=== PATIENT | male | born 1985 | race Caucasian/White ===

== ENCOUNTER 2023-02-12 05:56 | Emergency (ER) | payer MEDICARE, MEDICAID, SELFPAY ==
[2023-02-12 06:02] VITALS: BP 112/76; PULSE 76; RESP 18; TEMP 36.1; O2SAT 99; BMI 33.1
--- NOTE | 2023-02-12 06:17 | ED.GENADULT ---
HPI - General Adult General Chief complaint: Sore Throat Stated complaint: ears and throat pain Time Seen by Provider: 02/12/23 05:59 Source: patient Mode of arrival: ambulatory Limitations: no limitations History of Present Illness HPI narrative: Patient presents with a 4 day history of sore throat. Worse on the right side, refers into the right ear. No significant cough or congestion. No fevers. Hurts to swallow but no true difficulty swallowing. Has not tried NSAIDs. Did try dose of Tylenol last night which did not adequately relieved his symptoms. Is also not getting any relief from Mucinex. He is able to swallow. No tongue or lip swelling. No breathing difficulty. Was treated in the ED for strep a couple of months ago, resolved without complication. No known illness exposures. No trauma or injury. Past medical history notable for anxiety disorder. Takes propranolol and citalopram for this. No recent changes. Social history noted. No recent surgeries. ROS is notable for the HEENT and generalized symptoms as above, otherwise denies times 12 systems. Related Data Home Medications Medication Instructions Recorded Confirmed citalopram 20 mg tablet 20 mg PO DAILY 02/12/23 02/12/23 propranolol 10 mg tablet 10 mg PO BID 02/12/23 02/12/23 Previous Rx's Medication Instructions Recorded ketorolac 10 mg tablet 10 mg PO Q6H PRN pain 5 days #20 02/12/23 tabs Allergies Allergy/AdvReac Type Severity Reaction Status Date / Time azithromycin Allergy Rash Verified 12/24/22 21:11 Penicillins Allergy Verified 12/24/22 21:11 tetracycline Allergy Verified 12/24/22 21:11 [facility] Social History Smoking Status: Current every day smoker Do you use any of these nicotine containing products: None How often do you have a drink containing alcohol: monthly or less AUDIT-C Alcohol total score: 1 Non-prescribed substance use: denies use Exam Const: Vital Signs, click to edit/add: Vital Signs - 24 hr 02/12/23 06:02 Temperature 97 F L Pulse Rate [Pulse Oximeter] 76 Respiratory Rate 18 Blood Pressure [Le ft Upper Arm] 112/76 Pulse Oximetry 99 Oxygen Delivery Me thod Room Air Documenting provider has reviewed patient's vital signs: yes Common normals: no apparent distress General appearance: cooperative Other: Anxious but normal judgment. HENMT: Common normals: normocephalic and head/scalp atraumatic Head and scalp: normocephalic and atraumatic Face and sinus: normal facial exam Other: Right ear is mildly injected but has a normal light reflex, no effusion. Canal is normal. Left ear is perfectly normal. No significant nasal congestion. Eye: Common normals: conjunctivae normal General eye: normal appearance of both eyes Conjunctiva: conjunctiva(e) normal Neck & C-Spine: Other: Mild anterior cervical and submandibular lymphadenopathy. Normal range of motion of neck. Resp: Common normals: normal respiratory effort, no use of accessory muscles and clear to auscultation bilaterally Effort & inspection: able to speak in complete sentences Auscultation: clear to auscultation bilaterally Cardio: Common normals: regular rate, regular rhythm, S1 normal heart sound, S2 normal heart sound and no murmurs Rate: regular rate Rhythm: regular rhythm Heart sounds: S1 normal and S2 normal Psych: Other: Mildly anxious but cooperative. Seems to have normal reasoning and judgment. Normal behavior. Skin: Common normals: no rashes or lesions noted General skin exam: no rashes or lesions noted Course Course Hospital Course: No signs of clinical dehydration, no swelling of pharyngeal arches. No asymmetry that would be suspicious for abscess. No signs of tachycardia or hypotension. Recommended strep and viral swabs. Will give Toradol p.o. x1. Poor candidate for steroids due to anxiety disorder. Will re-evaluate 1 swabs are back. Reevaluation(s) Time of Reevaluation #1: 07:11 Reevaluation #1: All swabs negative. Patient reporting improvement on Toradol. Discussed proper dosing of Tylenol. Will send prescription for Toradol to use as well. Discussed saltwater gargles, alarm symptoms that would warrant ED presentation and typical course of healing. He verbalizes understanding and agreement Vital Signs Vital signs: Initial Vital Signs Temperature 97 F L 02/12/23 06:02 Temperature Source Temporal Artery Scan 02/12/23 06:02 Pulse Rate 76 02/12/23 06:02 Respiratory Rate 18 02/12/23 06:02 Blood Pressure 112/76 02/12/23 06:02 Blood Pressure Mean 88 02/12/23 06:02 Blood Pressure Position Sitting 02/12/23 06:02 Pulse Oximetry 99 02/12/23 06:02 Oxygen Delivery Method Room Air 02/12/23 06:02 Vital Signs Temperature 97 F L 02/12/23 06:02 Pulse Rate 76 02/12/23 06:02 Respiratory Rate 18 02/12/23 06:02 Blood Pressure 112/76 02/12/23 06:02 Pulse Oximetry 99 02/12/23 06:02 Oxygen Delivery Method Room Air 02/12/23 06:02 Temperature 97 F L 02/12/23 06:02 Pulse Rate 76 02/12/23 06:02 Respiratory Rate 18 02/12/23 06:02 Blood Pressure 112/76 02/12/23 06:02 Pulse Oximetry 99 02/12/23 06:02 Oxygen Delivery Method Room Air 02/12/23 06:02 Medical Decision Making Lab Data Lab results reviewed: Yes I reviewed the patient's lab results Lab results narrative: All reassuring, as expected Labs: Lab Results 02/12/23 Range/Units 06:11 SARS-CoV-2 (PCR) Negative SARS-CoV-2 (Negative) Influenza Type A (PCR) Negative PCR FLU A (Negative) Influenza Type B (PCR) Negative PCR FLU B (Negative) RSV (PCR) Negative PCR RSV (Negative) Group A Strep DNA NOT DETECTED (Not Detectd) Discharge Plan Discharge Clinical Impression: Acute viral pharyngitis Patient Disposition: Home, Self-Care Condition: Improved Instructions: Pharyngitis (ED) Additional Instructions: As we discussed, your swabs for strep, COVID, influenza and RSV are all negative. This is great news. Most of the time these types of mild infections are caused by a different virus that we cannot detect with our swabs. The good news is that the viruses heal on their own within a couple of weeks. I am glad that the Toradol seemed to help. This is a medication you may continue on up to 4 times daily for up to 5 days. Remember that you can also use Tylenol 1000 mg every 6 hours also in addition to the Toradol. Saltwater gargles, cold soft foods and drinking lots of fluids will certainly help as well. As we discussed, avoid carbonated beverages, acidic things, spicy food and rough textures. If you have significant difficulty breathing, cannot hold down any liquids for over 24 hours, have high fever or severe weakness, come back to the emergency department. You are cleared to return to work today. Activity Level: No Restrictions Discharge Diet: Regular Prescriptions: New ketorolac 10 mg tablet 10 mg PO Q6H PRN (Reason: pain) 5 Days Qty: 20 0RF No Action propranolol 10 mg tablet 10 mg PO BID citalopram 20 mg tablet 20 mg PO DAILY Follow Up/Referrals: Troy Ventura MD [Primary Care Provider] - Stand Alone Forms: [employer] Info Instructions
[2023-02-12] MEDS: KETOROLAC 10 MG TABLET PO (06:43)
[2023-02-12 06:46] LABS: Strep A DNA Probe* NOT DETECTED (Not Detectd)
[2023-02-12 06:56] LABS: PCR FLU A Negative PCR FLU A (Negative); PCR FLU B Negative PCR FLU B (Negative); PCR RSV Negative PCR RSV (Negative)
[2023-02-12 07:00] LABS: SARS PCR* Negative SARS-CoV-2 (Negative)
== END 2023-02-12 07:24 | disposition home or self-care (01) ==
PROVIDERS: Emergency Provider Family Medicine; PCP Family Medicine
DX: J02.9 Acute pharyngitis, unspecified (principal)
CPT/HCPCS: 87631; 87651; 99283; A9270

== ENCOUNTER 2023-04-20 23:11 | Emergency (ER) | payer MEDICARE, MEDICAID, SELFPAY ==
[2023-04-20 23:19] VITALS: BP 114/75; PULSE 93; RESP 18; TEMP 37.8; O2SAT 97
--- NOTE | 2023-04-20 23:34 | ED_ITS ---
HPI - General Adult General Date Seen: 04/20/23 Chief complaint: Unspecified Complaint, Adult Stated complaint: body aches, headache,chills Time Seen by Provider: 04/20/23 23:33 Source: patient Mode of arrival: ambulatory Limitations: no limitations History of Present Illness HPI narrative: Patient is a 38-year-old male presents emergency department for muscle aches, fever, fatigue, headache. Says muscle aches started 3 days ago. He is not bear any sick contacts a is aware of his current a working. States he has been taking Tylenol ibuprofen for the symptoms and last took ibuprofen about 2 hours ago with minimal improvement. States he started having headache over the past couple days. Says it feels like the headache starts in the back of the head and comes around to the front of his head. Denies having headaches like this before. Says it has been eating and drinking well but still feels dehydrated. Has had nausea but no vomiting yet. Says all the symptoms seem to come and go. Did have a fever while in triage of 100.1. Denies chest pain, shortness of breath, abdominal pain, diarrhea, constipation, dysuria, numbness, weakness. Related Data Home Medications Medication Instructions Recorded Confirmed citalopram 20 mg tablet 20 mg PO DAILY 02/12/23 02/12/23 propranolol 10 mg tablet 10 mg PO BID 02/12/23 02/12/23 Previous Rx's Medication Instructions Recorded ketorolac 10 mg tablet 10 mg PO Q6H PRN pain 5 days #20 02/12/23 tabs ondansetron 4 mg disintegrating 4 mg PO Q6H #20 tabs 04/21/23 tablet Allergies Allergy/AdvReac Type Severity Reaction Status Date / Time azithromycin Allergy Rash Verified 12/24/22 21:11 Penicillins Allergy Verified 12/24/22 21:11 tetracycline Allergy Verified 12/24/22 21:11 Review of Systems Status of ROS: Reports: 10 or more systems reviewed and unremarkable except as noted in History and below [facility] Social History Smoking Status: Current every day smoker Do you use any of these nicotine containing products: None How often do you have a drink containing alcohol: monthly or less AUDIT-C Alcohol total score: 1 Non-prescribed substance use: denies use Exam Narrative: Exam Narrative: Const: Well-nourished, Well-developed, in mild distress Eyes: PERRL, no conjunctival injection, and symmetrical lids ENMT: Atraumatic external nose and ears. Moist mucous membranes. Neck: Symmetric, trachea midline, No thyromegaly. CVS: RRR, No murmurs or gallops. Peripheral pulses 2+ and equal in all extremities RESP: Unlabored respiratory effort. Clear to auscultation bilaterally. GI: Nontender/Nondistended, No rebound or guarding. MSK:Extremities w/o deformity, Normal Active ROM Skin: Warm, Dry. No rashes or lesions. Neuro: Normal Muscle tone, No focal neurological deficits. Psych: Awake, Alert, & Oriented x3. Appropriate mood and affect. Const: Vital Signs, click to edit/add: Vital Signs - 24 hr 04/20/23 23:19 Temperature 100.1 F H Pulse Rate [Left P ulse Oximeter] 93 Respiratory Rate 18 Blood Pressure [Ri ght Upper Arm] 114/75 Pulse Oximetry 97 Oxygen Delivery Me thod Room Air Course Vital Signs Vital signs: Initial Vital Signs Temperature 100.1 F H 04/20/23 23:19 Temperature Source Temporal Artery Scan 04/20/23 23:19 Pulse Rate 93 04/20/23 23:19 Pulse Rhythm Regular 04/20/23 23:19 Respiratory Rate 18 04/20/23 23:19 Blood Pressure 114/75 04/20/23 23:19 Blood Pressure Mean 88 04/20/23 23:19 Blood Pressure Position Sitting 04/20/23 23:19 Pulse Oximetry 97 04/20/23 23:19 Oxygen Delivery Method Room Air 04/20/23 23:19 Vital Signs Temperature 100.1 F H 04/20/23 23:19 Pulse Rate 93 04/20/23 23:19 Respiratory Rate 18 04/20/23 23:19 Blood Pressure 114/75 04/20/23 23:19 Pulse Oximetry 97 04/20/23 23:19 Oxygen Delivery Method Room Air 04/20/23 23:19 Temperature 100.1 F H 04/20/23 23:19 Pulse Rate 93 04/20/23 23:19 Respiratory Rate 18 04/20/23 23:19 Blood Pressure 114/75 04/20/23 23:19 Pulse Oximetry 97 09/17/23 23:19 Oxygen Delivery Method Room Air 04/20/23 23:19 Medical Decision Making [facility] Narrative Medical decision making narrative: Patient is a 38-year-old male presents emergency department for muscle aches, headache, fever. Symptoms have been going on for the past 3 days. Based on description of headache it sounds like a tension-type headache. Under not believe imaging is necessary at this time. He does state he is feeling dehydrated and a L of lactated Ringer's will be ordered. Reglan was given for his nausea along with some Benadryl. He was also having aim mild elevated temperature 100.1? and Toradol was given to help with that and the headache. COVID and flu test are pending at this time. His symptoms all sound to be viral related. COVID and flu were negative. Patient is doing better at this time and can be discharged home. Lab Data Labs: Lab Results 04/20/23 Range/Units 23:25 SARS-CoV-2 (PCR) Negative SARS-CoV-2 (Negative) Influenza Type A (PCR) Negative PCR FLU A (Negative) Influenza Type B (PCR) Negative PCR FLU B (Negative) ECG Data Attestation: I personally reviewed and interpreted this ECG as follows: Prior ECG tracings: not available for review Interpretation: Normal sinus rhythm rate 88 beats per minute, normal intervals, normal axis, no ST or T-wave abnormalities Discharge Plan Discharge Clinical Impression: Acute viral syndrome Patient Disposition: Home, Self-Care Condition: Stable Instructions: Viral Syndrome (ED) Additional Instructions: Take Tylenol and ibuprofen for symptoms. Return for new or worsening symptoms. Prescriptions: New ondansetron 4 mg tablet,disintegrating 4 mg PO Q6H Qty: 20 0RF No Action propranolol 10 mg tablet 10 mg PO BID citalopram 20 mg tablet 20 mg PO DAILY ketorolac 10 mg tablet 10 mg PO Q6H PRN (Reason: pain) 5 Days Qty: 20 0RF Follow Up/Referrals: Troy Ventura MD [Primary Care Provider] - Stand Alone Forms: [employer] Info Instructions
[2023-04-20] MEDS: KETOROLAC 15 MG/ML inj IVP (23:46)
[2023-04-20] MEDS: diphenhydrAMINE 50 MG/ML inj 25 MG IVP (23:46)
[2023-04-20] MEDS: METOCLOPRAMIDE HCL 5 MG/ML INJ 10 MG IVP (23:47)
[2023-04-20] MEDS: LACTATED RINGERS 1000 ML 1,000 ML IV (23:47)
[2023-04-21 00:10] LABS: PCR FLU A Negative PCR FLU A (Negative); PCR FLU B Negative PCR FLU B (Negative)
[2023-04-21 00:11] LABS: SARS PCR* Negative SARS-CoV-2 (Negative)
[2023-04-21 00:41] VITALS: PULSE 72; RESP 16; O2SAT 98
== END 2023-04-21 00:42 | disposition home or self-care (01) ==
PROVIDERS: Emergency Provider Student in an Organized Health Care Education/Training Program; PCP Family Medicine
DX: B34.9 Viral infection, unspecified (principal)
CPT/HCPCS: 87631; 96374; 96375; 99283; 99284; J1200; J1885; J2765; J7120

== ENCOUNTER 2023-04-22 13:47 | Emergency (ER) | payer MEDICARE, MEDICAID, SELFPAY ==
[2023-04-22 13:51] VITALS: BP 119/71; PULSE 79; RESP 18; TEMP 36.6; O2SAT 96; BMI 33.5
--- NOTE | 2023-04-22 14:10 | CRLHL7_ITS ---
For Patients: As a result of the Cures Act, medical imaging exams and procedure reports are released immediately into your electronic medical record. You may view this report before your referring provider. If you have questions, please contact your health care provider. Indication: Body aches, chills fever sick since last Comparison: Two-view chest December 24, 2022 Technique: PA and lateral views of the chest Findings: There is no dense consolidation, effusion, or pneumothorax. The cardiomediastinal silhouette is within normal limits. The bony thorax is grossly intact. Impression: No acute cardiopulmonary abnormality. Dictated by Rebel Kowalski MD @ 04/22/2023 4:01:58 PM (Electronically Signed)
[2023-04-22 14:34] LABS: Lactate Sepsis w/Reflex* 1.2 mmol/L (0.5-1.9)
--- NOTE | 2023-04-22 14:42 | ED_ITS ---
HPI - General Adult General Date Seen: 04/22/23 Chief complaint: Fever Stated complaint: Body aches, chills Time Seen by Provider: 04/22/23 14:01 Source: patient Mode of arrival: ambulatory Limitations: no limitations History of Present Illness HPI narrative: Patient is a 38-year-old male who presents for re-evaluation of fever, chills, body aches which have been going on for about 5 days now. He was seen here couple days ago, viral testing was negative. He denies sore throat, cough, shortness of breath, abdominal pain, has felt nauseated but no vomiting, no diarrhea, no rashes. No real tick exposure, he has not traveled. Has not been around anybody sick that he is aware of. Symptoms have just persisted, not gotten any better. He feels like the body aches or somewhat worse. He does have a headache as well, no neck pain. Reports a temperature of 101? at home earlier today. Has been taking DayQuil as well as intermittent ibuprofen and Tylenol. General health is good. He does smoke, denies any drug or alcohol use. Related Data Home Medications Medication Instructions Recorded Confirmed citalopram 20 mg tablet 20 mg PO DAILY 02/12/23 02/12/23 propranolol 10 mg tablet 10 mg PO BID 02/12/23 02/12/23 Previous Rx's Medication Instructions Recorded ketorolac 10 mg tablet 10 mg PO Q6H PRN pain 5 days #20 02/12/23 tabs ondansetron 4 mg disintegrating 4 mg PO Q6H #20 tabs 04/21/23 tablet Allergies Allergy/AdvReac Type Severity Reaction Status Date / Time azithromycin Allergy Rash Verified 12/24/22 21:11 Penicillins Allergy Verified 12/24/22 21:11 tetracycline Allergy Verified 12/24/22 21:11 Review of Systems Status of ROS: Reports: 10 or more systems reviewed and unremarkable except as noted in History and below [facility] Social History Smoking Status: Current every day smoker Do you use any of these nicotine containing products: None How often do you have a drink containing alcohol: monthly or less How often do you have six or more drinks on one occasion: Less than monthly AUDIT-C Alcohol total score: 2 Non-prescribed substance use: denies use Exam Narrative: Exam Narrative: Vital signs as noted above. In general, an alert, well-appearing patient. Head: Normocephalic, atraumatic. Eyes: Pupils are equal reactive. Extraocular movements are full. Conjunctivae are normal. ENT: Mucous membranes are moist. Throat is normal. Neck: Supple without lymphadenopathy. Heart: Regular rate and rhythm. No murmur or rub. Lungs: Clear bilaterally. No increased work of breathing, crackles or wheezes. Abdomen: Soft and nontender. No organomegaly. Extremities: Well perfused. No edema. No calf tenderness. Pulses intact. Neurologic: Patient is alert and oriented to person and place. Speech is fluent. Face is symmetric. Moves all extremities equally. Affect: Normal. Skin: Warm and dry. Well perfused. Const: Vital Signs, click to edit/add: Vital Signs - 24 hr 04/22/23 13:51 04/22/23 16:42 Temperature 97.8 F 98.2 F Pulse Rate [Right Pulse Oximeter] 79 65 Respiratory Rate 18 16 Blood Pressure [Ri ght Upper Arm] 119/71 127/82 Pulse Oximetry 96 Oxygen Delivery Me thod Room Air Documenting provider has reviewed patient's vital signs: yes Course Course ED Course: Exam is overall pretty unremarkable for this patient. He is afebrile here, vital signs are normal. Looks nontoxic. I did do some lab work today, he felt he would benefit from more IV fluids so he had a L of saline. His white blood cell count was slightly low at 3.16, platelet count was normal. Metabolic panel is normal, LFTs notable for an AST of 69 and an ALT of 100 but other LFTs are normal. CRP is 5.7. I reviewed all of this with him. It is still certainly possible as symptoms are viral. We talked about the fact that he does have mild elevations in his transaminases, does not otherwise have symptoms that are highly suggestive of hepatitis at this time. I do think it would probably be reasonable to recheck these in a couple of days and make sure that they are not trending up. I would recommend return to the ER if he develops upper abdominal pain, vomiting, or jaundice/icterus. Certainly nothing to suggest meningitis at this time. He did say that he had reviewed his labs on the portal, and was wondering about an HIV test so this has been added on as well. Return to the ER at any time for acute worsening or as outlined above. Otherwise I recommended primary care follow-up in a couple of days for recheck, recheck of LFTs. Hydration, ibuprofen or Tylenol as needed for fever today aches. I also sent off a Lyme titer as well as a tick panel. Vital Signs Vital signs: Initial Vital Signs Temperature 97.8 F 04/22/23 13:51 Temperature Source Temporal Artery Scan 04/22/23 13:51 Pulse Rate 79 04/22/23 13:51 Respiratory Rate 18 04/22/23 13:51 Blood Pressure 119/71 04/22/23 13:51 Blood Pressure Mean 87 04/22/23 13:51 Blood Pressure Position Sitting 04/22/23 13:51 Pulse Oximetry 96 04/22/23 13:51 Oxygen Delivery Method Room Air 04/22/23 13:51 Vital Signs Temperature 97.8 F 04/22/23 13:51 Pulse Rate 79 04/22/23 13:51 Respiratory Rate 18 04/22/23 13:51 Blood Pressure 119/71 04/22/23 13:51 Pulse Oximetry 96 04/22/23 13:51 Oxygen Delivery Method Room Air 04/22/23 13:51 Temperature 98.2 F 04/22/23 16:42 Pulse Rate 65 04/22/23 16:42 Respiratory Rate 16 04/22/23 16:42 Blood Pressure 127/82 04/22/23 16:42 Pulse Oximetry 96 04/22/23 13:51 Oxygen Delivery Method Room Air 04/22/23 13:51 Medical Decision Making Lab Data Labs: Lab Results 04/22/23 04/22/23 Range/Units 14:25 16:28 WBC 3.16 L (4.50-11.00) K/uL RBC 5.35 (4.30-5.90) m/uL Hgb 15.9 (13.5-17.5) gm/dL Hct 46.7 (37.0-53.0) % MCV 87 (80-100) fL MCH 30 (26-34) pg MCHC 34 (32-36) gm/dL RDW Coeff of Daija 12.3 (11.5-15.5) % Plt Count 161 (140-440) K/uL Neut % (Auto) 67.6 (42.0-72.0) % Lymph % (Auto) 19.9 L (20-44) % Mckenzie % (Auto) 10.4 (0.0-11.0) % Eos % (Auto) 0.3 (0.0-7.0) % Baso % (Auto) 0.9 (0.0-3.0) % Neut # (Auto) 2.10 (1.7-7.0) K/uL Lymph # (Auto) 0.60 L (0.90-2.90) K/uL Mckenzie # (Auto) 0.30 (0.00-0.90) K/UL Eos # (Auto) 0.00 (0.00-0.50) K/uL Baso # (Auto) 0.00 (0.00-0.30) K/uL Abs Immat Gran (auto) 0.00 (0.00-0.30) K/uL Imm/Tot Granulo (auto) 0.9 % ESR 7 (2-15) mm/hr Sodium 136 (135-149) mmol/L Potassium 4.1 (3.6-5.1) mmol/L Chloride 104 (96-114) mmol/L Carbon Dioxide 25 (20-32) mmol/L Anion Gap 7 (7-15) mEq/L BUN 7 (5-24) mg/dL Creatinine 0.8 (0.5-1.5) mg/dL Estimated Creat Clear 123.50 Estimated GFR 118 ml/min Glucose 134 H (60-115) mg/dL Lactate 1.2 (0.5-1.9) mmol/L Calcium 9.2 (8.4-10.6) mg/dL Total Bilirubin 1.2 (0.1-1.5) mg/dL Direct Bilirubin 0.1 (0.0-0.5) mg/dL AST 69 H (12-35) U/L ALT 100 H (4-50) U/L Alkaline Phosphatase 54 (40-150) U/L C-Reactive Protein 5.7 H (0.5-1.0) mg/dL Total Protein 7.4 (6.0-8.3) g/dL Albumin 4.3 (3.3-5.0) g/dL HIV 1&2 Ab/P24 Ag 4thGn Negative (Negative) Discharge Plan Discharge Clinical Impression: Acute viral syndrome Patient Disposition: Home, Self-Care Condition: Stable Instructions: Viral Syndrome (ED) Additional Instructions: Continue with ibuprofen and/or Tylenol as needed for fever and body aches. Your labs today are all relatively normal with the exception of mild elevations in your liver transaminases. This is nonspecific in this setting. I would recommend primary care follow-up in clinic in a couple of days for recheck and consideration of repeat liver function testing. If you have development of significant abdominal pain, vomiting, yellowing of your skin or eyes, return to the emergency department. Prescriptions: No Action propranolol 10 mg tablet 10 mg PO BID citalopram 20 mg tablet 20 mg PO DAILY ketorolac 10 mg tablet 10 mg PO Q6H PRN (Reason: pain) 5 Days Qty: 20 0RF ondansetron 4 mg tablet,disintegrating 4 mg PO Q6H Qty: 20 0RF Follow Up/Referrals: Troy Ventura MD [Primary Care Provider] - Stand Alone Forms: [employer] Info Instructions
[2023-04-22 15:02] LABS: Basophils Percent Auto 0.9 % (0.0-3.0); Chloride* 104 mmol/L (96-114); Eosinophils Percent Auto 0.3 % (0.0-7.0); Hematocrit 46.7 % (37.0-53.0); Hemoglobin* 15.9 gm/dL (13.5-17.5); Immature Granulocytes Pct Auto 0.9 %; Lymphocytes Percent Auto 19.9 % (20-44); Mean Corpuscular HGB Conc 34 gm/dL (32-36); Mean Corpuscular Hemoglobin 30 pg (26-34); Mean Corpuscular Volume 87 fL (80-100); Monocytes Percent Auto 10.4 % (0.0-11.0); Neutrophils Percent Auto 67.6 % (42.0-72.0); Platelet Count* 161 K/uL (140-440); Potassium* 4.1 mmol/L (3.6-5.1); RDW Coefficient of Variation % 12.3 % (11.5-15.5); Red Blood Count 5.35 m/uL (4.30-5.90); Sodium* 136 mmol/L (135-149); White Blood Count* 3.16 K/uL (4.50-11.00)
[2023-04-22 15:03] LABS: Albumin* 4.3 g/dL (3.3-5.0)
[2023-04-22 15:04] LABS: Creatinine* 0.8 mg/dL (0.5-1.5); Estimated Glomerular Filt Rate 118 ml/min
[2023-04-22 15:05] LABS: Anion Gap 7 mEq/L (7-15); Blood Urea Nitrogen* 7 mg/dL (5-24); Carbon Dioxide* 25 mmol/L (20-32); Glucose* 134 mg/dL (60-115)
[2023-04-22 15:06] LABS: Alanine Aminotransferase* 100 U/L (4-50); Alkaline Phosphatase* 54 U/L (40-150); Aspartate Amino Transferase* 69 U/L (12-35); Bilirubin Direct* 0.1 mg/dL (0.0-0.5); Bilirubin Total* 1.2 mg/dL (0.1-1.5); Calcium* 9.2 mg/dL (8.4-10.6); Total Protein* 7.4 g/dL (6.0-8.3)
[2023-04-22 15:08] LABS: C Reactive Protein* 5.7 mg/dL (0.5-1.0)
[2023-04-22 15:09] LABS: Slide Review Reflex No
[2023-04-22] MEDS: 0.9 % SODIUM CHLORIDE 1000 ml 1,000 ML IV (15:16)
[2023-04-22 15:49] LABS: Erythrocyte SedimentationRate* 7 mm/hr (2-15)
[2023-04-22 16:42] VITALS: BP 127/82; PULSE 65; RESP 16; TEMP 36.8
[2023-04-22 17:22] LABS: HIV 1/2/P24 Combo Screen* Negative (Negative)
[2023-04-24 23:59] LABS: Lyme ELISA Reflex 0.34 IV (<=0.90)
[2023-04-27 11:04] LABS: Anaplasma phagocyt PCR Not Detected; Babesia microti by PCR Not Detected; Babesia species by PCR Not Detected; Ehrlichia chaffeensis by PCR Not Detected; Ehrlichia ewingii/canis by PCR Not Detected; Ehrlichia muris-like by PCR Not Detected
== END 2023-04-22 16:43 | disposition home or self-care (01) ==
PROVIDERS: Emergency Provider Emergency Medicine; PCP Family Medicine
DX: B34.9 Viral infection, unspecified (principal)
CPT/HCPCS: 36415; 71046; 80048; 80076; 83605; 85025; 85651; 86140; 86618; 86703; 87040; 87798; 96360; 99283; 99284; J7030

== ENCOUNTER 2023-04-23 02:40 | Emergency (ER) | payer MEDICARE, MEDICAID, SELFPAY ==
[2023-04-23 03:00] VITALS: BP 121/81; PULSE 78; RESP 18; TEMP 36.7; O2SAT 98; O2SAT 99; BMI 34.2
--- NOTE | 2023-04-23 03:10 | ED_ITS ---
HPI - General Adult General Time Seen by Provider: 03:11 Date Seen: 04/23/23 Chief complaint: Unspecified Complaint, Adult Stated complaint: Feeling Ill Time Seen by Provider: 04/23/23 03:10 Source: patient and RN notes reviewed Mode of arrival: ambulatory Limitations: no limitations History of Present Illness HPI narrative: Neymar is a very pleasant 38-year-old gentleman with history of anxiety, recent diagnosis of viral infection who comes to the emergency room for increasing symptoms and chest pain. Patient notes 5 days of body aches fever up to 101 and a headache. Patient notes the headache is actually improved quite a bit. He denies any neck pain. He comes to the emergency room tonight because he is been experiencing some chest pain that is worsened with deep breathing and that is a new symptom. He has had some mild nausea without any vomiting. Any denies any diarrhea. Patient notes that he is feeling dizzy and that is also bothering him as well. Patient was initially seen on 04/20 and diagnosed with URI. At that time he had a negative COVID test and reassuring lab values. He was then seen yesterday 04/22 and labs were once again reassuring. Dr. Brink also did an HIV test which was negative and chest x-ray that was reassuring. Finally she did send off a tick panel. At this time he is not short of breath, experiencing abdominal pain, but notes that he is still having episodes of feeling hot and then cold. Patient is fully vaccinated against COVID. No past history of heart problems. Related Data Home Medications Medication Instructions Recorded Confirmed citalopram 20 mg tablet 20 mg PO DAILY 02/12/23 04/23/23 propranolol 10 mg tablet 10 mg PO BID 02/12/23 04/23/23 Previous Rx's Medication Instructions Recorded ketorolac 10 mg tablet 10 mg PO Q6H PRN pain 5 days #20 02/12/23 tabs ondansetron 4 mg disintegrating 4 mg PO Q6H #20 tabs 04/21/23 tablet Allergies Allergy/AdvReac Type Severity Reaction Status Date / Time azithromycin Allergy Mild Rash Verified 04/23/23 03:02 Penicillins Allergy Mild Hives Verified 04/23/23 03:02 tetracycline Allergy Mild Hives Verified 04/23/23 03:02 Review of Systems Status of ROS: Reports: 6 or more systems reviewed and unremarkable except as noted in History and below Const: Reports: fever (Up to 101), chills, fatigue and night sweats Eyes: Denies: change in vision ENMT: Denies: neck pain or difficulty swallowing Cardio: Reports: chest pain and lightheadedness; Denies: swelling of feet/ankles or shortness of breath with exertion Resp: Denies: shortness of breath GI: Reports: nausea; Denies: abdominal pain, vomiting or difficulty swallowing Musculo: Denies: neck pain Neuro: Reports: headache (Improving) Endo: Reports: fatigue PFSH PFSH Social History Smoking Status: Current every day smoker Do you use any of these nicotine containing products: None How often do you have a drink containing alcohol: monthly or less How often do you have six or more drinks on one occasion: Less than monthly AUDIT-C Alcohol total score: 2 Non-prescribed substance use: denies use Exam Narrative: Exam Narrative: Patient is alert and oriented. He is somewhat diaphoretic. Mentating normally. Eyes are clear. Oral cavity with moist mucous membranes. Mild erythema in the posterior oropharynx. No exudate noted. No anterior cervical lymphadenopathy. Neck is supple and range of motion is full. Heart with a regular rate and rhythm. I do not auscultate murmur or rub. Lungs are clear in all lung waite. Abdomen soft. Moving all extremities. Const: Vital Signs, click to edit/add: Vital Signs - 24 hr 04/23/23 03:00 04/23/23 03:00 04/23/23 03:34 Temperature 98.1 F Pulse Rate [Right Pulse Oximeter] 78 Respiratory Rate 18 Respiratory Rate [ Chest] 18 Blood Pressure [Ri ght Upper Arm] 121/81 Pulse Oximetry 99 98 Oxygen Delivery Me thod Room Air 04/23/23 05:00 04/23/23 05:52 04/23/23 06:27 Temperature 98.1 F 98.1 F 98.1 F Pulse Rate [Right Pulse Oximeter] 81 Respiratory Rate 18 Respiratory Rate [ Chest] Blood Pressure [Ri ght Upper Arm] 118/79 Pulse Oximetry 98 Oxygen Delivery Me thod Room Air 04/23/23 06:29 Temperature 98.1 F Pulse Rate [Right Pulse Oximeter] 81 Respiratory Rate 18 Respiratory Rate [ Chest] Blood Pressure [Ri ght Upper Arm] 118/79 Pulse Oximetry Oxygen Delivery Me thod Documenting provider has reviewed patient's vital signs: yes Course Course ED Course: Patient has many symptoms consistent with COVID although he did test negative on 04/20. This could be other viruses as well including EBV, adenovirus except trip. Patient has no meningeal signs at this time and in fact his headache is been improving. New symptoms tonight is chest pain. It is related to deep breathing and there is no associated shortness of breath. At this time will repeat the COVID/RSV/influenza, at a strep test and do a cardiac rule out. Patient is in agreement with this plan. Reevaluation(s) Reevaluation #1: Patient is informed that initial troponin and EKG are reassuring. Strep is also negative. Reevaluation #2: Patient notes that it continues to hurt when he takes a deep breath. No evidence of murmur noted. CRP tonight is 4.8 compared to previous of 5.7 yesterday. White count has dropped slightly to 2.96 from 3.16. AST 66 an ALT 91 is comparable to yesterday's value of 69 and 100 respectively. Patient continues to be afebrile here. Currently pending are mono test and CK given b gill aches. Initially I had ordered a D-dimer but that is canceled as patient is not tachycardic, has no shortness of breath or stridor and O2 sats are 99 and 98% on checks. There is nothing to suggest this patient is at risk for PE. Reevaluation #3: Patient notes that his chest pain has improved after ibuprofen. Patient also notes that he has been alternating between sugar free Gatorade and water. While a appreciate this I did ask that he would try some Sprite and he notes that his dizziness is much improved. Has not been eating very much and I wonder if this was part of his symptoms. Vital Signs Vital signs: Initial Vital Signs Temperature 98.1 F 04/23/23 03:00 Temperature Source Temporal Artery Scan 04/23/23 03:00 Pulse Rate 78 04/23/23 03:00 Respiratory Rate 18 04/23/23 03:00 Blood Pressure 121/81 04/23/23 03:00 Blood Pressure Mean 94 04/23/23 03:00 Blood Pressure Position Sitting 04/23/23 03:00 Pulse Oximetry 99 04/23/23 03:00 Oxygen Delivery Method Room Air 04/23/23 03:00 Vital Signs Temperature 98.1 F 04/23/23 03:00 Pulse Rate 78 04/23/23 03:00 Respiratory Rate 18 04/23/23 03:00 Blood Pressure 121/81 04/23/23 03:00 Pulse Oximetry 99 04/23/23 03:00 Oxygen Delivery Method Room Air 04/23/23 03:00 Temperature 98.1 F 04/23/23 06:29 Pulse Rate 81 04/23/23 06:29 Respiratory Rate 18 04/23/23 06:29 Blood Pressure 118/79 04/23/23 06:29 Pulse Oximetry 98 04/23/23 05:00 Oxygen Delivery Method Room Air 04/23/23 05:00 Medical Decision Making MDM Narrative Medical decision making narrative: 1. URI-patient has tested negative for COVID/influenza/RSV once again. His symptoms strongly suggest a viral type source. He does have Lyme and tick tests pending. He has no evidence of meningeal signs and actually has headache has been improving. He has had very slight improvement of his LFTs and CRP verses yesterday. At this time symptomatic cares are suggested in patient is given 800 mg of ibuprofen while in the ED. 2. Atypical chest pain-EKGs are reassuring and 2 sets of cardiac enzymes are negative. Pain is not related to activity but only deep breathing. With normal pulse blood pressure and oximetry a very low suspicion of PE. Pain does not radiate to the back to suggest large vessel issue. At this time reassurance as I do believe this is likely musculoskeletal. He is improved after ibuprofen. 3. Disposition-home at this time. Follow-up with primary MD for ongoing symptoms. Reassurance at this time. Dizziness is much improved after Sprite. Patient had been limiting himself to sugar free Gatorade water and minimal food intake. I suggest that some of his symptoms were likely from decreased p.o.. CK was negative. Finally, patient and has tested negative for mono. If he has continued symptoms after you to 10 days may consider recheck. Medical Records Medical records reviewed: Yes I reviewed the patient's medical records Lab Data Lab results reviewed: Yes I reviewed the patient's lab results Labs: Lab Results 04/23/23 04/23/23 04/23/23 Range/Units 03:20 03:25 03:30 WBC 2.96 L (4.50-11.00) K/uL RBC 4.81 (4.30-5.90) m/uL Hgb 14.6 (13.5-17.5) gm/dL Hct 42.0 (37.0-53.0) % MCV 87 (80-100) fL MCH 30 (26-34) pg MCHC 35 (32-36) gm/dL RDW Coeff of Daija 12.3 (11.5-15.5) % Plt Count 152 (140-440) K/uL Neut % (Auto) 55.4 (42.0-72.0) % Lymph % (Auto) 29.7 (20-44) % [place] % (Auto) 13.2 H (0.0-11.0) % Eos % (Auto) 0.7 (0.0-7.0) % Baso % (Auto) 0.7 (0.0-3.0) % Neut # (Auto) 1.60 L (1.7-7.0) K/uL Lymph # (Auto) 0.90 (0.90-2.90) K/uL [place] # (Auto) 0.40 (0.00-0.90) K/UL Eos # (Auto) 0.00 (0.00-0.50) K/uL Baso # (Auto) 0.00 (0.00-0.30) K/uL Abs Immat Gran (auto) 0.00 (0.00-0.30) K/uL Imm/Tot Granulo (auto) 0.3 % Sodium 136 (135-149) mmol/L Potassium 3.9 (3.6-5.1) mmol/L Chloride 106 (96-114) mmol/L Carbon Dioxide 24 (20-32) mmol/L Anion Gap 6 L (7-15) mEq/L BUN 7 (5-24) mg/dL Creatinine 0.8 (0.5-1.5) mg/dL Estimated Creat Clear 123.50 Estimated GFR 118 ml/min Glucose 136 H (60-115) mg/dL Calcium 8.9 (8.4-10.6) mg/dL Total Bilirubin 1.0 (0.1-1.5) mg/dL AST 66 H (12-35) U/L ALT 91 H (4-50) U/L Alkaline Phosphatase 53 (40-150) U/L Total Creatine Kinase 86 (54-186) U/L C-Reactive Protein 4.8 H (0.5-1.0) mg/dL Total Protein 6.9 (6.0-8.3) g/dL Albumin 4.1 (3.3-5.0) g/dL SARS-CoV-2 (PCR) Negative SARS-CoV-2 (Negative) Monoscreen Negative (Negative) Influenza Type A (PCR) Negative PCR FLU A (Negative) Influenza Type B (PCR) Negative PCR FLU B (Negative) RSV (PCR) Negative PCR RSV (Negative) Group A Strep DNA NOT DETECTED (Not Detectd) Lab Acknowledgement POC Troponin I 0.00 L (0.01-0.04) ng/ml 04/23/23 04/23/23 Range/Units 05:00 05:35 WBC (4.50-11.00) K/uL RBC (4.30-5.90) m/uL Hgb (13.5-17.5) gm/dL Hct (37.0-53.0) % MCV (80-100) fL MCH (26-34) pg MCHC (32-36) gm/dL RDW Coeff of Daija (11.5-15.5) % Plt Count (140-440) K/uL Neut % (Auto) (42.0-72.0) % Lymph % (Auto) (20-44) % [place] % (Auto) (0.0-11.0) % Eos % (Auto) (0.0-7.0) % Baso % (Auto) (0.0-3.0) % Neut # (Auto) (1.7-7.0) K/uL Lymph # (Auto) (0.90-2.90) K/uL [place] # (Auto) (0.00-0.90) K/UL Eos # (Auto) (0.00-0.50) K/uL Baso # (Auto) (0.00-0.30) K/uL Abs Immat Gran (auto) (0.00-0.30) K/uL Imm/Tot Granulo (auto) % Sodium (135-149) mmol/L Potassium (3.6-5.1) mmol/L Chloride (96-114) mmol/L Carbon Dioxide (20-32) mmol/L Anion Gap (7-15) mEq/L BUN (5-24) mg/dL Creatinine (0.5-1.5) mg/dL Estimated Creat Clear Estimated GFR ml/min Glucose (60-115) mg/dL Calcium (8.4-10.6) mg/dL Total Bilirubin (0.1-1.5) mg/dL AST (12-35) U/L ALT (4-50) U/L Alkaline Phosphatase (40-150) U/L Total Creatine Kinase (54-186) U/L C-Reactive Protein (0.5-1.0) mg/dL Total Protein (6.0-8.3) g/dL Albumin (3.3-5.0) g/dL SARS-CoV-2 (PCR) (Negative) Monoscreen (Negative) Influenza Type A (PCR) (Negative) Influenza Type B (PCR) (Negative) RSV (PCR) (Negative) Group A Strep DNA (Not Detectd) Lab Acknowledgement Test Added POC Troponin I 0.00 L (0.01-0.04) ng/ml ECG Data Attestation: I personally reviewed and interpreted this ECG as follows: Interpretation: EKG 1. By my read shows sinus rhythm at a rate of 69. No acute ST or T-wave changes are noted. EKG 2. By my read shows sinus rhythm at a rate of 59. No acute ST or T-wave changes are noted.and MS intervals. Discharge Plan Discharge Clinical Impression: Acute viral syndrome, Atypical chest pain Patient Disposition: Home, Self-Care Additional Instructions: Rest, push fluids. Ibuprofen as needed for discomfort. Seek medical attention for worsening symptoms. Return as needed Prescriptions: No Action propranolol 10 mg tablet 10 mg PO BID citalopram 20 mg tablet 20 mg PO DAILY ketorolac 10 mg tablet 10 mg PO Q6H PRN (Reason: pain) 5 Days Qty: 20 0RF ondansetron 4 mg tablet,disintegrating 4 mg PO Q6H Qty: 20 0RF Follow Up/Referrals: Troy Ventura MD [Primary Care Provider] - Stand Alone Forms: [employer] Info Instructions
[2023-04-23 03:34] VITALS: RESP 18; O2SAT 99
[2023-04-23 03:36] LABS: Basophils Percent Auto 0.7 % (0.0-3.0); Eosinophils Percent Auto 0.7 % (0.0-7.0); Hemoglobin* 14.6 gm/dL (13.5-17.5); Immature Granulocytes Pct Auto 0.3 %; Lymphocytes Percent Auto 29.7 % (20-44); Mean Corpuscular HGB Conc 35 gm/dL (32-36); Mean Corpuscular Hemoglobin 30 pg (26-34); Mean Corpuscular Volume 87 fL (80-100); Monocytes Percent Auto 13.2 % (0.0-11.0); Neutrophils Percent Auto 55.4 % (42.0-72.0); Platelet Count* 152 K/uL (140-440); RDW Coefficient of Variation % 12.3 % (11.5-15.5); Red Blood Count 4.81 m/uL (4.30-5.90); White Blood Count* 2.96 K/uL (4.50-11.00)
[2023-04-23 03:39] LABS: Slide Review Reflex No
[2023-04-23 03:48] LABS: Albumin* 4.1 g/dL (3.3-5.0); Chloride* 106 mmol/L (96-114)
[2023-04-23 03:49] LABS: Potassium* 3.9 mmol/L (3.6-5.1); Sodium* 136 mmol/L (135-149)
[2023-04-23 03:51] LABS: Creatinine* 0.8 mg/dL (0.5-1.5); Estimated Glomerular Filt Rate 118 ml/min
[2023-04-23 03:52] LABS: Alanine Aminotransferase* 91 U/L (4-50); Alkaline Phosphatase* 53 U/L (40-150); Anion Gap 6 mEq/L (7-15); Aspartate Amino Transferase* 66 U/L (12-35); Blood Urea Nitrogen* 7 mg/dL (5-24); Calcium* 8.9 mg/dL (8.4-10.6); Carbon Dioxide* 24 mmol/L (20-32); Glucose* 136 mg/dL (60-115); Total Protein* 6.9 g/dL (6.0-8.3)
[2023-04-23 03:55] LABS: C Reactive Protein* 4.8 mg/dL (0.5-1.0)
[2023-04-23 04:02] LABS: Strep A DNA Probe* NOT DETECTED (Not Detectd)
[2023-04-23 04:14] LABS: PCR FLU A Negative PCR FLU A (Negative); PCR FLU B Negative PCR FLU B (Negative); PCR RSV Negative PCR RSV (Negative)
[2023-04-23 04:19] LABS: SARS PCR* Negative SARS-CoV-2 (Negative)
[2023-04-23 05:00] VITALS: BP 118/79; PULSE 81; RESP 18; TEMP 36.7; O2SAT 98
[2023-04-23 05:52] VITALS: TEMP 36.7
[2023-04-23 05:52] LABS: Creatine Kinase* 86 U/L (54-186)
[2023-04-23] MEDS: IBUPROFEN 400 MG TABLET 800 MG PO (05:52)
[2023-04-23 05:56] LABS: Mono Screen* Negative (Negative)
[2023-04-23 06:27] VITALS: TEMP 36.7
[2023-04-23 06:29] VITALS: BP 118/79; PULSE 81; RESP 18; TEMP 36.7
== END 2023-04-23 06:43 | disposition home or self-care (01) ==
PROVIDERS: Emergency Provider Family Medicine; PCP Family Medicine
DX: R07.89 Other chest pain (principal); B34.9 Viral infection, unspecified
CPT/HCPCS: 36415; 80053; 82550; 84484; 85025; 86140; 86308; 87631; 87651; 93005; 94761; 99284; A9270

== ENCOUNTER 2023-05-01 21:39 | Emergency (ER) | payer MEDICARE, MEDICAID, SELFPAY ==
[2023-05-01 21:49] VITALS: BP 136/82; PULSE 81; RESP 16; TEMP 36.6; O2SAT 98; BMI 31.9
--- NOTE | 2023-05-01 22:12 | CRLHL7_ITS ---
For Patients: As a result of the Century Cures Act, medical imaging exams and procedure reports are released immediately into your electronic medical record. You may view this report before your referring provider. If you have questions, please contact your health care provider. INDICATION: Leg pain and swelling. TECHNIQUE: Ultrasound venous duplex lower left extremity. Compression venous exam was performed using delgado-scale, color Doppler, and spectral Doppler analysis. COMPARISON: None. FINDINGS: Deep veins: Sonographic imaging demonstrates the left common femoral, deep femoral, superficial femoral, popliteal, posterior tibial and the contralateral right common femoral veins to be fully compressible with normal color Doppler blood flow. Superficial veins: Superficial thrombus in the greater saphenous vein within 1 centimeter to the superficial femoral junction. No popliteal cyst. IMPRESSION: Superficial thrombus in the lesser saphenous vein within 1 centimeters to the popliteal junction, and extending into the calf. No DVT in the left lower extremity. Primary team is already aware of results. Dictated by Jeffy South MD @ 05/02/2023 12:09:16 AM (Electronically Signed)
--- NOTE | 2023-05-01 22:19 | ED_ITS ---
HPI - General Adult General Date Seen: 05/01/23 Chief complaint: Extremity Pain/Injury, Lower Stated complaint: Pain in back of L leg Time Seen by Provider: 05/01/23 22:07 Source: patient Mode of arrival: ambulatory Limitations: no limitations History of Present Illness HPI narrative: Patient is a 8-year-old male with no pertinent medical problems presents emergency department for left leg pain. Pain is down near his Achilles and goes up his leg. There is some mild swelling noted around the left lower leg compared to the right leg. He does state his mother has a history of a blood c lotting disorder but he has no known history of it. Denies numbness or weakness. Symptoms are going on for the past 2 days he has scheduled to see his primary care provider with the pain was acutely worse today so he came to the emergency department. Is not aware of any injuries to his left leg. Pain is tolerable when he is at rest. Denies numbness or weakness. Denies chest pain and shortness of breath Related Data Home Medications Medication Instructions Recorded Confirmed citalopram 20 mg tablet 20 mg PO DAILY 02/12/23 04/23/23 propranolol 10 mg tablet 10 mg PO BID 02/12/23 04/23/23 Previous Rx's Medication Instructions Recorded ketorolac 10 mg tablet 10 mg PO Q6H PRN pain 5 days #20 02/12/23 tabs ondansetron 4 mg disintegrating 4 mg PO Q6H #20 tabs 04/21/23 tablet apixaban 5 mg (74 tabs) tablets in 5 mg PO BID #74 ea 05/01/23 a dose pack (Eliquis DVT-PE Treat 30D Start) Allergies Allergy/AdvReac Type Severity Reaction Status Date / Time azithromycin Allergy Mild Rash Verified 04/23/23 03:02 Penicillins Allergy Mild Hives Verified 04/23/23 03:02 tetracycline Allergy Mild Hives Verified 04/23/23 03:02 Review of Systems Status of ROS: Reports: 10 or more systems reviewed and unremarkable except as noted in History and below PFSH PFS Social History Smoking Status: Current every day smoker Do you use any of these nicotine containing products: None Second hand tobacco smoke exposure: No How often do you have a drink containing alcohol: monthly or less How often do you have six or more drinks on one occasion: Less than monthly AUDIT-C Alcohol total score: 2 Non-prescribed substance use: denies use Exam Narrative: Exam Narrative: Const: Well-nourished, Well-developed, in mild distress Eyes: PERRL, no conjunctival injection, and symmetrical lids HENT: Atraumatic external nose and ears. Moist mucous membranes. Neck: Symmetric, trachea midline, No thyromegaly. CVS: RRR, No murmurs or gallops. Peripheral pulses 2+ and equal in all extremities RESP: Unlabored respiratory effort. Clear to auscultation bilaterally. GI: Nontender/Nondistended, No rebound or guarding. MSK:Extremities w/o deformity, Normal Active ROM. Mild tenderness to the posterior aspect of the left lower leg, mild swelling left lower leg compared to right leg Skin: Warm, Dry. No rashes or lesions. Neuro: Normal Muscle tone, No focal neurological deficits. Psych: Awake, Alert, & Oriented x3. Appropriate mood and affect. Const: Vital Signs, click to edit/add: Vital Signs - 24 hr 05/01/23 21:49 05/01/23 23:49 Temperature 97.9 F Pulse Rate [Left P ulse Oximeter] 81 64 Respiratory Rate 16 16 Blood Pressure [Ri ght Upper Arm] 136/82 120/87 Pulse Oximetry 98 96 Oxygen Delivery Me thod Room Air Room Air Course Vital Signs Vital signs: Initial Vital Signs Temperature 97.9 F 05/01/23 21:49 Temperature Source Temporal Artery Scan 05/01/23 21:49 Pulse Rate 81 05/01/23 21:49 Respiratory Rate 16 05/01/23 21:49 Blood Pressure 136/82 05/01/23 21:49 Blood Pressure Mean 100 05/01/23 21:49 Blood Pressure Position Sitting 05/01/23 21:49 Pulse Oximetry 98 05/01/23 21:49 Oxygen Delivery Method Room Air 05/01/23 21:49 Vital Signs Temperature 97.9 F 05/01/23 21:49 Pulse Rate 81 05/01/23 21:49 Respiratory Rate 16 05/01/23 21:49 Blood Pressure 136/82 05/01/23 21:49 Pulse Oximetry 98 05/01/23 21:49 Oxygen Delivery Method Room Air 05/01/23 21:49 Temperature 97.9 F 05/01/23 21:49 Pulse Rate 64 05/01/23 23:49 Respiratory Rate 16 05/01/23 23:49 Blood Pressure 120/87 05/01/23 23:49 Pulse Oximetry 96 05/01/23 23:49 Oxygen Delivery Method Room Air 05/01/23 23:49 Medical Decision Making MDM Narrative Medical decision making narrative: Patient is a 38-year-old male presenting for left lower leg swelling. He has no known injuries to the leg. His mother has clotting disorder but he does not have 1 that he is aware of. Could be muscle strain but there is some mild swelling and we will get ultrasound to rule out DVT. He does not want pain medication at this time. heating and cooling technician informed me that he has a superficial clot to his left lesser saphenous vein that is about 9 mm from the deep complex. She states his extensive appears to be around 9 cm in length. Due to her extensive it is we will treat him for as if it is a DVT. He be started on Eliquis. I informed the need to follow-up with his primary care provider. He is agreeable to this plan. Patient is otherwise doing well will be discharged home. Imaging Data Left lower extremity venous ultrasound: Radiologist's impression: INDICATION: Leg pain and swelling. TECHNIQUE: Ultrasound venous duplex lower left extremity. Compression venous exam was performed using delgado-scale, color Doppler, and spectral Doppler analysis. COMPARISON: None. FINDINGS: Deep veins: Sonographic imaging demonstrates the left common femoral, deep femoral, superficial femoral, popliteal, posterior tibial and the contralateral right common femoral veins to be fully compressible with normal color Doppler blood flow. Superficial veins: Superficial thrombus in the greater saphenous vein within 1 centimeter to the superficial femoral junction. No popliteal cyst. IMPRESSION: Superficial thrombus in the lesser saphenous vein within 1 centimeters to the popliteal junction, and extending into the calf. No DVT in the left lower extremity. Primary team is already aware of results. Dictated by Jeffy South MD @ 05/02/2023 12:09:16 AM Discharge Plan Discharge Clinical Impression: Superficial thrombophlebitis Qualifiers: Superficial thrombophlebitis-Involved body area: lower extremity Laterality: left Qualified Code(s): I80.02 - Phlebitis and thrombophlebitis of superficial vessels of left lower extremity Patient Disposition: Home, Self-Care Condition: Stable Instructions: Deep Vein Thrombosis (DC) Additional Instructions: You have an extensive superficial blood clot in your left leg. Due to the size we will treat you with blood thinners. Return to the emergency department for new or worsening symptoms. Follow up with the primary care provider for close follow-up. Prescriptions: New Eliquis DVT-PE Treat 30D Start 5 mg (74 tabs) tablets,dose pack 5 mg PO BID Qty: 74 0RF Rx Instructions: Take 10 mg twice a day for the next 7 days. After that take 5 mg twice a day No Action propranolol 10 mg tablet 10 mg PO BID citalopram 20 mg tablet 20 mg PO DAILY ketorolac 10 mg tablet 10 mg PO Q6H PRN (Reason: pain) 5 Days Qty: 20 0RF ondansetron 4 mg tablet,disintegrating 4 mg PO Q6H Qty: 20 0RF Follow Up/Referrals: Troy Ventura MD [Primary Care Provider] - Stand Alone Forms: [employer] Info Instructions
[2023-05-01 23:49] VITALS: BP 120/87; PULSE 64; RESP 16; O2SAT 96
[2023-05-01] MEDS: APIXABAN 5 MG TABLET 10 MG PO (23:53)
== END 2023-05-01 23:55 | disposition home or self-care (01) ==
PROVIDERS: Emergency Provider Student in an Organized Health Care Education/Training Program; PCP Family Medicine
DX: I80.02 Phlebitis and thrombophlebitis of superficial vessels of left lower extremity (principal)
CPT/HCPCS: 93971; 99283; 99284; A9270

== ENCOUNTER 2023-05-02 11:53 | Emergency (ER) | payer MEDICARE, MEDICAID, SELFPAY ==
[2023-05-02 11:58] VITALS: BP 120/76; PULSE 71; RESP 18; TEMP 36; O2SAT 97; BMI 31.9
--- NOTE | 2023-05-02 12:33 | ED_ITS ---
HPI - General Adult General Time Seen by Provider: 12:33 Date Seen: 05/02/23 Chief complaint: Extremity Pain/Injury, Lower Stated complaint: Blood clot L leg Time Seen by Provider: 05/02/23 11:55 History of Present Illness HPI narrative: This is a 38-year-old male who returns to the ER today for re-evaluation of left calf pain. He has had a complex recent course. He developed a viral syndrome in mid April. He was seen in the ER on 04/20 with viral symptoms and had negative PCR testing for coronavirus, influenza, RSV. He return to the ER 2 days later for ongoing viral says syndrome. He had a temperature of 101?. He had labs during this visit. He had leukopenia with a white count of 3.16. Hemoglobin was 15.9. Platelet count 161. He had abnormal LFTs with AST of 69 and ALT of 100. Sed rate was normal at 7. CRP was elevated at 5.7. Electrolytes were normal with a sodium 136, potassium 4.1, bicarb 25 BUN 7, creatinine 0.8, and glucose of 134. HIV testing was negative. Chest x-ray was negative. He was discharged home. He had another follow-up visit on 04/23. At this visit he had had chest pain. Recheck of his LFT showed stability with an AST of 66 and ALT of 91. Repeat COVID testing was again negative. He is up-to-date on his COVID vaccines. He was worked up for his chest pain. He had normal EKG and 2- troponins. Strep testing was negative. He did not have a PE workup because he did not have any pleuritic pain, hypoxia, tachycardia. Most of his viral symptoms subsequently got better He developed pain in his left calf few days ago. It started low, in the area of the Achilles and gradually spread upward. He was seen in the ER yesterday and had an ultrasound of his left leg that showed a superficial thrombus in the greater saphenous vein. It was fairly long at 9 cm and within 1 cm of the junction of the saphenous with the deep vein system. Left lower extremity ultrasound FINDINGS: Deep veins: Sonographic imaging demonstrates the left common femoral, deep femoral, superficial femoral, popliteal, posterior tibial and the contralateral right common femoral veins to be fully compressible with normal color Doppler blood flow. Superficial veins: Superficial thrombus in the greater saphenous vein within 1 centimeter to the superficial femoral junction. No popliteal cyst. IMPRESSION: Superficial thrombus in the lesser saphenous vein within 1 centimeters to the popliteal junction, and extending into the calf. No DVT in the left lower extremity. He was started on Eliquis. He had 1 dose yesterday and 1 dose this morning. Came back to the ER today with concern that his calf is not better. If anything it slightly worse. He is not having any chest pain. No shortness of breath. No dizziness. No fever. No known injury. He is just concerned about the clot and wants to make sure he is not getting worse. He does not want to go to his lungs. When I question about family history of clots, he says his grandmother had a her congenital heart problem but does not on his any family history of DVT or PE. No known inheritable coagulopathy. No recent trauma to his leg. Related Data Home Medications Medication Instructions Recorded Confirmed citalopram 20 mg tablet 20 mg PO DAILY 02/12/23 04/23/23 propranolol 10 mg tablet 10 mg PO BID 02/12/23 04/23/23 Previous Rx's Medication Instructions Recorded ketorolac 10 mg tablet 10 mg PO Q6H PRN pain 5 days #20 02/12/23 tabs ondansetron 4 mg disintegrating 4 mg PO Q6H #20 tabs 04/21/23 tablet apixaban 5 mg (74 tabs) tablets in 5 mg PO BID #74 ea 05/01/23 a dose pack (Eliquis DVT-PE Treat 30D Start) Allergies Allergy/AdvReac Type Severity Reaction Status Date / Time azithromycin Allergy Mild Rash Verified 04/23/23 03:02 Penicillins Allergy Mild Hives Verified 04/23/23 03:02 tetracycline Allergy Mild Hives Verified 04/23/23 03:02 [facility] Social History Smoking Status: Current every day smoker Do you use any of these nicotine containing products: None Second hand tobacco smoke exposure: No How often do you have a drink containing alcohol: monthly or less How often do you have six or more drinks on one occasion: Less than monthly AUDIT-C Alcohol total score: 2 Non-prescribed substance use: denies use Exam Narrative: Exam Narrative: Constitutional: Appears well-developed and well-nourished. Alert. Conversant. Non toxic. HENT: Head: Atraumatic. Nose: Nose normal. Mouth/Throat: Oral mucosa is clear and moist. no trismus. Pharynx normal. Tonsils symmetric. No tonsillar enlargement, erythema, or exudate. Eyes: Conjunctivae normal. EOM normal. Pupils equal, round, and reactive to light. No scleral icterus. Neck: Normal range of motion. Neck supple. No tracheal deviation present. Cardiovascular: Normal rate, regular rhythm. No gallop. No friction rub. No murmur heard. Symmetric radial artery pulses Pulmonary/Chest: Effort normal. No stridor. No respiratory distress. No wheezes. No rales. No rhonchi . No tenderness. Abdominal: Soft. Bowel sounds normal. No distension. No mass. No tenderness. No rebound. No guarding. Musculoskeletal: RUE: Normal range of motion. No tenderness. No deformity LUE: Normal range of motion. No tenderness. No deformity RLE: Normal range of motion. No edema. No tenderness. No deformity LLE: Normal range of motion. 1+ calf edema. He does have a tender palpable cord in the posterior midline of his left calf. No redness or warmth of the calf. Achilles nontender. No tenderness of the popliteal fossa, thigh, posterior thigh, medial thigh, hamstrings. No signs of propagating clot or ascending lymphangitis. No bony tenderness. No deformity Lymph: No ascending lymphangitis. Neurological: Alert and oriented to person, place, and time. Normal strength. CN II-VII intact. No sensory deficit. GCS eye subscore is 4. GCS verbal subscore is 5. GCS motor subscore is 6. Normal coordination Skin: Skin is warm and dry. No rash noted. No pallor. Normal capillary refill. Psychiatric: Normal mood. Normal affect. Const: Vital Signs, click to edit/add: Vital Signs - 24 hr 05/02/23 11:58 Temperature 96.8 F L Pulse Rate [Right Pulse Oximeter] 71 Respiratory Rate 18 Blood Pressure [Ri ght Upper Arm] 120/76 Pulse Oximetry 97 Oxygen Delivery Me thod Room Air Course Vital Signs Vital signs: Initial Vital Signs Temperature 96.8 F L 05/02/23 11:58 Temperature Source Temporal Artery Scan 05/02/23 11:58 Pulse Rate 71 05/02/23 11:58 Respiratory Rate 18 05/02/23 11:58 Blood Pressure 120/76 05/02/23 11:58 Blood Pressure Mean 90 05/02/23 11:58 Blood Pressure Position Sitting 05/02/23 11:58 Pulse Oximetry 97 05/02/23 11:58 Oxygen Delivery Method Room Air 05/02/23 11:58 Vital Signs Temperature 96.8 F L 05/02/23 11:58 Pulse Rate 71 05/02/23 11:58 Respiratory Rate 18 05/02/23 11:58 Blood Pressure 120/76 05/02/23 11:58 Pulse Oximetry 97 05/02/23 11:58 Oxygen Delivery Method Room Air 05/02/23 11:58 Temperature 96.8 F L 05/02/23 11:58 Pulse Rate 71 05/02/23 11:58 Respiratory Rate 18 05/02/23 11:58 Blood Pressure 120/76 05/02/23 11:58 Pulse Oximetry 97 05/02/23 11:58 Oxygen Delivery Method Room Air 05/02/23 11:58 Medical Decision Making MDM Narrative Medical decision making narrative: S this is a pleasant 38-year-old male who returns to ER today with ongoing left calf pain. As per his HPI he has had a complex recent illness including a recent illness that was probably a her viral infection. He did have mildly abnormal LFTs. His recent illness is now largely resolved. However he developed left calf pain few days ago. He was diagnosed with a fairly large clot in his left saphenous vein, which is superficial. However this clot is fairly proximal and within a cm of spreading into the deep venous system so he was started on Eliquis yesterday. He returns to the ER today because calf is worse. Fortunately he is not having any symptoms of PE. He does not have any evidence for neurovascular compromise. No phlegmasia cerulea dolens. No evidence for cellulitis in the leg. We did do a repeat ultrasound which confirms stability of the clot. He is really not propagated much compared to yesterday. Plan will be to continue on Eliquis. He has an appointment to recheck with his primary care provider next Friday. They will help determine whether or not he needs further workup for hypercoagulability. They will also help the patient to determine appropriate length of anticoagulation for this saphenous vein clot. Discussed with the patient the potential risks for embolization to PE and potential development of leg pain or edema from post phlebitic syndrome. He understands supportive care, need for ongoing anticoagulation. Questions answered. Imaging Data Left Leg Ultrasound: Radiologist's impression: IMPRESSION: Occlusive superficial venous thrombosis in the left small saphenous vein. Unchanged proximity in the deep venous system. Discharge Plan Discharge Clinical Impression: Superficial thrombophlebitis, Saphenous vein clot Patient Disposition: Home, Self-Care Condition: Stable Instructions: Superficial Thrombophlebitis (ED), Deep Vein Thrombosis (ED) Additional Instructions: As we discussed, please see your doctor immediately or come back to the ER right away if you have any worsening symptoms especially increasing leg pain or swelling, or if you have any chest pain, trouble breathing, or other symptoms of a blood clot in your lung. Continue on the anticoagulant-Eliquis. When you see your doctor next Friday, Talk to your doctor about how long you should be on it. Typically patients will be on a course of blood thinners for 3-6 months. Talk to your doctor about testing for causes of blood clots. Activity Level: No Restrictions Prescriptions: No Action propranolol 10 mg tablet 10 mg PO BID citalopram 20 mg tablet 20 mg PO DAILY ketorolac 10 mg tablet 10 mg PO Q6H PRN (Reason: pain) 5 Days Qty: 20 0RF Eliquis DVT-PE Treat 30D Start 5 mg (74 tabs) tablets,dose pack 5 mg PO BID Qty: 74 0RF Rx Instructions: Take 10 mg twice a day for the next 7 days. After that take 5 mg twice a day ondansetron 4 mg tablet,disintegrating 4 mg PO Q6H Qty: 20 0RF Follow Up/Referrals: Troy Ventura MD [Primary Care Provider] - Stand Alone Forms: [employer] Info Instructions
--- NOTE | 2023-05-02 12:33 | CRLHL7_ITS ---
For Patients: As a result of the Century Cures Act, medical imaging exams and procedure reports are released immediately into your electronic medical record. You may view this report before your referring provider. If you have questions, please contact your health care provider. INDICATION: Left calf pain, worsening yesterday COMPARISON: None. TECHNIQUE: [place]-scale, color, and duplex Doppler imaging of the examined veins. Compression and augmentation attempted where anatomically and clinically feasible. FINDINGS: Laterality: Left Examined veins: Common femoral, femoral, popliteal, peroneal, posterior tibial Proximal greater saphenous, small saphenous Occlusive thrombus in the left small saphenous vein. The clot is within 1 cm of the confluence with the popliteal vein. Mild heterogeneity of the most proximal aspect of the clot. Otherwise, the examined veins are patent with normal color Doppler flow and a normal venous waveform on duplex Doppler. Where possible, there is normal compression and normal augmentation of flow. The right common femoral vein was sampled and is normal. IMPRESSION: Occlusive superficial venous thrombosis in the left small saphenous vein. Unchanged proximity in the deep venous system. Dictated by Gissel Rodríguez MD @ 05/02/2023 2:05:24 PM (Electronically Signed)
== END 2023-05-02 14:27 | disposition home or self-care (01) ==
PROVIDERS: Emergency Provider Emergency Medicine; PCP Family Medicine
DX: I80.02 Phlebitis and thrombophlebitis of superficial vessels of left lower extremity (principal)
CPT/HCPCS: 93971; 99283

== ENCOUNTER 2023-06-20 21:06 | Emergency (ER) | payer MEDICARE, MEDICAID, SELFPAY ==
[2023-06-20 21:10] VITALS: BP 132/87; PULSE 75; RESP 16; TEMP 36.1; O2SAT 97
--- NOTE | 2023-06-20 21:25 | ED_ITS ---
HPI - General Adult General Chief complaint: Unspecified Complaint, Adult Stated complaint: blood clot pain Time Seen by Provider: 06/20/23 21:17 History of Present Illness HPI narrative: Patient is a 38-year-old gentleman comes in today with pain in his forearm as well as his lower extremities. He has had no significant pain or injuries. Patient is on Eliquis for history of DVT dating back approximately 6 weeks. Patient has had no swelling no ecchymosis no bruising no bleeding no cough no shortness of breath. Symptoms seem to wax and wane. Up primarily the pain is in the left forearm between the elbow and wrist in soft tissue. Patient is on stable medications he has been compliant with his Eliquis and has no other major complaints. No joint pain or swelling. Related Data Home Medications Medication Instructions Recorded Confirmed citalopram 20 mg tablet 20 mg PO DAILY 02/12/23 04/23/23 propranolol 10 mg tablet 10 mg PO BID 02/12/23 04/23/23 Previous Rx's Medication Instructions Recorded ketorolac 10 mg tablet 10 mg PO Q6H PRN pain 5 days #20 02/12/23 tabs ondansetron 4 mg disintegrating 4 mg PO Q6H #20 tabs 04/21/23 tablet apixaban 5 mg (74 tabs) tablets in 5 mg PO BID #74 ea 05/01/23 a dose pack (Eliquis DVT-PE Treat 30D Start) Allergies Allergy/AdvReac Type Severity Reaction Status Date / Time azithromycin Allergy Mild Rash Verified 04/23/23 03:02 Penicillins Allergy Mild Hives Verified 04/23/23 03:02 tetracycline Allergy Mild Hives Verified 04/23/23 03:02 Review of Systems Status of ROS: Reports: 10 or more systems reviewed and unremarkable except as noted in History and below [facility] Medical History (Updated 06/20/23 @ 21:28 by Jm Adan MD) DVT (deep venous thrombosis) ?I82.409 - Acute embolism and thrombosis of unspecified deep veins of unspecified lower extremity (ICD-10) Social History Smoking Status: Current every day smoker Do you use any of these nicotine containing products: None Second hand tobacco smoke exposure: No How often do you have a drink containing alcohol: monthly or less How often do you have six or more drinks on one occasion: Less than monthly AUDIT-C Alcohol total score: 2 Non-prescribed substance use: denies use Exam Narrative: Exam Narrative: EXAM GENERAL: Patient appears comfortable and well. EYES: No scleral icterus. THYROID: no thyroid nodules or thyromegaly. LYMPH: No supraclavicular or cervical lymphadenopathy. SKIN: Visible skin seen during exam normal or with benign process only. EXT: No dependent lower extremity pedal edema. HEART: Regular rate and rhythm with no murmurs, rubs, or gallops. LUNGS: Clear to auscultation bilaterally with no crackles or wheezes. ABD: Soft, non tender, non distended. PSYCH: Good eye contact, speech is not pressured. Const: Vital Signs, click to edit/add: Vital Signs - 24 hr 06/20/23 21:10 Temperature 97.0 F L Pulse Rate [Left P ulse Oximeter] 75 Respiratory Rate 16 Blood Pressure [Ri ght Upper Arm] 132/87 Pulse Oximetry 97 Oxygen Delivery Me thod Room Air Course Course ED Course: Patient seen and examined. Vital Signs Vital signs: Initial Vital Signs Temperature 97.0 F L 06/20/23 21:10 Temperature Source Temporal Artery Scan 06/20/23 21:10 Pulse Rate 75 06/20/23 21:10 Pulse Rhythm Regular 06/20/23 21:10 Respiratory Rate 16 06/20/23 21:10 Blood Pressure 132/87 06/20/23 21:10 Blood Pressure Mean 102 06/20/23 21:10 Blood Pressure Position Sitting 06/20/23 21:10 Pulse Oximetry 97 06/20/23 21:10 Oxygen Delivery Method Room Air 06/20/23 21:10 Vital Signs Temperature 97.0 F L 06/20/23 21:10 Pulse Rate 75 06/20/23 21:10 Respiratory Rate 16 06/20/23 21:10 Blood Pressure 132/87 06/20/23 21:10 Pulse Oximetry 97 06/20/23 21:10 Oxygen Delivery Method Room Air 06/20/23 21:10 Temperature 97.0 F L 06/20/23 21:10 Pulse Rate 75 06/20/23 21:10 Respiratory Rate 16 06/20/23 21:10 Blood Pressure 132/87 06/20/23 21:10 Pulse Oximetry 97 06/20/23 21:10 Oxygen Delivery Method Room Air 06/20/23 21:10 Medical Decision Making MDM Narrative Medical decision making narrative: Patient is a 38-year-old gentleman on Eliquis fully anticoagulated for recent DVT. Comes in with muscle pain. He has no findings on exam. He has normal vital signs and no signs of clot or thrombophlebitis. Patient is offered reassurance. Will continue symptomatic treatment Tylenol and ice. He will continue his anticoagulation. Discharge Plan Discharge Clinical Impression: Muscle pain Patient Disposition: Home, Self-Care Condition: Stable Instructions: Musculoskeletal Pain (ED) Additional Instructions: Tylenol Ice Rest Continue current medications Primary care follow-up Activity Level: No Restrictions Discharge Diet: Regular Prescriptions: No Action propranolol 10 mg tablet 10 mg PO BID citalopram 20 mg tablet 20 mg PO DAILY ketorolac 10 mg tablet 10 mg PO Q6H PRN (Reason: pain) 5 Days Qty: 20 0RF Eliquis DVT-PE Treat 30D Start 5 mg (74 tabs) tablets,dose pack 5 mg PO BID Qty: 74 0RF Rx Instructions: Take 10 mg twice a day for the next 7 days. After that take 5 mg twice a day ondansetron 4 mg tablet,disintegrating 4 mg PO Q6H Qty: 20 0RF Follow Up/Referrals: Troy Ventura MD [Primary Care Provider] - Stand Alone Forms: [employer] Info Instructions
== END 2023-06-20 21:43 | disposition home or self-care (01) ==
LOC: ED 21:30
PROVIDERS: Emergency Provider Internal Medicine; PCP Family Medicine
DX: M79.10 Myalgia, unspecified site (principal)
CPT/HCPCS: 99283

== ENCOUNTER 2023-08-28 07:58 | Emergency (ER) | payer MEDICARE, MEDICAID, SELFPAY ==
[2023-08-28 08:08] VITALS: BP 112/70; PULSE 104; RESP 16; TEMP 36.7; O2SAT 97; BMI 33.5
--- NOTE | 2023-08-28 08:21 | ED.GENADULT ---
HPI - General Adult General Time Seen by Provider: 08:21 Date Seen: 08/28/23 Chief complaint: Cough Stated complaint: Cough Time Seen by Provider: 08/28/23 08:20 Source: patient and RN notes reviewed Mode of arrival: ambulatory Limitations: no limitations History of Present Illness HPI narrative: Neymar is a very pleasant 38-year-old gentleman with history of tobacco use and COVID 1 month ago with subsequent DVT and PE currently on Eliquis who comes to the emergency room for evaluation for ongoing cough. Patient notes that this morning he realized that he had had ongoing cough since COVID 1 month ago. He notes that intermittently he does have a yellow or greenish sputum production. He notes that night when he is lying down he feels like he is wheezing. He has not had a fever or chills. He has not been vomiting. He has not had any chest pain. Patient developed DVT and PE after having COVID and found out that he was factor 5 Leiden. He has been on Eliquis up until yesterday when he was told to hold off on that as he has some blood test pending with [facility]. He denies ear pain or sore throat. He has been able to eat and drink. Related Data Home Medications Medication Instructions Recorded Confirmed citalopram 20 mg tablet 20 mg PO DAILY 02/12/23 08/28/23 propranolol 10 mg tablet 10 mg PO BID 02/12/23 08/28/23 Previous Rx's Medication Instructions Recorded apixaban 5 mg (74 tabs) tablets in 5 mg PO BID #74 ea 05/01/23 a dose pack (Eliquis DVT-PE Treat 30D Start) albuterol sulfate 90 mcg/actuation 2 puff inhalation Q6H PRN 08/28/23 aerosol inhaler shortness of breath or wheezing #8.5 grams levofloxacin 500 mg tablet 500 mg PO DAILY #7 tabs 08/28/23 Allergies Allergy/AdvReac Type Severity Reaction Status Date / Time azithromycin Allergy Mild Rash Verified 08/28/23 08:13 Penicillins Allergy Mild Hives Verified 08/28/23 08:13 tetracycline Allergy Mild Hives Verified 08/28/23 08:13 Review of Systems Status of ROS: Reports: 10 or more systems reviewed and unremarkable except as noted in History and below Const: Denies: fever or chills ENMT: Denies: throat pain or neck pain Cardio: Denies: chest pain, swelling of feet/ankles or shortness of breath with exertion Resp: Reports: cough, wheezing and change in phlegm color; Denies: shortness of breath GI: Denies: abdominal pain, nausea or vomiting Musculo: Denies: neck pain Allergy/Immuno: Reports: wheezing [facility] Medical History Factor 5 Leiden mutation, heterozygous ?D68.51 - Activated protein C resistance (ICD-10) DVT (deep venous thrombosis) ?I82.409 - Acute embolism and thrombosis of unspecified deep veins of unspecified lower extremity (ICD-10) Social History Smoking Status: Current every day smoker What tobacco products do you use: cigarettes Smoking packs per day: 0.5 Smoking cigarettes per day: 10.0 Do you use any of these nicotine containing products: None Second hand tobacco smoke exposure: No How often do you have a drink containing alcohol: monthly or less How often do you have six or more drinks on one occasion: Less than monthly AUDIT-C Alcohol total score: 2 Non-prescribed substance use: denies use Exam Narrative: Exam Narrative: Neymar is alert and oriented. No acute distress. Eyes are clear. TMs bilaterally without erythema. TM canals are somewhat dry but no evidence of otitis externa. Neck is supple without lymphadenopathy. Oral cavity with moist mucous membranes. No trismus. Heart with a regular rate and rhythm. Lungs are with decreased breath sounds in the bases. Crackles noted in right lower lung base but they do partially clear with deep inspiration. Moving all extremities. No obvious ankle edema. Const: Vital Signs, click to edit/add: Vital Signs - 24 hr 08/28/23 08:08 Temperature 98.0 F Pulse Rate [Pulse Oximeter] 104 H Respiratory Rate 16 Blood Pressure [Ri ght Upper Arm] 112/70 Pulse Oximetry 97 Oxygen Delivery Me thod Room Air Documenting provider has reviewed patient's vital signs: yes Course Course ED Course: Differential diagnosis at this time includes but is not limited to bronchitis, pneumonia, post COVID cough home a PE. Patient will have chest x-ray. He has been consistently on his Eliquis. Oxygen saturations normal at this time. Heart rate elevated upon arrival but now normal. Patient has been on Eliquis up until yesterday. Patient noted to have persistent cough now with greenish and yellow sputum. No fevers. Does have a history of tobacco use but no asthma. Given lack of fever or hypoxia, symptoms of congestive heart failure I do not feel the need for blood work at this time. Vital Signs Vital signs: Initial Vital Signs Respiratory Effort Normal, Spontaneous, Non-Labored 08/28/23 08:06 Respiratory Depth Normal 08/28/23 08:06 Respiratory Pattern Normal 08/28/23 08:06 Vital Signs Temperature 98.0 F 08/28/23 08:08 Pulse Rate 104 H 08/28/23 08:08 Respiratory Rate 16 08/28/23 08:08 Blood Pressure 112/70 08/28/23 08:08 Pulse Oximetry 97 08/28/23 08:08 Oxygen Delivery Method Room Air 08/28/23 08:08 Temperature 98.0 F 08/28/23 08:08 Pulse Rate 104 H 08/28/23 08:08 Respiratory Rate 16 08/28/23 08:08 Blood Pressure 112/70 08/28/23 08:08 Pulse Oximetry 97 08/28/23 08:08 Oxygen Delivery Method Room Air 08/28/23 08:08 Medical Decision Making MDM Narrative Medical decision making narrative: 1. Bronchitis-likely post COVID. Certainly post COVID cough can last up to 6 weeks but this gentleman is now experiencing more wheezing at night and sputum that has changed color. He does not have a fever and his chest x-ray does not show any evidence of a denisse pneumonia. Given this we talked about antibiotic use as well as inhaler and prednisone use. At this time I do think patient needs to be treated with antibiotic given the change in sputum color and persistent cough. Initially we were going to use Zithromax and patient was sure that he had been able to tolerate the Z-Trent in the past although he stated he had an allergy to erythromycin and tetracyclines. Nursing staff look through notes in indeed Zithromax is listed as causing a rash. Given this doxycycline would be the 2nd choice but again patient has a tetracycline rash. We will use Levaquin after considerable discussion about it side effects. 500 mg daily for 7 days is sent to the pharmacy. We spoke specifically about uncommon occurrences of tendinitis and even Achilles rupture. Patient will discontinue medication if he should develop any joint pain. Albuterol 2 puffs Q 6 hours p.r.n. is also ordered as I do think this will help as well. We will hold off on the prednisone at this time as patient will be going back on his Eliquis after his blood test tomorrow. 2. Disposition-home at this time. Return or seek medical attention for fever cough worsening symptoms and as needed. Medical Records Medical records reviewed: Yes I reviewed the patient's medical records Imaging Data Chest x-ray: Attestation: I have reviewed the pertinent imaging results. My impression: I do not note any obvious infiltrates. Radiologist's impression: Heart and mediastinum: Normal transverse dimension of the cardiac silhouette. No significant abnormalities. Lungs and pleural spaces: Clear lungs and pleural spaces. Bones and soft tissues: No acute findings. IMPRESSION: No acute cardiopulmonary process or significant incidental findings. Discharge Plan Discharge Clinical Impression: Bronchitis Patient Disposition: Home, Self-Care Condition: Unchanged Instructions: Acute Bronchitis (ED) Additional Instructions: Zithromax as an antibiotic and will be used for post COVID bronchitis. Albuterol is an inhaler that should help relax the airways. This may at 1st make you cough a bit more. Seek medical attention/return to the ER for fever, difficulty breathing, worsening symptoms. Prescriptions: New levofloxacin 500 mg tablet 500 mg PO DAILY Qty: 7 0RF albuterol sulfate 90 mcg/actuation HFA aerosol inhaler 2 puff inhalation Q6H PRN (Reason: shortness of breath or wheezing) Qty: 8.5 0RF No Action propranolol 10 mg tablet 10 mg PO BID citalopram 20 mg tablet 20 mg PO DAILY Eliquis DVT-PE Treat 30D Start 5 mg (74 tabs) tablets,dose pack 5 mg PO BID Qty: 74 0RF Rx Instructions: Take 10 mg twice a day for the next 7 days. After that take 5 mg twice a day Follow Up/Referrals: Troy Ventura MD [Primary Care Provider] - Stand Alone Forms: [facility] Info Instructions
--- NOTE | 2023-08-28 08:39 | CRLHL7_ITS ---
For Patients: As a result of the Cures Act, medical imaging exams and procedure reports are released immediately into your electronic medical record. You may view this report before your referring provider. If you have questions, please contact your health care provider. INDICATION: Cough. TECHNIQUE: Two-view COMPARISON: 04/22/2023. FINDINGS: Patient positioning: The patient is not rotated. Adequate inspiration. Heart and mediastinum: Normal transverse dimension of the cardiac silhouette. No significant abnormalities. Lungs and pleural spaces: Clear lungs and pleural spaces. Bones and soft tissues: No acute findings. IMPRESSION: No acute cardiopulmonary process or significant incidental findings. Dictated by Farhan Abdullahi MD @ 08/28/2023 9:08:14 AM (Electronically Signed)
--- OUTSIDE RECORDS SUMMARY | 2023-08-28 08:44 | XMS_ITS | Encounter Summary ---
Author Name Unknown Organization [facility] Address [address] [place] [address] Care Team Providers Care Cuff Cutter Name Role Phone Troy Ventura M.D. [facility] Reason for Referral * Outpatient (Routine) - Closed Specialty Diagnoses / Procedures Referred By Shannan hilton Referred To Contact Diagnoses Thrombosis Superficial Vein Lower Extremity Left Procedures US Lower Extremity Veins Left Alexandra Armstrong P.A.-CMaine [address] [place] [address] [facility] Region Referral ID Status Reason Start Date Expiration Date Visits Re quested Visits Authorized [id number] Closed 08/07/2023 08/06/2024 1 1 KLAYER Reason for Visit * Outpatient (Routine) - Closed Specialty Diagnoses / Procedures Referred By Shannan hilton Referred To Contact Diagnoses Thrombosis Superficial Vein Lower Extremity Left Procedures US Lower Extremity Veins Left Alexandra Armstrong P.AMaine-CMaine [address] [place] [address] [facility] Region Referral ID Status Reason Start Date Expiration Date Visits Re quested Visits Authorized [id number] Closed 08/07/2023 08/06/2024 1 1 Encounter Details Date Type Department Care Team (Latest Contact Info) Description 08/11/2023 10:26 AM BLOCKLAYER - 08/11/2023 11:00 AM BLOCKLAYER Hospital Encounter Department of Radiology in [place], [place] [address] [facility] [place] [phone] Alexandra Armstrong P.A.-C. [address] [facility] [place] [phone] Thrombosis Superficial Vein Lower Extremity Left Discharge Disposition: Home or Self Care Social History Tobacco Use Types Packs/Day Years Used Date Smoking Tobacco: Every Day Cigarettes 0.5 Smokeless Tobacco: Never Alcohol Use Standard Drinks/Week Comments Never 0 (1 standard drink = 0.6 oz pur e alcohol) Humiliation, Afraid, Rape, and Kick questionnair e Answer Date Recorded Within the last year, have y ou been afraid of your partner or ex-partner? No 03/14/2021 Within the last year, have y ou been humiliated or emotionally abused in other ways by your partner or ex-partner? No Within the last year, have y ou been kicked, hit, slapped, or otherwise physically hurt by your partner or ex-partner? No 03/14/2021 Within the last year, have y ou been raped or forced to have any kind of sexual activity by your partner or ex-partner? No 03/14/2021 Social Connection and Isolation Panel [NHANES] A nswer Date Recorded In a typical week, how many times do you talk on the phone with family, friends, or neighbors? Three times a week 03/14/20 21 How often do you get togethe r with friends or relatives? Twice a week 03/14/2021 How often do you attend chur ch or quaker services? 1 to 4 times per year 03/14/2021 Do you belong to any clubs o r organizations such as islam groups, unions, fraternal or athletic groups, or school groups? No 03/14/2021 How often do you attend meet ings of the clubs or organizations you belong to? Never 03/14/2021 Are you , , di vorced, , never , or living with a partner? Never 03/14/2021 AUDIT-C Answer Date Recorded Q1: How often do you have a drink containing alc ohol? Monthly or less 03/14/2021 Q2: How many drinks containi ng alcohol do you have on a typical day when you are drinking? 3 or 4 03/14/2021 Q3: How often do you have si x or more drinks on one occasion? Never 03/14/2021 Overall Financial Resource Strain (CARDIA) Answe r Date Recorded How hard is it for you to pa y for the very basics like food, housing, medical care, and heating? Not hard at all 04/22/2023 PHQ-2 Answer Date Recorded PHQ-2 Score 2 08/06/2023 [facility] - Occupational Stress Questionnaire Answer Date Recorded Do you feel stress - tense, restless, nervous, or anxious, or unable to sleep at night because your mind is troubled all the time - these days? To some extent 03/14/2021 Exercise Vital Sign Answer Date Recorde d On average, how many days pe r week do you engage in moderate to strenuous exercise (like a brisk walk)? 1 day 04/22/2023 On average, how many minutes do you engage in exercise at this level? 10 min 04/22/2023 Hunger Vital Sign Answer Date Recorded Within the past 12 months, y ou worried that your food would run out before you got the money to buy more. Never true 04/22/20 23 Within the past 12 months, t he food you bought just didn't last and you didn't have money to get more. Never true 04/22/2023 PRAPARE - Transportation Answer Date Re corded In the past 12 months, has l ack of transportation kept you from medical appointments or from getting medications? No 04/04 In the past 12 months, has l ack of transportation kept you from meetings, work, or from getting things needed for daily living? No 04/22/2023 Depression Answer Date Recor ded PHQ-9 Total Score (max 27) 11 08/06 Nutrition Answer Date Recorded Nutrition: EVOO Fat Source Yes 04/22 On average, how many serving s of fruits and vegetables do you eat per day (serving size is equal to 1 cup or approximately the size of a tennis ball)? 0-2 04/22/2023 Dental Answer Date Recorded Dental: Regular Dentist Yes 08/09/19 Employment Answer Date Recorded Employment status Unemployed/not in th e paid workforce and NOT seeking employment 03/14/2021 Housing Stability Answer Date Recorded What is your living situation today? I have a luís place to live 04/22/2023 Education Answer Date Recorded What is the highest level of school you have completed or the highest degree you have received? 12th grade 03/22/2019 Sex and Gender Information Value Date Recorded Sex Assigned at Male 04/22/2023 5:56 PM CDT Gender Identity Male 01/16/2018 3:24 AM CDT Sexual Orientation Lesbian or Price 04/22/2023 5: 56 PM CDT documented as of this encounter Medications at Time of Discharge Medication Sig Dispensed Refills Start Date End Date citalopram (CeleXA) 20 mg tabletIndications:Anxiet y,Depression Major Recurrent Moderate (HCC) TAKE 1 TABLET (20 MG TOTAL) BY MOUTH DAILY. 90 tablet 0 08/06/2023 propranoloL (INDERAL) 10 mg tabletIndications:Anxiet y,Depression Major Recurrent Moderate (HCC) TAKE ONE TABLET BY MOUTH TWICE A DAY 180 tablet 5 02/10/2023 dihzgykzebwu-rqbc-VM (CENTRUM COMPLETE) 18-400 mg-mcg per tablet Take 1 tablet by mouth daily. 0 apixaban (ELIQUIS) 5 mg tabletIndications:Thromb osis Superficial Vein Lower Extremity Left Take 1 tablet (5 mg total) by mouth 2 (two) times a day. 30 tablet 0 07/29/2023 08/15/2023 documented as of this encounter Miscellaneous Notes * Result Encounter Note - Alexandra Armstrong P.A.-C. - 08/11/2023 11:43 AM BLOCKLAYER Follow-up ultrasound does not show resolution of thrombus within small saphenous vein, I would likepatient to restart Eliquis. Thrombophilia panel pending (drawn today off Eliquis). Referral vascular Medicine placed for follow-up. KLAYER documented in this encounter Plan of Treatment Upcoming Encounters Date Type Department Care Team (Late st Contact Info) Description 08/29/2023 12:10 PM BLOCKLAYER Appointment Department of Laboratory Medicine in [place], [place] [address] [place] [phone] Kendra Canales APRN, C.N.P., D.N.P. [address] [place] [address] documented as of this encounter Procedures Procedure Name Priority Date/Time Associated Diagnosis Comments US LOWER EXTREMITY VEINS LEFT RAD - Semiurgent (Fast; most ED patients; some inpatients) 08/11/2023 11:19 AM BLOCKLAYER Thrombosis Superficial Vein Lower Extremity Left documented in this encounter Results * US Lower Extremity Veins Left (08/11/2023 11:19 AM BLOCKLAYER) Anatomical Region Laterality Modality Lower Extremity, Ultrasound RST LOS, Ultrasound ARZ LOS, Ultrasound FLA LOS Left Ultrasound Impressions 08/11/2023 11:28 AM BLOCKLAYER 1. Negative for acute DVT. 2. Aging, incompletely recanalized thrombus within the small saphenous vein. -- Clot appears less than 2 cm from the adjacent popliteal venous junction. Narrative 08/11/2023 11:28 AM BLOCKLAYER EXAM: US LOWER EXTREMITY VEINS LEFT Exam performed with color and spectral Doppler analysis. COMPARISON: 05/01/2023. FINDINGS: LEFT: Common Femoral Vein: Negative. Profunda Femoral Vein: Negative. Femoral Vein: Negative. Popliteal Vein: Negative. Gastrocnemius Veins: Negative where seen. Soleal Veins: Negative where seen. Posterior Tibial Veins: Negative where seen. Peroneal Veins: Negative where seen. Great Saphenous Vein: Negative where seen. Small Saphenous Vein: Aging, incompletely recanalized thrombus, Not evaluated. Popliteal Fossa: Negative. Other: n/a Information on venous thrombosis and management can be found on the [employer] site. Link [email or web address] Procedure Note Supa Randall M.D. - 08/11/2023 EXAM: US LOWER EXTREMITY VEINS LEFT Exam performed with color and spectral Doppler analysis. COMPARISON: 05/01/2023. FINDINGS: LEFT: Common Femoral Vein: Negative. Profunda Femoral Vein: Negative. Femoral Vein: Negative. Popliteal Vein: Negative. Gastrocnemius Veins: Negative where seen. Soleal Veins: Negative where seen. Posterior Tibial Veins: Negative where seen. Peroneal Veins: Negative where seen. Great Saphenous Vein: Negative where seen. Small Saphenous Vein: Aging, incompletely recanalized thrombus, Notevaluated. Popliteal Fossa: Negative. Other: n/a Information on venous thrombosis and management can be found on theAskMayoExpert site. [email or web address] IMPRESSION: 1. Negative for acute DVT. 2. Aging, incompletely recanalized thrombus within the small saphenousvein. -- Clot appears less than 2 cm from the adjacent popliteal venousjunction. Alexandra Armstrong P.A.-C. IMCaitlin US PROCEDURES documented in this encounter Visit Diagnoses Diagnosis Thrombosis Superficial Vein Lower Extremity Left documented in this encounter Additional Health Concerns Assessment Noted Time PHQ-9 Depression Total Score: 11 024 3:14 PM BLOCKLAYER documented as of this encounter Care Teams Cuff Cutter Relationship Specialty Start Date End Date Troy Ventura M.B.B.S., M.D. [address] [place] [phone] PCP - General 07/05/19 documented as of this encounter
--- OUTSIDE RECORDS SUMMARY | 2023-08-28 08:44 | XMS_ITS | Encounter Summary ---
Author Name Unknown Organization [facility] Address [address] [place] [address] Care Team Providers Care Medical Staff Credentialing Coordinator Name Role Phone Troy Ventura M.D. [facility] Encounter Details Date Type Department Care Team (Latest Contact Info) Description 08/11/2023 11:01 AM CASE LINER - 08/11/2023 11:59 PM [facility] Hospital Encounter Department of Laboratory Medicine in [place], [place] [address] [place] [phone] Alexandra Armstrong, P.AMaine-CMaine [address] [place] [address] Thrombosis Superficial Vein Lower Extremity Left Discharge [...] or neighbors? Three times a week 03/14/20 How often do you get togethe r with friends or relatives? Twice a week 03/14/2021 How often do you attend chur or latter day services? 1 to 4 times per year 03/14/2021 Do you belong to any clubs o r organizations such as yazdanism groups, unions, fraternal or athletic groups, or [...] Answer Date Recorded PHQ-2 Score 2 08/06/2023 [facility] - Occupational Stress Questionnaire Answer Date Recorded [...] money to buy more. Never true 04/22/20 Within the past 12 months, t he [...] your living situation today? I have a [facility] place to live 04/22/2023 Education Answer Date [...] TWICE A DAY 180 tablet 5 02/10/2023 taorkrzykqes-uwta-OT (CENTRUM COMPLETE) 18-400 mg-mcg per tablet Take 1 tablet by mouth daily. 0 apixaban (ELIQUIS) 5 mg tabletIndications:Thromb osis Superficial Vein Lower Extremity Left Take 1 tablet (5 mg total) by mouth 2 (two) times a day. 30 tablet 0 07/29/2023 08/15/2023 documented as of this encounter Plan of Treatment Upcoming Encounters Date Type Department Care Team (Late st Contact Info) Description 08/29/2023 12:10 PM CASE LINER Appointment Department of Laboratory Medicine in [place], [place] [address] [place] [phone] Kendra Canales APRN, C.N.P., D.N.P. [address] [place] [phone] documented as of this encounter Procedures Procedure Name Priority Date/Time Associated Diagnosis Comments HEX LA, P Routine 08/11/2023 11:09 AM CASE LINER THROMBOPHILIA PROF Routine 08/11/2023 11 :09 AM CASE LINER Thrombosis Superficial Vein Lower Extremity Left FACTOR V LEIDEN (R506Q) MUTATION, B Routine 08/11/2023 11:09 AM CASE LINER SOLUBLE FIBRIN MONOMER Routine 11:09 AM CASE LINER documented in this encounter Results * Soluble Fibrin Monomer (08/11/2023 11:09 AM CASE LINER) Soluble Fibrin Monomer <5 <=8 mcg/mL 08/12/2023 3:33 PM CASE LINER DTL Comment: ----ADDITIONAL INFORMATION---- This test was developed and its performance characteristics determined by [facility] in a manner consistent with CLIA requirements. This test has not been cleared or approved by the U.S. Food and Drug Administration. Blood 08/11/2023 11:0 9 AM CASE LINER 08/12/2023 7:58 AM CASE LINER Alexandra Armstrong P.A.-C. LAB BLOOD NON ADD- ON Performing Organization Address [facility] Co de Phone Number [facility] [address] [place] [address] * HEX LA, Plasma (08/11/2023 11:09 AM CASE LINER) HEX LA Delta 6 <13 sec 08/13/2023 11:22 AM CASE LINER DTL Comment: Specimen was lipemic. Suggest retesting using a fasting specimen if clinically indicated. Blood 08/11/2023 11:0 9 AM CASE LINER 08/12/2023 3:31 PM CASE LINER Alexandra Armstrong P.A.-C. LAB BLOOD ADD-ON Performing Organization Address [facility] Co de Phone Number [facility] [address] 200 [place] [address] * (ABNORMAL) Factor V Leiden (R506Q) Mutation (08/11/2023 11:09 AM CASE LINER) Pathologist [facility] Factor V Leiden (R506Q) Mutation, B Heterozygous(A ) Negative 08/14/2023 10:07 AM CASE LINER DTL F5DNA Reviewed By AFUA Smith 08/14/2023 10:07 AM CASE LINER DTL F5DNA Interpretation This individual DOES have the factor V Leiden F5 c.1601G>A; p.[id number] (legacy numbering [id number]) variant on ONE allele, (heterozygous carrier). The factor V Leiden (p.[id number]) variant is a mild risk factor for venous thromboembolis m (VTE). This individual may have other genetic and environmental risk factors for VTE. If indicated, consider genetic consultation and counseling for this individual and potentially affected family members regarding laboratory testing. 08/14/2023 10:07 AM CASE LINER DTL Comment: ----ADDITIONAL INFORMATION---- This test uses TaqMan Genotyping chemistry to amplify and detect specific single nucleotide polymorphisms in purified genomic DNA. DISCLAIMER Discrepancy between the activated protein C resistance assay and the DNA based F5 c.1601 G>A. p.[id number] assay may be observed in patients receiving allogenic stem cell transplants or liver transplants. This test was developed and its performance characteristics determined by [facility] in a manner consistent with CLIA requirements. This test has not been cleared or approved by the U.S. Food and Drug Administration. Blood 08/11/2023 11:0 9 AM CASE LINER 08/12/2023 7:15 AM CASE LINER Alexandra Armstrong P.A.-C. LAB GENETIC TESTIN G [facility] [address] [place] [address], [facility] DT [address] [facility] [address] [place] [address] * (ABNORMAL) Thrombophilia Profile (08/11/2023 11:09 AM CASE LINER) Pathologist [facility] Prothrombin Time (PT), P 10.0 9.4 - 12.5 sec 4 10:29 AM CASE LINER DTL INR 0.9 0.9 - 1.1 10:29 AM CASE LINER DTL Comment: ----ADDITIONAL INFORMATION---- Standard intensity warfarin therapeutic range: 2.0 to 3.0 High intensity warfarin therapeutic range: 2.5 to 3.5 Activated Partial Thrombopl Time, P 32 25 - 37 sec 11:06 AM CASE LINER DTL DRVVT Screen Ratio CANCELED ratio 11:22 AM CASE LINER DTL Comment: REVISED RESULTS Interfering substance was present. ----PREVIOUSLY REPORTED ---- TNP Specimen was hemolyzed., Flagged as: N/A (Reported 08/12/2023 14:11) Thrombin Time (Bovine), P 19.0 15.8 - 24.9 sec 11:07 AM CASE LINER DTL Fibrinogen, Clauss, P 345 200 - 500 mg/dL 9:05 AM CASE LINER DTL Comment: ----ADDITIONAL INFORMATION---- This test has been modified from the information analyst's instructions. Its performance characteristics were determined by [facility] in a manner consistent with CLIA requirements. This test has not been cleared or approved by the U.S. Food and Drug Administration. D-DIMER, P 1094(H) <=500 ng/mL FEU 4 2:22 PM CASE LINER DTL Comment: Specimen was noted to be grossly lipemic. The D-Dimer result may be falsely elevated due to optical interference from lipemia. Suggest retesting using a fasting specimen if clinically indicated. ----ADDITIONAL INFORMATION---- D-dimer values less than or equal to 500 ng/mL fibrinogen equivalent units (FEU) may be used in conjunction with clinical pre-test probability to exclude deep vein thrombosis (DVT) and/or pulmonary embolism (PE). Antithrombin Activity, P 87 80 - 130 % 4 9:06 AM CASE LINER DTL Comment: ----ADDITIONAL INFORMATION---- This test has been modified from the information analyst's instructions. Its performance characteristics were determined by [facility] in a manner consistent with CLIA requirements. This test has not been cleared or approved by the U.S. Food and Drug Administration. Protein C Activity, P 118 70 - 150 % 4 10:01 AM CASE LINER DTL Comment: ----ADDITIONAL INFORMATION---- This test has been modified from the information analyst's instructions. Its performance characteristics were determined by [facility] in a manner consistent with CLIA requirements. This test has not been cleared or approved by the U.S. Food and Drug Administration. Protein S Ag, Free, P 100 65 - 160 % 4 9:04 AM CASE LINER DTL Comment: ----ADDITIONAL INFORMATION---- This test has been modified from the information analyst's instructions. Its performance characteristics were determined by [facility] in a manner consistent with CLIA requirements. This test has not been cleared or approved by the U.S. Food and Drug Administration. APCRV Ratio 1.6(L) >or=2.3 4 9:27 AM CASE LINER DTL Reviewed By Geno KabaB.S., Ph.D. 4 5:03 PM CASE LINER DTL Prothrombin [id number] Mutation, B Negative Negative 4 7:55 AM CASE LINER DTL PTNT Reviewed By AFUA Smith 4 7:55 AM CASE LINER DTL PTNT Interpretation This individual DOES NOT have the Prothrombin F2 c.*97G>A (legacy numbering [id number]) variant. Although the Prothrombin (F2 c.*97G>A) variant is absent, this individual may have other genetic and environmental risk factors for thrombosis. If indicated, consider genetic consultation and counseling for this individual and potentially affected family members regarding laboratory testing. 4 7:55 AM CASE LINER DTL Comment: ----ADDITIONAL INFORMATION---- This test uses TaqMan Genotyping chemistry to amplify and detect specific single nucleotide polymorphisms in purified genomic DNA. DISCLAIMER Patients receiving allogenic stem cell transplants prior to having blood drawn for DNA based testing may have false normal or abnormal results depending on the genotype of the stem cell donor. This test was developed and its performance characteristics determined by [facility] in a manner consistent with CLIA requirements. This test has not been cleared or approved by the U.S. Food and Drug Administration. 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 ?2) Elevated D-dimer; see comments and suggest clinical correlation. ?3) No additional identifiable congenital or acquired thrombotic diathesis (thrombophilia) within limitations of current test repertoire. ?4) If indicated, for additional thrombophilia assessment, consider testing for anticardiolipin and/or anti-beta 2 glycoprotein I antibodies (IgG and IgM isotypes). ?COMMENTS: The decreased activated protein C (APC) ratio was reflexively evaluated by DNA-based testing which demonstrates that the patient is heterozygous for the factor V Leiden F5 c.1601G>A; p.Ilj338Vcj (legacy numbering [id number]) variant. ??The factor V Leiden, F5 c.1601G>A variant is a mild risk factor for venous thromboembolism (VTE). ? Fibrin D-dimer elevation is indicative of increased intravascular coagulation and fibrinolysis (ICF), as can occur in association with recent bleeding, surgery or thromboembolism, hypercoagulable or hyperfibrinolytic states, liver disease, or clinical ICF/DIC (disseminated intravascular coagulation). The normal soluble fibrin monomer complex (SFMC) provides no additional evidence of increased intravascular coagulation or ICF/DIC, within assay sensitivity. ??Suggest clinical correlation. ?DRVVT testing for lupus anticoagulant could not be performed due to interference (lipemia). Additional testing for a lupus anticoagulant (LAC) was performed using Hex-LA methodology and a LAC-responsive APTT reagent. Addition of hexagonal phase phospholipid does not significantly shorten the clotting time (HEXLA Delta) providing no laboratory evidence of presence of LAC, by this methodology. ?No evidence of dysfibrinogenemi. No deficiencies of antithrombin, protein C or protein S. ?DNA-based testing demonstrates that this individual DOES NOT have the Prothrombin F2 c.*97G>A (legacy numbering [id number]) variant. 5:03 PM CASE LINER DTL Blood (Blood, Venous) 08/11/2023 11:09 AM CASE LINER 08/12/2023 8:03 AM CASE LINER Narrative [facility] - 08/14/2023 5:03 PM CASE LINER Specimen Information: Specimen ID: [id number] Specimen Type: Blood Specimen Collection Start Date: 08/11/2023 11:09 AM Specimen Received Date: 08/12/2023 ??8:03 AM Specimen ID: [id number] Specimen Type: Blood Specimen Collection Start Date: 08/11/2023 11:09 AM Specimen Received Date: 08/12/2023 ??8:01 AM Specimen ID: [id number] Specimen Type: Blood Specimen Collection Start Date: 08/11/2023 11:09 AM Specimen Received Date: 08/12/2023 ??7:58 AM Specimen ID: [id number] Specimen Type: Blood Specimen Collection Start Date: 08/11/2023 11:09 AM Specimen Received Date: 08/12/2023 ??7:15 AM Specimen ID: [id number] Specimen Type: Blood Specimen Collection Start Date: 08/11/2023 11:09 AM Specimen Received Date: 08/12/2023 ??8:03 AM Specimen ID: [id number] Specimen Type: Blood Specimen Collection Start Date: 08/11/2023 11:09 AM Specimen Received Date: 08/12/2023 ??7:58 AM Alexandra Armstrong P.A.-C. LAB BLOOD NON ADD- ON [facility] [address] [place] [address], [facility] [address] [place] [address] [address] [facility] [address] [place] [address] documented in this encounter Visit Diagnoses Diagnosis Thrombosis Superficial Vein Lower Extremity Left documented in this encounter Additional Health Concerns Assessment Noted Time PHQ-9 Depression Total Score: 11 024 3:14 PM CASE LINER documented as of this encounter Care Teams Medical Staff Credentialing Coordinator Relationship Specialty Start Date End Date Troy Ventura M.B.BMaineSMaine, MJose. [address] [place] [phone] PCP - General 07/05/19 documented as of this encounter
--- OUTSIDE RECORDS SUMMARY | 2023-08-28 08:44 | XMS_ITS | Encounter Summary ---
Author Name Unknown Organization [facility] Address [address] [place] [address] Care Team Providers Care Pillowcase Cutter Name Role Phone Troy Ventura M.D. Primary Care Hanh hajeffy Encounter Details Date Type Department Care Team (Late st Contact Info) Description 08/18/2023 Orders Only Department of Family Medicine, [facility], in [place], [place] [address] [place] [phone] Aranza Funez M.D. [address], [place] [address] Thrombosis Superficial Vein Lower Extremity Left Social History Tobacco Use Types Packs/Day Years [...] week 03/14/2021 How often do you attend [facility] or [facility] services? 1 to 4 times per year 03/14/2021 Do you belong to any clubs o r organizations such as spiritism groups, unions, fraternal or athletic groups, or [...] Date Recorded PHQ-2 Score 2 08/06/2023 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 [facility] to live 04/22/2023 Education Answer Date [...] PM CDT documented as of this encounter Plan of Treatment Upcoming Encounters Date Type Department Care Team (Late st Contact Info) Description 08/29/2023 12:10 PM FIELD AGENT Appointment Department of Laboratory Medicine in [place] [address] [place] [address] Kendra Canales APRN, C.N.P., D.N.P. [address] [place] [address] documented as of this encounter Visit Diagnoses Diagnosis Thrombosis Superficial Vein Lower Extremity Left documented in this encounter Additional Health Concerns Assessment Noted Time PHQ-9 Depression Total Score: 11 024 3:14 PM FIELD AGENT documented as of this encounter Care Teams Pillowcase Cutter Relationship Specialty Start Date End Date Troy Ventura M.B.B.S., M.D. [address] [place] [phone] PCP - General 07/05/19 documented as of this encounter
--- OUTSIDE RECORDS SUMMARY | 2023-08-28 08:44 | XMS_ITS | Clinical Summary ---
Author Name Unknown Organization [facility] Address [address] [place] [address] Care Team Providers Care Dean Of Graduate Studies Name Role Phone Troy Ventura M.D. Primary Care Hanh morgan Source Comments Patient records contain information from all sites at [facility]. For routine questions regarding patient records, call [phone] during business hours, M-F 8:00 AM - 5:00 PM Central Time. Record requests for emergency care only can be directed to [phone] at any time.[facility] Allergies Active Allergy Reactions Criticality Noted Date Comments Amoxicillin Rash 11/10/2010 Amoxicillin-Pot Clavulanate Rash 11/10/2010 Erythromycin Rash 11/10/2010 Latex Other (see comments) 03/15/2021 Penicillins Rash,Hives only, no other systemic symptoms Low 11/10/2010 Tetracycline Rash,Other (see comments),Hives only, no other systemic symptoms Low 11/10/2010 Hives and rash. Medications Medication Sig Dispensed Refills Start Date End Date Status multivitamin-iro n-FA (CENTRUM COMPLETE) 18-400 mg-mcg per tablet Take 1 tablet by mouth daily. 0 Active propranoloL (INDERAL) 10 mg tabletIndication s:Anxiety,Depres tyson Major Recurrent Moderate (HCC) TAKE ONE TABLET BY MOUTH TWICE A DAY 180 tablet 5 02/10/2023 Active citalopram (CeleXA) 20 mg tabletIndication s:Anxiety,Depres tyson Major Recurrent Moderate (HCC) TAKE 1 TABLET (20 MG TOTAL) BY MOUTH DAILY. 90 tablet 0 08/06/2023 Active apixaban (ELIQUIS) 5 mg tabletIndication s:Thrombosis Superficial Vein Lower Extremity Left Take 1 tablet (5 mg total) by mouth 2 (two) times a day. 60 tablet 2 08/18/2023 Active Eliquis 5 mg tablet TAKE TWO TABLETS (10MG) BY MOUTH TWICE A DAY FOR 7 DAYS THEN TAKE ONE TABLET (5MG) TWICE A DAY 0 05/02/2023 3 Discontinued citalopram (CeleXA) 20 mg tabletIndication s:Anxiety,Depres tyson Major Recurrent Moderate (HCC) Take 1 tablet (20 mg total) by mouth daily. 90 tablet 0 05/05/2023 4 Discontinued Eliquis 5 mg tablet TAKE 1 TABLET (5 MG) BY MOUTH 2 TWO TIMES A DAY. 60 tablet 2 07/30/2023 4 Discontinued(Dupl icate order) apixaban (ELIQUIS) 5 mg tabletIndication s:Thrombosis Superficial Vein Lower Extremity Left Take 1 tablet (5 mg total) by mouth 2 (two) times a day. 30 tablet 0 07/29/2023 4 Discontinued(Reor janel) apixaban (ELIQUIS) 5 mg tabletIndication s:Thrombosis Superficial Vein Lower Extremity Left Take 1 tablet (5 mg total) by mouth 2 (two) times a day. 60 tablet 2 08/15/2023 4 Discontinued(Reor janel) Active Problems Problem Noted Date Diagnosed Date Mutation Factor V Leiden Heterozygous 08/11/2023 Anxiety 10/29/2019 Rash Penis 10/29/2019 Hepatitis B Personal History 10/02/2018 Overview: Evaluation with [employer] [facility]-resolved Obesity Body Mass Index 30-39.9 Adult 10/09/2015 Abuse Tobacco Smoking 08/27/2013 Hyperlipidemia 12/18/2012 Depression Major Recurrent Moderate 02/08/2010 Overview: Patient denies a history of depression. Reports he is on celexa and propranolol for treatment of anxiety Encounters Date Type Department Care Team Description 08/25/2023 1:30 PM [employer] Comprehensive Visit Department of Vascular Medicine in [place], [place] [address] [place] [address] Kendra Canales APRN, C.N.P., D.N.P. Anticoagulant Therapy (Primary Dx); Thrombosis Superficial Vein Lower Extremity Left; Mutation Factor V Leiden Heterozygous (HCC) 08/18/2023 Orders Only Department of Family Medicine, [facility], in [place], [place] [address] [place] [address] Aranza Funez M.D. Thrombosis Superficial Vein Lower Extremity Left 08/14/2023 10:25 AM [employer] - 08/14/2023 11:59 PM [employer] Hospital Encounter Department of Laboratory Medicine in [address] [address] Alexandra Armstrong P.A.-C. Thrombosis Superficial Vein Lower Extremity Left Discharge Disposition: Home or Self Care 08/14/2023 Refill Department of [facility], [facility], in [address] [address] Alexandra Armstrong P.A.-C. Med Refill 08/11/2023 11:01 AM [employer] - 08/11/2023 11:59 PM [employer] Hospital Encounter Department of Laboratory Medicine in [address] [address] Alexandra Armstrong P.A.-C. Thrombosis Superficial Vein Lower Extremity Left Discharge Disposition: Home or Self Care 08/11/2023 10:26 AM [employer] - 08/11/2023 11:00 AM [employer] Hospital Encounter Department of Radiology in [address] [address] Alexandra Arsmtrong, P.A.-C. Thrombosis Superficial Vein Lower Extremity Left Discharge Disposition: Home or Self Care 08/07/2023 1:00 PM [employer] Office Visit Department of [facility], [address] [address] Alexandra Armstrong P.A.-C. Thrombosis Superficial Vein Lower Extremity Left (Primary Dx); Depression Major Recurrent Moderate (HCC) 08/05/2023 Refill Department of Family Medicine, [facility], in [place], [place] [address] [place] [address] Alexandra Armstrong P.A.-C. Med Refill 07/29/2023 Refill Department of Family Medicine, [facility], in [place], [place] [address] [place] [address] Alexandra Armstrong P.A.-C. Med Refill 05/31/2023 Nurse Triage Department of Family [facility], [facility], in [place], [place] [address] [place] [address] Praveen Young, Saniya. Med Refill from Last 3 Months Immunizations Name Administration Dates Next Due DTP 05/11/1991 DTaP (Infanrix, Tripedia) 11/25/2007 HepA Adult 04/25/2023,(Deferred: Patient decision),03/19/2019 HepB Adult (HEPLISAV-B) 08/07/2023(Deferred: Pat ient decision) Hib, Unspecified 05/11/1991 Influenza Laiv (Nasal) (Discontinued) 06/13/2014 Influenza TIV (IM) 06/09/2012 Influenza, Injectable, Quadrivalent 09/03/2016 Influenza, Seasonal, Injectable 06/09/2012 Influenza, Unspecified 06/09/2018,2017,07/22/2017,2016,09/03/2016,06/09/2012 OPV 05/11/1991 PCV20 04/25/2023 PPSV23 12/24/2016 Polio, Unspecified 05/11/1991 SARS-COV-2 (COVID-19) - PFIZ ER (12 years or older) 07/05/2021,12/11/2020,11/15/2020 SARS-COV-2 (COVID-19) - PFIZ ER BIVALENT TS(12 YEARS OR OLDER) 06/25/2022 Td (Adult), adsorbed 11/25/2007 Td Preservative Free (TENIVA C, DECAVAC) 04/03/2018 Td, (Adult) Unspecified 11/25/2007 influenza vaccine quad (FLUZONE/FLUARIX) (6 months and older)(PF) 06/25/2022,07/12/2021,07/19/2020,2018,06/09/2018,07/22/2017,06/13/2014 Family History Medical History Relation Name Comments No Known Problems Father Aortic valve disorder Mother Atrial fibrillation Mother Valvular heart disease Mother Atria l septal defect Pancreatic cancer Uncle maternal Relation Name Status Comments Father Alive Mother Alive Sister Alive Uncle maternal Social History Tobacco Use Types Packs/Day Years Used Date Smoking Tobacco: Every Day Cigarettes 0.5 Smokeless Tobacco: Never Tobacco Cessation:Ready to Q uit: No; Counseling Given: Yes Alcohol Use Standard Drinks/Week Comments Never 0 [...] often do you attend chur ch or samaritan services? 1 to 4 times per year 03/14/2021 Do you belong to any clubs o r organizations such as amish groups, unions, fraternal or athletic groups, or [...] Answer Date Recorded PHQ-2 Score 2 08/06/2023 [facility] - Occupational Stress [...] Answer Date Recorded Employment status Unemployed/not in e paid workforce and NOT seeking employment 03/14/2021 Housing Stability Answer Date Recorded What is your living situation today? I have a [facility] place to live 04/22/2023 Education Answer Date Recorded What is the highest level of school you have completed or the highest degree you have received? 12th grade 03/22/2019 Sex and Gender Information Value Date Recorded Sex Assigned at Male 04/22/2023 5:56 PM CDT Gender Identity Male 01/16/2018 3:24 AM CDT Sexual Orientation Lesbian or Price 04/22/2023 5: 56 PM CDT Last Filed Vital Signs Vital Sign Reading Time Taken Comments Blood Pressure 122/77 08/25/2023 1:16 PM [employer] Pulse 76 08/25/2023 1:16 PM [employer] Temperature 35.8 ??C (96.5 ??F) 08/07/2023 12:[address] Respiratory Rate 16 08/07/2023 12:53 PM [employer] Oxygen Saturation 99% 06/05/2021 11:55 AM CDT Inhaled Oxygen Concentration - - Weight 104 kg (229 lb 4.5 oz) 08/25/2023 1:14 PM [employer] Height 174.4 cm (5' 8.66) 08/25/2023 1:14 PM CS T Body Mass Index 34.19 08/25/2023 1:14 PM [employer] Plan of Treatment Upcoming Encounters Date Type Department Care Team (Late st Contact Info) Description 08/29/2023 12:10 PM [employer] Appointment Department of Laboratory Medicine in [place] [address] [place] [address] Kendra Canales APRN, C.N.P., D.N.P. [address] [place] [address] Health Maintenance Due Date Last Done Comments Hepatitis B Vaccines (1 of 3 - 3-dose series) 1987 Visit: Medicare Annual Wellness 1985 COVID-19 Vaccine (5 - 2023-24 season) 2023 06/25/2022, 07/05/2021, 12/11/2020, Additional history exists Influenza Vaccine (#1) 2023 , 07/12/2021, 07/19/2020, Additional history exists Depression Monitoring (PHQ-9) 12/05/2023 08/06/2023 Lipid (Cholesterol) Screening 04/25/2024 04/25/2023, 06/16/2013, 12/18/2012 Tobacco Cessation counseling 08/07/2024 08/07/2023 DTaP,Tdap,and Td Vaccines (6 - Tdap) 04/03/2028 04/03/2018, 11/25/2007, 11/25/2007, Additional history exists HIV Screening Completed 08/18/2020, 02/01, 11/02/2018, Additional history exists Hepatitis C Screening Completed 08/18/2020 Hepatitis A Vaccines Completed 04/25/2023, 03/19/20 19 Pneumococcal vaccine (0-64 years) Completed 04/25/2023, 12/24/2016 HPV Vaccines Aged Out No longer eligi ble based on patient's age to complete this topic Procedures Procedure Name Priority Date/Time Associated Diagnosis Comments COMPREHENSIVE METABOLIC PANEL, S/P Routine 08/14/2023 10:33 AM [employer] Thrombosis Superficial Vein Lower Extremity Left CBC WITH DIFFERENTIAL, B Routine 08/14/2023 10:33 AM [employer] Thrombosis Superficial Vein Lower Extremity Left US LOWER EXTREMITY VEINS LEFT RAD - Semiurgent (Fast; most ED patients; some inpatients) 08/11/2023 11:19 AM [employer] Thrombosis Superficial Vein Lower Extremity Left SOLUBLE FIBRIN MONOMER Routine 08/11/2023 11:09 AM [employer] HEX LA, P Routine 08/11/2023 11:09 AM [employer] FACTOR V LEIDEN (R506Q) MUTATION, B Routine 08/11/2023 11:09 AM [employer] THROMBOPHILIA PROF Routine 08/11/2023 11:09 AM [employer] Thrombosis Superficial Vein Lower Extremity Left from Last 3 Months Results * (ABNORMAL) CBC with Differential, Blood (08/14/2023 10:33 AM [employer]) Hemoglobin 16.6 13.2 - 16.6 g/dL 08/14/2023 10:37 AM [employer] FB60 Hematocrit 49.5(H) 38.3 - 48.6 % 08/14/2023 10:37 AM [employer] FB60 Erythrocytes 5.64 4.35 - 5.65 x10(12)/L 08/14/2023 10:37 AM [employer] FB60 MCV 87.8 78.2 - 97.9 fL 08/14/2023 10:37 AM [employer] FB60 RBC Distrib Width 12.3 11.8 - 14.5 % 08/14/2023 10:37 AM [employer] FB60 Platelet Count 257 135 - 317 x10(9)/L 08/14/2023 10:37 AM [employer] FB60 Leukocytes 6.4 3.4 - 9.6 x10(9)/L 08/14/2023 10:37 AM [employer] FB60 Neutrophils 3.43 1.56 - 6.45 x10(9)/L 08/14/2023 10:37 AM [employer] FB60 Lymphocytes 2.06 0.95 - 3.07 x10(9)/L 08/14/2023 10:37 AM [employer] FB60 Monocytes 0.70 0.26 - 0.81 x10(9)/L 08/14/2023 10:37 AM [employer] FB60 Eosinophils 0.17 0.03 - 0.48 x10(9)/L 08/14/2023 10:37 AM [employer] FB60 Basophils <0.04 0.01 - 0.08 x10(9)/L 08/14/2023 10:37 AM [employer] FB60 Blood (Blood, Venous) 08/14/2023 10:33 AM [employer] 08/14/2023 10:33 AM [employer] Alexandra Armstrong P.A.-C. LAB BLOOD ADD-ON [facility] [address] [place] [address], [facility] FB60 [facility] in [place] [address] [facility] [place] [address] * Comprehensive Metabolic Panel (08/14/2023 10:33 AM J[employer]) Potassium, P 4.4 3.6 - 5.2 mmol/L 08/14/2023 1:53 PM [employer] OWAT Sodium, P 138 135 - 145 mmol/L 08/14/2023 1:53 PM [employer]AT Chloride, P 101 98 - 107 mmol/L 08/14/2023 1:53 PM [employer]AT Bicarbonate, P 28 22 - 29 mmol/L 08/14/2023 1:53 PM [employer] Anion Gap, P 9 7 - 15 08/14/2023 1:53 PM [employer] OWAT BUN (Blood Urea Nitrogen), P 13 8 - 24 mg/dL 08/14/2023 1:53 PM [employer] OWAT Creatinine 0.91 0.74 - 1.35 mg/dL 08/14/2023 1:53 PM [employer] OWAT Estimated GFR (eGFR) >90 >=60 mL/min/BS A 08/14/2023 1:53 PM [employer] OWAT Comment: Estimated GFR calculated using the 2020 CKD_EPI creatinine equation. Calcium, Total, P 9.7 8.6 - 10.0 mg/dL 08/14/2023 1:53 PM [employer]AT Glucose, P 110 70 - 140 mg/dL 08/14/2023 1:53 PM [employer] Protein, Total, P 7.6 6.3 - 7.9 g/dL 08/14/2023 1:53 PM [employer] Albumin, P 4.6 3.5 - 5.0 g/dL 08/14/2023 1:53 PM [employer] Aspartate Aminotransferase (AST), P 36 8 - 48 U/L 08/14/2023 1:53 PM [employer] Alkaline Phosphatase, P 88 40 - 129 U/L 08/14/2023 1:53 PM [employer] Alanine Aminotransferase (ALT), P 55 7 - 55 U/L 08/14/2023 1:53 PM [employer] Bilirubin, Total, P 0.9 0.0 - 1.2 mg/dL 08/14/2023 1:53 PM [employer] OWAT Blood (Blood, Venous) 08/14/2023 10:33 AM [employer] 08/14/2023 1:02 PM [employer] Alexandra Armstrong P.A.-C. LAB BLOOD ADD-ON [facility] [address] [place] [address], [place] OWAT [facility] in [place] [address] [place] [address] * US Lower Extremity Veins Left (08/11/2023 11:19 AM [employer]) Anatomical Region Laterality Modality Lower Extremity, Ultrasound RST LOS, Ultrasound ARZ LOS, Ultrasound FLA LOS Left Ultrasound Impressions 08/11/2023 11:28 AM [employer] 1. Negative for acute DVT. 2. Aging, incompletely recanalized thrombus within the small saphenous vein. -- Clot appears less than 2 cm from the adjacent popliteal venous junction. Narrative 08/11/2023 11:28 AM [employer]ER EXAM: US LOWER EXTREMITY VEINS LEFT Exam [...] and management can be found on the DNA13 site. Link [email or web address] Procedure Note Supa Randall M.D. - 08/11/2023 [...] thrombosis and management can be found on theAskKopo Kopo site. [email or web address] care systemNQ Mobile [email or web address]/clinical-[email or web address]/[email or web address]/[facility] -2049 1725 IMPRESSION: 1. Negative for acute DVT. 2. Aging, incompletely recanalized thrombus within the small saphenousvein. -- Clot appears less than 2 cm from the adjacent popliteal venousjunction. Alexandra Armstrong P.A.-C. IMG US PROCEDURES * HEX LA, Plasma (08/11/2023 11:09 AM [employer]) HEX LA Delta 6 <13 sec 08/13/2023 11:22 AM [employer] DTL Comment: Specimen was lipemic. Suggest retesting using a fasting specimen if clinically indicated. Blood 08/11/2023 11:0 9 AM [employer]ER 08/12/2023 3:31 PM [employer] Alexandra Armstrong P.A.-C. LAB BLOOD ADD-ON [facility] [address] DTL [facility] [address] [place] [address] * (ABNORMAL) Thrombophilia Profile (08/11/2023 11:09 AM [employer]) Prothrombin Time (PT), P 10.0 9.4 - 12.5 sec 4 10:29 AM [employer] DTL INR 0.9 0.9 - 1.1 4 10:29 AM [employer] DTL Comment: ----ADDITIONAL INFORMATION---- Standard intensity warfarin therapeutic range: 2.0 to 3.0 High intensity warfarin therapeutic range: 2.5 to 3.5 Activated Partial Thrombopl Time, P 32 25 - 37 sec 11:06 AM [employer] DTL DRVVT Screen Ratio CANCELED ratio 11:22 AM [employer] DTL Comment: REVISED RESULTS Interfering substance was present. ----PREVIOUSLY REPORTED ---- TNP Specimen was hemolyzed., Flagged as: N/A (Reported 08/12/2023 14:11) Thrombin Time (Bovine), P 19.0 15.8 - 24.9 sec 11:07 AM [employer] DTL Fibrinogen, Clauss, P 345 200 - 500 mg/dL 9:05 AM [employer] DTL Comment: ----ADDITIONAL INFORMATION---- This test has been modified from the hospital personnel director's instructions. Its performance characteristics were determined by [facility] in a manner consistent with CLIA requirements. This test has not been cleared or approved by the U.S. Food and Drug Administration. D-DIMER, P 1094(H) <=500 ng/mL FEU 2:22 PM [employer] DTL Comment: Specimen was noted to be [...] Activity, P 87 80 - 130 % 9:06 AM J[employer] DTL Comment: ----ADDITIONAL INFORMATION---- This test has been modified from the hospital personnel director's instructions. Its performance characteristics were determined by [facility] in a manner consistent with CLIA requirements. This test has not been cleared or approved by the U.S. Food and Drug Administration. Protein C Activity, P 118 70 - 150 % 4 10:01 AM [employer] DTL Comment: ----ADDITIONAL INFORMATION---- This test has been modified from the hospital personnel director's instructions. Its performance characteristics were determined by [facility] in a manner consistent with CLIA requirements. This test has not been cleared or approved by the U.S. Food and Drug Administration. Protein S Ag, Free, P 100 65 - 160 % 4 9:04 AM [employer] DTL Comment: ----ADDITIONAL INFORMATION---- This test has been modified from the hospital personnel director's instructions. Its performance characteristics were determined by [facility] in a manner consistent with CLIA requirements. This test has not been cleared or approved by the U.S. Food and Drug Administration. APCRV Ratio 1.6(L) >or=2.3 4 9:27 AM [employer] DTL Reviewed By Shira Kaba.B.S., Ph.D. 4 5:03 PM [employer] DTL Prothrombin [id number] Mutation, B Negative Negative 4 7:55 AM [employer] DTL PTNT Reviewed By AFUA Smith 4 7:55 AM [employer] DTL PTNT Interpretation This individual DOES NOT have the Prothrombin F2 c.*97G>A (legacy numbering [id number]) variant. Although the Prothrombin (F2 c.*97G>A) variant is absent, this individual may have other genetic and environmental risk factors for thrombosis. If indicated, consider genetic consultation and counseling for this individual and potentially affected family members regarding laboratory testing. 4 7:55 AM [employer] DTL Comment: ----ADDITIONAL INFORMATION---- This test uses [...] developed and its performance characteristics determined by [facility] in a manner consistent with CLIA requirements. This test has not been cleared or approved by the U.S. Food and Drug Administration. 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 ??The factor V Leiden, F5 c.1601G>A [...] have the Prothrombin F2 c.*97G>A (legacy numbering [id number]) variant. 4 5:03 PM [employer] DTL Blood (Blood, Venous) 08/11/2023 11:09 AM [employer] 08/12/2023 8:03 AM [employer] Narrative [facility] - 08/14/2023 5:03 PM [employer] Specimen Information: Specimen ID: [id number] Specimen Type: Blood Specimen Collection Start Date: 08/11/2023 11:09 AM Specimen Received Date: 08/12/2023 ??8:03 AM Specimen ID: [id number] Specimen Type: Blood Specimen Collection Start Date: 08/11/2023 11:09 AM Specimen Received Date: 08/12/2023 ??8:01 AM Specimen ID: [id number] Specimen Type: Blood Specimen Collection Start Date: 08/11/2023 11:09 AM Specimen Received Date: 08/12/2023 ??7:58 AM Specimen ID: [id number] Specimen Type: Blood Specimen Collection Start Date: 08/11/2023 11:09 AM Specimen Received Date: 08/12/2023 ??7:15 AM Specimen ID: [id number] Specimen Type: Blood Specimen Collection Start Date: 08/11/2023 11:09 AM Specimen Received Date: 08/12/2023 ??8:03 AM Specimen ID: [id number] Specimen Type: Blood Specimen Collection Start Date: 08/11/2023 11:09 AM Specimen Received Date: 08/12/2023 ??7:58 AM Alexandra Armstrong P.A.-C. LAB BLOOD NON ADD- ON [facility] [address] [place] [address], [facility] [address] [place] [address] * (ABNORMAL) Factor V Leiden (R506Q) Mutation (08/11/2023 11:09 AM [employer]) Factor V Leiden (R506Q) Mutation, B Heterozygous(A ) Negative 08/14/2023 10:07 AM [employer] DTL F5DNA Reviewed By AFUA Smith 08/14/2023 10:07 AM [employer] DTL F5DNA Interpretation This individual DOES have the factor V Leiden F5 c.1601G>A; p.[id number] (legacy numbering [id number]) variant on ONE allele, (heterozygous carrier). The factor V Leiden (p.[id number]) variant is a mild risk factor for venous thromboembolis m (VTE). This individual may have other genetic and environmental risk factors for VTE. If indicated, consider genetic consultation and counseling for this individual and potentially affected family members regarding laboratory testing. 08/14/2023 10:07 AM J[employer] DTL Comment: ----ADDITIONAL INFORMATION---- This test uses TaqMan Genotyping chemistry to amplify and detect specific single nucleotide polymorphisms in purified genomic DNA. DISCLAIMER Discrepancy between the activated protein C resistance assay and the DNA based F5 c.1601 G>A. p.Cux277Xzs assay may be observed in patients receiving allogenic stem cell transplants or liver transplants. This test was developed and its performance characteristics determined by [facility] in a manner consistent with CLIA requirements. This test has not been cleared or approved by the U.S. Food and Drug Administration. Blood 08/11/2023 11:0 9 AM [employer]ER 08/12/2023 7:15 AM [employer]ER Alexandra Armstrong P.A.-C. LAB GENETIC TESTIN G Performing Organization Address City/[facility]/ZIP Co de Phone Number [facility] [address] [place] [address], [facility] DT [address] [facility] [address] [place] [address] * Soluble Fibrin Monomer (08/11/2023 11:09 AM [employer]ER) Soluble Fibrin Monomer <5 <=8 mcg/mL 08/12/2023 3:33 PM [employer] DTL Comment: ----ADDITIONAL INFORMATION---- This test was developed and its performance characteristics determined by [facility] in a manner consistent with CLIA requirements. This test has not been cleared or approved by the U.S. Food and Drug Administration. Blood 08/11/2023 11:0 9 AM [employer]ER 08/12/2023 7:58 AM [employer]ER Alexandra DukeC. LAB BLOOD NON ADD- ON Performing Organization Address City/[facility]/ZIP Co de Phone Number [facility] [address] [place] [phone], [place] DTL [facility] [place] [address] [place] [address] from Last 3 Months Care Teams Dean Of Graduate Studies Relationship Specialty Start Date End Date Troy Ventura M.B.B.S., MJose. [address] [place] [address] [place] [id number] PCP - General 07/05/19
--- OUTSIDE RECORDS SUMMARY | 2023-08-28 08:44 | XMS_ITS | Encounter Summary ---
Author Name Unknown Organization [facility] Address [address] [place] [address] Care Team Providers Care Sales Administration Specialist Name Role Phone Troy Ventura M.D. Primary Care Hanh sorensoneast [facility] Reason for Visit * Reason Comments Med Refill Encounter Details Date Type Department Care Team (Late st Contact Info) Description 08/14/2023 Refill Department of Family Medicine, [facility], in [place], [place] [address] [place] [phone] Alexandra Armstrong, P.A.-CMaine [address] [place] [phone] Med Refill Social History Tobacco Use Types Packs/Day Years [...] How often do you attend chur or jewish services? 1 to 4 times per year 03/14/2021 Do you belong to any clubs o r organizations such as buddhism groups, unions, fraternal or athletic groups, or [...] your living situation today? I have a [facility] place to live 04/22/2023 Education Answer Date [...] PM CDT documented as of this encounter Miscellaneous Notes * Telephone Encounter - Aracely Sparks, L.P.N. - 08/15/2023 10:36 AM PRINTER REPAIR TECHNICIAN Communicated refill not appropriate in related portal message TER REPAIR TECHNICIAN * Telephone Encounter - Troy Ventura M.B.B.S., M.D. - 08/15/2023 8:10 AM CST He has completed 3 months of therapy. TER REPAIR TECHNICIAN documented in this encounter Plan of Treatment Upcoming Encounters Date Type Department Care Team (Late st Contact Info) Description 08/29/2023 12:10 PM PRINTER REPAIR TECHNICIAN Appointment Department of Laboratory Medicine in [place], [place] [address] [place] [phone] Kendra Canales APRN, C.N.P., D.N.P. [address] [place] [address] documented as of this encounter Visit Diagnoses Diagnosis Thrombosis Superficial Vein Lower Extremity Left documented in this encounter Additional Health Concerns Assessment Noted Time PHQ-9 Depression Total Score: 11 024 3:14 PM PRINTER REPAIR TECHNICIAN documented as of this encounter Care Teams Sales Administration Specialist Relationship Specialty Start Date End Date Troy Ventura M.B.B.S., M.D. [address] [place] [phone] PCP - General 07/05/19 documented as of this encounter
--- OUTSIDE RECORDS SUMMARY | 2023-08-28 08:44 | XMS_ITS | Encounter Summary ---
Author Name Unknown Organization [facility] Address [address] [place] [address] Care Team Providers Care Human Services Supervisor Name Role Phone Troy Ventura M.D. Primary [facility] Reason for Referral * Outpatient (Routine) - Closed Specialty Diagnoses / Procedures Referred By Shannan hilton Referred To Contact Vascular Medicine Diagnoses Thrombosis Superficial Vein Lower Extremity Left Ranulfo Armstrong P.AMaine-CMaine [address], [place] [address] [facility] Referral ID Status Reason Start Date Expiration Date Visits Re quested Visits Authorized [id number] Closed 08/11/2023 08/10/2024 1 1 STUDY TECHNICIAN * Outpatient (Routine) - Closed Specialty Diagnoses / Procedures Referred By Shannan hilton Referred To Contact Diagnoses Thrombosis Superficial Vein Lower Extremity Left Procedures US Lower Extremity Veins Left Ranulfo Armstrong P.A.-CMaine [address], [place] [address] [facility] Referral ID Status Reason Start Date Expiration Date Visits Re quested Visits Authorized [id number] Closed 08/07/2023 08/06/2024 1 1 STUDY TECHNICIAN Reason for Visit * Reason Comments Follow-up Blood clot on left l ower leg. * Outpatient (Routine) - Closed Specialty Diagnoses / Procedures Referred By Shannan hilton Referred To Contact Family Medicine Ranulfo Armstrong P.A.-C. [address], [place] [address] [facility] Region Referral ID Status Reason Start Date Expiration Date Visits Re quested Visits Authorized [id number] Closed 04/25/2023 04/24/2026 1 1 Encounter Details Date Type Department Care Team (Late st Contact Info) Description 08/07/2023 1:00 PM TIME STUDY TECHNICIAN Office Visit Department of Family Medicine, [facility], in [place] [address] [place] [address] Ranulfo Armstrong P.A.-C. [address] [place] [phone] Thrombosis Superficial Vein Lower Extremity Left (Primary Dx); Depression Major Recurrent Moderate (HCC) Social History Tobacco Use Types Packs/Day Years [...] often do you attend chur ch or anglican services? 1 to 4 times per year 03/14/2021 Do you belong to any clubs o r organizations such as zoroastrian groups, unions, fraternal or athletic groups, or [...] Answer Date Recorded PHQ-2 Score 2 08/06/2023 [facility] - Occupational [...] your living situation today? I have a [facility] place to live 04/22/2023 Education Answer [...] PM CDT documented as of this encounter Last Filed Vital Signs Vital Sign Reading Time Taken Comments Blood Pressure 124/79 08/07/2023 12:53 PM TIME STUDY TECHNICIAN average of 3 Pulse 67 08/07/2023 12:53 PM TIME STUDY TECHNICIAN Temperature 35.8 ??C (96.5 ??F) 08/07/2023 1 2:53 PM TIME STUDY TECHNICIAN Respiratory Rate 16 08/07/2023 12:5 3 PM TIME STUDY TECHNICIAN Oxygen Saturation - - Inhaled Oxygen Concentration - - Weight 103 kg (227 lb 2.9 oz) 12:53 PM TIME STUDY TECHNICIAN Height 174 cm (5' 8.5) 08/07/2023 12:5 3 PM TIME STUDY TECHNICIAN Body Mass Index 34.04 08/07/2023 12:53 PM TIME STUDY TECHNICIAN documented in this encounter Progress Notes * Ranulfo Armstrong P.A.-C. - 08/07/2023 1:00 PM CST SUBJECTIVE CHIEF COMPLAINT/REASON FOR VISIT Chief Complaint Patient presents with Follow-up Blood clot on left lower leg. HISTORY OF PRESENT ILLNESS Neymar Lopez is a pleasant 38 y.o. male who presents to the clinic today for follow-up. Patient was seen most recently by myself 05/05/2023 for post ED follow-up. He would initially been seen in ED 04/27/2023 for evaluation left calf pain at which time ultrasound was negative. He was seen again 05/02/2023 for continued calf pain at which time ultrasound showed occlusive superficial venous thrombosis in left small saphenous vein. He was started on Eliquis. Given proximity of thrombosis to saphenous popliteal junction recommended 3 months of anticoagulation. Patient reports that calf pain did resolve, in the last month he is noticed some new fullness in his left calf. He has been taking Eliquis as prescribed, no bleeding concerns. REVIEW OF SYSTEMS Pertinent positive ROS are listed above in HPI. Patient Active Problem List Diagnosis Depression Major Recurrent Moderate (HCC) Obesity Body Mass Index 30-39.9 Adult Hepatitis B Personal History Abuse Tobacco Smoking Hyperlipidemia Anxiety Rash Penis ALLERGIES/CONTRAINDICATIONS Allergies Allergen Reactions Amoxicillin Rash Clavulanate [Amoxicillin-Pot Clavulanate] Rash Erythromycin Rash Latex Other (see comments) Penicillins Rash and Hives only, no other systemic symptoms Tetracycline Rash, Other (see comments) and Hives only, no other systemic symptoms Hives and rash. CURRENT MEDICATIONS Current Outpatient Medications: apixaban (ELIQUIS) 5 mg tablet, Take 1 tablet (5 mg total) by mouth 2 (two) times a day., Disp: 30 tablet, Rfl: 0 citalopram (CeleXA) 20 mg tablet, TAKE 1 TABLET (20 MG TOTAL) BY MOUTH DAILY., Disp: 90 tablet, Rfl: 0 pqmkricduxaq-ujur-GS (CENTRUM COMPLETE) 18-400 mg-mcg per tablet, Take 1 tablet by mouth daily., Disp: , Rfl: propranoloL (INDERAL) 10 mg tablet, TAKE ONE TABLET BY MOUTH TWICE A DAY, Disp: 180 tablet, Rfl: 5 OBJECTIVE VITAL SIGNS Vitals: 08/07/23 1253 BP: 124/79 Pulse: 67 Resp: 16 Temp: (!) 35.8 ??C PHYSICAL EXAMINATION General: Well-nourished, well-developed 38 y.o. in no apparent distress. Awake, alert, age appropriate. Extremities: Mild tenderness palpation left calf, there is no erythema or warmth. No significant swelling in either lower extremity. ASSESSMENT / PLAN IMPRESSION/REPORT/PLAN: #1 Thrombosis Superficial Vein Lower Extremity Left -Patient has completed 3 months of anticoagulation with Eliquis. Recommend discontinuing medication, we will plan to complete thrombophilia panel after he has been off medication for 2-3 days. Given recurrence of calf fullness I would also like to re-evaluate with ultrasound. - Thrombophilia Profile; Future; Expected date: 08/07/2023 - US Lower Extremity Veins Left; Future; Expected date: 08/07/2023 #2 Depression Major Recurrent Moderate (HCC) -Patient feels that mood symptoms are currently manageable with combination of Celexa 20 mg daily and propranolol 10 mg twice daily. All questions have been answered. Patient demonstrated understanding and verbalized agreement with the plan. Total time spent is 20 minutes. Ranulfo Armstrong P.A.-C. STUDY TECHNICIAN documented in this encounter Miscellaneous Notes * Addendum Note - Ranulfo Armstrong P.A.-C. - 08/07/2023 1:00 PM CSTAddended by: RANULFO ARMSTRONG on: 08/11/2023 11:43 AM Modules accepted: Orders STUDY TECHNICIAN documented in this encounter Plan of Treatment Upcoming Encounters Date Type Department Care Team (Late st Contact Info) Description 08/29/2023 12:10 PM TIME STUDY TECHNICIAN Appointment Department of Laboratory Medicine in [address] [phone] Kendra Canales APRN, C.N.P., D.N.P. [address] [place] [address] Scheduled Referrals Name Type Priority Associated Diagnoses Order Schedule Vascular Medicine - Thrombophilia consult (clinic) Outpatient Referral Routine Thrombosis Superficial Vein Lower Extremity Left Expected: 08/11/2023 (Approximate), Expires: 11/09/2024 documented as of this encounter Results * Comprehensive Metabolic Panel (08/14/2023 10:33 AM TIME STUDY TECHNICIAN) Potassium, P 4.4 3.6 - 5.2 mmol/L 08/14/2023 1:53 PM TIME STUDY TECHNICIAN OWAT Sodium, P 138 135 - 145 mmol/L 08/14/2023 1:53 PM TIME STUDY TECHNICIAN OWAT Chloride, P 101 98 - 107 mmol/L 08/14/2023 1:53 PM TIME STUDY TECHNICIAN OWAT Bicarbonate, P 28 22 - 29 mmol/L 08/14/2023 1:53 PM TIME STUDY TECHNICIAN OWAT Anion Gap, P 9 7 - 15 08/14/2023 1:53 PM TIME STUDY TECHNICIAN OWAT BUN (Blood Urea Nitrogen), P 13 8 - 24 mg/dL 08/14/2023 1:53 PM TIME STUDY TECHNICIAN OWAT Creatinine 0.91 0.74 - 1.35 mg/dL 08/14/2023 1:53 PM TIME STUDY TECHNICIAN OWAT Estimated GFR (eGFR) >90 >=60 mL/min/BS A 08/14/2023 1:53 PM TIME STUDY TECHNICIAN OWAT Comment: Estimated GFR calculated using the 2020 CKD_EPI creatinine equation. Calcium, Total, P 9.7 8.6 - 10.0 mg/dL 08/14/2023 1:53 PM TIME STUDY TECHNICIAN OWAT Glucose, P 110 70 - 140 mg/dL 08/14/2023 1:53 PM TIME STUDY TECHNICIAN OWAT Protein, Total, P 7.6 6.3 - 7.9 g/dL 08/14/2023 1:53 PM TIME STUDY TECHNICIAN OWAT Albumin, P 4.6 3.5 - 5.0 g/dL 08/14/2023 1:53 PM TIME STUDY TECHNICIAN OWAT Aspartate Aminotransferase (AST), P 36 8 - 48 U/L 08/14/2023 1:53 PM TIME STUDY TECHNICIAN OWAT Alkaline Phosphatase, P 88 40 - 129 U/L 08/14/2023 1:53 PM TIME STUDY TECHNICIAN OWAT Alanine Aminotransferase (ALT), P 55 7 - 55 U/L 08/14/2023 1:53 PM TIME STUDY TECHNICIAN OWAT Bilirubin, Total, P 0.9 0.0 - 1.2 mg/dL 08/14/2023 1:53 PM TIME STUDY TECHNICIAN OWAT Blood (Blood, Venous) 08/14/2023 10:33 AM TIME STUDY TECHNICIAN 08/14/2023 1:02 PM TIME STUDY TECHNICIAN Ranulfo Armstrong P.A.-C. LAB BLOOD ADD-ON [facility] [address] [place] [address], [facility] OWAT [facility] [place] [address] [place] [address] * (ABNORMAL) CBC with Differential, Blood (08/14/2023 10:33 AM TIME STUDY TECHNICIAN) Hemoglobin 16.6 13.2 - 16.6 g/dL 08/14/2023 10:37 AM TIME STUDY TECHNICIAN FB60 Hematocrit 49.5(H) 38.3 - 48.6 % 08/14/2023 10:37 AM TIME STUDY TECHNICIAN FB60 Erythrocytes 5.64 4.35 - 5.65 x10(12)/L 08/14/2023 10:37 AM TIME STUDY TECHNICIAN FB60 MCV 87.8 78.2 - 97.9 fL 08/14/2023 10:37 AM TIME STUDY TECHNICIAN FB60 RBC Distrib Width 12.3 11.8 - 14.5 % 08/14/2023 10:37 AM TIME STUDY TECHNICIAN FB60 Platelet Count 257 135 - 317 x10(9)/L 08/14/2023 10:37 AM TIME STUDY TECHNICIAN FB60 Leukocytes 6.4 3.4 - 9.6 x10(9)/L 08/14/2023 10:37 AM TIME STUDY TECHNICIAN FB60 Neutrophils 3.43 1.56 - 6.45 x10(9)/L 08/14/2023 10:37 AM TIME STUDY TECHNICIAN FB60 Lymphocytes 2.06 0.95 - 3.07 x10(9)/L 08/14/2023 10:37 AM TIME STUDY TECHNICIAN FB60 Monocytes 0.70 0.26 - 0.81 x10(9)/L 08/14/2023 10:37 AM TIME STUDY TECHNICIAN FB60 Eosinophils 0.17 0.03 - 0.48 x10(9)/L 08/14/2023 10:37 AM TIME STUDY TECHNICIAN FB60 Basophils <0.04 0.01 - 0.08 x10(9)/L 08/14/2023 10:37 AM TIME STUDY TECHNICIAN FB60 Blood (Blood, Venous) 08/14/2023 10:33 AM TIME STUDY TECHNICIAN 08/14/2023 10:33 AM TIME STUDY TECHNICIAN Ranulfo Armstrong P.A.-C. LAB BLOOD ADD-ON [facility] [address] [place] [address], [facility] FB60 [facility] [place] [address] [place] [address] * US Lower Extremity Veins Left (08/11/2023 11:19 AM TIME STUDY TECHNICIAN) Anatomical Region Laterality Modality Lower Extremity, Ultrasound RST LOS, Ultrasound ARZ LOS, Ultrasound FLA LOS Left Ultrasound Impressions 08/11/2023 11:28 AM TIME STUDY TECHNICIAN 1. Negative for acute DVT. 2. Aging, incompletely recanalized thrombus within the small saphenous vein. -- Clot appears less than 2 cm from the adjacent popliteal venous junction. Narrative 08/11/2023 11:28 AM TIME STUDY TECHNICIAN EXAM: US LOWER EXTREMITY VEINS LEFT Exam [...] and management can be found on the lifeaction games site. Link [email or web address]://Cancer GeneticsyoProver [email or web address]/topic/clinical-answers/[email or web address]/[email or web address] Procedure Note Supa Randall M.D. - 08/11/2023 [...] management can be found on theAskMayoExpert site. Linkhttps://[email or web address].[facility]/topic/clinical-answers/[email or web address]/[facility] -2049 1725 IMPRESSION: 1. Negative for acute DVT. 2. Aging, incompletely recanalized thrombus within the small saphenousvein. -- Clot appears less than 2 cm from the adjacent popliteal venousjunction. Ranulfo Armstrong P.A.-C. IMG US PROCEDURES * (ABNORMAL) Thrombophilia Profile (08/11/2023 11:09 AM TIME STUDY TECHNICIAN) Pathologist [facility] Prothrombin Time (PT), P 10.0 9.4 - 12.5 sec 4 10:29 AM TIME STUDY TECHNICIAN DTL INR 0.9 0.9 - 1.1 10:29 AM TIME STUDY TECHNICIAN DTL Comment: ----ADDITIONAL INFORMATION---- Standard intensity warfarin therapeutic range: 2.0 to 3.0 High intensity warfarin therapeutic range: 2.5 to 3.5 Activated Partial Thrombopl Time, P 32 25 - 37 sec 11:06 AM TIME STUDY TECHNICIAN DTL DRVVT Screen Ratio CANCELED ratio 11:22 AM TIME STUDY TECHNICIAN DTL Comment: REVISED RESULTS Interfering substance was present. ----PREVIOUSLY REPORTED ---- TNP Specimen was hemolyzed., Flagged as: N/A (Reported 08/12/2023 14:11) Thrombin Time (Bovine), P 19.0 15.8 - 24.9 sec 11:07 AM TIME STUDY TECHNICIAN DTL Fibrinogen, Clauss, P 345 200 - 500 mg/dL 9:05 AM TIME STUDY TECHNICIAN DTL Comment: ----ADDITIONAL INFORMATION---- This test has been modified from the clerk travel reservations's instructions. Its performance characteristics were determined by [facility] in a manner consistent with CLIA requirements. This test has not been cleared or approved by the U.S. Food and Drug Administration. D-DIMER, P 1094(H) <=500 ng/mL FEU 4 2:22 PM TIME STUDY TECHNICIAN DTL Comment: Specimen was noted to be [...] 80 - 130 % 4 9:06 AM TIME STUDY TECHNICIAN DTL Comment: ----ADDITIONAL INFORMATION---- This test has been modified from the clerk travel reservations's instructions. Its performance characteristics were determined by [facility] in a manner consistent with CLIA requirements. This test has not been cleared or approved by the U.S. Food and Drug Administration. Protein C Activity, P 118 70 - 150 % 4 10:01 AM TIME STUDY TECHNICIAN DTL Comment: ----ADDITIONAL INFORMATION---- This test has been modified from the clerk travel reservations's instructions. Its performance characteristics were determined by [facility] in a manner consistent with CLIA requirements. This test has not been cleared or approved by the U.S. Food and Drug Administration. Protein S Ag, Free, P 100 65 - 160 % 4 9:04 AM TIME STUDY TECHNICIAN DTL Comment: ----ADDITIONAL INFORMATION---- This test has been modified from the clerk travel reservations's instructions. Its performance characteristics were determined by [facility] in a manner consistent with CLIA requirements. This test has not been cleared or approved by the U.S. Food and Drug Administration. APCRV Ratio 1.6(L) >or=2.3 4 9:27 AM TIME STUDY TECHNICIAN DTL Reviewed By Shira Kaba.B.S., Ph.D. 4 5:03 PM TIME STUDY TECHNICIAN DTL Prothrombin [id number] Mutation, B Negative Negative 4 7:55 AM TIME STUDY TECHNICIAN DTL PTNT Reviewed By AFUA Smith 4 7:55 AM TIME STUDY TECHNICIAN DTL PTNT Interpretation This individual DOES NOT have the Prothrombin F2 c.*97G>A (legacy numbering [id number]) variant. Although the Prothrombin (F2 c.*97G>A) variant is absent, this individual may have other genetic and environmental risk factors for thrombosis. If indicated, consider genetic consultation and counseling for this individual and potentially affected family members regarding laboratory testing. 4 7:55 AM TIME STUDY TECHNICIAN DTL Comment: ----ADDITIONAL INFORMATION---- This test uses [...] developed and its performance characteristics determined by [facility] in a manner consistent with CLIA requirements. This test has not been cleared or approved by the U.S. Food and Drug Administration. 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 ??The factor V Leiden, F5 c.1601G>A [...] have the Prothrombin F2 c.*97G>A (legacy numbering [id number]) variant. 5:03 PM TIME STUDY TECHNICIAN DTL Blood (Blood, Venous) 08/11/2023 11:09 AM TIME STUDY TECHNICIAN 08/12/2023 8:03 [address] [facility] - 08/14/2023 5:03 PM TIME STUDY TECHNICIAN Specimen Information: Specimen ID: [id number] Specimen Type: Blood Specimen Collection Start Date: 08/11/2023 11:09 AM Specimen Received Date: 08/12/2023 ??8:03 AM Specimen ID: [id number] Specimen Type: Blood Specimen Collection Start Date: 08/11/2023 11:09 AM Specimen Received Date: 08/12/2023 ??8:01 AM Specimen ID: [id number] Specimen Type: Blood Specimen Collection Start Date: 08/11/2023 11:09 AM Specimen Received Date: 08/12/2023 ??7:58 AM Specimen ID: [id number] Specimen Type: Blood Specimen Collection Start Date: 08/11/2023 11:09 AM Specimen Received Date: 08/12/2023 ??7:15 AM Specimen ID: [id number] Specimen Type: Blood Specimen Collection Start Date: 08/11/2023 11:09 AM Specimen Received Date: 08/12/2023 ??8:03 AM Specimen ID: [id number] Specimen Type: Blood Specimen Collection Start Date: 08/11/2023 11:09 AM Specimen Received Date: 08/12/2023 ??7:58 AM Ranulfo Armstrong P.A.-C. LAB BLOOD NON ADD- ON [facility] [address] [place] [address], [facility] [address] [place], [place] [phone] [place] [address] [place] [address] documented in this encounter Visit Diagnoses Diagnosis Thrombosis Superficial Vein Lower Extremity Left- Primary Depression Major Recurrent Moderate (HCC) Thrombosis Superficial Vein Lower Extremity Left Thrombosis Superficial Vein Lower Extremity Left documented in this encounter Additional Health Concerns Assessment Noted Time PHQ-9 Depression Total Score: 11 024 3:14 PM TIME STUDY TECHNICIAN documented as of this encounter Care Teams Human Services Supervisor Relationship Specialty Start Date End Date Troy Ventura M.B.B.S., Lydia. [address] [place] [phone] PCP - General 07/05/19 documented as of this encounter
--- OUTSIDE RECORDS SUMMARY | 2023-08-28 08:44 | XMS_ITS | Encounter Summary ---
Author Name Unknown Organization [facility] Address [address] [place] [address] Care Team Providers Care Desktop Support Specialist Name Role Phone Troy Ventura M.D. [facility] Reason for Referral * Outpatient (Routine) - Authorized Specialty Diagnoses / Procedures Referred By Contac t Referred To Contact Vascular Medicine Kendra Canales APRN, C.N.PMaine, D.N.P. [address] [place] [phone] [facility] Referral ID Status Reason Start Date Expiration Date V isits Requested Visits Authorized [id number] Authorized 08/25/2023 02/23/2025 1 1 E QUALITY * Outpatient (Routine) - Authorized Specialty Diagnoses / Procedures Referred By Contac t Referred To Contact Diagnoses Thrombosis Superficial Vein Lower Extremity Left Procedures US Lower Extremity Veins Left Kendra Canales APRN, C.N.P., D.N.P. [address] [place] [phone] [facility] Referral ID Status Reason Start Date Expiration Date V isits Requested Visits Authorized [id number] Authorized 08/25/2023 08/24/2024 1 1 E QUALITY Reason for Visit * Outpatient (Routine) - Closed Specialty Diagnoses / Procedures Referred By Shannan hilton Referred To Contact Vascular Medicine Diagnoses Thrombosis Superficial Vein Lower Extremity Left Alexandra Armstrong P.A.-C. [address] [address] [facility] Referral ID Status Reason Start Date Expiration Date Visits Re quested Visits Authorized [id number] Closed 08/11/2023 08/10/2024 1 1 Encounter Details Date Type Department Care Team (Late st Contact Info) Description 08/25/2023 1:30 PM NURSE QUALITY Comprehensive Visit Department of Vascular Medicine in [place], [place] [address] [place] [phone] Kendra Canales APRN C.N.P., D.N.P. [address] [place] [phone] Anticoagulant Therapy (Primary Dx); Thrombosis Superficial Vein Lower Extremity Left; Mutation Factor V Leiden Heterozygous (HCC) Social History Tobacco Use Types Packs/Day [...] How often do you attend chur or episcopalian services? 1 to 4 times per year 03/14/2021 Do you belong to any clubs o r organizations such as religious groups, unions, fraternal or athletic groups, or [...] Answer Date Recorded PHQ-2 Score 2 08/06/2023 [facility] Occupational Stress Questionnaire Answer Date [...] Comments Blood Pressure 122/77 08/25/2023 1:16 PM NURSE QUALITY Pulse 76 08/25/2023 1:16 PM NURSE QUALITY Temperature - - Respiratory Rate - - Oxygen Saturation - - Inhaled Oxygen Concentration - - Weight 104 kg (229 lb 4.5 oz) 08/25/2023 1:14 PM NURSE QUALITY Height 174.4 cm (5' 8.66) 08/25/2023 1:14 PM CS T Body Mass Index 34.19 08/25/2023 1:14 PM NURSE QUALITY documented in this encounter Consult Notes * Kendra Canales APRN, C.N.P., D.N.P. - 08/25/2023 1:30 PM CST REFERRAL SOURCE Alexandra Armstrong P.A.-C. [address] [phone] SUBJECTIVE CHIEF COMPLAINT / REASON FOR VISIT Incomplete resolution of thrombus within saphenous vein on Eliquis; further management/evaluation recommendations HISTORY OF PRESENT ILLNESS Mr. Lopez is a 38 y.o. male that I am seeing today for the first time at [place] [address] [facility] for anticoagulation recommendations for a small saphenous vein thrombus, diagnosed on 05/01/2023. Medical history significant for obesity, hyperlipidemia, and depression. Mr. Lopez was seen at local emergency department on 05/01/2023 with concerns of viral illness, body aches, headache and pain in the left leg. He reports having a Covid-19 test positive at home 1 week prior to being seen in the emergency department. Covid-19 test was negative in the emergency department. Ultrasound of left lower extremity was completed and displayed superficial thrombus in the lesser saphenous veins within 1 cm to the popliteal junction, extending into the calf. No DVT in the left lower extremity. He was then treated with Eliquis for 3 months. He was then seen again on 05/01/2023 and a local emergency department with a repeat ultrasound displayed occlusive thrombus in the left small saphenous vein. Carotids within 1 cm the confluence within the popliteal vein. Mild heterogeneity of the most proximal aspect of the clot. Unchanged proximity to the deep vein system. He wasthen seen here in family Medicine on 05/05/2023 with recommendations of therapeutic anticoagulationfor 3 months and proceed with a thrombophilia panel. More recently he was seen again with Family Medicine on 08/07/2023 and recommended discontinuing medication, complete thrombophilia Clinic and repeat left lower extremity ultrasound. Repeat left lower extremity ultrasound displayed agent, incompletely recanalize thrombus within the small saphenous vein. Clot appears less than 2 cm from the adjacent popliteal venous junction. Thrombophilia panel was then completed and displayed heterozygous for factor 5 Leiden. DRVVT screen ratio was canceled - interfering assessments was present. TNP specimen was hemolyzed. Hex LA Delta was normal at 6 seconds. Negative for prothrombin gene mutation. Protein S and protein C was normal. Normal antithrombin activity. It was recommended to resume Eliquis 5mg twice daily. He is here today in regards to following-up on anticoagulation. Currently on Eliquis 5 mg twice daily. This is his first event with venous thromboembolism. Up to date on cancer screenings. Denies inflammatory or autoimmune disorders. Denies use of hormone therapy. REVIEW OF SYSTEMS This is his first event with venous thromboembolism. Denies prior personal history of atrial fibrillation, pulmonary embolism, deep vein thrombosis, stroke/TIAs, known thrombophilias. Denies shortness of breath, chest pain, tachycardia. Denies family history of pulmonary embolism, deep vein thrombosis, stroke/TIAs, known thrombophilias. Denies excessive bleeding requiring medical treatment. Denies epistaxis, bleeding from gums, ecchymosis/hematoma, hematemesis, hematuria, hematochezia. A 10 point review of systems was reviewed. Pertinent positives and pertinent negatives are documented in the history of present illness. The following portions of the patient's history were reviewed and updated as appropriate: allergies, current medications, family history, past medical history, social history, surgical history, problem list, labs, diagnostics tests. I reviewed the pertinent clinical notes in the electronic health record. OBJECTIVE PHYSICAL EXAM Vitals: 08/25/23 1316 BP: 122/77 Pulse: 76 Body mass index is 34.19 kg/m??. General: Patient appears seated comfortably and in no acute distress. Extremities: No edema noted in lower extremities bilaterally. Warm, well perfused lower extremitiesbilaterally. Gait: Steady and stable. Mental: Pleasant, appropriate, and cooperative. Alert and oriented x 3. Skin: Warm, dry and pink with good turgor. No rashes or ecchymosis seen. DIAGNOSTIC EVALUATIONS All diagnostic images and labs were reviewed. LABORATORY EVALUATIONS Lab Results Component Value Date WBC 6.4 08/14/2023 HGB 16.6 08/14/2023 HCT 49.5 (H) 08/14/2023 MCV 87.8 08/14/2023 PLT 257 08/14/2023 Lab Results Component Value Date NA 138 08/14/2023 CL 101 08/14/2023 CREATININE 0.91 08/14/2023 EGFR >90 08/14/2023 BUN 13 08/14/2023 ANIONGAP 9 08/14/2023 GLUCOSE 110 08/14/2023 CALCIUM 9.7 08/14/2023 Lab Results Component Value Date INR 0.9 08/11/2023 PT 10.0 08/11/2023 CrCl cannot be calculated (Patient's most recent lab result is older than the maximum 7 days allowed.). ASSESSMENT / PLAN #1 Thrombosis Superficial Vein Lower Extremity Left #2 Anticoagulant Therapy #3 Mutation Factor V Leiden Heterozygous (HCC) SVT: Date: 05/01/2023 Location (s): superficial thrombus in the lesser saphenous veins within 1 cm to the popliteal junction, extending into the calf. No DVT in the left lower extremity. Known risk factors for VTE at that time included: TCR VTE RISK FACTORS: Obesity (BMI>30), Recenttrauma/immobilization (>3 days): Minor, and Other: Illness . Treated with Eliquis for 3 months. Thrombophilia profile was completed on 08/11/2023 and was positive for heterozygous factor 5 Leiden.PCP restarted Eliquis. Mr. Lopez is a pleasant 38 y.o. male who presents today at the [facility] for anticoagulation recommendations for minimally provoked SVT in the lesser saphenous vein within 1 cm of popliteal junction, diagnosed on 05/01/2023. He reports a Covid-19 positive home test approximally1 week prior to emergency department/diagnosis. Covid-19 was negative while in emergency department. He was also relatively sedentary at this time. More recently, he was found to be heterozygous factor 5 Leiden. Repeat ultrasound of the left lower extremity was completed on 08/11/2023 and displayedaging, incompletely recanalize thrombus within the small saphenous vein. Clot appears to be less dixie n 2 cm from the adjacent popliteal venous function. Currently, he is on Eliquis 5 mg twice daily. Factor V Leiden thrombophilia is an inherited disorder of blood clotting. This is the most common inherited thrombophilia with approximately 3-8% of individuals with ancestry being heterozygous for the VL mutation. Only about 10 percent of individuals with the factor V Leiden mutation everdevelop abnormal clots. The risk of developing an abnormal clot in a blood vessel depends on whether a person is heterozygous or homozygous for the F5 gene mutation that causes Factor V Leiden thrombophilia. In the general population, the risk of developing an abnormal blood clot is about 1 in 1,000 people per year. Inheriting one copy of the F5 gene mutation increases that risk to 3 to 8 in 1,000. The risk for an event may become medically more significant in surgery or when immobilized for several days and with internal injuries. We also discussed that heterozygosity for factor V Leiden is,at best, is a very weak risk factor for recurrent VTE, and in and of itself, it is not the sole dete rminant for the duration of anticoagulation. Mr. Lopez is hesitant on discontinuing anticoagulation. We discussed continuing anticoagulation versus discontinuing anticoagulation. We discussed sedentary state and Covid-19 can be a provoking factor to thromboembolism, though his home test was positive versus ER was negative. It is uncertain ifa week difference can change the results, as patients can test positive for longer durations as others do not. No pulmonary embolism. Discussed an aging, incomplete thrombus could predispose to recurrent thromboembolism and can take 3-6 months to resolve. In shared-decision making, plan for additional 3 months of anticoagulation, as long as anticoagulation can be do so safely and bleeding risk remains low. Return to Thrombophilia Clinic in 3 months to review anticoagulation. RECOMMENDATIONS: Eliquis 5 mg twice daily Return to Thrombophilia Clinic in 3 months to review ongoing anticoagulation I reviewed the risk and benefits, potential drug to drug interactions and side effects of Eliquis. It was a pleasure to see Mr. Lopez. Patient verbalized understanding of all the recommendations and was in agreement with the plan. If any additional questions or concerns, please contact the [place] [address] [facility]. Kendra Canales APRN, C.N.P., D.N.P. BILLROCHELLE I personally spent over half of a total 60 minutes in reviewing clinical documents, counseling and discussion with the patient and coordination of care as described above. E QUALITY documented in this encounter Plan of Treatment Upcoming Encounters Date Type Department Care Team (Late st Contact Info) Description 08/29/2023 12:10 PM NURSE QUALITY Appointment Department of Laboratory Medicine in [place], [place] [address] [place] [address] Kendra Canales APRN, C.N.P., D.N.P. [address] [place] [address] Scheduled Orders Name Type Priority Associated Diagnoses Orde r Schedule Beta-2 Glycoprotein 1 Antibodies, IgG and IgM Lab Routine Thrombosis Superficial Vein Lower Extremity Left Expected: 09/01/2023 (Approximate), Expires: 11/23/2024 Phospholipid (Cardiolipin) Antibodies, IgG and IgM Lab Routine Thrombosis Superficial Vein Lower Extremity Left Expected: 09/01/2023 (Approximate), Expires: 11/23/2024 US Lower Extremity Veins Left Imaging RAD - Routine (most inpatients and all outpatients) Thrombosis Superficial Vein Lower Extremity Left Expected: 11/24/2023 (Approximate), Expires: 11/23/2024 Scheduled Referrals Name Type Priority Associated Diagnoses Order Schedule Vascular Medicine office visit (clinic) Thrombophilia Outpatient Referral Routine Expected: 11/24/2023 (Approximate), Expires: 11/23/2024 documented as of this encounter Visit Diagnoses Diagnosis Anticoagulant Therapy- Primary Thrombosis Superficial Vein Lower Extremity Left Mutation Factor V Leiden Heterozygous (HCC) documented in this encounter Additional Health Concerns Assessment Noted Time PHQ-9 Depression Total Score: 11 024 3:14 PM NURSE QUALITY documented as of this encounter Care Teams Desktop Support Specialist Relationship Specialty Start Date End Date Troy Ventura M.B.BMaineSMaine, MJose. [address] [place] [phone] PCP - General 07/05/19 documented as of this encounter
--- OUTSIDE RECORDS SUMMARY | 2023-08-28 08:44 | XMS_ITS ---
Author Name Unknown Organization [facility] Address [address] [place] [address] Care Team Providers Care Property Adjuster Name Role Phone Unavailable Unavailable Unavailable Surgery Details Not on file Complications Check Surgery Details section. Procedure Estimated Blood Loss Check Surgery Details section. Procedure Findings Check Surgery Details section. Procedure Specimens Taken Check Surgery Details section.
--- OUTSIDE RECORDS SUMMARY | 2023-08-28 08:44 | XMS_ITS | Referral Summary ---
Author Name Unknown Organization [facility] Address [address] [place] [address] Care Team Providers Care Home Theater Installer Name Role Phone Troy Ventura M.D. Primary Care Hanh morgan Source Comments Patient records contain information from all sites at [facility]. For routine questions regarding patient records, call [phone] during business hours, M-F 8:00 AM - 5:00 PM Central Time. Record requests for emergency care only can be directed to [phone] at any time.[facility] Encounters Date Type Department Care Team Description 08/25/2023 1:30 PM ANATOMIC PATHOLOGY ASSISTANT Comprehensive Visit Department of Vascular Medicine in [place], [place] [address] [place] [address] Kendra Canales APRN, C.N.P., D.N.P. Anticoagulant Therapy (Primary Dx); Thrombosis Superficial Vein Lower Extremity Left; Mutation Factor V Leiden Heterozygous (HCC) 08/18/2023 Orders Only Department of Family Medicine, [facility], in [place], [place] [address] [place] [address] Aranza Funez M.D. Thrombosis Superficial Vein Lower Extremity Left 08/14/2023 Refill Department of Family Medicine, [facility], in [place], [place] [address] [place] [phone] Alexandra Armstrong, P.A.-C. Med Refill 08/14/2023 10:25 AM ANATOMIC PATHOLOGY ASSISTANT - 08/14/2023 11:59 PM ANATOMIC PATHOLOGY ASSISTANT Hospital Encounter Department of Laboratory Medicine in [address] [address] Alexandra Armstrong P.AMaine-C. Thrombosis Superficial Vein Lower Extremity Left Discharge Disposition: Home or Self Care 08/11/2023 11:01 AM ANATOMIC PATHOLOGY ASSISTANT - 08/11/2023 11:59 PM ANATOMIC PATHOLOGY ASSISTANT Hospital Encounter Department of Laboratory Medicine in [address] [address] Alexandra Armstrong P.A.-C. Thrombosis Superficial Vein Lower Extremity Left Discharge Disposition: Home or Self Care 08/11/2023 10:26 AM ANATOMIC PATHOLOGY ASSISTANT - 08/11/2023 11:00 AM ANATOMIC PATHOLOGY ASSISTANT Hospital Encounter Department of Radiology in [address] [address] Alexandra Armstrong P.A.-C. Thrombosis Superficial Vein Lower Extremity Left Discharge Disposition: Home or Self Care 08/07/2023 1:00 PM ANATOMIC PATHOLOGY ASSISTANT Office Visit Department of [facility], in [address] [address] Alexandra Armstrong P.A.-C. Thrombosis Superficial Vein Lower Extremity Left (Primary Dx); Depression Major Recurrent Moderate (HCC) 08/05/2023 Refill Department of [facility], [facility], in [address] [address] Alexandra Armstrong P.A.-C. Med Refill 07/29/[address] Family [facility], [facility], in [address] [address] Alexandra Armstrong P.A.-C. Med Refill 05/31/2023 Nurse Triage Department of [facility], [facility], in [address] [address] Praveen Young RMaineN. Med Refill from Last 3 Months Allergies Active Allergy Reactions Criticality Noted Date [...] a day. 60 tablet 2 08/15/2023 4 Discontinued(Aleksandra islas) Active Problems Problem Noted Date Diagnosed Date Mutation Factor V Leiden Heterozygous 08/11/2023 Anxiety 10/29/2019 Rash Penis 10/29/2019 Hepatitis B Personal History 10/02/2018 Overview: Evaluation with [facility]-resolved Obesity Body Mass Index 30-39.9 Adult 10/09/2015 Abuse Tobacco Smoking 08/27/2013 Hyperlipidemia 12/18/2012 Depression Major Recurrent Moderate 02/08/2010 Overview: Patient denies a history of depression. Reports he is on celexa and propranolol for treatment of anxiety Immunizations Name Administration Dates Next Due DTP 05/11/1991 DTaP (Infanrix, [employer]) 11/25/2007 HepA Adult 04/25/2023, 3(Deferred: Patient decision),03/19/2019 HepB Adult (HEPLISAV-B) 08/07/2023(Deferred: Pat [...] quad (FLUZONE/FLUARIX) (6 months and older)(PF) 06/25/2022,07/12/2021,07/19/2020,2018,06/09/2018,07/22/2017,06/13/2014 Social History Tobacco Use Types Packs/Day Years [...] often do you attend chur ch or lutheran services? 1 to 4 times per year 03/14/2021 Do you belong to any clubs o r organizations such as worship groups, unions, fraternal or athletic groups, or [...] Answer Date Recorded PHQ-2 Score 2 08/06/2023 [facility] - Occupational Stress Questionnaire Answer Date Recorded [...] Comments Blood Pressure 122/77 08/25/2023 1:16 PM ANATOMIC PATHOLOGY ASSISTANT Pulse 76 08/25/2023 1:16 PM ANATOMIC PATHOLOGY ASSISTANT Temperature 35.8 ??C (96.5 ??F) 08/07/2023 12:[address] Respiratory Rate 16 08/07/2023 12:53 PM ANATOMIC PATHOLOGY ASSISTANT Oxygen Saturation 99% 06/05/2021 11:55 AM CDT Inhaled Oxygen Concentration - - Weight 104 kg (229 lb 4.5 oz) 08/25/2023 1:14 PM ANATOMIC PATHOLOGY ASSISTANT Height 174.4 cm (5' 8.66) 08/25/2023 1:14 PM CS T Body Mass Index 34.19 08/25/2023 1:14 PM ANATOMIC PATHOLOGY ASSISTANT Plan of Treatment Upcoming Encounters Date Type Department Care Team (Late st Contact Info) Description 08/29/2023 12:10 PM ANATOMIC PATHOLOGY ASSISTANT Appointment Department of Laboratory Medicine in [address] [phone] Kendra Canales APRN, C.N.P., D.N.P. [address] [place] [address] Procedures Procedure Name Priority Date/Time Associated Diagnosis Comments COMPREHENSIVE METABOLIC PANEL, S/P Routine 08/14/2023 10:33 AM ANATOMIC PATHOLOGY ASSISTANT Thrombosis Superficial Vein Lower Extremity Left CBC WITH DIFFERENTIAL, B Routine 08/14/2023 10:33 AM ANATOMIC PATHOLOGY ASSISTANT Thrombosis Superficial Vein Lower Extremity Left US LOWER EXTREMITY VEINS LEFT RAD - Semiurgent (Fast; most ED patients; some inpatients) 08/11/2023 11:19 AM ANATOMIC PATHOLOGY ASSISTANT Thrombosis Superficial Vein Lower Extremity Left SOLUBLE FIBRIN MONOMER Routine 08/11/2023 11:09 AM ANATOMIC PATHOLOGY ASSISTANT HEX LA, P Routine 08/11/2023 11:09 AM ANATOMIC PATHOLOGY ASSISTANT FACTOR V LEIDEN (R506Q) MUTATION, B Routine 08/11/2023 11:09 AM ANATOMIC PATHOLOGY ASSISTANT THROMBOPHILIA PROF Routine 08/11/2023 11:09 AM ANATOMIC PATHOLOGY ASSISTANT Thrombosis Superficial Vein Lower Extremity Left from Last 3 Months Results * (ABNORMAL) CBC with Differential, Blood (08/14/2023 10:33 AM ANATOMIC PATHOLOGY ASSISTANT) Hemoglobin 16.6 13.2 - 16.6 g/dL 08/14/2023 10:37 AM ANATOMIC PATHOLOGY ASSISTANT FB60 Hematocrit 49.5(H) 38.3 - 48.6 % 08/14/2023 10:37 AM ANATOMIC PATHOLOGY ASSISTANT FB60 Erythrocytes 5.64 4.35 - 5.65 x10(12)/L 08/14/2023 10:37 AM ANATOMIC PATHOLOGY ASSISTANT FB60 MCV 87.8 78.2 - 97.9 fL 08/14/2023 10:37 AM ANATOMIC PATHOLOGY ASSISTANT FB60 RBC Distrib Width 12.3 11.8 - 14.5 % 08/14/2023 10:37 AM ANATOMIC PATHOLOGY ASSISTANT FB60 Platelet Count 257 135 - 317 x10(9)/L 08/14/2023 10:37 AM ANATOMIC PATHOLOGY ASSISTANT FB60 Leukocytes 6.4 3.4 - 9.6 x10(9)/L 08/14/2023 10:37 AM ANATOMIC PATHOLOGY ASSISTANT FB60 Neutrophils 3.43 1.56 - 6.45 x10(9)/L 08/14/2023 10:37 AM ANATOMIC PATHOLOGY ASSISTANT FB60 Lymphocytes 2.06 0.95 - 3.07 x10(9)/L 08/14/2023 10:37 AM ANATOMIC PATHOLOGY ASSISTANT FB60 Monocytes 0.70 0.26 - 0.81 x10(9)/L 08/14/2023 10:37 AM ANATOMIC PATHOLOGY ASSISTANT FB60 Eosinophils 0.17 0.03 - 0.48 x10(9)/L 08/14/2023 10:37 AM ANATOMIC PATHOLOGY ASSISTANT FB60 Basophils <0.04 0.01 - 0.08 x10(9)/L 08/14/2023 10:37 AM ANATOMIC PATHOLOGY ASSISTANT FB60 Blood (Blood, Venous) 08/14/2023 10:33 AM ANATOMIC PATHOLOGY ASSISTANT 08/14/2023 10:33 AM ANATOMIC PATHOLOGY ASSISTANT Alexandra Armstrong P.A.-C. LAB BLOOD ADD-ON [facility] [address] [place] [address], [facility] FB60 [facility] in [place] [address] [place] [address] * Comprehensive Metabolic Panel (08/14/2023 10:33 AM ANATOMIC PATHOLOGY ASSISTANT) Potassium, P 4.4 3.6 - 5.2 mmol/L 08/14/2023 1:53 PM ANATOMIC PATHOLOGY ASSISTANT OWAT Sodium, P 138 135 - 145 mmol/L 08/14/2023 1:53 PM ANATOMIC PATHOLOGY ASSISTANT OWAT Chloride, P 101 98 - 107 mmol/L 08/14/2023 1:53 PM ANATOMIC PATHOLOGY ASSISTANT OWAT Bicarbonate, P 28 22 - 29 mmol/L 08/14/2023 1:53 PM ANATOMIC PATHOLOGY ASSISTANT OWAT Anion Gap, P 9 7 - 15 08/14/2023 1:53 PM ANATOMIC PATHOLOGY ASSISTANT OWAT BUN (Blood Urea Nitrogen), P 13 8 - 24 mg/dL 08/14/2023 1:53 PM ANATOMIC PATHOLOGY ASSISTANT OWAT Creatinine 0.91 0.74 - 1.35 mg/dL 08/14/2023 1:53 PM ANATOMIC PATHOLOGY ASSISTANT OWAT Estimated GFR (eGFR) >90 >=60 mL/min/BS A 08/14/2023 1:53 PM ANATOMIC PATHOLOGY ASSISTANT OWAT Comment: Estimated GFR calculated using the 2020 CKD_EPI creatinine equation. Calcium, Total, P 9.7 8.6 - 10.0 mg/dL 08/14/2023 1:53 PM ANATOMIC PATHOLOGY ASSISTANT OWAT Glucose, P 110 70 - 140 mg/dL 08/14/2023 1:53 PM ANATOMIC PATHOLOGY ASSISTANT OWAT Protein, Total, P 7.6 6.3 - 7.9 g/dL 08/14/2023 1:53 PM ANATOMIC PATHOLOGY ASSISTANT OWAT Albumin, P 4.6 3.5 - 5.0 g/dL 08/14/2023 1:53 PM ANATOMIC PATHOLOGY ASSISTANT OWAT Aspartate Aminotransferase (AST), P 36 8 - 48 U/L 08/14/2023 1:53 PM ANATOMIC PATHOLOGY ASSISTANT OWAT Alkaline Phosphatase, P 88 40 - 129 U/L 08/14/2023 1:53 PM ANATOMIC PATHOLOGY ASSISTANT OWAT Alanine Aminotransferase (ALT), P 55 7 - 55 U/L 08/14/2023 1:53 PM ANATOMIC PATHOLOGY ASSISTANT OWAT Bilirubin, Total, P 0.9 0.0 - 1.2 mg/dL 08/14/2023 1:53 PM ANATOMIC PATHOLOGY ASSISTANT OWAT Blood (Blood, Venous) 08/14/2023 10:33 AM ANATOMIC PATHOLOGY ASSISTANT 08/14/2023 1:02 PM ANATOMIC PATHOLOGY ASSISTANT Alexandra Armstrong P.A.-C. LAB BLOOD ADD-ON Performing Organization Address City/State/[facility] Co de Phone Number [facility] [address] [place] [address], [facility] OWAT [facility] in [place] [address] [place] [address] * US Lower Extremity Veins Left (08/11/2023 11:19 AM ANATOMIC PATHOLOGY ASSISTANT) Anatomical Region Laterality Modality Lower Extremity, Ultrasound RST LOS, Ultrasound ARZ LOS, Ultrasound FLA LOS Left Ultrasound Impressions 08/11/2023 11:28 AM ANATOMIC PATHOLOGY ASSISTANT 1. Negative for acute DVT. 2. Aging, incompletely recanalized thrombus within the small saphenous vein. -- Clot appears less than 2 cm from the adjacent popliteal venous junction. Narrative 08/11/2023 11:28 AM ANATOMIC PATHOLOGY ASSISTANT EXAM: US LOWER EXTREMITY VEINS LEFT Exam [...] and management can be found on the [employer] site. Link [email or web address] Procedure Note Supa Randall M.D. - 08/11/2023 [...] thrombosis and management can be found on the[employer] site. [email or web address] 1725 IMPRESSION: 1. Negative for acute DVT. 2. Aging, incompletely recanalized thrombus within the small saphenousvein. -- Clot appears less than 2 cm from the adjacent popliteal venousjunction. Alexandra Armstrong P.A.-C. IMG US PROCEDURES * HEX LA, Plasma (08/11/2023 11:09 AM ANATOMIC PATHOLOGY ASSISTANT) HEX LA Delta 6 <13 sec 08/13/2023 11:22 AM ANATOMIC PATHOLOGY ASSISTANT DTL Comment: Specimen was lipemic. Suggest retesting using a fasting specimen if clinically indicated. Blood 08/11/2023 11:0 9 AM ANATOMIC PATHOLOGY ASSISTANT 08/12/2023 3:31 PM ANATOMIC PATHOLOGY ASSISTANT Alexandra Armstrong P.A.-C. LAB BLOOD ADD-ON [facility] [address] [place] [address], [facility] [address] [place] [address] * (ABNORMAL) Thrombophilia Profile (08/11/2023 11:09 AM ANATOMIC PATHOLOGY ASSISTANT) Prothrombin Time (PT), P 10.0 9.4 - 12.5 sec 4 10:29 AM ANATOMIC PATHOLOGY ASSISTANT DTL INR 0.9 0.9 - 1.1 4 10:29 AM ANATOMIC PATHOLOGY ASSISTANT DTL Comment: ----ADDITIONAL INFORMATION---- Standard intensity warfarin therapeutic range: 2.0 to 3.0 High intensity warfarin therapeutic range: 2.5 to 3.5 Activated Partial Thrombopl Time, P 32 25 - 37 sec 4 11:06 AM ANATOMIC PATHOLOGY ASSISTANT DTL DRVVT Screen Ratio CANCELED ratio 11:22 AM ANATOMIC PATHOLOGY ASSISTANT DTL Comment: REVISED RESULTS Interfering substance was present. ----PREVIOUSLY REPORTED ---- TNP Specimen was hemolyzed., Flagged as: N/A (Reported 08/12/2023 14:11) Thrombin Time (Bovine), P 19.0 15.8 - 24.9 sec 4 11:07 AM ANATOMIC PATHOLOGY ASSISTANT DTL Fibrinogen, Clauss, P 345 200 - 500 mg/dL 4 9:05 AM ANATOMIC PATHOLOGY ASSISTANT DTL Comment: ----ADDITIONAL INFORMATION---- This test has been modified from the newspaper vendor's instructions. Its performance characteristics were determined by [facility] in a manner consistent with CLIA requirements. This test has not been cleared or approved by the U.S. Food and Drug Administration. D-DIMER, P 1094(H) <=500 ng/mL FEU 4 2:22 PM ANATOMIC PATHOLOGY ASSISTANT DTL Comment: Specimen was noted to be [...] 80 - 130 % 4 9:06 AM ANATOMIC PATHOLOGY ASSISTANT DTL Comment: ----ADDITIONAL INFORMATION---- This test has been modified from the newspaper vendor's instructions. Its performance characteristics were determined by [facility] in a manner consistent with CLIA requirements. This test has not been cleared or approved by the U.S. Food and Drug Administration. Protein C Activity, P 118 70 - 150 % 4 10:01 AM ANATOMIC PATHOLOGY ASSISTANT DTL Comment: ----ADDITIONAL INFORMATION---- This test has been modified from the newspaper vendor's instructions. Its performance characteristics were determined by [facility] in a manner consistent with CLIA requirements. This test has not been cleared or approved by the U.S. Food and Drug Administration. Protein S Ag, Free, P 100 65 - 160 % 4 9:04 AM ANATOMIC PATHOLOGY ASSISTANT DTL Comment: ----ADDITIONAL INFORMATION---- This test has been modified from the newspaper vendor's instructions. Its performance characteristics were determined by [facility] in a manner consistent with CLIA requirements. This test has not been cleared or approved by the U.S. Food and Drug Administration. APCRV Ratio 1.6(L) >or=2.3 4 9:27 AM ANATOMIC PATHOLOGY ASSISTANT DTL Reviewed By Geno KabaB.S., Ph.D. 4 5:03 PM ANATOMIC PATHOLOGY ASSISTANT DTL Prothrombin S28643G Mutation, B Negative Negative 4 7:55 AM ANATOMIC PATHOLOGY ASSISTANT DTL PTNT Reviewed By AFUA Smith 4 7:55 AM ANATOMIC PATHOLOGY ASSISTANT DTL PTNT Interpretation This individual DOES NOT have the Prothrombin F2 c.*97G>A (legacy numbering [id number]) variant. Although the Prothrombin (F2 c.*97G>A) variant is absent, this individual may have other genetic and environmental risk factors for thrombosis. If indicated, consider genetic consultation and counseling for this individual and potentially affected family members regarding laboratory testing. 4 7:55 AM ANATOMIC PATHOLOGY ASSISTANT DTL Comment: ----ADDITIONAL INFORMATION---- This test uses [...] developed and its performance characteristics determined by [facility] in a manner consistent with CLIA requirements. This test has not been cleared or approved by the U.S. Food and Drug Administration. 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 ??The factor V Leiden, F5 c.1601G>A [...] have the Prothrombin F2 c.*97G>A (legacy numbering [id number]) variant. 5:03 PM ANATOMIC PATHOLOGY ASSISTANT DTL Blood (Blood, Venous) 08/11/2023 11:09 AM ANATOMIC PATHOLOGY ASSISTANT 08/12/2023 8:03 AM ANATOMIC PATHOLOGY ASSISTANT Narrative [facility] - 08/14/2023 5:03 PM ANATOMIC PATHOLOGY ASSISTANT Specimen Information: Specimen ID: [id number] Specimen Type: Blood Specimen Collection Start Date: 08/11/2023 11:09 AM Specimen Received Date: 08/12/2023 ??8:03 AM Specimen ID: [id number] Specimen Type: Blood Specimen Collection Start Date: 08/11/2023 11:09 AM Specimen Received Date: 08/12/2023 ??8:01 AM Specimen ID: [id number] Specimen Type: Blood Specimen Collection Start Date: 08/11/2023 11:09 AM Specimen Received Date: 08/12/2023 ??7:58 AM Specimen ID: [id number] Specimen Type: Blood Specimen Collection Start Date: 08/11/2023 11:09 AM Specimen Received Date: 08/12/2023 ??7:15 AM Specimen ID: [id number] Specimen Type: Blood Specimen Collection Start Date: 08/11/2023 11:09 AM Specimen Received Date: 08/12/2023 ??8:03 AM Specimen ID: [id number] Specimen Type: Blood Specimen Collection Start Date: 08/11/2023 11:09 AM Specimen Received Date: 08/12/2023 ??7:58 AM Alexandra Armstrong P.A.-C. LAB BLOOD NON ADD- ON [facility] [address] [place] [address], [facility] [address] [place] [address] [place] [address] * (ABNORMAL) Factor V Leiden (R506Q) Mutation (08/11/2023 11:09 AM ANATOMIC PATHOLOGY ASSISTANT) Factor V Leiden (R506Q) Mutation, B Heterozygous(A ) Negative 08/14/2023 10:07 AM ANATOMIC PATHOLOGY ASSISTANT DTL F5DNA Reviewed By AFUA Smith 08/14/2023 10:07 AM ANATOMIC PATHOLOGY ASSISTANT DTL F5DNA Interpretation This individual DOES have the factor V Leiden F5 c.1601G>A; p.Zzs239Thb (legacy numbering [id number]) variant on ONE allele, (heterozygous carrier). The factor V Leiden (p.Ytl672Rhu) variant is a mild risk factor for venous thromboembolis m (VTE). This individual may have other genetic and environmental risk factors for VTE. If indicated, consider genetic consultation and counseling for this individual and potentially affected family members regarding laboratory testing. 08/14/2023 10:07 AM ANATOMIC PATHOLOGY ASSISTANT DTL Comment: ----ADDITIONAL INFORMATION---- This test uses TaqMan Genotyping chemistry to amplify and detect specific single nucleotide polymorphisms in purified genomic DNA. DISCLAIMER Discrepancy between the activated protein C resistance assay and the DNA based F5 c.1601 G>A. p.Tlo105Uup assay may be observed in patients receiving allogenic stem cell transplants or liver transplants. This test was developed and its performance characteristics determined by [facility] in a manner consistent with CLIA requirements. This test has not been cleared or approved by the U.S. Food and Drug Administration. Blood 08/11/2023 11:0 9 AM ANATOMIC PATHOLOGY ASSISTANT 08/12/2023 7:15 AM ANATOMIC PATHOLOGY ASSISTANT Alexandra Armstrong P.A.-C. LAB GENETIC TESTIN G [facility] [address] [place] [address], [facility] [address] [facility] [address] [place] [address] * Soluble Fibrin Monomer (08/11/2023 11:09 AM ANATOMIC PATHOLOGY ASSISTANT) Pathologist [facility] Soluble Fibrin Monomer <5 <=8 mcg/mL 08/12/2023 3:33 PM ANATOMIC PATHOLOGY ASSISTANT DTL Comment: ----ADDITIONAL INFORMATION---- This test was developed and its performance characteristics determined by [facility] in a manner consistent with CLIA requirements. This test has not been cleared or approved by the U.S. Food and Drug Administration. Blood 08/11/2023 11:0 9 AM ANATOMIC PATHOLOGY ASSISTANT 08/12/2023 7:58 AM ANATOMIC PATHOLOGY ASSISTANT Alexandra Armstrong P.A.-C. LAB BLOOD NON ADD- ON [facility] [address] [place] [address], [place] DTL [facility] [address] [place] [address] from Last 3 Months Care Teams Home Theater Installer Relationship Specialty Start Date End Date Troy Ventura M.B.BMaineSMaine, M.Jaimie. [address] [place] [address] [place] [address] PCP - General 07/05/19
--- OUTSIDE RECORDS SUMMARY | 2023-08-28 08:44 | XMS_ITS | Encounter Summary ---
Author Name Unknown Organization [facility] Address [address] [place] [address] Care Team Providers Care Older Worker Specialist Name Role Phone Troy Ventura M.D. Primary Care P deltajanel Encounter Details Date Type Department Care Team (Latest Contact Info) Description 08/14/2023 10:25 AM PROJECTION PRINTER - 08/14/2023 11:59 PM [facility] Hospital Encounter Department of Laboratory Medicine in [place], [place] [address] [place] [phone] Alexandra Armstrong, P.AMaine-CMaine [address] [place] [phone] Thrombosis Superficial Vein Lower Extremity Left Discharge [...] How often do you attend chur or mandaeism services? 1 to 4 times per year 03/14/2021 Do you belong to any clubs o r organizations such as tenriism groups, unions, fraternal or athletic groups, or [...] Answer Date Recorded PHQ-2 Score 2 08/06/2023 [facility] of Occupat ional Health - Occupational [...] your living situation today? I have a [facility] place to live 04/22/2023 Education Answer [...] TWICE A DAY 180 tablet 5 02/10/2023 [id number] (CENTRUM COMPLETE) 18-400 mg-mcg per tablet Take 1 tablet by mouth daily. 0 apixaban (ELIQUIS) 5 mg tabletIndications:Thromb osis Superficial Vein Lower Extremity Left Take 1 tablet (5 mg total) by mouth 2 (two) times a day. 30 tablet 0 07/29/2023 08/15/2023 apixaban (ELIQUIS) 5 mg tabletIndications:Thromb osis Superficial Vein Lower Extremity Left Take 1 tablet (5 mg total) by mouth 2 (two) times a day. 60 tablet 2 08/15/2023 08/18/2023 documented as of this encounter Plan of Treatment Upcoming Encounters Date Type Department Care Team (Late st Contact Info) Description 08/29/2023 12:10 PM PROJECTION PRINTER Appointment Department of Laboratory Medicine in [address] [phone] Kendra Canales APRN, C.N.P., D.N.P. [address] [place] [phone] documented as of this encounter Procedures Procedure Name Priority Date/Time Associated Diagnosis Comments CBC WITH DIFFERENTIAL, B Routine 08/14/2023 10:33 AM PROJECTION PRINTER Thrombosis Superficial Vein Lower Extremity Left COMPREHENSIVE METABOLIC PANEL, S/P Routine 08/14/2023 10:33 AM PROJECTION PRINTER Thrombosis Superficial Vein Lower Extremity Left documented in this encounter Results * Comprehensive Metabolic Panel (08/14/2023 10:33 AM PROJECTION PRINTER) Potassium, P 4.4 3.6 - 5.2 mmol/L 08/14/2023 1:53 PM PROJECTION PRINTER OWAT Sodium, P 138 135 - 145 mmol/L 08/14/2023 1:53 PM PROJECTION PRINTER OWAT Chloride, P 101 98 - 107 mmol/L 08/14/2023 1:53 PM PROJECTION PRINTER OWAT Bicarbonate, P 28 22 - 29 mmol/L 08/14/2023 1:53 PM PROJECTION PRINTER OWAT Anion Gap, P 9 7 - 15 08/14/2023 1:53 PM PROJECTION PRINTER OWAT BUN (Blood Urea Nitrogen), P 13 8 - 24 mg/dL 08/14/2023 1:53 PM PROJECTION PRINTER OWAT Creatinine 0.91 0.74 - 1.35 mg/dL 08/14/2023 1:53 PM PROJECTION PRINTER OWAT Estimated GFR (eGFR) >90 >=60 mL/min/BS A 08/14/2023 1:53 PM PROJECTION PRINTER OWAT Comment: Estimated GFR calculated using the 2020 CKD_EPI creatinine equation. Calcium, Total, P 9.7 8.6 - 10.0 mg/dL 08/14/2023 1:53 PM PROJECTION PRINTER OWAT Glucose, P 110 70 - 140 mg/dL 08/14/2023 1:53 PM PROJECTION PRINTER OWAT Protein, Total, P 7.6 6.3 - 7.9 g/dL 08/14/2023 1:53 PM PROJECTION PRINTER OWAT Albumin, P 4.6 3.5 - 5.0 g/dL 08/14/2023 1:53 PM PROJECTION PRINTER OWAT Aspartate Aminotransferase (AST), P 36 8 - 48 U/L 08/14/2023 1:53 PM PROJECTION PRINTER OWAT Alkaline Phosphatase, P 88 40 - 129 U/L 08/14/2023 1:53 PM PROJECTION PRINTER OWAT Alanine Aminotransferase (ALT), P 55 7 - 55 U/L 08/14/2023 1:53 PM PROJECTION PRINTER OWAT Bilirubin, Total, P 0.9 0.0 - 1.2 mg/dL 08/14/2023 1:53 PM PROJECTION PRINTER OWAT Blood (Blood, Venous) 08/14/2023 10:33 AM PROJECTION PRINTER 08/14/2023 1:02 PM PROJECTION PRINTER Alexandra Armstrong P.A.-C. LAB BLOOD [facility] [address] [place] [address], [facility] OWAT [facility] [place] [address] [place] [address] * (ABNORMAL) CBC with Differential, Blood (08/14/2023 10:33 AM PROJECTION PRINTER) Hemoglobin 16.6 13.2 - 16.6 g/dL 08/14/2023 10:37 AM PROJECTION PRINTER FB60 Hematocrit 49.5(H) 38.3 - 48.6 % 08/14/2023 10:37 AM PROJECTION PRINTER FB60 Erythrocytes 5.64 4.35 - 5.65 x10(12)/L 08/14/2023 10:37 AM PROJECTION PRINTER FB60 MCV 87.8 78.2 - 97.9 fL 08/14/2023 10:37 AM PROJECTION PRINTER FB60 RBC Distrib Width 12.3 11.8 - 14.5 % 08/14/2023 10:37 AM PROJECTION PRINTER FB60 Platelet Count 257 135 - 317 x10(9)/L 08/14/2023 10:37 AM PROJECTION PRINTER FB60 Leukocytes 6.4 3.4 - 9.6 x10(9)/L 08/14/2023 10:37 AM PROJECTION PRINTER FB60 Neutrophils 3.43 1.56 - 6.45 x10(9)/L 08/14/2023 10:37 AM PROJECTION PRINTER FB60 Lymphocytes 2.06 0.95 - 3.07 x10(9)/L 08/14/2023 10:37 AM PROJECTION PRINTER FB60 Monocytes 0.70 0.26 - 0.81 x10(9)/L 08/14/2023 10:37 AM PROJECTION PRINTER FB60 Eosinophils 0.17 0.03 - 0.48 x10(9)/L 08/14/2023 10:37 AM PROJECTION PRINTER FB60 Basophils <0.04 0.01 - 0.08 x10(9)/L 08/14/2023 10:37 AM PROJECTION PRINTER FB60 Blood (Blood, Venous) 08/14/2023 10:33 AM PROJECTION PRINTER 08/14/2023 10:33 AM PROJECTION PRINTER Alexandra Armstrong P.A.-C. LAB BLOOD ADD-ON [facility] [address] [place] [address], [facility] FB60 [facility] in [place] [address] [place] [address] documented in this encounter Visit Diagnoses Diagnosis Thrombosis Superficial Vein Lower Extremity Left documented in this encounter Additional Health Concerns Assessment Noted Time PHQ-9 Depression Total Score: 11 024 3:14 PM PROJECTION PRINTER documented as of this encounter Care Teams Older Worker Specialist Relationship Specialty Start Date End Date Troy Ventura M.B.B.S., M.D. [address] [place] [address] [place] [phone] PCP - General 07/05/19 documented as of this encounter
--- OUTSIDE RECORDS SUMMARY | 2023-08-28 08:45 | XMS_ITS | Encounter Summary ---
Author Name Unknown Organization [facility] Address [address] [place] [address] Care Team Providers Care Permanent Waver Name Role Phone Troy Ventura M.D. [facility] Encounter Details Date Type Department Care Team (Late st Contact Info) Description 01/08/2023 Orders Only [facility] PCP [facility] MNT Troy Ventura M.B.B.S., MMaineDMaine [address] [facility] [place] [phone] Social History Tobacco Use Types Packs/Day Years Used Date Smoking Tobacco: Every Day Cigarettes 0.5 Smokeless Tobacco: Never Humiliation, Afraid, Rape, and Kick questionnair e [...] How often do you attend chur or judaism services? 1 to 4 times per year 03/14/2021 Do you belong to any clubs o r organizations such as mormonism groups, unions, fraternal or athletic groups, or [...] like food, housing, medical care, and heating? Somewhat hard 03/14/2021 PHQ-2 Answer Date Recorded PHQ-2 Score 0 03/15/2021 [facility] - Occupational Stress Questionnaire Answer Date [...] exercise (like a brisk walk)? 1 day 03/14/2021 On average, how many minutes do you engage in exercise at this level? 30 min 03/14/2021 Hunger Vital Sign Answer Date Recorded Within the past 12 months, y ou worried that your food would run out before you got the money to buy more. Never true 03/14/20 21 Within the past 12 months, t he food you bought just didn't last and you didn't have money to get more. Never true 03/14/2021 PRAPARE - Transportation Answer Date Re corded In the past 12 months, has l ack of transportation kept you from medical appointments or from getting medications? No 03/04 In the past 12 months, has l ack of transportation kept you from meetings, work, or from getting things needed for daily living? No 03/14/2021 Housing Stability Vital Sign Answer Serge e Recorded In the last 12 months, was t here a time when you were not able to pay the mortgage or rent on time? No 03/14/2021 In the last 12 months, how many places have you lived? 1 03/14/2021 In the last 12 months, was t here a time when you did not have a steady place to sleep or slept in a snf (including now)? No 03/14/2021 Depression Answer Date Recor ded PHQ-9 Total Score (max 27) 0 03/15 Nutrition Answer Date Recorded Nutrition: EVOO Fat Source Yes 03/14 On average, how many serving s of fruits and vegetables do you eat per day (serving size is equal to 1 cup or approximately the size of a tennis ball)? 0-1 03/14/2021 Dental Answer Date Recorded Dental: Regular Dentist Yes 08/09/19 23 Employment Answer Date Recorded Employment status Unemployed/not in th e paid workforce and NOT seeking employment 03/14/2021 Education Answer Date Recorded What is the [...] st Contact Info) Description 08/29/2023 12:10 PM INVENTORY AUDIT CLERK Appointment Department of Laboratory Medicine in [place], [place] [address] [place] [phone] Kendra Canales APRN, C.N.P., D.N.P. [address] [place] [phone] documented as of this encounter Visit Diagnoses Not on filedocumented in this encounter Additional Health Concerns Assessment Noted Time PHQ-9 Depression Total Score: 0 03/15/20 21 1:12 PM CDT documented as of this encounter Care Teams Permanent Waver Relationship Specialty Start Date End Date Troy Ventura M.B.B.S., M.D. [address] [place] [phone] PCP - General 07/05/19 documented as of this encounter
--- OUTSIDE RECORDS SUMMARY | 2023-08-28 08:45 | XMS_ITS | Encounter Summary ---
Author Name Unknown Organization [facility] Address [address] [place] [address] Care Team Providers Care Senior It Engineer Name Role Phone Troy Ventura M.D. Primary [facility] Reason for Visit * Reason Comments Med Refill Encounter Details Date Type Department Care Team (Late st Contact Info) Description 07/29/2023 Refill Department of Family Medicine, [facility], in [place], [place] [address] [place] [phone] Alexandra Armstrong, P.AMaine-CMaine [address] [place] [phone] Med Refill Social History Tobacco Use Types [...] any clubs o r organizations such as christian groups, unions, fraternal or athletic groups, or [...] 04/22/2023 PHQ-2 Answer Date Recorded PHQ-2 Score 0 03/15/2021 [facility] of Occupat ional Health - Occupational Stress [...] your living situation today? I have a [facility] place to live 04/22/2023 Education Answer [...] st Contact Info) Description 08/29/2023 12:10 PM PLAY THERAPIST Appointment Department of Laboratory Medicine in [address] [phone] Kendra Canales APRN, C.N.P., D.N.P. [address] [place] [phone] documented as of this encounter Visit Diagnoses Not on filedocumented in this encounter Additional Health Concerns Assessment Noted Time PHQ-9 Depression Total Score: 0 03/15/20 21 1:12 PM CDT documented as of this encounter Care Teams Senior It Engineer Relationship Specialty Start Date End Date Troy Ventura M.B.B.S., M.D. [address] [place] [phone] PCP - General 07/05/19 documented as of this encounter
--- OUTSIDE RECORDS SUMMARY | 2023-08-28 08:45 | XMS_ITS | Encounter Summary ---
Author Name Unknown Organization [facility] Address [address] [place] [address] Care Team Providers Care Management Expert Name Role Phone Troy Ventura M.D. Primary Care P eddie Encounter Details Date Type Department Care Team (Latest Contact Info) Description 04/25/2023 11:59 AM CDT - 04/25/2023 11:59 PM CDT Hospital Encounter Department of Laboratory Medicine in [place], [place] [address] [place] [phone] Alexandra Armstrong, PMaineAMaine-Roxanne [address] [place] [phone] Leukopenia; Encounter For Screening For Cardiovascular Disorders; Screening Examination Diabetes Mellitus Discharge Disposition: Home or Self Care Social [...] often do you attend chur ch or yazdanism services? 1 to 4 times per year 03/14/2021 Do you belong to any clubs o r organizations such as orthodoxy groups, unions, fraternal or athletic groups, or [...] Answer Date Recorded PHQ-2 Score 0 03/15/2021 [facility] of Occupat ional Health - Occupational [...] your living situation today? I have a [facility] place to live 04/22/2023 Education Answer Date [...] Sig Dispensed Refills Start Date End Date propranoloL (INDERAL) 10 mg tabletIndications:Anxie ty,Depression Major Recurrent Moderate (HCC) TAKE ONE TABLET BY MOUTH TWICE A DAY 180 tablet 5 02/10/2023 [id number] (CENTRUM COMPLETE) 18-400 mg-mcg per tablet Take 1 tablet by mouth daily. 0 citalopram (CeleXA) 20 mg tabletIndications:Anxie ty,Depression Major Recurrent Moderate (HCC) TAKE 1 TABLET (20 MG TOTAL) BY MOUTH DAILY. 90 tablet 3 07/20/2022 05/05/2023 propranoloL (INDERAL) 10 mg tablet Take 20 mg by mouth. 10mg in the morning and 10mg at night. 0 02/12/2023 05/05/2023 documented as of this encounter Plan of Treatment Upcoming Encounters Date Type Department Care Team (Late st Contact Info) Description 08/29/2023 12:10 PM REAL ESTATE ACCOUNT EXECUTIVE Appointment Department of Laboratory Medicine in [place], [place] [address] [place] [phone] Kendra Canales APRN, C.N.P., D.N.P. [address] [place] [phone] documented as of this encounter Procedures Procedure Name Priority Date/Time Associated Diagnosis Comments GLUCOSE, FASTING, S/P Routine 04/25/2023 12:23 PM CDT Screening Examination Diabetes Mellitus LIPID PANEL, S Routine 04/25/2023 12:22 PM CDT Encounter For Screening For Cardiovascular Disorders CBC WITH DIFFERENTIAL, B Routine 04/25/2023 12:22 PM CDT Leukopenia documented in this encounter Results * Glucose, Fasting (04/25/2023 12:23 PM CDT) Glucose, P 92 70 - 100 mg/dL 04/25/2023 2:13 PM CDT OWAT Last Intake 15 hr 04/25/2023 1:20 PM CDT OWAT Blood (Blood, Venous) 04/25/2023 12:23 PM CDT 04/25/2023 1:20 PM CDT Alexandra Armstrong P.A.-C. LAB BLOOD NON ADD- ON [facility] [address] [place] [address], [place] OWAT [facility] in [address] [place] [address] * (ABNORMAL) Lipid Panel (04/25/2023 12:22 PM CDT) Triglycerides 377(H) mg/dL 04/25/2023 2:03 PM CDT OWAT Comment: ----REFERENCE VALUE---- Normal: <150 mg/dL Borderline High: 150-199 mg/dL High: 200-499 mg/dL Very High: > or =500 mg/dL Cholesterol, Total 172 mg/dL 2022 2:03 PM CDT OWAT Comment: ----REFERENCE VALUE---- Desirable: < 200 mg/dL Borderline High: 200 - 239 mg/dL High: > or = 240 mg/dL Cholesterol, LDL, Calculated 89 mg/dL 04/25/2023 2:03 PM CDT OWAT Comment: ----REFERENCE VALUE---- Desirable: <100 mg/dL Above Desirable: 100-129 mg/dL Borderline High: 130-159 mg/dL High: 160-189 mg/dL Very High: >=190 mg/dL ----ADDITIONAL INFORMATION---- LDL cholesterol calculated using the Orozco/NIH equation. Cholesterol, HDL 20(L) >=40 mg/dL 04/25/20 2:03 PM CDT OWAT Cholesterol, Non-HDL, Calculated 152 mg/dL 04/25/2023 2:03 PM CDT OWAT Comment: ----REFERENCE VALUE---- Desirable: <130 mg/dL Above Desirable: 130-159 mg/dL Borderline High: 160-189 mg/dL High: 190-219 mg/dL Very High: > or =220 mg/dL Fasting (8 HR or more) yes 04/25/2023 1:30 PM CDT OWAT Blood (Blood, Venous) 04/25/2023 12:22 PM CDT 04/25/2023 1:30 PM CDT Alexandra Armstrong P.A.-C. LAB BLOOD ADD-ON [facility] [address] [place] [address], [facility] OWAT [facility] in [place] [address] [place] [address] * (ABNORMAL) CBC with Differential, Blood (04/25/2023 12:22 PM CDT) [facility] Hemoglobin 15.9 13.2 - 16.6 g/dL 04/25/2023 12:43 PM CDT FB60 Hematocrit 46.5 38.3 - 48.6 % 04/25/2023 12:43 PM CDT FB60 Erythrocytes 5.37 4.35 - 5.65 x10(12)/L 04/25/2023 12:43 PM CDT FB60 MCV 86.6 78.2 - 97.9 fL 04/25/2023 12:43 PM CDT FB60 RBC Distrib Width 12.2 11.8 - 14.5 % 04/25/2023 12:43 PM CDT FB60 Platelet Count 204 135 - 317 x10(9)/L 04/25/2023 12:43 PM CDT FB60 Leukocytes 3.7 3.4 - 9.6 x10(9)/L 04/25/2023 12:43 PM CDT FB60 Neutrophils 1.30(L) 1.56 - 6.45 x10(9)/L 04/25/2023 12:43 PM CDT FB60 Lymphocytes 1.75 0.95 - 3.07 x10(9)/L 04/25/2023 12:43 PM CDT FB60 Monocytes 0.49 0.26 - 0.81 x10(9)/L 04/25/2023 12:43 PM CDT FB60 Eosinophils 0.11 0.03 - 0.48 x10(9)/L 04/25/2023 12:43 PM CDT FB60 Basophils <0.04 0.01 - 0.08 x10(9)/L 04/25/2023 12:43 PM CDT FB60 Blood (Blood, Venous) 04/25/2023 12:22 PM CDT 04/25/2023 12:23 PM CDT Alexandra Armstrong P.A.-C. LAB BLOOD ADD-ON [facility] [address] [place] [address], [facility] FB60 [facility] in [place] [address] [place] [address] documented in this encounter Visit Diagnoses Diagnosis Leukopenia Encounter For Screening For Cardiovascular Disorders Screening Examination Diabetes Mellitus documented in this encounter Additional Health Concerns Assessment Noted Time PHQ-9 Depression Total Score: 0 03/15/20 21 1:12 PM CDT documented as of this encounter Care Teams Management Expert Relationship Specialty Start Date End Date Troy Ventura M.B.B.S., M.D. [address] [facility] [place] [phone] PCP - General 07/05/19 documented as of this encounter
--- OUTSIDE RECORDS SUMMARY | 2023-08-28 08:45 | XMS_ITS | Data Portability ---
Author Name Unknown Address [address] [place] [address] Phone [phone] Organization [facility], [facility] Address [address] [place] [address] Assessment Encounter Date Assessment Date Assessment LastModified by Organization Details LastModified Time 11/20/2020 11/20/2020 After a thorough discussion of the preparation, procedure details, risks, possible complications, post-operative care and instructions the patient wishes to proceed with vasectomy. He was given an opportunity to ask questions related to the above information. Not available 11/20/2020 14:23:30 12/22/2020 12/22/2020 After a thorough discussion of the preparation, procedure details, risks, possible complications, post-operative care and instructions the patient wishes to proceed with vasectomy. He was given an opportunity to ask questions related to the above information. Not available 12/22/2020 13:46:42 Plan of Treatment Reminders Order Date Submit Date Provider Last Modified By Organization Details Last Modified Time Details Appointments None recorded. Lab semen analysis (post vasectomy) 2020 021 prasad 1 Not available 16:47:21 Referral None recorded. Procedures None recorded. Surgeries None recorded. Imaging None recorded. Medication Orders cephalexin 500 mg capsule 2020 [facility], [address] [place], [address], 16:46:46 diazepam 10 mg tablet 2020 [facility] [place], [address], 16:47:41 Patient TargetsNo targets recorded. Patient Instructions Encounter Date Encounter Id Patient Instructions Last Modified By Organization Details Last Modified Time 12/22/2020 [id number] AFTER YOUR VASECTOMY Go home. Relax. Show this sentence to your : Plan on being lazy for at least [address] an ice pack on the scrotum (one hour on/one hour off-do not put ice directly on the skin) to minimize swelling. You may shower after 24 hours. Be careful in the shower if you are taking any new prescription medication for the vasectomy, such as narcotic pain medication. Do not lift anything over 20 pounds for seven days. After that, use your judgment. A good rule of thumb: if you are wondering if you should, you probably shouldn? t. Resume normal activity slowly. Wait at least seven days before resuming sexual activity, preferably two weeks. It is normal to have discomfort with sex initially. Don? t worry, that gets better quickly. It takes some men a few weeks to start feeling totally normal, so be patient. Don? t worry about calling with questions if you don? t think you are healing well enough; most of the time you just need a little reassurance. Issues that require a phone call are: fever above 100.5; bleeding that doesn? t stop for a couple hours after the procedure; progressive scrotal swelling; incision drainage; pain that cannot be controlled with pain medication. A FINAL REMINDER You are not sterile until your semen is completely free of sperm. You must take the responsibility to bring samples into our office to prove your vasectomy is a success. If you follow the instructions above it should be. Not available 12/22/2020 13:47:35 11/20/2020 [id number] SURGICAL ELECTIV E STERILIZATION: VASECTOMY WHAT IS A VASECTOMY? A vasectomy makes a man sterile by obstructing the flow of sperm through the vas deferens. A small puncture in the scrotum is used to isolate a section of the vas deferens. A small portion of the vas deferens is then removed and the vas is occluded. The procedure is typically performed in the office using a local anesthesia, but can be performed at a surgery center under sedation. (Please check with your insurance carrier if you would like sedation, to make sure you qualify.) After a vasectomy it takes at least 3 months to completely clear your ejaculation of sperm. We provide you with a container for a semen analysis to prove that yourvasectomy has been successful (Note: some men have to leave multiple samples to show that their vasectomy has been successful. Please see the [facility] Post-Vasectomy Instruction Sheet for additional details). We believe that proving your sterility is your responsibility. We try to make it easy for you, but you are responsible for collecting and bringing your sample to our office. You must continue to use other forms of contraception until you prove that your vasectomy has been successful. SCHEDULING A VASECTOMY Scheduling a vasectomy is easy. It will consist of a brief office visit with a surgeon to discuss the risks of the procedure and so the surgeon can make sure that you are a good candidate for a vasectomy. Once you are medically cleared and questions are answered, another appointment is made for the actual procedure. POSSIBLE RISKS FROM HAVING A VASECTOMY 1. Recanalization: This word means spontaneous reconnection of the vas deferens and failure of the vasectomy. This complication is rare. Although it can occur at any time, even years later, it most often occurs during the first 6-8 weeks after the procedure. We can? t say this enough: Patients must prove that they are sterile by providing semen samples void of sperm before discontinuing other forms of control. 2. : Believe it or not, there are patients who prove they have no sperm in their semen but still father a child. The rate of after a successful vasectomy reported in literature is 0.05% or less. 3. Infection: Uncommon, and usually mild. Most often it can be treated with antibiotics. 4. Bleeding: Usually mild, although a large blood clot called a hematoma can develop and typically resolve by itself. 5. Pain: Pain usually lasts several days and goes away. Pain that lasts months to years is rare. 6. Sperm Granuloma: This is a small scar that sometimes forms where the vas is cut and is not harmful. 7. Sperm Antibodies: These antibodies help the body get rid of the sperm. They are not harmful to you but may make it difficult to achieve if you have the vasectomy reversed. PREPARING FOR A VASECTOMY How to choose a good appointment time: Carve a few days out of your busy schedule when you can recover. Too many men try to go back to normal activities too soon. Men with desk-jobs can usually go back to work after a weekend; men who do heavy labor may want to have a full week set aside to recover. Most men won? t need that sort of time, but for those who do it is nice to have. Seven days before the procedure: Stop taking aspirin, ibuprofen (Advil, Motrin), vitamin E, herbal supplements, or any medication that you take to thin the blood. If you are on Warfarin, Coumadin or Plavix, call you physician regarding these medications. Make sure you have some tight underwear or a jock strap to bring to the vasectomy appointment. Wearing supportive underwear for a few days rather than boxers helps to prevent swelling. Buy some triple antibiotic ointment (Bacitracin, Neosporin, generic) to put on the puncture sites. You won? t need a big tube because the incisions are small and you only need to put it on for a few days. The day of the procedure: Eat normally unless you are being anesthetized. Please shower or wash the scrotum before the procedure to help reduce the risk of infection. Remember to bring the supportive underwear or jock strap so you can wear it home. Having someone drive you is only mandatory if you are being sedated. AFTER YOUR VASECTOMY Go home. Relax. Show this sentence to your : Plan on being lazy for at least [address] an ice pack on the scrotum (one hour on/one hour off-do not put ice directly on the skin) to minimize swelling. You may shower after 24 hours. Be careful in the shower if you are taking any new prescription medication for the vasectomy, such as narcotic pain medication. Do not lift anything over 20 pounds for seven days. After that, use your judgment. A good rule of thumb: if you are wondering if you should, you probably shouldn? t. Resume normal activity slowly. Wait at least seven days before resuming sexual activity, preferably two weeks. It is normal to have discomfort with sex initially. Don? t worry, that gets better quickly. It takes some men a few weeks to start feeling totally normal, so be patient. Don? t worry about calling with questions if you don? t think you are healing well enough; most of the time you just need a little reassurance. Issues that require a phone call are: fever above 100.5; bleeding that doesn? t stop for a couple hours after the procedure; progressive scrotal swelling; incision drainage; pain that cannot be controlled with pain medication. A FINAL REMINDER You are not sterile until your semen is completely free of sperm. You must take the responsibility to bring samples into our office to prove your vasectomy is a success. If you follow the instructions above it should be. Not available 11/20/2020 14:23:30 Reason for Referral None Reported. Procedures Surgical History Date Name Laterality Status Provider Name and Address Organization Details Recorded Time RU Vasectomy completed Jeffy Ennis MD [address] [place] [address],[address], [place], [address] 12/22/2020 14:43:56 Imaging Results None recorded. Procedure Notes None recorded. Medical Equipment None Reported. Allergies No known drug allergies Medications Name Sig Start Date Stop Date Status Note LastModified by Organization Details LastModified Time cephalexin 500 mg capsule Take 1 capsule by oral route as directed for 1 day. 021 active Not Available Not Available Not Avai lable diazepam 10 mg tablet Take 1 tablet by oral route as directed. 021 active Not Available Not Available Not Avai lable Vitals Date Recorded Body height Body mass index (BMI) Body weight Provider Name and Address Organization Details Last Updated DateTime 11/20/2020 180.34 cm 27.2 kg/m2 27548.51 g Micah rojas [facility] 11/20/2020 15:25:12 Social History Question Answer Notes LastModified by Organizat ion Details LastModified Time Tobacco Smoking Status Never Smoker Micah rojas [facility] 11/20/2020 15:26:44 What Is Your Level Of Alcohol Consumption? Moderate Information not available 11/20/2020 What Is Your Level Of Caffeine Consumption? Moderate Information not available 11/20/2020 How Much Tobacco Do You Chew? None Information not available 11/20/2020 Do You Or Have You Ever Used E-cigarettes Or Vape? Never Used Electronic Cigarettes Information not available 11/20/2020 Recreational Drug Use No Information not available 11/20/2020 Marital Status Single Informatio n not available 11/20/2020 What Was The Date Of Your Most Recent Tobacco Screening? 11/20/2020 Information not available 11/20/2020 Sex: Male Functional Status None recorded. Mental Status None recorded. Family History Relationship Description Onset Age of this Age Resolved Age Notes Maternal Grandfather Family history of cancer Maternal Grandfather Family history of cardiac disorder Father Family history of cardiac disorder Father Family history of Hypertension Medical History Condition Response Sexually Transmitted Infection N Diabetes N Other N Bleeding Disorder N High Blood Pressure N Kidney Stones N High Cholesterol N GERD/Acid Reflux N Heart Disease N Cancer N Depression N Lung Disease N Past Encounters Encounter ID Performer Location Encounter Start Date Encounter Closed Date Diagnosis/Indication [id number] Jeffy Ennis MD [employer] [address] [place] [address] 11/20/2020 15:15:44 11/21/2020 14:46:27 Contraception care management [id number] Jeffy Ennis MD [facility] [address] [place] [address] 12/22/2020 13:43:54 12/25/2020 13:55:03 Contraception care management Health Concerns Section Related Observation LastModified by Organization Detai ls LastModified Time None Recorded Concern Status LastModified by Organization Details LastModified Time None Recorded Advance Directives Directive None Recorded Payers Encounter Date Sequence Insurance Name Policy Number Policy Hussein Covered Member ID Hussein Member ID Guarantor Name 12/22/2020 1 CAMERON Wyatt [id number] Mike Wyatt 11/20/2020 1 CAMERON Wyatt [id number] Mike Wyatt Notes Date Note Type Note Provider Name and Address Organization Details Recorded Time 11/20/2020 text/html HPI Notes: The patient is here to discuss a vasectomy. He is certain that he and his mate do not want to conceive any more. He understands that a vasectomy is intended to be permanent. Current Relationship: Current Children: three History of Testicular Pain: none History of Scrotal/Pelvic Trauma or Surgery: none The patient understands that while vasectomy reversal is possible, after a vasectomy reversal is not assured. He also understands that a vasectomy reversal is almost always associated with a large, [id number] cost. He does understand that reestablishment of sperm flow through the vas deferens is extremely rare but possible and may result in an unexpected at any time after his vasectomy. Furthermore, he understands that control must be used after vasectomy is performed until He is cleared for unprotected intercourse. He has read the Vasectomy Patient Info Book provided to him and was given an opportunity to answer questions related to the procedure and post-op care. Jeffy Ennis MD [address] [place] [address],[address], [place], [address], [facility] 11/20/2020 16:48:10 12/22/2020 text/html HPI Notes: The patient is here to discuss a vasectomy. He is certain that he and his mate do not want to conceive any more. He understands that a vasectomy is intended to be permanent. Current Relationship: Current Children: three History of Testicular Pain: none History of Scrotal/Pelvic Trauma or Surgery: none The patient understands that while vasectomy reversal is possible, after a vasectomy reversal is not assured. He also understands that a vasectomy reversal is almost always associated with a large, [id number] cost. He does understand that reestablishment of sperm flow through the vas deferens is extremely rare but possible and may result in an unexpected at any time after his vasectomy. Furthermore, he understands that control must be used after vasectomy is performed until He is cleared for unprotected intercourse. He has read the Vasectomy Patient Info Book provided to him and was given an opportunity to answer questions related to the procedure and post-op care. Jeffy Ennis MD [address] [place] [address],[address], [place], [address], [facility] 12/22/2020 14:44:08
--- OUTSIDE RECORDS SUMMARY | 2023-08-28 08:45 | XMS_ITS | Encounter Summary ---
Author Name Unknown Organization [facility] Address [address] [place] [address] Care Team Providers Care Senior Bi Developer Name Role Phone Troy Ventura M.D. [facility] Reason for Visit * Reason Comments Med Refill Encounter Details Date Type Department Care Team (Late st Contact Info) Description 08/05/2023 Refill Department of Family Medicine, [facility], in [place], [place] [address] [place] [address] Alexandra Armstrong, P.A.-CMaine [address] [place] [address] Med Refill Social History Tobacco Use Types [...] How often do you attend chur or sikhism services? 1 to 4 times per year 03/14/2021 Do you belong to any clubs o r organizations such as mormon groups, unions, fraternal or athletic groups, or [...] Answer Date Recorded PHQ-2 Score 2 08/06/2023 [facility] - Occupational Stress [...] your living situation today? 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 [address] [place] [address] documented as of this encounter Visit Diagnoses Diagnosis Anxiety Depression Major Recurrent Moderate (HCC) documented in this encounter Additional Health Concerns Assessment Noted Time PHQ-9 Depression Total Score: 0 03/15/20 21 1:12 PM CDT documented as of this encounter Care Teams Senior Bi Developer Relationship Specialty Start Date End Date Troy Ventura M.B.B.S., M.D. [address] [place] [address] [place] [phone] PCP - General 07/05/19 documented as of this encounter
--- OUTSIDE RECORDS SUMMARY | 2023-08-28 08:45 | XMS_ITS | Encounter Summary ---
Author Name Unknown Organization [facility] Address [address] [place] [address] Care Team Providers Care Clinical Social Work Therapist Name Role Phone Troy Ventura M.D. Primary Care Hanh mrogan Reason for Visit * Reason Onset Date Comments Med Refill 05/31/2023 Encounter Details Date Type Department Care Team (Late st Contact Info) Description 05/31/2023 Nurse Triage Department of Family Medicine, [facility], in [place], [place] [address] [place] [address] Praveen Young, R.N. [address] [place] [address] Med Refill Social History Tobacco Use Types [...] any clubs o r organizations such as catholic groups, unions, fraternal or athletic groups, or [...] Answer Date Recorded PHQ-2 Score 0 03/15/2021 [facility]ational Stress Questionnaire Answer Date [...] Date Recorded Employment status Unemployed/not in th [employer] paid workforce and NOT seeking employment 03/14/2021 Housing Stability Answer Date Recorded What is your living situation today? I have a [facility] place to live 04/22/2023 Education Answer [...] encounter Miscellaneous Notes * Telephone Encounter - Praveen Young, R.N. 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 Encouraged to call back with any questions or concerns. * Telephone Encounter - David Cuellar M.D., M.S. - 05/31/2023 4:59 PM CDT On-Call Provider Response/Comments: Script sent to the pharmacy * Addendum Note - David Cuellar M.D., M.S. - 05/31/2023 4:59 PM CDTAddended by: DAVID CUELLAR on: 05/31/2023 04:59 PM Modules accepted: Orders * Telephone Encounter - Magnolia Gardner R.N. - 05/31/2023 4:54 PM CDT [facility], Dr. Cuellar, text paged at this time. * Telephone Encounter - Praveen Young R.N. - 05/31/2023 4:47 PM CDT Excluded from RN protocol for refill due to anticoagulant, has refill of Eliquis prescribed for treatment of DVT at pharmacy that has now closed, needing 4 tablets to cover him until Friday, message sent to POD requesting to send refill for 4 tablets to [facility] verified pharmacy which closes at 6 pm today. 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 [address] [place] [address] documented as of this encounter Visit Diagnoses Diagnosis Thrombosis Superficial Vein Lower Extremity Left- Primary documented in this encounter Additional Health Concerns Assessment Noted Time PHQ-9 Depression Total Score: 0 03/15/20 21 1:12 PM CDT documented as of this encounter Care Teams Clinical Social Work Therapist Relationship Specialty Start Date End Date Troy Ventura M.B.B.S., M.D. [address] [place] [phone] PCP - General 07/05/19 documented as of this encounter
--- OUTSIDE RECORDS SUMMARY | 2023-08-28 08:45 | XMS_ITS | Encounter Summary ---
Author Name Unknown Organization [facility] Address [address] [place] [address] Care Team Providers Care Loading Rack Supervisor Name Role Phone Troy Ventura M.D. Primary Care Hanh morgan Reason for Visit * Reason Comments Follow-up Found blood clot in left leg and it is very close to going into vein, put on Eliquis and told to follow up for further testing. * Appointment Request (Routine) - Closed Specialty Diagnoses / Procedures Referred By Shannan hilton Referred To Contact Family Medicine Referral ID Status Reason Start Date Expiration Date Visits Re quested Visits Authorized [id number] Closed 05/02/2023 05/01/2024 1 1 Encounter Details Date Type Department Care Team (Late st Contact Info) Description 05/05/2023 8:00 AM CDT Office Visit Department of Family Medicine, [facility], in [place], [place] [address] [place] [phone] Alexandra Armstrong, P.AMaine-CMaine [address] [place] [phone] Thrombosis Superficial Vein Lower Extremity Left (Primary Dx); Anxiety; Depression Major Recurrent Moderate (HCC) Social History Tobacco Use Types Packs/Day Years Used Date Smoking Tobacco: Every Day Cigarettes 0.5 Smokeless Tobacco: Never Tobacco Cessation:Ready to Q uit: Not Asked; Counseling Given: Not Answered Alcohol Use Standard Drinks/Week Comments Never 0 [...] week 03/14/2021 How often do you attend [facility] or mandaeism services? 1 to 4 times [...] Answer Date Recorded PHQ-2 Score 0 03/15/2021 [facility] - Occupational [...] your living situation today? I have a [facility] place to live 04/22/2023 Education Answer [...] Sign Reading Time Taken Comments Blood Pressure 109/71 05/05/2023 7:57 AM CDT Pulse 69 05/05/2023 7:57 AM CDT Temperature 35.8 ??C (96.4 ??F) 05/05/2023 7:57 AM CD T Respiratory Rate 16 05/05/2023 7:57 AM CDT Oxygen Saturation - - Inhaled Oxygen Concentration - - Weight 98.9 kg (217 lb 14.8 oz) 05/05/2023 7:57 AM CDT Height - - Body Mass Index 32.65 06/05/2021 11:55 AM CDT documented in this encounter Patient Instructions * Patient Instructions* Alexandra Armstrong P.A.-C. - 05/05/2023 8:00 AM CDT Recommend extremity elevation, warm/cool compresses and compression as tolerated. Continue with Eliquis x3 months, consider thrombophilia (blood clot) workup after you are off Eliquis. documented in this encounter Progress Notes * Alexandar Armstrong P.A.-C. - 05/05/2023 8:00 AM CDT SUBJECTIVE CHIEF COMPLAINT/REASON FOR VISIT Chief Complaint Patient presents with Follow-up Found blood clot in left leg and it is very close to going into vein, put on Eliquis and told to follow up for further testing. HISTORY OF PRESENT ILLNESS Neymar Lopez is a pleasant 38 y.o. male who presents to the clinic today for ED follow-up. Patient was initially seen in ED 04/27/2023 for evaluation of left calf pain which started the day prior. Concerned about possibility of DVT. He reports that he has had some slight chest discomfort no shortness of breath or pain with activity/respiration. No history of DVT. He does note some slightnumbness in both lower extremities. Ultrasound showed no deep vein thrombosis in left leg. He was seen in [facility] ED 05/02/2023 for continued calf pain. Ultrasound showed occlusive superficial venous thrombosis in left small saphenous vein. He was started on Eliquis. REVIEW OF SYSTEMS Pertinent positive ROS are [...] and rash. CURRENT MEDICATIONS Current Outpatient Medications: citalopram (CeleXA) 20 mg tablet, Take 1 tablet (20 mg total) by mouth daily., Disp: 90 tablet, Rfl: 0 Eliquis 5 mg tablet, TAKE TWO TABLETS (10MG) BY MOUTH TWICE A DAY FOR 7 DAYS THEN TAKE ONE TABLET (5MG) TWICE A DAY, Disp: , Rfl: jovtbyskcazh-wtdz-KD (CENTRUM COMPLETE) 18-400 mg-mcg per tablet, Take 1 tablet by mouth daily., Disp: , Rfl: propranoloL (INDERAL) 10 mg tablet, TAKE ONE TABLET BY MOUTH TWICE A DAY, Disp: 180 tablet, Rfl: 5 apixaban (ELIQUIS) 5 mg tablet, Take 1 tablet (5 mg total) by mouth 2 (two) times a day., Disp: 60 tablet, Rfl: 1 OBJECTIVE VITAL SIGNS Vitals: 05/05/23 0757 BP: 109/71 Pulse: 69 Resp: 16 Temp: (!) 35.8 ??C PHYSICAL EXAMINATION General: Well-nourished, well-developed 38 y.o. in no apparent distress. Awake, alert, age appropriate. Cardiovascular: Regular rate and rhythm without murmurs. Lungs: Clear to auscultation bilaterally with no adventitious sounds Skin: Warm, pink, and dry. No rashes or lesions. Extremities: No significant swelling of left lower extremity. He does have pain palpation within calf. No significant erythema or warmth. ASSESSMENT / PLAN IMPRESSION/REPORT/PLAN: #1 Thrombosis Superficial Vein Lower Extremity Left -Given proximity of thrombosis to saphenous popliteal junction would recommend therapeutic anticoagulation x3 months, after which would recommend that we proceed with thrombophilia panel. May also want to consider follow-up ultrasound at 3 months. Would also recommend elevation, compression and ice/heat as needed for pain for symptomatic treatment superficial clot. Patient will follow-up with me in 3 months. #2 Anxiety #3 Depression Major Recurrent Moderate (HCC) -Mood symptoms are currently well controlled with combination of Celexa 20 mg daily and olfascuokra80 mg twice daily. Other orders - apixaban (ELIQUIS) 5 mg tablet; Take 1 tablet (5 mg total) by mouth 2 (two) times a day., Starting 05/05/2023, Normal - citalopram (CeleXA) 20 mg tablet; Take 1 tablet (20 mg total) by mouth daily., Starting 05/05/2023, Normal All questions have been answered. Patient demonstrated understanding and verbalized agreement with the plan. Total time spent is 20 minutes. Alexandra Armstrong P.A.-C. documented in this encounter Plan of Treatment Upcoming Encounters Date Type Department Care Team (Late st Contact Info) Description 08/29/2023 12:10 PM MASH TUB COOKER OPERATOR Appointment Department of Laboratory Medicine in [place], [place] [address] [place] [phone] Kendra Canales APRN, C.N.P., D.N.P. [address] [place] [phone] documented as of this encounter Visit Diagnoses Diagnosis Thrombosis Superficial Vein Lower Extremity Left- Primary Anxiety Depression Major Recurrent Moderate (HCC) documented in this encounter Additional Health Concerns Assessment Noted Time PHQ-9 Depression Total Score: 0 03/15/20 21 1:12 PM CDT documented as of this encounter Care Teams Loading Rack Supervisor Relationship Specialty Start Date End Date Troy Ventura M.B.B.S., MJose. [address] [place] [phone] PCP - General 07/05/19 documented as of this encounter
--- OUTSIDE RECORDS SUMMARY | 2023-08-28 08:45 | XMS_ITS | Clinical Summary ---
Author Name Unknown Organization [facility] Address [place], [place] [address] Care Team Providers Care Machine Feeder Raw Stock Name Role Phone Eunice Juares MD Primary Care Provider [phone] Allergies Active Allergy Reactions Criticality Noted Date Comments Erythromycin Hives 01/27/2014 Penicillins Hives 01/27/2014 Tetracycline Hives 01/27/2014 Medications Medication Sig Dispensed Refills Start Date End Date Status propranolol (INDERAL) 10 mg tablet Take 10 mg by mouth 2 times daily. 0 Active citalopram (CELEXA) 20 mg tablet Take 20 mg by mouth once daily. 0 Active Immunizations Name Administration Dates Next Due DTP 05/11/1991 DTaP 11/25/2007 Hepatitis A (Adult) 03/19/2019 Hib Conjugate, Unspecified 05/11/1991 Influenza Virus, Unspecified 06/09/2018, 07/22/2017,09/03/2016,2011 Influenza, IIV3 (Age >=3 years) 06/09/2012 Influenza, IIV4 06/09/2018,07/22/2017 Influenza, IIV4 (=>6mos) MDV 09/03/2016 Influenza,LAIV4 Live Intrana nicole (Flumist) 06/13/2014 Oral Polio Vaccine 05/11/1991 Pneumococcal Poly,23-Valent (Pneumovax) 12/24/2016 Td (Age >=7 Years) 11/25/2007 Td, Preservative Free (age > = 7 Years) 04/03/2018 Social History Tobacco Use Types Packs/Day Years Used Date Smoking Tobacco: Never Assessed Sex and Gender Information Value Date Recorded Sex Assigned at Not on file Gender Identity Not on file Sexual Orientation Not on file Obstetrics History Last Filed Vital Signs Vital Sign Reading Time Taken Comments Blood Pressure 113/70 04/27/2023 9:24 PM CDT Pulse 66 04/27/2023 9:24 PM CDT Temperature 37.1 ??C (98.7 ??F) 04/27/2023 6:27 PM CD T Respiratory Rate 16 04/27/2023 6:27 PM CDT Oxygen Saturation 96% 04/27/2023 9:24 PM CDT Inhaled Oxygen Concentration - - Weight 98 kg (216 lb) 04/27/2023 6:27 PM CDT Height 175.3 cm (5' 9) 04/27/2023 6:27 PM CDT Body Mass Index 31.9 04/27/2023 6:27 PM CDT Plan of Treatment Health Maintenance Due Date Last Done Comments Tdap 1998 Depression screening for age 12+ 1999 BMI (ht and wt on same day) for age 18+ 2005 Lipids for age 35-44 2022 COVID-19 vaccine series (2022- season) 2023 06/25/2022, 07/05/2021, 12/11/2020, Additional history exists Influenza for age 9-49 04/04/2023 8, 06/09/2018, 07/22/2017, Additional history exists Tetanus booster 04/03/2028 04/03/2018, 11/25/2007 Pneumococcal series for age 6-64 Aged Out 12/24/2016 No longer eligible based on patient's age to complete this topic HIV for age 15-65 Completed 03/19/2019, 03/19/2019 Hepatitis C screening for age 18-79 Completed 03/19/2019 Care Teams Machine Feeder Raw Stock Relationship Specialty Start Date End Date Eunice Juares MD [address] [facility] [place] [address] PCP - General Family Practice 04/27/23
--- OUTSIDE RECORDS SUMMARY | 2023-08-28 08:45 | XMS_ITS | Encounter Summary ---
Author Name Unknown Organization [facility] Address [address] [place] [address] Care Team Providers Care Shim Plug Cutter Name Role Phone Troy Ventura M.D. Primary Care [facility] Reason for Referral * Outpatient (Routine) - Closed Specialty Diagnoses / Procedures Referred By Shannan hilton Referred To Contact Family Medicine Alexandra Armstrong P.A.-C. [address] [place] [address] [facility] Referral ID Status Reason Start Date Expiration Date Visits Re quested Visits Authorized [id number] Closed 04/25/2023 04/24/2026 1 1 Reason for Visit * Reason Comments Post Ed Visit Follow-up Patient was seen in the ER last Friday, and lab results showed elevated liver transaminases and also low white blood count. * Appointment Request (Routine) - Closed Specialty Diagnoses / Procedures Referred By Shannan hilton Referred To Contact Family Medicine Referral ID Status Reason Start Date Expiration Date Visits Re quested Visits Authorized [id number] Closed 04/22/2023 04/21/2024 1 1 Encounter Details Date Type Department Care Team (Latest Contact Info) Description 04/25/2023 11:30 AM CDT Office Visit Department of Family Medicine, [facility], in [place] [address] [place] [phone] Alexandra Armstrong P.A.-C. [address] [phone] Elevated Liver Function Test (Primary Dx); Leukopenia; Screening Examination Diabetes Mellitus; Encounter For Screening For Cardiovascular Disorders Social History Tobacco Use Types Packs/Day Years [...] How often do you attend chur or anabaptism services? 1 to 4 times per year 03/14/2021 Do you belong to any clubs o r organizations such as latter-day groups, unions, fraternal or athletic groups, or [...] Answer Date Recorded PHQ-2 Score 0 03/15/2021 [facility] - Occupational Stress [...] your living situation today? I have a [facility] place to live 04/22/2023 [...] Sign Reading Time Taken Comments Blood Pressure 109/72 04/25/2023 11:32 AM CDT Pulse 67 04/25/2023 11:32 AM CDT Temperature 35.7 ??C (96.3 ??F) 04/25/2023 1 1:32 AM CDT Respiratory Rate 16 04/25/2023 11:3 2 AM CDT Oxygen Saturation - - Inhaled Oxygen Concentration - - Weight 98.4 kg (216 lb 13.2 oz) 023 11:32 AM CDT Height - - Body Mass Index 32.48 06/05/2021 11:55 AM CDT documented in this encounter Progress Notes * Alexandra Armstrong P.A.-C. - 04/25/2023 11:30 AM CDT SUBJECTIVE CHIEF COMPLAINT/REASON FOR VISIT Chief Complaint Patient presents with Post Ed Visit Follow-up Patient was seen in the ER last Friday, and lab results showed elevated liver transaminases and also low white blood count. HISTORY OF PRESENT ILLNESS Neymar Lopez is a pleasant 38 y.o. male who presents to the clinic today for ED follow-up Patient was seen in ED 04/23/2023 for evaluation of increasing symptoms and chest pain. He was given recent diagnosis of viral infection. Five days of body aches, headache, and fever up to 101?? F. Headache improved. Patient presented to ED as he began experiencing some chest pain worsened with deep breathing. Mild nausea without vomiting. Some associated dizziness. Testing for COVID 04/20 had been negative with reassuring lab values. He was seen 04/22 labs were once again reassuring. HIV testing and chest x-ray negative. Tick panel ordered. ECG unremarkable. Initial troponin negative. Strep testing negative. CK negative. Chest pain improve with ibuprofen. Repeat testing for COVID/influenza/RSV negative. Symptoms strongly suggest viral source. No evidence of meningeal signs and headache has improved. Slightly improved LFTs and CRP compared with the day prior. Patient is discharged home with recommendation to follow-up with primary care. Patient reports symptoms from ED visit have resolved and that he is feeling much better REVIEW OF SYSTEMS Pertinent positive ROS are [...] Outpatient Medications: citalopram (CeleXA) 20 mg tablet, TAKE 1 TABLET (20 MG TOTAL) BY MOUTH DAILY., Disp: 90 tablet, Rfl: 3 cdjqdboyzztk-icrl-AR (CENTRUM COMPLETE) 18-400 mg-mcg per tablet, Take 1 tablet by mouth daily., Disp: , Rfl: propranoloL (INDERAL) 10 mg tablet, TAKE ONE TABLET BY MOUTH TWICE A DAY, Disp: 180 tablet, Rfl: 5 propranoloL (INDERAL) 10 mg tablet, Take 20 mg by mouth. 10mg in the morning and 10mg at night., Disp: , Rfl: OBJECTIVE VITAL SIGNS Vitals: 04/25/23 1132 BP: 109/72 Pulse: 67 Resp: 16 Temp: (!) 35.7 ??C PHYSICAL EXAMINATION General: Well-nourished, well-developed 38 y.o. in no apparent distress. Awake, alert, age appropriate. HEENT: Head is normocephalic, atraumatic. Pupils round and reactive bilaterally. Conjunctivae and sclerae are clear. TM's are normal bilaterally. Oropharynx pink and moist without exudate or erythema. Neck: Neck is supple without lymphadenopathy. Cardiovascular: Regular rate and rhythm without murmurs. Lungs: Clear to auscultation bilaterally with no adventitious sounds ASSESSMENT / PLAN IMPRESSION/REPORT/PLAN: #1 Elevated Liver Function Test -Discussed recommendation to recheck liver enzymes in 3 months as often times at this interval liver enzymes have normalized. Recommend he abstain from alcohol. - Hepatic Function Panel; Future; Expected date: 07/25/2023 #2 Leukopenia -Will recheck CBC today given low WBC in ED, discussed with patient that this may also need to be rechecked at a longer interval. #3 Screening Examination Diabetes Mellitus - Glucose, Fasting; Future; Expected date: 04/25/2023 #4 Encounter For Screening For Cardiovascular Disorders - Lipid Panel; Future; Expected date: 04/25/2023 Other orders - HepA: hepatitis A vaccine (19 years and older) - PCV20: pneumococcal conjugate vaccine All questions have been answered. Patient demonstrated understanding and verbalized agreement with the plan. Total time spent is 25 minutes. Alexandra Armstrong P.A.-C. documented in this encounter Plan of Treatment Upcoming Encounters Date Type Department Care Team (Late st Contact Info) Description 08/29/2023 12:10 PM EQUIPMENT OPERAT0R Appointment Department of Laboratory Medicine in [address] [phone] Kendra Canales, VANDANA, C.N.P., D.N.P. [address] [place] [phone] Scheduled Referrals Name Type Priority Associated Diagnoses Orde r Schedule Family Medicine office visit (clinic) Outpatient Referral Routine Expected: 05/25/2023 (Approximate), Expires: 07/25/2024 documented as of this encounter Results * Glucose, Fasting (04/25/2023 12:23 PM CDT) Glucose, P 92 70 - 100 mg/dL 04/25/2023 2:13 PM CDT OWAT Last Intake 15 hr 04/25/2023 1:20 PM CDT OWAT Blood (Blood, Venous) 04/25/2023 12:23 PM CDT 04/25/2023 1:20 PM CDT Alexandra Armstrong P.A.-C. LAB BLOOD NON ADD- ON [facility] [address] [place] [address], [place] OWAT [facility] [address] [place] [address] * (ABNORMAL) Lipid Panel (04/25/2023 12:22 PM [...] CDT Alexandra Armstrong P.A.-C. LAB BLOOD ADD-ON [facility] [address] [place] [address], [place] OW[place] [facility] [address] [place] [address] * (ABNORMAL) CBC with Differential, Blood (04/25/2023 12:22 PM CDT) Hemoglobin 15.9 13.2 - 16.6 g/dL 04/25/2023 [...] CDT Alexandra Armstrong P.A.-C. LAB BLOOD ADD-ON [facility] [address] [place] [address], [facility] [address] [facility] [address] [place] [address] documented in this encounter Visit Diagnoses Diagnosis Elevated Liver Function Test- Primary Leukopenia Screening Examination Diabetes Mellitus Encounter For Screening For Cardiovascular Disorders documented in this encounter Additional Health Concerns Assessment Noted Time PHQ-9 Depression Total Score: 0 03/15/20 21 1:12 PM CDT documented as of this encounter Care Teams Shim Plug Cutter Relationship Specialty Start Date End Date Troy Ventura M.B.B.S., Lydia. [address] [place] [address] PCP - General 07/05/19 documented as of this encounter
--- OUTSIDE RECORDS SUMMARY | 2023-08-28 08:45 | XMS_ITS | Encounter Summary ---
Author Name Unknown Organization [facility] Address [address] [place] [address] Care Team Providers Care Accounting System Expert Name Role Phone Troy Ventura M.D. Primary Care Hanh morgan Reason for Visit * Reason Comments Med Refill Encounter Details Date Type Department Care Team (Late st Contact Info) Description 2023 Refill Department of Family Medicine, [facility], in [place], [place] [address] [place] [phone] Troy Ventura M.B.B.S., Riana [address] [place] [phone] Med Refill Social History Tobacco Use Types [...] How often do you attend chur or adventist services? 1 to 4 times per year 03/14/2021 Do you belong to any clubs o r organizations such as pentecostal groups, unions, fraternal or athletic groups, or [...] Answer Date Recorded PHQ-2 Score 0 03/15/2021 [facility] - Occupational Stress Questionnaire Answer Date [...] place to sleep or slept in a senior living (including now)? No 03/14/2021 Depression Answer Date [...] st Contact Info) Description 08/29/2023 12:10 PM REHAB PHYSICIAN Appointment Department of Laboratory Medicine in [address] [phone] Kendra Canales APRN, C.N.P., D.N.P. [address] [place] [address] documented as of this encounter Visit Diagnoses Diagnosis Anxiety Depression Major Recurrent Moderate (HCC) documented in this encounter Additional Health Concerns Assessment Noted Time PHQ-9 Depression Total Score: 0 03/15/20 21 1:12 PM CDT documented as of this encounter Care Teams Accounting System Expert Relationship Specialty Start Date End Date Troy Ventura M.B.B.S., M.D. [address] [place] [phone] PCP - General 07/05/19 documented as of this encounter
== END 2023-08-28 09:23 | disposition home or self-care (01) ==
PROVIDERS: Emergency Provider Family Medicine; PCP Family Medicine
DX: J20.9 Acute bronchitis, unspecified (principal)
CPT/HCPCS: 71046; 99283

== ENCOUNTER 2023-12-02 20:51 | Emergency (ER) | payer MEDICARE, MEDICAID, SELFPAY ==
[2023-12-02 21:12] VITALS: BP 129/75; PULSE 82; RESP 18; TEMP 37; O2SAT 96; BMI 35.0
--- NOTE | 2023-12-02 21:35 | CT_ITS ---
Patient: ERLIN PATIOÑ Facility:?[facility] RIS Patient ID:?[id number] Site Patient ID:?[id number]. Site :?[id number] Study:?CT-Abdomen/Pelvis W ISOVUE 370-12/02/2023 10:18:32 PM Ordering Physician:JAQUELINE Final Report: INDICATION: Left upper quadrant pain. TECHNIQUE: CT abdomen and pelvis acquired with 96 cc of Isovue 370 IV contrast. COMPARISON: None. FINDINGS: Lower chest: Unremarkable. Liver: Unremarkable. Normal in size and attenuation. No suspicious masses. Gallbladder and bile ducts: Unremarkable. No stones or inflammation. No biliary dilatation. Pancreas: Mild fatty atrophy. No mass or inflammation. Spleen: Unremarkable. Normal in size. No masses. Adrenal glands: Unremarkable. No nodules. Kidneys: Unremarkable. No suspicious masses, stones, or hydronephrosis. GI tract: Distal colon diverticulosis without pericolonic inflammation. No obstruction. Normal appendix. Vasculature: Abdominal aorta is normal in caliber. Mesenteric arteries are patent. Lymph nodes: No lymphadenopathy. Peritoneum/Abdominal Wall: Unremarkable. No free air or significant free fluid. Pelvis: Unremarkable. Bones: Unremarkable for age. IMPRESSION: 1. No acute findings within the abdomen and pelvis. 2. Diverticulosis without evidence of diverticulitis. Please note that all CT scans at this facility use dose modulation, iterative reconstruction, and/or weight-based dosing when appropriate to reduce radiation dose to as low as reasonably achievable. Dictated by Luis Armando Morton MD @ 12/02/2023 10:25:38 PM Signed by:?Luis Armando Morton MD @12/02/2023 10:25:38 PM (Electronic Signature)
[2023-12-02] MEDS: KETOROLAC 15 MG/ML inj IVP (21:40)
--- OUTSIDE RECORDS SUMMARY | 2023-12-02 21:47 | XMS_ITS | Referral Summary ---
Author Name Unknown Organization [facility] Address [address] [place] [address] Care Team Providers Care Machine Assistant Name Role Phone Troy Ventura M.D. Primary Care Hanh sorensonjanel Source Comments Patient records contain information from all sites at [facility]. For routine questions regarding patient records, call [phone] during business hours, M-F 8:00 AM - 5:00 PM Central Time. Record requests for emergency care only can be directed to [phone] at any time.[facility] Encounters Date Type Department Care Team Description 11/25/2023 Orders Only Department of Vascular Medicine in [place], [place] [address] [place] [address] Ally Scott P.A.-C. 11/24/2023 4:26 PM CDT - 11/24/2023 11:59 PM CDT Hospital Encounter Department of Laboratory Medicine and Pathology, [facility], in [place], [place] [address] [place] [address] Ally Scott P.AMaine-C. Mutation Factor V Leiden Heterozygous (HCC); Anticoagulant Therapy Discharge Disposition: Home or Self Care 11/24/2023 4:00 PM CDT Office Visit Department of Vascular Medicine in [place], [place] [address] [place] [address] Ally Scott P.A.-C. Anticoagulant Therapy (Primary Dx); Mutation Factor V Leiden Heterozygous (HCC) 11/24/2023 12:07 PM CDT - 11/24/2023 4:25 PM CDT Hospital Encounter Department of Radiology, [facility], in [place], [place] [address] [place] [address] Kendra Canales APRN, C.N.P., D.N.P. Thrombosis Superficial Vein Lower Extremity Left Discharge Disposition: Home or Self Care 10/09/2023 Refill Department of Family Medicine, [facility], in [place], [place] [address] [place] [address] Troy Ventura M.B.B.S., MJose. Med Refill 10/07/2023 Orders Only [facility] Troy Ventura M.B.B.S., MMorteza from Last 3 Months Allergies Active Allergy Reactions Criticality Noted Date Comments Amoxicillin Rash 11/10/2010 Amoxicillin-Pot Clavulanate Rash 11/10/2010 Erythromycin Rash 11/10/2010 Latex Other (see comments) 03/15/2021 Penicillins Rash,Hives only, no other systemic symptoms Low 11/10/2010 Tetracycline Rash,Other (see comments),Hives only, no other systemic symptoms Low 11/10/2010 Hives and rash. Medications Medication Sig Dispensed Refills Start Date End Date Status multivitamin-iron- FA (CENTRUM COMPLETE) 18-400 mg-mcg per tablet Take 1 tablet by mouth daily. Active propranoloL (INDERAL) 10 mg tabletIndications: Anxiety,Depression Major Recurrent Moderate (HCC) TAKE ONE TABLET BY MOUTH TWICE A DAY 180 tablet 5 02/10/2023 Active citalopram (CeleXA) 20 mg tabletIndications: Anxiety,Depression Major Recurrent Moderate (HCC) TAKE 1 TABLET (20 MG TOTAL) BY MOUTH DAILY. 90 tablet 3 10/10/2023 Active cholecalciferol (Vitamin D3) 50 mcg (2,000 Unit) tablet Take 50 mcg by mouth daily. Active apixaban (ELIQUIS) 2.5 mg tabletIndications: Thrombosis Superficial Vein Lower Extremity Left Take 1 tablet (2.5 mg total) by mouth 2 (two) times a day. 180 tablet 3 11/25/2023 11/19/2024 Active apixaban (ELIQUIS) 5 mg tabletIndications: Thrombosis Superficial Vein Lower Extremity Left Take 1 tablet (5 mg total) by mouth 2 (two) times a day. 60 tablet 2 08/18/2023 11/25/2023 Discontinued (Reorder) Active Problems Problem Noted Date Diagnosed Date Mutation Factor V Leiden Heterozygous 08/11/2023 Anxiety 10/29/2019 Rash Penis 10/29/2019 Hepatitis B Personal History 10/02/2018 Overview: Evaluation with [place]-resolved Obesity Body Mass Index 30-39.9 Adult [...] Influenza, Unspecified 06/09/2018,2017,07/22/2017,2016,09/03/2016,06/09/2012 OPV 05/11/1991 PCV20 04/25/2023 PPSV23(Discontinued) 12/24/2016 Polio, Unspecified 05/11/1991 SARS-COV-2 (COVID-19) - PFIZ ER (Discontinued)(12 years or older) 07/05/2021,12/11/2020,11/15/2020 SARS-COV-2 (COVID-19) - PFIZ ER BIVALENT TS(Discontinued)(12 YEARS OR OLDER) 06/25/2022 Td (Adult), adsorbed 11/25/2007 Td Preservative Free (TENIVA C, DECAVAC) 04/03/2018 Td, (Adult) Unspecified 11/25/2007 influenza vaccine quad (FLUZONE/FLUARIX) (6 months and older)(PF) 06/25/2022,07/12/2021,07/19/2020,2018,06/09/2018,07/22/2017,06/13/2014 Social History Tobacco Use Types Packs/Day Years Used Date Smoking Tobacco: Every Day Cigarettes 1 17 Smokeless Tobacco: Never Tobacco Cessation:Ready to Q uit: Not Asked; Counseling Given: Not Answered Alcohol Use Standard Drinks/Week Comments Not Currently 0 (1 standard drink = 0.6 oz [...] often do you attend chur ch or alevism services? 1 to 4 times per year 03/14/2021 Do you belong to any clubs o r organizations such as alevism groups, unions, fraternal or athletic groups, or [...] Answer Date Recorded PHQ-2 Score 2 08/06/2023 [facility] Questionnaire Answer Date [...] 27) 11 08/06 Nutrition Answer Date Recorded On average, how many serving s of [...] your living situation today? I have a [facility] place to live 04/22/2023 Education Answer [...] Sign Reading Time Taken Comments Blood Pressure 105/66 11/24/2023 3:39 PM CDT Pulse 67 11/24/2023 3:39 PM CDT Temperature 35.8 ??C (96.5 ??F) 08/07/2023 12:[address] Respiratory Rate 16 08/07/2023 12:53 PM DRYING FRAME OPERATOR Oxygen Saturation 99% 06/05/2021 11:55 AM CDT Inhaled Oxygen Concentration - - Weight 106 kg (234 lb 9.1 oz) 11/24/2023 3:39 PM CDT Height 173.6 cm (5' 8.35) 11/24/2023 3:39 PM CD T Body Mass Index 35.31 11/24/2023 3:39 PM CDT Plan of Treatment Not on file Procedures Procedure Name Priority Date/Time Associated Diagnosis Comments D-DIMER, P Routine 11/24/2023 4:39 PM CDT Mutation Factor V Leiden Heterozygous (HCC) Anticoagulant Therapy US LOWER EXTREMITY VEINS LEFT RAD - Routine (most inpatients and all outpatients) 11/24/2023 1:16 PM CDT Thrombosis Superficial Vein Lower Extremity Left LIPID PANEL, S Routine 04/25/2023 12:22 PM CDT Encounter For Screening For Cardiovascular Disorders HCV AB SCRN W/REFLEX TO HCV PCR, S Routine 08/18/2020 4:08 PM DRYING FRAME OPERATOR Exposure Human Immunodeficiency Virus HIV-1/-2 AG AND AB SCREEN, PLASMA Routine 08/18/2020 3:51 PM DRYING FRAME OPERATOR Exposure Human Immunodeficiency Virus from Last 3 Months or Most Recently Relevant to Health Maintenance Results * D-Dimer (11/24/2023 4:39 PM CDT) D-Dimer, P <220 <=500 ng/mL FEU 11/24/2023 7:04 PM CDT DTL Comment: ----ADDITIONAL INFORMATION---- D-dimer values less than or equal to 500 ng/mL fibrinogen equivalent units (FEU) may be used in conjunction with clinical pre-test probability to exclude deep vein thrombosis (DVT) and/or pulmonary embolism (PE). Blood (Blood, Venous) 11/24/2023 4:39 PM CDT 11/24/2023 4:59 PM CDT Ally Scott P.A.-C. 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 No DVT. Narrative 11/24/2023 1:29 PM CDT EXAM: US LOWER EXTREMITY VEINS LEFT Exam performed with color and spectral Doppler analysis. COMPARISON: 08/11/2023 FINDINGS: LEFT: Common Femoral Vein: Negative. Profunda Femoral Vein: Negative. Femoral Vein: Negative. Popliteal Vein: Negative. Gastrocnemius Veins: Negative where seen. Soleal Veins: Negative where seen. Posterior Tibial Veins: Negative where seen. Peroneal Veins: Negative where seen. Great Saphenous Vein: Negative where seen. Small Saphenous Vein: Chronic essentially occlusive SVT for approximately the entire SSV, sparing the central 1 cm. Popliteal Fossa: Negative. Other: n/a Information on venous thrombosis and management can be found on the [employer] site. Link [email or web address].[facility] hospitalSoapbox Mobileorg/topic/clinical-answers/[email or web address]/cpm-[email or web address] 45794 Procedure Note Trinity Vizcaino M.D. - 11/24/2023 EXAM: US LOWER EXTREMITY VEINS LEFT Exam performed with color and spectral Doppler analysis. COMPARISON: 08/11/2023 FINDINGS: LEFT: Common Femoral Vein: Negative. Profunda Femoral Vein: Negative. Femoral Vein: Negative. Popliteal Vein: Negative. Gastrocnemius Veins: Negative where seen. Soleal Veins: Negative where seen. Posterior Tibial Veins: Negative where seen. Peroneal Veins: Negative where seen. Great Saphenous Vein: Negative where seen. Small Saphenous Vein: Chronic essentially occlusive SVT for approximatelythe entire SSV, sparing the central 1 cm. Popliteal Fossa: Negative. Other: n/a Information on venous thrombosis and management can be found on the[employer] site. 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 No DVT. Kendra Canales APRN, C.N.P., D.N.P . IMG US PROCEDURES * (ABNORMAL) Lipid Panel (04/25/2023 12:22 PM CDT) [facility] Triglycerides 377(H) mg/dL 04/25/2023 2:03 PM CDT [...] CDT Alexandra Armstrong P.A.-C. LAB BLOOD ADD-ON [facility] [address] [place] [address], [facility] OWAT [facility] in [place] [address] [place] [address] * HCV Ab Scrn w/Reflex to HCV PCR, Serum (08/18/2020 4:08 PM DRYING FRAME OPERATOR) HCV Ab Screen, S Negative Negative 08/19/2020 8:34 AM DRYING FRAME OPERATOR [facility] Comment:Tmfxmt-[id number]-sarodd rat io is <1.00. Blood (Blood, Venous) 08/18/2020 4:08 PM DRYING FRAME OPERATOR 08/19/2020 7:39 AM DRYING FRAME OPERATOR Troy Virgen M.D. LAB PENNY ROBIOLOGY - BLOOD ORDERABLES [facility] [address] [place], [place] [address] [facility] Dept. of Laboratory Medicine and Pathology [address] [place] [address] * HIV-1/-2 Ag and Ab Screen, Plasma (08/18/2020 3:51 PM DRYING FRAME OPERATOR) HIV Ag/Ab Screen, P Negative Negative 08/20/2020 6:42 AM DRYING FRAME OPERATOR [facility] Comment: Negative result does not rule out HIV infection. If exposure to HIV infection occurred <14 days ago, contact the laboratory to request addition of HIV-1 RNA detection / quantification test. HIV-1 p24 Ag Screen, P Negative Negative 08/20/2020 6:42 AM DRYING FRAME OPERATOR [facility] Comment: Negative result does not rule out HIV infection. If exposure to HIV infection occurred <14 days ago, contact the laboratory to request addition of HIV-1 RNA detection / quantification test. HIV-1 Ab Screen, P Negative Negative 2020 6:42 AM DRYING FRAME OPERATOR [facility] Comment: Negative result does not rule out HIV infection. If exposure to HIV infection occurred <14 days ago, contact the laboratory to request addition of HIV-1 RNA detection / quantification test. HIV-2 Ab Screen, P Negative Negative 2020 6:42 AM DRYING FRAME OPERATOR [facility] Comment: Negative result does not rule out HIV infection. If exposure to HIV infection occurred <14 days ago, contact the laboratory to request addition of HIV-1 RNA detection / quantification test. Blood (Blood, Venous) 08/18/2020 3:51 PM DRYING FRAME OPERATOR 08/19/2020 4:31 PM DRYING FRAME OPERATOR Troy Virgen M.D. LAB PENNY ROBIOLOGY - BLOOD ORDERABLES [facility] [address] [place] [address], [place] [facility] in [address] [address] from Last 3 Months or Most Recently Relevant to Health Maintenance Care Teams Machine Assistant Relationship Specialty Start Date End Date Troy Ventura M.B.B.S., M.D. [address] [place] [address] [place] [id number] PCP - General 07/05/19
--- OUTSIDE RECORDS SUMMARY | 2023-12-02 21:47 | XMS_ITS | Clinical Summary ---
Author Name Unknown Organization [facility] [place] [facility] Address [address] [place] [address] Care Team Providers Care Hand Glass Cutter Name Role Phone Troy Ventura M.D. Primary Care Hanh morgan Source Comments Patient records contain information from all sites at [facility] [place] [facility]. For routine questions regarding patient records, call [phone] during business hours, M-F 8:00 AM - 5:00 PM Central Time. Record requests for emergency care only can be directed to [phone] at any time.[facility] [place] [facility] Allergies Active Allergy Reactions Criticality Noted Date [...] B Personal History 10/02/2018 Overview: Evaluation with [facility]-resolved Obesity Body Mass Index 30-39.9 Adult 10/09/2015 Abuse Tobacco Smoking 08/27/2013 Hyperlipidemia 12/18/2012 Depression Major Recurrent Moderate 02/08/2010 Overview: Patient denies a history of depression. Reports he is on celexa and propranolol for treatment of anxiety Encounters Date Type Department Care Team Description 11/25/2023 Orders Only Department of Vascular Medicine in [place], [place] [address] [place] [phone] Ally Scott P.A.-C. 11/24/2023 4:26 PM CDT - 11/24/2023 11:59 PM CDT Hospital Encounter Department of Laboratory Medicine and Pathology, [facility] in [place], [place] [address] [place] [address] Ally Scott P.A.-C. Mutation Factor V Leiden Heterozygous (HCC); Anticoagulant Therapy Discharge Disposition: Home or Self Care 11/24/2023 4:00 PM CDT Office Visit Department of Vascular Medicine in [place], [place] [address] [place] [address] Ally Scott P.A.-C. Anticoagulant Therapy (Primary Dx); Mutation Factor V Leiden Heterozygous (HCC) 11/24/2023 12:07 PM CDT - 11/24/2023 4:25 PM CDT Hospital Encounter Department of Radiology, [facility], in [place], [place] [address] [place] [address] Kendra Canales APRN, C.N.P., D.N.P. Thrombosis Superficial Vein Lower Extremity Left Discharge Disposition: Home or Self Care 10/09/2023 Refill Department of Family Medicine, [facility], in [place], [place] [address] [place] [address] rToy Ventura M.B.BGermán, M.D. Med Refill 10/07/2023 Orders Only [facility] PCP TH ORT Troy Ventura M.B.BGermán, MMorteza from Last 3 Months Immunizations Name Administration [...] Family History Medical History Relation Name Comments Colon cancer Father Corey Anxiety disorder Mother Maritza Aortic valve disorder Mother Maritza Atrial fibrillation Mother Maritza Hyperlipidemia Mother Maritza Thyroid disease Mother Maritza Valvular heart disease Mother Maritza Atria l septal defect ADD Mother's Brother Antoni Pancreatic cancer Mother's Brother Antoni Depression Mother's Sister Salma Sleep apnea Mother's Sister Salma Stroke Sister 1 Jaylyn Asthma Sister 2 . Pancreatic cancer Uncle maternal Relation Name Status Comments Father Corey Alive Mother Maritza Alive Mother's Brother Antoni Mother's Sister Salma Sister 1 Jaylyn Alive Sister 2 . Uncle maternal Social History Tobacco Use Types [...] often do you attend chur ch or rastafari services? 1 to 4 times per year 03/14/2021 Do you belong to any clubs o r organizations such as orthodox groups, unions, fraternal or athletic groups, or [...] Answer Date Recorded PHQ-2 Score 2 08/06/2023 [facility] Occupat ional Health - [...] Answer Date Recorded Employment status Unemployed/not in [employer] paid workforce and NOT seeking employment 03/14/2021 Housing Stability Answer Date Recorded What is your living situation today? I have a [facility] place to live 04/22/2023 Education Answer [...] ST Respiratory Rate 16 08/07/2023 12:53 PM EXTENSION PROFESSOR Oxygen Saturation 99% 06/05/2021 11:55 AM CDT Inhaled Oxygen Concentration - - Weight 106 kg (234 lb 9.1 oz) 11/24/2023 3:39 PM CDT Height 173.6 cm (5' 8.35) 11/24/2023 3:39 PM CD T Body Mass Index 35.31 11/24/2023 3:39 PM CDT Plan of Treatment Health Maintenance Due Date Last Done Comments Visit: Medicare Annual Wellness 1987 Hepatitis B Vaccines (1 of 3 - 19+ 3-dose series) 2006 COVID-19 Vaccine (2022- season) 2023 06/25/2022, 07/05/2021, 12/11/2020, Additional [...] HCV PCR, S Routine 08/18/2020 4:08 PM EXTENSION PROFESSOR Exposure Human Immunodeficiency Virus HIV-1/-2 AG AND AB SCREEN, PLASMA Routine 08/18/2020 3:51 PM EXTENSION PROFESSOR Exposure Human Immunodeficiency Virus from Last 3 [...] CDT Ally Scott P.A.-C. LAB BLOOD ADD-ON [facility] [address] [place] [address], [facility] [address] [place] [address] * US Lower Extremity Veins Left (11/24/2023 [...] and management can be found on the [employer] site. Link [email or web address]://[employer] [email or web address].[facility].org/topic/clinical-answers/cnt-23317204/cpm-204 [address]21 Procedure Note Trinity Vizcaino M.D. - 11/24/2023 [...] thrombosis and management can be found on theAskIlyoExpert site. 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 No DVT. Kendra Canales APRN C.N.P., D.N.P . IMG US PROCEDURES * [...] CDT Alexandra Armstrong P.A.-C. LAB BLOOD ADD-ON Performing Organization Address City/[facility]/ZIP Co de Phone Number [facility] [address] [place] [address], [facility] OWAT [facility] [place] [address] [place] [address] * HCV Ab Scrn w/Reflex to HCV PCR, Serum (08/18/2020 4:08 PM EXTENSION PROFESSOR) HCV Ab Screen, S Negative Negative 08/19/2020 8:34 AM EXTENSION PROFESSOR [facility] Comment:Oqxwos-ql-hzohbn rat io is <1.00. Blood (Blood, Venous) 08/18/2020 4:08 PM EXTENSION PROFESSOR 08/19/2020 7:39 AM EXTENSION PROFESSOR Troy Virgen M.D. LAB PENNY ROBIOLOGY - BLOOD ORDERABLES Performing Organization Address City/[facility]/ZIP Co de Phone Number [facility] [address] [place] [address] [facility] Dept. of Laboratory Medicine and Pathology [address] [place] [address] * HIV-1/-2 Ag and Ab Screen, Plasma (08/18/2020 3:51 PM EXTENSION PROFESSOR) HIV Ag/Ab Screen, P Negative Negative 08/20/2020 6:42 AM EXTENSION PROFESSOR [facility] Comment: Negative result does not rule out HIV infection. If exposure to HIV infection occurred <14 days ago, contact the laboratory to request addition of HIV-1 RNA detection / quantification test. HIV-1 p24 Ag Screen, P Negative Negative 08/20/2020 6:42 AM EXTENSION PROFESSOR [facility] Comment: Negative result does not rule out HIV infection. If exposure to HIV infection occurred <14 days ago, contact the laboratory to request addition of HIV-1 RNA detection / quantification test. HIV-1 Ab Screen, P Negative Negative 2020 6:42 AM EXTENSION PROFESSOR [facility] Comment: Negative result does not rule out HIV infection. If exposure to HIV infection occurred <14 days ago, contact the laboratory to request addition of HIV-1 RNA detection / quantification test. HIV-2 Ab Screen, P Negative Negative 2020 6:42 AM EXTENSION PROFESSOR [facility] Comment: Negative result does not rule out HIV infection. If exposure to HIV infection occurred <14 days ago, contact the laboratory to request addition of HIV-1 RNA detection / quantification test. Blood (Blood, Venous) 08/18/2020 3:51 PM EXTENSION PROFESSOR 08/19/2020 4:31 PM EXTENSION PROFESSOR Troy Virgen M.D. LAB PENNY ROBIOLOGY - BLOOD ORDERABLES Performing Organization Address City/State/[facility] Co de Phone Number [facility] [address] [place] [address], [facility] in [place] [address] [place] [address] from Last 3 Months or Most Recently Relevant to Health Maintenance Care Teams Hand Glass Cutter Relationship Specialty Start Date End Date Troy Ventura M.B.B.S., M.D. [address] [place] [address] [place] [id number] PCP - General 07/05/19
--- OUTSIDE RECORDS SUMMARY | 2023-12-02 21:48 | XMS_ITS | Encounter Summary ---
Author Name Unknown Organization [facility] Address [address] [place] [address] Care Team Providers Care Washcloth Folder Name Role Phone Troy Ventura M.D. Primary Care [facility] Reason for Referral * Outpatient (Routine) - Closed Specialty Diagnoses / Procedures Referred By Contac t Referred To Contact Diagnoses Thrombosis Superficial Vein Lower Extremity Left Procedures US Lower Extremity Veins Left Kendra Canales APRN, C.N.P., D.N.P. [address] [place] [phone] [facility] Referral ID Status Reason Start Date Expiration Date Visits Re quested Visits Authorized [id number] Closed 08/25/2023 08/24/2024 1 1 Reason for Visit * Outpatient (Routine) - Closed Specialty Diagnoses / Procedures Referred By Contac t Referred To Contact Diagnoses Thrombosis Superficial Vein Lower Extremity Left Procedures US Lower Extremity Veins Left Kendra Canales APRN, C.N.P., D.N.P. [address] [place] [phone] [facility] Referral ID Status Reason Start Date Expiration Date Visits Re quested Visits Authorized [id number] Closed 08/25/2023 08/24/2024 1 1 Encounter Details Date Type Department Care Team (Late st Contact Info) Description 11/24/2023 12:07 PM CDT - 11/24/2023 4:25 PM CDT Hospital Encounter Department of Radiology, [facility], in [place], [place] [address] [place] [address] Kendra Canales APRN, C.N.P., D.N.P. 200 [place] [address] Thrombosis Superficial Vein Lower Extremity Left Discharge Disposition: Home or Self Care Social History Tobacco Use Types Packs/Day Years Used Date Smoking Tobacco: Every Day Cigarettes 1 17 Smokeless Tobacco: Never Alcohol Use Standard Drinks/Week Comments Not Currently [...] often do you attend chur ch or mandaen services? 1 to 4 times per year [...] Date Recorded PHQ-2 Score 2 08/06/2023 [facility] of Occupat ional Health - Occupational Stress [...] your living situation today? I have a [facility] [place] place to live 04/22/2023 Education Answer [...] Sig Dispensed Refills Start Date End Date cholecalciferol (Vitamin D3) 50 mcg (2,000 Unit) tablet Take 50 mcg by mouth daily. citalopram (CeleXA) 20 mg tabletIndications:Anxiet y,Depression Major Recurrent Moderate (HCC) TAKE 1 TABLET (20 MG TOTAL) BY MOUTH DAILY. 90 tablet 3 10/10/2023 gugttpqrmzdn-tlky-WE (CENTRUM COMPLETE) 18-400 mg-mcg per tablet Take 1 tablet by mouth daily. propranoloL (INDERAL) 10 mg tabletIndications:Anxiet y,Depression Major Recurrent Moderate (HCC) TAKE ONE TABLET BY MOUTH TWICE A DAY 180 tablet 5 02/10/2023 apixaban (ELIQUIS) 5 mg tabletIndications:Thromb osis Superficial Vein Lower Extremity Left Take 1 tablet (5 mg total) by mouth 2 (two) times a day. 60 tablet 2 08/18/2023 11/25/2023 documented as of this encounter Plan of Treatment Not on file documented as of this encounter Procedures Procedure Name Priority Date/Time Associated Diagnosis Comments US LOWER EXTREMITY VEINS LEFT RAD - Routine (most inpatients and all outpatients) 11/24/2023 1:16 PM CDT Thrombosis Superficial Vein Lower Extremity Left documented in this encounter Results * US Lower Extremity Veins Left (11/24/2023 [...] and management can be found on the netprice.com site. Link [email or web address]/clinical-[email or web address]/[email or web address] Procedure Note Trinity Vizcaino M.D. - 11/24/2023 [...] thrombosis and management can be found on thenetprice.com site. 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 No DVT. Kendra Canales APRN C.N.PMaine, D.N.P . IMG US PROCEDURES documented in this encounter Visit Diagnoses Diagnosis Thrombosis Superficial Vein Lower Extremity Left documented in this encounter Additional Health Concerns Assessment Noted Time PHQ-9 Depression Total Score: 11 024 3:14 PM RETAIL CLIENT SOLUTIONS ANALYST documented as of this encounter Care Teams Washcloth Folder Relationship Specialty Start Date End Date Troy Ventura M.B.B.S., M.D. [address] [place] [phone] PCP - General 07/05/19 documented as of this encounter
--- OUTSIDE RECORDS SUMMARY | 2023-12-02 21:48 | XMS_ITS | Encounter Summary ---
Author Name Unknown Organization [facility] Address [address] [place] [address] Care Team Providers Care Instrument Engineer Name Role Phone Troy Ventura M.D. Primary Care Hanh morgan Reason for Visit * Outpatient (Routine) - Closed Specialty Diagnoses / Procedures Referred By Shannan hilton Referred To Contact Vascular Medicine Kendra Canales APRN, C.N.P., D.N.P. [address] [place] [phone] [facility] Referral ID Status Reason Start Date Expiration Date Visits Re quested Visits Authorized [id number] Closed 08/25/2023 02/23/2025 1 1 Encounter Details Date Type Department Care Team (Latest Contact Info) Description 11/24/2023 4:00 PM CDT Office Visit Department of Vascular Medicine in [place], [place] [address] [place] [phone] Ally Scott P.A.-C. [address] [place] [phone] Anticoagulant Therapy (Primary Dx); Mutation Factor V Leiden Heterozygous (HCC) Social [...] week 03/14/2021 How often do you attend [facility] or hoahaoism services? 1 to 4 times per year 03/14/2021 Do you belong to any clubs o r organizations such as sabianism groups, unions, fraternal or athletic groups, or [...] Answer Date Recorded PHQ-2 Score 2 08/06/2023 [facility] of Occupat ional Health - Occupational [...] your living situation today? I have a [facility] place to live 04/22/2023 Education Answer [...] Pulse 67 11/24/2023 3:39 PM CDT Temperature - - Respiratory Rate - - Oxygen Saturation - - Inhaled Oxygen Concentration - - Weight 106 kg (234 lb 9.1 oz) 11/24/2023 3:39 PM CDT Height 173.6 cm (5' 8.35) 11/24/2023 3:39 PM CD T Body Mass Index 35.31 11/24/2023 3:39 PM CDT documented in this encounter Progress Notes * Ally Scott P.A.-C. - 11/24/2023 4:00 PM CDT THROMBOPHILIA CLINIC FOLLOW UP NOTE Date of Service: 11/24/2023 SUBJECTIVE Mr. Neymar Lopez is a very pleasant man who has returned for review of anticoagulation. He had a repeat ultrasound done today that stated ???SVT has evolved in the left small saphenous vein to near occlusion. No DVT.?? He had been diagnosed with a small saphenous vein thrombus on 05/01/2023 when he went to the emergency department with body aches, fever, headache and left leg pain. He had tested positive for COVID the week previously at home. In the emergency department the COVID testing was negative, but he confirms today that his test at home was strongly positive. Because of the leg pain an ultrasound was done that showed superficial thrombus in the lesser saphenous vein extending to within 1 cm of the popliteal junction. Since this was so close to the junction, it was treated as DVT and he was placed onapixaban 5 mg b.i.d. for 3 months. After 3 months he followed up with his family medicine provider and a repeat ultrasound was done onAugust 11, 2023. He also had a thrombophilia panel drawn after holding apixaban for 3 days. The ultrasound showed aging, incompletely recanalized thrombus in the small saphenous vein, and clot appeared less than 2 cm from the adjacent popliteal venous junction. His provider had him stay on apixaban, and sent him to the thrombophilia Clinic for further recommendations. He was seen there by nurse practitioner Kendra Canales on 08/25/2023. Please see her note for full details. The thrombophilia testing showed an elevated D-dimer of 1094. He also was heterozygous for the factor V Leiden gene mutation. The patient was concerned about his recurrent risk for thrombosis, and the fact that he had aging, incompletely recanalized thrombus, so he chose to stay on apixaban another3 months. He has returned today after an ultrasound for further review of anticoagulation. The ultrasound description from today of the small saphenous vein thrombus states ???chronic essentially occlusive SVT for approximately the entire small saphenous vein, sparing the central 1 cm.?? The patient denies any pain. He has not had any bleeding while on apixaban. #[facility] thrombophilia clinic anticoagulation assessment# 1. Current length of anticoagulation therapy 6-9 months A. Blood thinner medication. Apixaban (Eliquis) 5 mg bid B. Still on blood thinner? Yes 2. Missed doses (1 dose= pill, tablet, injection)? No 3. While taking anticoagulant, any new VTE? No 4. Major bleeding: No 5. Minor bleeding: No I have reviewed and updated the following: allergies, current medications, medications, family history, medical history, social history, surgical history and problem list. REVIEW OF SYSTEMS Pertinent items are noted in HPI; all other review of systems was negative. OBJECTIVE BP 105/66 (BP Location: Left arm, Patient Position: Sitting) Pulse 67 Ht 173.6 cm Wt 106 kg BMI 35.31 kg/m?? PHYSICAL EXAM General: Patient is a young adult male, seated and in no acute distress. Extremities: Bulging varicosity noted on left calf, nontender to palpation. Unable to palpate smallsaphenous vein. DIAGNOSTICS I have reviewed pertinent laboratory and imaging studies. ASSESSMENT / PLAN #1 Mutation Factor V Leiden Heterozygous (HCC) #2 Anticoagulant Therapy 1. Venous Thromboembolism: Date: 05/01/2023 Location (s): Left small saphenous vein extending to the junction with the popliteal vein within 1 cm Known risk factors for VTE at that time included: TCR VTE RISK FACTORS: Obesity (BMI>30), Known Inherited Thrombophilia, and Other: COVID infection 1 week earlier . Mr. Lopez is a 38 y.o. male is here for follow up on anticoagulant recommendations. He has been diagnosed with heterozygous factor V Leiden gene mutation, and he had an episode of superficial venousthrombophlebitis in the left small saphenous vein shortly after he was diagnosed with COVID infection. That was a provoked event. I have explained to him that he does have some risk for recurrent thrombosis but it is not thought to be very high. He is concerned about recurrence because the thrombus never completely resolved. Itis now scarred down and it should not be a problem because it is completely chronic in the small saphenous vein. However, he did have an elevated D-dimer in August. Sometimes that can indicate ongoing thrombotic risk. He also has heterozygous factor V Leiden gene mutation. He was shown the results of the amplify-extend clinical trial and told that some patients who are higher risk for recurrence prefer to stay on long-term, low- dose apixaban 2.5 mg b.i.d. for prophylaxis. If he feels at risk for recurrence and would prefer to stay on apixaban, that would be reasonable. We have decided to he check his D-dimer. I will let him know the results after they are complete in the next day or so. If they remain high, then it will be up to him to decide if he wants to remain on anticoagulation or not. If he does choose to remain on apixaban long-term, then I would recommend reducing the dose to 2.5 mg b.i.d. for prophylaxis. I will send a renewal prescription to his pharmacy if that is the case. All questions answered, and it was a pleasure meeting him today. RECOMMENDATIONS 1. Rechecked D-dimer. 2. Contact patient with results and find out if he prefers to stay on apixaban at the prophylaxis dose of 2.5 mg b.i.d. or stop it entirely. Addition: D-dimer is less than 220. This is completely normal. It will be up to the patient whetheror not he decides to stay on low-dose apixaban 2.5 mg b.i.d. for prophylaxis or whether he would like to discontinue it at this time. I would recommend discontinuation as his superficial thrombophlebitis extending to the saphenopopliteal junction within 1 cm, treated as DVT, was provoked. I personally spent over half of a total 35 minutes in counseling and discussion with the patient and coordination of care as described above. documented in this encounter Plan of Treatment Not on file documented as of this encounter Results * D-Dimer (11/24/2023 4:39 PM CDT) [...] CDT Ally Scott P.A.-C. LAB BLOOD ADD-ON [facility] [address] [place] [address], [facility] DTL [facility] [address] [place] [address] documented in this encounter Visit Diagnoses Diagnosis Anticoagulant Therapy- Primary Mutation Factor V Leiden Heterozygous (HCC) documented in this encounter Additional Health Concerns Assessment Noted Time PHQ-9 Depression Total Score: 11 024 3:14 PM SERVICE DOG TRAINER documented as of this encounter Care Teams Instrument Engineer Relationship Specialty Start Date End Date Troy Ventura M.B.B.S., M.D. [address] [place] [phone] PCP - General 07/05/19 documented as of this encounter
--- OUTSIDE RECORDS SUMMARY | 2023-12-02 21:48 | XMS_ITS | Encounter Summary ---
Author Name Unknown Organization [facility] Address [address] [place] [address] Care Team Providers Care Outreach Nurse Name Role Phone Troy Ventura M.D. Primary Care P dilciajeffy Encounter Details Date Type Department Care Team (Latest Contact Info) Description 11/24/2023 4:26 PM CDT - 11/24/2023 11:59 PM CDT Hospital Encounter Department of Laboratory Medicine and Pathology, [facility] in [place], [place] [address] [place] [address] Ally Scott P.A.-C. [address] [place] [address] Mutation Factor V Leiden Heterozygous (HCC); Anticoagulant Therapy Discharge Disposition: Home or Self Care Social [...] often do you attend chur ch or restorationist services? 1 to 4 times per year 03/14/2021 Do you belong to any clubs o r organizations such as quaker groups, unions, fraternal or athletic groups, or [...] Answer Date Recorded PHQ-2 Score 2 08/06/2023 [facility] [place] of Occupat ional Health - Occupational Stress [...] your living situation today? I have a [employer] place to live 04/22/2023 Education Answer Date [...] BY MOUTH DAILY. 90 tablet 3 10/10/2023 jcgqlmwexyei-zjgz-HP (CENTRUM COMPLETE) 18-400 mg-mcg per tablet Take [...] Factor V Leiden Heterozygous (HCC) Anticoagulant Therapy documented in this encounter Results * D-Dimer (11/24/2023 4:39 [...] CDT Ally Scott P.A.-C. LAB BLOOD ADD-ON Performing Organization Address City/[facility] Co de Phone Number [facility] [address] [place] [address], [facility] DTL [facility] [address] [place] [address] documented in this encounter Visit Diagnoses Diagnosis Mutation Factor V Leiden Heterozygous (HCC) Anticoagulant Therapy documented in this encounter Additional Health Concerns Assessment Noted Time PHQ-9 Depression Total Score: 11 024 3:14 PM TREASURY ANALYST documented as of this encounter Care Teams Outreach Nurse Relationship Specialty Start Date End Date Troy Ventura M.B.B.SMaine, MJose. [address] [place] [phone] PCP - General 07/05/19 documented as of this encounter
--- OUTSIDE RECORDS SUMMARY | 2023-12-02 21:48 | XMS_ITS | Encounter Summary ---
Author Name Unknown Organization [facility] Address [address] [place] [address] Care Team Providers Care Oil Field Equipment Mechanic Name Role Phone Troy Ventura M.D. Primary Care [facility] Reason for Visit * Reason Comments Med Refill Encounter Details Date Type Department Care Team (Late st Contact Info) Description 08/14/2023 Refill Department of Family Medicine, [facility], in [place], [place] [address] [place] [phone] Alexandra Armstrong, P.A.-CMaine [address] [place] [phone] Med Refill Social History Tobacco Use Types Packs/Day Years Used Date Smoking Tobacco: Every Day Cigarettes Smokeless Tobacco: Never Alcohol Use Standard Drinks/Week [...] week 03/14/2021 How often do you attend [facility] or confucianist services? 1 to 4 times per year 03/14/2021 Do you belong to any clubs o r organizations such as anabaptism groups, unions, fraternal or athletic groups, or [...] Answer Date Recorded PHQ-2 Score 2 08/06/2023 [facility] of Occupat ional Health - Occupational Stress [...] Answer Date Recorded Employment status Unemployed/not in [employer] paid workforce and NOT seeking employment 03/14/2021 Housing Stability Answer Date Recorded What is your living situation today? I have a [facility] place to live 04/22/2023 Education Answer [...] Aracely Sparks, L.P.N. - 08/15/2023 10:36 AM BINDING NICKER Communicated refill not appropriate in related portal message ING NICKER * Telephone Encounter - Troy Ventura M.B.B.S., M.D. - 08/15/2023 8:10 AM CST He has completed 3 months of therapy. ING NICKER documented in this encounter Plan of Treatment Not on file documented as of this encounter Visit Diagnoses Diagnosis Thrombosis Superficial Vein Lower Extremity Left documented in this encounter Additional Health Concerns Assessment Noted Time PHQ-9 Depression Total Score: 11 024 3:14 PM BINDING NICKER documented as of this encounter Care Teams Oil Field Equipment Mechanic Relationship Specialty Start Date End Date Troy Ventura M.B.B.S., M.D. [address] [place] [phone] PCP - General 07/05/19 documented as of this encounter
--- OUTSIDE RECORDS SUMMARY | 2023-12-02 21:48 | XMS_ITS | Encounter Summary ---
Author Name Unknown Organization [facility] Address [address] [place] [address] Care Team Providers Care Lead Material Handler Name Role Phone Troy Ventura M.D. Primary Care Hanh morgan Reason for Visit * Reason Comments Med Refill Encounter Details Date Type Department Care Team (Late st Contact Info) Description 10/09/2023 Refill Department of Family Medicine, [facility], in [place], [place] [address] [place] [phone] Troy Ventura M.B.B.S., Riana [address] [place] [phone] Med Refill Social History Tobacco Use Types [...] How often do you attend chur or yazidism services? 1 to 4 times per year 03/14/2021 Do you belong to any clubs o r organizations such as roman catholic groups, unions, fraternal or athletic groups, [...] Answer Date Recorded PHQ-2 Score 2 08/06/2023 [facility] of Occupat ional Health - Occupational [...] your living situation today? I have a [facility] place to live 04/22/2023 Education Answer [...] Depression Total Score: 11 024 3:14 PM PLAYGROUND SUPERVISOR documented as of this encounter Care Teams Lead Material Handler Relationship Specialty Start Date End Date Troy Ventura M.B.B.S., M.D. [address] [place] [phone] PCP - General 07/05/19 documented as of this encounter
--- OUTSIDE RECORDS SUMMARY | 2023-12-02 21:48 | XMS_ITS | Encounter Summary ---
Author Name Unknown Organization [facility] Address [address] [place] [address] Care Team Providers Care Stripping Shovel Operator Name Role Phone Troy Ventura M.D. Primary Care P deltajanel Encounter Details Date Type Department Care Team (Late st Contact Info) Description 11/25/2023 Orders Only Department of Vascular Medicine in [place], [place] [address] [place] [address] Ally Scott P.A.-C. [address] [place] [address] Social History Tobacco Use Types Packs/Day Years [...] often do you attend chur ch or shinto services? 1 to 4 times per year [...] Answer Date Recorded PHQ-2 Score 2 08/06/2023 [facility] of Occupat ional [facility] - Occupational Stress Questionnaire Answer Date Recorded [...] your living situation today? I have a [facility] place to live 04/22/2023 Education Answer [...] Depression Total Score: 11 024 3:14 PM PRODUCTION ASSEMBLER documented as of this encounter Care Teams Stripping Shovel Operator Relationship Specialty Start Date End Date Troy Ventura M.B.B.S., MJose. [address] [place], [place] [address]la[address] [place] [phone] PCP - General 07/05/19 documented as of this encounter
--- OUTSIDE RECORDS SUMMARY | 2023-12-02 21:48 | XMS_ITS | Encounter Summary ---
Author Name Unknown Organization [facility] Address [address] [place] [address] Care Team Providers Care Blindmaker Name Role Phone Troy Ventura M.D. Primary Care P eddie Reason for Referral * Outpatient (Routine) - Authorized Specialty Diagnoses / Procedures Referred By Shannan t Referred To Contact Troy Ventura M.B.B.S., M.D. [address] [place] [phone] [facility] Region Referral ID Status Reason Start Date Expiration Date V isits Requested Visits Authorized [id number] Authorized 10/07/2023 04/07/2025 1 1 Scheduling Instructions Nurse AWV Do not schedule prior to due date to ensure insurance coverage Visit: Medicare Annual Wellness Never done. ER CLERK Encounter Details Date Type Department Care Team (Late st Contact Info) Description 10/07/2023 Orders Only [facility] M.B.[facility]., M.D. [address] [place] [phone] Social History Tobacco Use Types Packs/Day Years [...] often do you attend [facility] or tenriism services? 1 to 4 times per year [...] Answer Date Recorded PHQ-2 Score 2 08/06/2023 [place] of Occupat ional Health - Occupational Stress [...] as of this encounter Plan of Treatment Scheduled Referrals Name Type Priority Associated Diagnoses Orde r Schedule Primary Care nurse visit (clinic) - [facility] Region; Medicare Annual Wellness Outpatient Referral Routine Expected: 11/04/2023, Expires: 04/04/2024 documented as of this encounter Visit Diagnoses Not on filedocumented in this encounter Additional Health Concerns Assessment Noted Time PHQ-9 Depression Total Score: 11 024 3:14 PM SUMMER CLERK documented as of this encounter Care Teams Blindmaker Relationship Specialty Start Date End Date Troy Ventura M.B.B.S., M.D. [address] [place] [phone] PCP - General 07/05/19 documented as of this encounter
--- OUTSIDE RECORDS SUMMARY | 2023-12-02 21:48 | XMS_ITS | Clinical Summary ---
Author Name Unknown Organization [facility] Address [place], [place] [address] Care Team Providers Care Digital Associate Name Role Phone Eunice Juares MD Primary Care Provider [phone] Allergies Active Allergy Reactions Criticality Noted Date Comments Erythromycin Hives 01/27/2014 Penicillins Hives 01/27/2014 Tetracycline Hives 01/27/2014 Medications Medication Sig Dispensed Refills Start Date End Date Status propranolol (INDERAL) 10 mg tablet Take 10 mg by mouth 2 times daily. Active citalopram (CELEXA) 20 mg tablet Take 20 mg by mouth once daily. Active Immunizations Name Administration Dates Next Due [...] Additional history exists Influenza for age 9-49 04/04/2024 8, 06/09/2018, 07/22/2017, Additional history exists Tetanus booster 04/03/2028 04/03/2018, 11/25/2007 Pneumococcal series for age 6-64 Aged Out 12/24/2016 No longer eligible based on patient's age to complete this topic HIV for age 15-65 Completed 03/19/2019, 03/19/2019 Hepatitis C screening for age 18-79 Completed 03/19/2019 Procedures Procedure Name Priority Date/Time Associated Diagnosis Comments EXPOSURE (BBF) RAPID HIV STAT 03/19/2019 1:10 PM CDT EXPOSURE (BBF) ANTI HCV STAT 03/19/2019 1:10 PM CDT from Last 3 Months or Most Recently Relevant to Health Maintenance Results * Patient Source Rapid HIV - Unknown HIV (03/19/2019 1:10 PM CDT) SOURCE RAPID HIV SCREEN Non-Reacti ve Non-Reacti ve 03/19/2019 1:41 PM CDT [facility] Blood BLOOD SPECIMEN / Unknown Venipuncture / Unknown 03/19/2019 1:10 PM CDT 03/19/2019 1:14 PM CDT Maddy Medel TRAFFIC SUPERVISOR SEND OUTS [facility] [address] [place] [address] * Patient Source ANTI HCV (03/19/2019 1:10 PM CDT) HEPATITIS C ANTIBODY Non-React haseeb Non-React haseeb 03/19/2019 7:37 PM [facility]T [facility] Comment:Antibodies to HCV no t detected; does not exclude the possibility of exposure to HCV. Blood BLOOD SPECIMEN / Unknown Venipuncture / Unknown 03/19/2019 1:10 PM CDT 03/19/2019 1:14 PM CDT Maddy Medel TRAFFIC SUPERVISOR SEND OUTS [facility] [address] [place] [address], [place] from Last 3 Months or Most Recently Relevant to Health Maintenance Care Teams Digital Associate Relationship Specialty Start Date End Date Eunice Juares MD [address] [place] [address] [place] [address] PCP - General Family Practice 04/27/23
--- OUTSIDE RECORDS SUMMARY | 2023-12-02 21:48 | XMS_ITS | Encounter Summary ---
Author Name Unknown Organization [facility] Address [address] [place] [address] Care Team Providers Care Supervisor Capacitor Processing Name Role Phone Troy Ventura M.D. Primary Care [facility] Reason for Referral * Outpatient (Routine) - Closed Specialty Diagnoses / Procedures Referred By Magdaleneac t Referred To Contact Vascular Medicine Kendra Canales APRN, C.N.PMaine, D.N.P. [address] [place] [address] [facility] Referral ID Status Reason Start Date Expiration Date Visits Re quested Visits Authorized [id number] Closed 08/25/2023 02/23/2025 1 1 OR VISUAL DESIGNER * Outpatient (Routine) - Closed Specialty Diagnoses / Procedures Referred By Contac t Referred To Contact Diagnoses Thrombosis Superficial Vein Lower Extremity Left Procedures US Lower Extremity Veins Left Kendra Canales APRN, C.N.P., D.N.P. [address] [place] [phone] [facility] Referral ID Status Reason Start Date Expiration Date Visits Re quested Visits Authorized [id number] Closed 08/25/2023 08/24/2024 1 1 OR VISUAL DESIGNER Reason for Visit * Outpatient (Routine) - Closed Specialty Diagnoses / Procedures Referred By Shannan hilton Referred To Contact Vascular Medicine Diagnoses Thrombosis Superficial Vein Lower Extremity Left Alexandra Armstrong P.A.-C. [address], [place] [address] [facility] Referral ID Status Reason Start Date Expiration Date Visits Re quested Visits Authorized [id number] Closed 08/11/2023 08/10/2024 1 1 Encounter Details Date Type Department Care Team (Late st Contact Info) Description 08/25/2023 1:30 PM SENIOR VISUAL DESIGNER Comprehensive Visit Department of Vascular Medicine in [place], [place] [address] [place] [address] Kendra Canales APRN, C.N.P., D.N.P. [address] [place] [phone] Anticoagulant Therapy (Primary Dx); Thrombosis Superficial Vein [...] How often do you attend chur or tenriism services? 1 to 4 times [...] Answer Date Recorded PHQ-2 Score 2 08/06/2023 [facility] - Occupational Stress Questionnaire Answer Date [...] Answer Date Recorded Employment status Unemployed/not in [employer] paid workforce and NOT seeking employment 03/14/2021 Housing Stability Answer Date Recorded What is your living situation today? I have a [facility] place to live 04/22/2023 Education Answer Date [...] Comments Blood Pressure 122/77 08/25/2023 1:16 PM SENIOR VISUAL DESIGNER Pulse 76 08/25/2023 1:16 PM SENIOR VISUAL DESIGNER Temperature - - Respiratory Rate - - Oxygen Saturation - - Inhaled Oxygen Concentration - - Weight 104 kg (229 lb 4.5 oz) 08/25/2023 1:14 PM SENIOR VISUAL DESIGNER Height 174.4 cm (5' 8.66) 08/25/2023 1:14 PM CS T Body Mass Index 34.19 08/25/2023 1:14 PM SENIOR VISUAL DESIGNER documented in this encounter Consult Notes * Kendra Canales APRN, C.N.P., D.N.P. - 08/25/2023 1:30 PM CST REFERRAL SOURCE Alexandra Armstrong, PMaineAMaine-C. [address] [address] SUBJECTIVE CHIEF COMPLAINT / REASON FOR VISIT Incomplete resolution of thrombus within saphenous vein on Eliquis; further management/evaluation recommendations HISTORY OF PRESENT ILLNESS Mr. Lopez is a 38 y.o. male that I am seeing today for the first time at [place] [address] [facility] for anticoagulation recommendations for [...] additional questions or concerns, please contact the [place] [address] [facility]. Kendra Canales APRN, C.N.P., D.N.P. BILLROCHELLE I personally spent over half of a total 60 minutes in reviewing clinical documents, counseling and discussion with the patient and coordination of care as described above. OR VISUAL DESIGNER documented in this encounter Plan of Treatment Scheduled Referrals Name Type Priority Associated Diagnoses Order Schedule Vascular Medicine office visit (clinic) Thrombophilia Outpatient Referral Routine Expected: 11/24/2023 (Approximate), Expires: 11/23/2024 documented as of this encounter Results * US Lower Extremity [...] and management can be found on the [employer] site. Link [email or web address] Procedure Note Trinity Vizcaino M.D. - 11/24/2023 [...] thrombosis and management can be found on the[employer] site. 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 No DVT. Kendra Canales APRN, C.N.P., D.N.P . IMG US PROCEDURES * Phospholipid (Cardiolipin) Antibodies, IgG and IgM (08/29/2023 10:20 AM SENIOR VISUAL DESIGNER) Phospholipid Ab IgM, S <9.4 <15.0 (Negative) MPL 09/01/2023 12:18 PM SENIOR VISUAL DESIGNER [facility]SC Phospholipid Ab IgG, S <9.4 <15.0 (Negative) GPL 09/01/2023 12:18 PM SENIOR VISUAL DESIGNER [facility] Blood (Blood, Venous) 08/29/2023 10:20 AM SENIOR VISUAL DESIGNER 09/01/2023 7:32 AM SENIOR VISUAL DESIGNER Kendra Canales APRN, Clive.N.P., D.N.P . LAB BLOOD ADD-ON [facility] [address] [place] [address] [facility] [address] [place] [address] [place] [address] * Beta-2 Glycoprotein 1 Antibodies, IgG and IgM (08/29/2023 10:20 AM SENIOR VISUAL DESIGNER) Beta 2 GP1 Ab IgG, S <9.4 <15.0 (Negative) SGU 08/30/2023 12:27 PM SENIOR VISUAL DESIGNER SDSC Beta 2 GP1 Ab IgM, S <9.4 <15.0 (Negative) [facility]U 08/30/2023 12:44 PM SENIOR VISUAL DESIGNER [facility] Blood (Blood, Venous) 08/29/2023 10:20 AM SENIOR VISUAL DESIGNER 08/30/2023 7:28 AM SENIOR VISUAL DESIGNER Kendra Canales APRN, C.N.P., D.N.P . LAB BLOOD ADD-ON [facility] [address] [place] [address] [facility] [address] [place] [address] documented in this encounter Visit Diagnoses Diagnosis Anticoagulant Therapy- Primary Thrombosis Superficial Vein Lower Extremity Left Mutation Factor V Leiden Heterozygous (HCC) Thrombosis Superficial Vein Lower Extremity Left documented in this encounter Additional Health Concerns Assessment Noted Time PHQ-9 Depression Total Score: 11 024 3:14 PM SENIOR VISUAL DESIGNER documented as of this encounter Care Teams Supervisor Capacitor Processing Relationship Specialty Start Date End Date Troy Ventura M.B.B.S., M.D. [address] [place] [address] [place] [phone] PCP - General 07/05/19 documented as of this encounter
--- OUTSIDE RECORDS SUMMARY | 2023-12-02 21:48 | XMS_ITS | Data Portability ---
Author Name Unknown Address [address] [place] [address] Phone [phone] Organization [facility], [facility] Address [address] [facility] [address] [place] [address] Assessment Encounter Date Assessment Date Assessment LastModified [...] Medication Orders cephalexin 500 mg capsule 2020 [facility], [address] [place], [address], 16:46:46 diazepam 10 mg tablet 2020 [facility] [place], [address], 16:47:41 Patient TargetsNo targets recorded. Patient Instructions Encounter Date Encounter Id Patient Instructions Last Modified By Organization Details Last Modified Time 12/22/2020 [id number] AFTER YOUR VASECTOMY Go home. Relax. Show [...] should be. Not available 12/22/2020 13:47:35 11/20/2020 [id number] SURGICAL ELECTIV E STERILIZATION: VASECTOMY WHAT IS [...] vasectomy has been successful. Please see the [facility] Post-Vasectomy Instruction Sheet for additional details). [...] Time RU Vasectomy completed Jeffy Ennis MD [address] [place] [address],[address], [place], [phone] 12/22/2020 14:43:56 Imaging Results None recorded. [...] Updated DateTime 11/20/2020 180.34 cm 27.2 kg/m2 26596.51 g Micah rojas [facility] 11/20/2020 15:25:12 Social History Question Answer Notes LastModified by Organizat ion Details LastModified Time Tobacco Smoking Status Never Smoker Micah rojas [facility] 11/20/2020 15:26:44 What Is Your Level [...] history of Hypertension Medical History Condition Response Diabetes N Sexually Transmitted Infection N Bleeding Disorder N Other N High Blood Pressure N Kidney Stones N Cancer N Depression N Lung Disease N High Cholesterol N GERD/Acid Reflux N Heart Disease N Past Encounters Encounter ID Performer Location Encounter Start Date Encounter Closed Date Diagnosis/Indication Diagnosis SNOMED-CT Code [id number] Jeffy Ennis MD [facility] [address] [place] [address] 11/20/2020 15:15:44 11/21/2020 14:46:27 Contraception care management [id number] MD [facility]ENTRE[facility] [address] [place] [address] 12/22/2020 13:43:54 12/25/2020 13:55:03 Contraception care management [id number] Health Concerns Section Related Observation LastModified by Organization Detai ls LastModified Time None Recorded Concern Status LastModified by Organization Details LastModified Time None Recorded Advance Directives Directive None Recorded Payers Encounter Date Sequence Insurance Name Policy Number Policy Hussein Covered Member ID Hussein Member ID Guarantor Name 12/22/2020 1 CAMERON Wyatt [id number] Mike Wyatt 11/20/2020 1 CAMERON Wyatt [id number] Mike Wyatt Notes Date Note Type Note [...] is almost always associated with a large, wdu-oj-mvvque cost. He does understand that reestablishment of [...] procedure and post-op care. Jeffy Ennis MD [address] [place] [address],[address], [place], [address], [facility] 11/20/2020 16:48:10 12/22/2020 text/html HPI Notes: The [...] is almost always associated with a large, emj-ie-iughsx cost. He does understand that reestablishment of [...] procedure and post-op care. Jeffy Ennis MD [address] [place] [address],[address], [place], [address], [facility] 12/22/2020 14:44:08
--- OUTSIDE RECORDS SUMMARY | 2023-12-02 21:48 | XMS_ITS ---
Author Name Unknown Organization [facility] Address [address] [place] [address] Care Team Providers Care Forestry Contractor Name Role Phone Unavailable Unavailable Unavailable Surgery Details Not on file Complications Check Surgery Details section. Procedure Estimated Blood Loss Check Surgery Details section. Procedure Findings Check Surgery Details section. Procedure Specimens Taken Check Surgery Details section.
--- OUTSIDE RECORDS SUMMARY | 2023-12-02 21:48 | XMS_ITS | Encounter Summary ---
Author Name Unknown Organization [facility] Address [address] [place] [address] Care Team Providers Care Science Education Professor Name Role Phone Troy Ventura M.D. Primary Care P eddie Encounter Details Date Type Department Care Team (Late st Contact Info) Description 08/29/2023 9:58 AM AN/SSN 2 4 OPERATOR - 08/29/2023 11:59 PM [facility] Encounter Department of Laboratory Medicine in [place], [place] [address] [place] [address] Kendra Canales, VANDANA, C.N.P., D.N.P. [address] [place] [address] Thrombosis Superficial Vein Lower Extremity Left Discharge [...] How often do you attend chur or yazidi services? 1 to 4 times per year 03/14/2021 Do you belong to any clubs o r organizations such as congregational groups, unions, fraternal or athletic groups, or [...] your living situation today? [facility] place to live 04/22/2023 Education Answer [...] Sig Dispensed Refills Start Date End Date gbzjlvabyiln-qkqh-VO (CENTRUM COMPLETE) 18-400 mg-mcg per tablet Take 1 tablet by mouth daily. propranoloL (INDERAL) 10 mg tabletIndications:Anxiet y,Depression Major Recurrent Moderate (HCC) TAKE ONE TABLET BY MOUTH TWICE A DAY 180 tablet 5 02/10/2023 apixaban (ELIQUIS) 5 mg tabletIndications:Thromb osis Superficial Vein Lower Extremity Left Take 1 tablet (5 mg total) by mouth 2 (two) times a day. 60 tablet 2 08/18/2023 11/25/2023 citalopram (CeleXA) 20 mg tabletIndications:Anxiet y,Depression Major Recurrent Moderate (HCC) TAKE 1 TABLET (20 MG TOTAL) BY MOUTH DAILY. 90 tablet 08/06/2023 10/10/2023 documented as of this encounter Plan of Treatment Not on file documented as of this encounter Procedures Procedure Name Priority Date/Time Associated Diagnosis Comments BETA-2 GLYCOPROTEIN 1 ABS, IGG AND IGM, S Routine 08/29/2023 10:20 AM AN/SSN 2 4 OPERATOR Thrombosis Superficial Vein Lower Extremity Left PHOSPHOLIPID (CARDIOLIPIN) ABS, IGG AND IGM, S Routine 08/29/2023 10:20 AM AN/SSN 2 4 OPERATOR Thrombosis Superficial Vein Lower Extremity Left documented in this encounter Results * Phospholipid (Cardiolipin) Antibodies, IgG and IgM (08/29/2023 10:20 AM AN/SSN 2 4 OPERATOR) Phospholipid Ab IgM, S <9.4 <15.0 (Negative) MPL 09/01/2023 12:18 PM AN/SSN 2 4 OPERATOR SDSC Phospholipid Ab IgG, S <9.4 <15.0 (Negative) GPL 09/01/2023 12:18 PM AN/SSN 2 4 OPERATOR [facility] Blood (Blood, Venous) 08/29/2023 10:20 AM AN/SSN 2 4 OPERATOR 09/01/2023 7:32 AM AN/SSN 2 4 OPERATOR Kendra Canales APRN, C.N.P., D.N.P . LAB BLOOD ADD-ON [facility] [address] [place] [address] [facility] [address] [place] [address] * Beta-2 Glycoprotein 1 Antibodies, IgG and IgM (08/29/2023 10:20 AM AN/SSN 2 4 OPERATOR) Beta 2 GP1 Ab IgG, S <9.4 <15.0 (Negative) SGU 08/30/2023 12:27 PM AN/SSN 2 4 OPERATOR SDSC Beta 2 GP1 Ab IgM, S <9.4 <15.0 (Negative) U 08/30/2023 12:44 PM AN/SSN 2 4 OPERATOR [facility] Blood (Blood, Venous) 08/29/2023 10:20 AM AN/SSN 2 4 OPERATOR 08/30/2023 7:28 AM AN/SSN 2 4 OPERATOR Kendra Canales APRN, C.N.P., D.N.P . LAB BLOOD ADD-ON [facility] [address] [place] [address] [facility] [address] [place] [address] documented in this encounter Visit Diagnoses Diagnosis Thrombosis Superficial Vein Lower Extremity Left documented in this encounter Additional Health Concerns Assessment Noted Time PHQ-9 Depression Total Score: 11 024 3:14 PM AN/SSN 2 4 OPERATOR documented as of this encounter Care Teams Science Education Professor Relationship Specialty Start Date End Date Troy Ventura M.B.B.S., M.D. [address] [place] [phone] PCP - General 07/05/19 documented as of this encounter
--- NOTE | 2023-12-02 22:00 | ED.GENADULT ---
HPI - General Adult General Date Seen: 12/02/23 Chief complaint: Abdominal Pain Stated complaint: Upper L side pain Time Seen by Provider: 12/02/23 21:25 Source: patient Mode of arrival: ambulatory Limitations: no limitations History of Present Illness HPI narrative: Patient is a 38-year-old male presenting to the emergency department for left upper quadrant abdominal pain. He states the symptoms started a few days ago and have been getting progressively worse. He feels like the pain is just under his lower ribs. Does noticed tenderness when he pushed on it but does not exactly reproduce the pain. He has never had symptoms like this before. Is currently on Eliquis for a clotting disorder that previously gave him a DVT 1st found about 4 months ago. States he is eating and drinking normally. Denies nausea, vomiting, diarrhea, constipation, headache, vision changes, chest pain, shortness of breath, weakness, numbness. States the pain is sharp in nature. Does states his knees has been sick with nausea vomiting symptoms. Has some mild relief with Tylenol. Does not remember any recent trauma or heavy lifting. Related Data Home Medications Medication Instructions Recorded Confirmed citalopram 20 mg tablet 20 mg PO DAILY 02/12/23 08/28/23 propranolol 10 mg tablet 10 mg PO BID 02/12/23 08/28/23 Previous Rx's Medication Instructions Recorded apixaban 5 mg (74 tabs) tablets in 5 mg PO BID #74 ea 05/01/23 a dose pack (Eliquis DVT-PE Treat 30D Start) albuterol sulfate 90 mcg/actuation 2 puff inhalation Q6H PRN 08/28/23 aerosol inhaler shortness of breath or wheezing #8.5 grams levofloxacin 500 mg tablet 500 mg PO DAILY #7 tabs 08/28/23 Allergies Allergy/AdvReac Type Severity Reaction Status Date / Time azithromycin Allergy Mild Rash Verified 08/28/23 08:13 Penicillins Allergy Mild Hives Verified 08/28/23 08:13 tetracycline Allergy Mild Hives Verified 08/28/23 08:13 Review of Systems Status of ROS: Reports: 10 or more systems reviewed and unremarkable except as noted in History and below [facility] Medical History Factor 5 Leiden mutation, heterozygous ?D68.51 - Activated protein C resistance (ICD-10) DVT (deep venous thrombosis) ?I82.409 - Acute embolism and thrombosis of unspecified deep veins of unspecified lower extremity (ICD-10) Social History Smoking Status: Current every day smoker What tobacco products do you use: cigarettes Smoking packs per day: 0.5 Smoking cigarettes per day: 10.0 Do you use any of these nicotine containing products: None Second hand tobacco smoke exposure: No How often do you have a drink containing alcohol: monthly or less How often do you have six or more drinks on one occasion: Less than monthly AUDIT-C Alcohol total score: 2 Non-prescribed substance use: denies use service: No Exam Narrative: Exam Narrative: Const: Well-nourished, Well-developed, in mild distress Eyes: PERRL, no conjunctival injection, and symmetrical lids HENT: Atraumatic external nose and ears. Moist mucous membranes. Neck: Symmetric, trachea midline, No thyromegaly. CVS: RRR, No murmurs or gallops. Peripheral pulses 2+ and equal in all extremities RESP: Unlabored respiratory effort. Clear to auscultation bilaterally. GI: Mild left upper quadrant tenderness, Nondistended, No rebound or guarding. MSK:Extremities w/o deformity, Normal Active ROM Skin: Warm, Dry. No rashes or lesions. Neuro: Normal Muscle tone, No focal neurological deficits. Psych: Awake, Alert, & Oriented x3. Appropriate mood and affect. Const: Vital Signs, click to edit/add: Vital Signs - 24 hr 12/02/23 21:12 12/02/23 23:46 Temperature 98.6 F 98.0 F Pulse Rate [Pulse Oximeter] 82 74 Respiratory Rate 18 16 Blood Pressure [Ri ght Upper Arm] 129/75 118/70 Pulse Oximetry 96 98 Oxygen Delivery Me thod Room Air Room Air Course Vital Signs Vital signs: Initial Vital Signs Temperature 98.6 F 12/02/23 21:12 Temperature Source Oral 12/02/23 21:12 Pulse Rate 82 12/02/23 21:12 Pulse Rhythm Regular 12/02/23 21:12 Respiratory Rate 18 12/02/23 21:12 Blood Pressure 129/75 12/02/23 21:12 Blood Pressure Mean 93 12/02/23 21:12 Blood Pressure Position Sitting 12/02/23 21:12 Pulse Oximetry 96 12/02/23 21:12 Oxygen Delivery Method Room Air 12/02/23 21:12 Vital Signs Temperature 98.6 F 12/02/23 21:12 Pulse Rate 82 12/02/23 21:12 Respiratory Rate 18 12/02/23 21:12 Blood Pressure 129/75 12/02/23 21:12 Pulse Oximetry 96 12/02/23 21:12 Oxygen Delivery Method Room Air 12/02/23 21:12 Temperature 98.0 F 12/02/23 23:46 Pulse Rate 74 12/02/23 23:46 Respiratory Rate 16 12/02/23 23:46 Blood Pressure 118/70 12/02/23 23:46 Pulse Oximetry 98 12/02/23 23:46 Oxygen Delivery Method Room Air 12/02/23 23:46 Medications Administered Medications: Generic Name Dose Route Start Last Admin Trade Name Freq PRN Reason Stop Dose Admin Ketorolac Tromethamine 15 mg 12/02/23 21:35 12/02/23 21:40 Ketorolac 15 Mg/Ml Inj IVP 12/02/23 21:36 15 mg ONCE ONE Administration Medical Decision Making MDM Narrative Medical decision making narrative: Patient is a 38-year-old male presenting to the emergency department for left upper quadrant pain. Insert determine exactly was causing the symptoms. His vitals are normal and there is no clear signs of infection. He seems unlikely to have a infarcted spleen but we will do a CT scan of the abdomen pelvis to better evaluate everything. Wells 2 CBC, CMP, lipase, COVID/flu/RSV. Toradol given for pain. Patient's lab work all returned showing no concerning abnormalities. Pain improved after the Toradol. Lipase within normal limits and pancreatitis seems unlikely. Liver enzymes are slightly elevated but they have been elevated in the past. CT scan reviewed myself the radiologist shows no acute concerning abnormalities. Am unsure was causing his left upper quadrant abdominal pain at this time but I do not see any emergent concerns. He will be discharged home. He is agreeable to this plan Lab Data Labs: Lab Results 12/02/23 12/02/23 Range/Units 21:30 22:20 WBC 6.96 (4.50-11.00) K/uL RBC 5.32 (4.30-5.90) m/uL Hgb 15.8 (13.5-17.5) gm/dL Hct 46.5 (37.0-53.0) % MCV 87 (80-100) fL MCH 30 (26-34) pg MCHC 34 (32-36) gm/dL RDW Coeff of Daija 12.0 (11.5-15.5) % Plt Count 246 (140-440) K/uL Neut % (Auto) 46.0 (42.0-72.0) % Lymph % (Auto) 40.8 (20-44) % Merrick % (Auto) 9.8 (0.0-11.0) % Eos % (Auto) 2.9 (0.0-7.0) % Baso % (Auto) 0.4 (0.0-3.0) % Neut # (Auto) 3.20 (1.7-7.0) K/uL Lymph # (Auto) 2.84 (0.90-2.90) K/uL Merrick # (Auto) 0.70 (0.00-0.90) K/UL Eos # (Auto) 0.20 (0.00-0.50) K/uL Baso # (Auto) 0.03 (0.00-0.30) K/uL Abs Immat Gran (auto) 0.01 (0.00-0.30) K/uL Imm/Tot Granulo (auto) 0.1 % Sodium 136 (135-149) mmol/L Potassium 3.8 (3.6-5.1) mmol/L Chloride 104 (96-114) mmol/L Carbon Dioxide 27 (20-32) mmol/L Anion Gap 5 L (7-15) mEq/L BUN 11 (5-24) mg/dL Creatinine 0.8 (0.5-1.5) mg/dL Estimated Creat Clear 123.50 Estimated GFR 118 ml/min Glucose 121 H (60-115) mg/dL Calcium 9.0 (8.4-10.6) mg/dL Total Bilirubin 0.9 (0.1-1.5) mg/dL AST 80 H (12-35) U/L ALT 56 H (4-50) U/L Alkaline Phosphatase 78 (40-150) U/L Total Protein 7.3 (6.0-8.3) g/dL Albumin 4.3 (3.3-5.0) g/dL Lipase 164 (23-300) U/L SARS-CoV-2 (PCR) Negative SARS-CoV-2 (Negative) Influenza Type A (PCR) Negative PCR FLU A (Negative) Influenza Type B (PCR) Negative PCR FLU B (Negative) RSV (PCR) Negative PCR RSV (Negative) Imaging Data CT scan abdomen and pelvis: Radiologist's impression: 1. No acute findings within the abdomen and pelvis. 2. Diverticulosis without evidence of diverticulitis. Please note that all CT scans at this facility use dose modulation, iterative reconstruction, and/or weight-based dosing when appropriate to reduce radiation dose to as low as reasonably achievable. Dictated by Luis Armando Morton MD @ 12/02/2023 10:25:38 PM Discharge Plan Discharge Clinical Impression: Abdominal pain Qualifiers: Abdominal location: left upper quadrant Qualified Code(s): R10.12 - Left upper quadrant pain Patient Disposition: Home, Self-Care Condition: Stable Instructions: Abdominal Pain (ED) Additional Instructions: I am unsure was causing abdominal pain at this time but do not see any emergent concerning issues. He do have elevated LFTs and these have been elevated in the past. I do recommend you follow-up with the primary care provider about them. Return to emergency department for new worsening symptoms Prescriptions: No Action propranolol 10 mg tablet 10 mg PO BID citalopram 20 mg tablet 20 mg PO DAILY Ainsley DVT-PE Treat 30D Start 5 mg (74 tabs) tablets,dose pack 5 mg PO BID Qty: 74 0RF Rx Instructions: Take 10 mg twice a day for the next 7 days. After that take 5 mg twice a day levofloxacin 500 mg tablet 500 mg PO DAILY Qty: 7 0RF albuterol sulfate 90 mcg/actuation HFA aerosol inhaler 2 puff inhalation Q6H PRN (Reason: shortness of breath or wheezing) Qty: 8.5 0RF Follow Up/Referrals: Troy Ventura MD [Primary Care Provider] - Stand Alone Forms: MyHealth Info Instructions
[2023-12-02 22:07] LABS: Basophils Absolute Auto 0.03 K/uL (0.00-0.30); Basophils Percent Auto 0.4 % (0.0-3.0); Eosinophils Percent Auto 2.9 % (0.0-7.0); Hematocrit 46.5 % (37.0-53.0); Hemoglobin* 15.8 gm/dL (13.5-17.5); Immature Granulocytes Abs Auto 0.01 K/uL (0.00-0.30); Immature Granulocytes Pct Auto 0.1 %; Lymphocytes Absolute Auto 2.84 K/uL (0.90-2.90); Lymphocytes Percent Auto 40.8 % (20-44); Mean Corpuscular HGB Conc 34 gm/dL (32-36); Mean Corpuscular Hemoglobin 30 pg (26-34); Mean Corpuscular Volume 87 fL (80-100); Monocytes Percent Auto 9.8 % (0.0-11.0); Platelet Count* 246 K/uL (140-440); Red Blood Count 5.32 m/uL (4.30-5.90); White Blood Count* 6.96 K/uL (4.50-11.00)
[2023-12-02 22:16] LABS: Slide Review Reflex No
[2023-12-02 23:04] LABS: PCR FLU A Negative PCR FLU A (Negative); PCR FLU B Negative PCR FLU B (Negative); PCR RSV Negative PCR RSV (Negative); SARS PCR* Negative SARS-CoV-2 (Negative)
[2023-12-02 23:46] VITALS: BP 118/70; PULSE 74; RESP 16; TEMP 36.7; O2SAT 98
[2023-12-02 23:54] LABS: Albumin* 4.3 g/dL (3.3-5.0); Chloride* 104 mmol/L (96-114)
[2023-12-02 23:55] LABS: Potassium* 3.8 mmol/L (3.6-5.1); Sodium* 136 mmol/L (135-149)
[2023-12-02 23:57] LABS: Anion Gap 5 mEq/L (7-15); Aspartate Amino Transferase* 80 U/L (12-35); Bilirubin Total* 0.9 mg/dL (0.1-1.5); Carbon Dioxide* 27 mmol/L (20-32); Creatinine* 0.8 mg/dL (0.5-1.5); Estimated Glomerular Filt Rate 118 ml/min; Total Protein* 7.3 g/dL (6.0-8.3)
[2023-12-02 23:58] LABS: Alanine Aminotransferase* 56 U/L (4-50); Alkaline Phosphatase* 78 U/L (40-150); Blood Urea Nitrogen* 11 mg/dL (5-24); Glucose* 121 mg/dL (60-115); Lipase* 164 U/L (23-300)
== END 2023-12-03 00:38 | disposition home or self-care (01) ==
PROVIDERS: Emergency Provider Student in an Organized Health Care Education/Training Program; PCP Family Medicine
DX: R10.12 Left upper quadrant pain (principal)
CPT/HCPCS: 36415; 74177; 80053; 83690; 85025; 87631; 96374; 99283; 99284; J1885; Q9967

== ENCOUNTER 2024-12-21 19:25 | Emergency (ER) | payer MEDICARE, MEDICAID, SELFPAY ==
--- OUTSIDE RECORDS SUMMARY | 2024-05-25 09:00 | XMS_ITS | Continuity of Care Document ---
Author Organization [facility] Address [address] [place] [address] Phone Care Team Providers Care Pipeline Dispatcher Name Role Phone Roni Blackmon DO Unavailable [...] [facility] , [address], [place], [address], [place] tel:[phone] [facility] , No Information 4 Neymar Tamayo. [facility] [address], [place], [address], [place]. tel:[phone] Referring Provider: Roni Friend, [facility] [address], [place], [address]. tel:[phone] Office/Outpa tient Visit, [facility] , [address], [place], [address], [place] tel:[phone] [facility] , Interstitial keratitis (chief complaint) Unspecified interstitial keratitis, left eyePain in left hipMyalgia, unspecified site Neymar Tamayo. [facility] [address], [place], [address], [place]. tel:[phone] Referring Provider: Roni Friend, [facility] [address], [place], [address]. tel:[phone] Family History Family Member Type Diagnosis Age At Onset No Information Payers Payer name Insurance type Covered libertarian ID Candido lares(s) Medicare [id number] [facility] Medicare Supplement CI [id number] Social History Type Description Quantity Date Captured [...] X-ray; Bilateral, with Pelvis X-ray (2 views) ([id number]), Sent on: Sent History Of Present Illness Encounter Date Complaint History Of Prese nt Illness Interstitial keratitis Functional Status Date Functional Assessmen t No Information Instructions Date Instruction Additional Infor mation No Information Assessments Type Assessment Date No Information Patient Care Teams Name Effective Dates (start - stop) Status Members No Information
--- OUTSIDE RECORDS SUMMARY | 2024-05-25 09:00 | XMS_ITS | Continuity of Care Document ---
Author Organization [facility] Address [address] [place] [address] Phone Care Team Providers Care Transportation Economics Teacher Name Role Phone Roni Blackmon DO Unavailable [...] [facility] , [address], [place], [address], [place] tel:[phone] [facility] , No Information 4 Neymar Tamayo. [facility] [address], [place], [address], [place]. tel:[phone] Referring Provider: Roni Friend, [facility] [address], [place], [address]. tel:[phone] Office/Outpa tient Visit, [facility] , [address], [place], [address], [place] tel:[phone] [facility] , Interstitial keratitis (chief complaint) Unspecified interstitial keratitis, left eyePain in left hipMyalgia, unspecified site Neymar Tamayo. [facility] [address], [place], [address], [place]. tel:[phone] Referring Provider: Roni Friend, [facility] [address], [place], [address]. tel:[phone] Family History Family Member Type Diagnosis Age At Onset No Information Payers Payer name Insurance type Covered green party ID Candido lares(s) Medicare [id number] [facility] Medicare Supplement CI [id number] Social History Type Description Quantity Date Captured [...] X-ray; Bilateral, with Pelvis X-ray (2 views) ([id number]), Sent on: Sent History Of Present Illness Encounter Date Complaint History Of Prese nt Illness Interstitial keratitis Functional Status Date Functional Assessmen t No Information Instructions Date Instruction Additional Infor mation No Information Assessments Type Assessment Date No Information Patient Care Teams Name Effective Dates (start - stop) Status Members No Information
--- OUTSIDE RECORDS SUMMARY | 2024-12-21 19:27 | XMS_ITS | Encounter Summary ---
Author Organization [facility] Address [address] [place] [address] Care Team Providers Care Communications Executive Name Role Phone Troy Ventura M.D. Primary Care [facility] Reason for Visit * Reason Comments Med Refill Encounter Details Date Type Department Care Team (Late st Contact Info) Description 12/13/2024 Refill Department of Vascular Medicine in [place], [place] [address] [place] [address] Alexandra Armstrong, P.AMaine-CMaine [address] [place] [phone] Med Refill Social History Tobacco Use Types [...] often do you attend chur ch or yazidi services? 1 to 4 times per year 03/14/2021 Do you belong to any clubs o r organizations such as yarsani groups, unions, fraternal or athletic groups, or [...] PHQ-2 Answer Date Recorded PHQ-2 Score 2 02/29/2024 [facility] - Occupational Stress Questionnaire Answer Date [...] Recor ded PHQ-9 Total Score (max 27) 8 02/28 Nutrition Answer Date Recorded On average, how [...] your living situation today? I have a [facility] place to live 04/22/2023 Education Answer Date Recorded What is the highest level of school you have completed or the highest degree you have received? 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 [address] [place] [address] [place] [address] PCP - General 07/05/19 documented as of this encounter
--- OUTSIDE RECORDS SUMMARY | 2024-12-21 19:27 | XMS_ITS | Clinical Summary ---
Author Organization [facility] [employer] Address [address] [place] [address] Care Team Providers Care Hotel Front Desk Agent Name Role Phone Unavailable Primary Care Provider Unavailabl e Source Comments [facility],non-owned Affiliates and Associated Physician Practices is amultiple site organization consisting of ambulatory clinics and hospital sitesin [place], [place], [place] and [place]. This disclosure is being madepursuant to the Care Everywhere program and may not contain all information available regarding this patient. Last updated 18.[facility] [employer] [facility] Allergies Active Allergy Reactions Criticality Noted Date Comments Penicillins Rash Medium 10/28/2020 Tetracycline Rash Medium 10/28/2020 Medications * Be aware that medications may not be up to date on this document. Alwaysverify current medications with the patient. propranolol (INDERAL) 10 MG tablet Take 1 (one) tablet by mouth 2 times daily 60 tablet 10/28/2020 Active Social History Tobacco Use Types Packs/Day Years Used Date Smoking Tobacco: Never Assessed Sex and Gender Information Value Date Recorded Sex Assigned at Not on file Legal Sex Male 11:57 AM CDT Gender Identity Not on file Sexual Orientation Not on file Last Filed Vital Signs Vital Sign Reading Time Taken Comments Blood Pressure 125/86 10/28/2020 12:00 PM CDT Pulse 87 10/28/2020 12:00 PM CDT Temperature 35.8 C (96.5 F) 10/28/2020 12:00 PM CDT Respiratory Rate 16 10/28/2020 12:0 0 PM CDT Oxygen Saturation 97% 10/28/2020 12: 00 PM CDT Inhaled Oxygen Concentration - - Weight 101.9 kg (224 lb 9.6 oz) 021 12:00 PM CDT Height 175.3 cm (5' 9) 10/28/2020 12:0 0 PM CDT Body Mass Index 33.17 10/28/2020 12:00 PM CDT Plan of Treatment Health Maintenance Due Date Last Done Comments DTAP/TDAP/TD VACCINES (1 - Tdap) 2006 HEPATITIS B VACCINE (1 of 3 - 19+ 3-dose series) 2006 COVID-19 VACCINE (1 - 2023- season) 2024 DEPRESSION SCREENING 08/04/2024 INFLUENZA VACCINE (Season Ended) 2025 07/19/2020, 05/17/2019, 06/09/2018, Additional history exists ZOSTER VACCINE (1 of 2) 2037 HEPATITIS C SCREENING Completed 08/18/2020 HIV SCREENING Completed 08/18/2020 HIB VACCINE Aged Out No longer eligi ble based on patient's age to complete this topic HPV VACCINE Aged Out No longer eligi ble based on patient's age to complete this topic MENINGOCOCCAL (Group B) VACCINE SHARED DECISION-MAKING Aged Out No longer eligible based on patient's age to complete this topic MENINGOCOCCAL GROUPS A/C/Y/W VACCINE Aged Out No longer eligible based on patient's age to complete this topic PNEUMOCOCCAL VACCINE Aged Out No long er eligible based on patient's age to complete this topic Insurance MEDICAID - OUT OF STATE
--- OUTSIDE RECORDS SUMMARY | 2024-12-21 19:27 | XMS_ITS | Clinical Summary ---
Author Organization [facility] Address [address] [place] [address] Care Team Providers Care Exhibits Coordinator Name Role Phone Troy Ventura M.D. Primary Care Hanh morgan Source Comments Patient records contain information from all sites at [facility]. For routine questions regarding patient records, call [phone] during business hours, M-F 8:00 AM - 5:00 PM Central Time. Record requests for emergency care only can be directed to [phone] at any time.[facility] Allergies Active Allergy Reactions Criticality Noted Date Comments Amoxicillin Rash 11/10/2010 Amoxicillin-Pot Clavulanate Rash 11/10/2010 Erythromycin Rash 11/10/2010 Latex Other (see comments) 03/15/2021 Penicillins Rash,Hives only, no other systemic symptoms Low 11/10/2010 Tetracycline Rash,Other (see comments),Hives only, no other systemic symptoms Low 11/10/2010 Hives and rash. Medications * This document contains information received from the source organization and may not represent a complete record from that organization. cdygmvtdqlqu-cfef-X A (CENTRUM COMPLETE) 18-400 mg-mcg per tablet Take 1 tablet by mouth daily. Active cholecalciferol (Vitamin D3) 50 mcg (2,000 Unit) tablet Take 50 mcg by mouth daily. Active prednisoLONE acetate (Pred Forte) 1 % ophthalmic suspension ONE DROP IN THE LEFT EYE FOUR TIMES PER DAY FOR TWO DAYS THEN TWICE PER DAY FOR ONE WEEK 02/22/20 24 Active nicotine (Nicoderm CQ) 21 mg/[address] 1 patch on the skin daily. 30 patch 03/01/20 Active Additional Information Patient not taking.Reported on 03/22/2024 nicotine (Nicoderm CQ) 14 mg/[address] 1 patch on the skin daily. 30 patch 03/01/20 Active Additional Information Patient not taking.Reported on 03/22/2024 nicotine (Nicoderm CQ) 7 mg/[address] 1 patch on the skin daily. 30 patch 1 03/01/20 Active Additional Information Patient not taking.Reported on 03/22/2024 nicotine polacrilex (Nicorette) 4 mg lozenge Dissolve 1 lozenge in mouth (do not bite or chew) every 1 to 2 hours as needed or as directed for nicotine withdrawal symptoms 270 lozenge 3 03/01/20 Active Additional Information Patient not taking.Reported on 03/22/2024 propranoloL (InderaL) 10 mg tabletIndications:D epression Major Recurrent Moderate (HCC),Anxiety Take 1 tablet (10 mg total) by mouth 2 (two) times a day. 180 tablet 5 03/22/20 24 Active citalopram (CeleXA) 20 mg tabletIndications:D epression Major Recurrent Moderate (HCC),Anxiety Take 1 tablet (20 mg total) by mouth daily. 90 tablet 3 03/22/20 24 Active fenofibrate nanocrystallized (Tricor) 48 mg tablet Take 1 tablet (48 mg total) by mouth daily. 90 tablet 3 03/22/20 24 Active apixaban (Eliquis) 2.5 mg tabletIndications:T hrombosis Superficial Vein Lower Extremity Left Take 1 tablet (2.5 mg total) by mouth 2 (two) times a day. 180 tablet 3 5 2:38 PM CDT 12/17/19 25 026 Active apixaban (ELIQUIS) 2.5 mg tabletIndications:T hrombosis Superficial Vein Lower Extremity Left Take 1 tablet (2.5 mg total) by mouth 2 (two) times a day. 180 tablet 3 11/25/19 24 025 Discontin ued(Reord er) Active Problems Problem Noted Date Diagnosed Date Mutation Factor V Leiden Heterozygous 08/11/2023 Anxiety 10/29/2019 Hepatitis B Personal History 10/02/2018 Overview (11/02/2018): Evaluation with [facility]-resolved Obesity Body Mass Index 30-39.9 Adult 10/09/2015 Abuse Tobacco Smoking 08/27/2013 Hypertriglyceridemia 12/18/2012 Depression Major Recurrent Moderate 02/08/2010 Overview (06/15/2017): Patient denies a history of depression. Reports he is on celexa and propranolol for treatment of anxiety Resolved Problems Problem Noted Date Diagnosed Date Resolved Date Rash Penis 10/29/2019 03/22/2024 Encounters Date Type Department Care Team Description 12/13/2024 Refill Department of Vascular Medicine in [place], [place] [address] [place] [address] Alexandra Armstrong, P.A.-C. Med Refill 12/13/2024 Refill Department of Vascular Medicine in [place], [place] [address] [place] [address] Ally Scott, P.A.-C. Med Refill from Last 3 Months Immunizations Immunization Administration Dates Next Due DTP 05/11/1991 DTaP (Daptacel) 05/11/1991 DTaP (Infanrix, Tripedia) 11/25/2007 HepA Adult 04/25/2023, 3(Deferred: Patient decision),03/19/2019 HepB Adult (HEPLISAV-B) 08/07/2023(Deferred: Pat ient decision) Hib (PRP-T) (ACTHIB, HIBERIX) 05/11/1991 Hib, Unspecified 05/11/1991 IPV 05/11/1991 Influenza TIV (IM) 06/09/2012 Influenza, Injectable, Quadrivalent 09/03/2016 Influenza, Seasonal, Injectable 06/09/2012 Influenza, Unspecified 06/09/2018,2017,07/22/2017,2016,09/03/2016,06/09/2012 OPV 05/11/1991 PCV20 04/25/2023 PPSV23 12/24/2016 Polio, Unspecified 05/11/1991 SARS-COV-2 (COVID-19) - PFIZ ER (Discontinued)(12 years or older) 07/05/2021,12/11/2020,11/15/2020 SARS-COV-2 (COVID-19) - PFIZ ER BIVALENT TS(Discontinued)(12 YEARS OR OLDER) 06/25/2022 Td (Adult), adsorbed 11/25/2007 Td Preservative Free (TENIVA C, DECAVAC) 04/03/2018 Td, (Adult) Unspecified 11/25/2007 Tetanus Toxoid, Adsorbed (discontinued) 04/03/2018 influenza trivalent LAIV (Na nicole) (2 years through 49 years) 06/13/2014 influenza vaccine quad (FLUZONE/FLUARIX) (6 months and older)(PF) 06/25/2022,07/12/2021,07/19/2020,2018,06/09/2018,07/22/2017,09/03/2016,1 08/13/2013,06/09/2012 Family History Medical History Relation Name Comments [...] maternal Relation Name Status Comments Father Corey Mother Maritza Alive Mother's Brother Antoni Mother's [...] any clubs o r organizations such as samaritan groups, unions, fraternal or athletic groups, or [...] Answer Date Recorded PHQ-2 Score 2 02/29/2024 [facility] - [...] living situation today? I have a [facility] place to live 04/22/2023 Education Answer Date Recorded What is the highest level of school you have completed or the highest degree you have received? 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 Gender Identity Male 01/16/2018 3:24 AM CDT Sexual Orientation Lesbian or Price 04/22/2023 5: 56 PM CDT Last Filed Vital Signs Vital Sign Reading Time Taken Comments Blood Pressure 118/74 03/22/2024 1:12 PM CDT Pulse 69 03/22/2024 1:12 PM CDT Temperature 35.9 C (96.7 F) 03/22/2024 1:12 PM CDT Respiratory Rate 16 03/22/2024 1:12 PM CDT Oxygen Saturation 99% 06/05/2021 11:55 AM CDT Inhaled Oxygen Concentration - - Weight 105 kg (230 lb 13.1 oz) 03/22/2024 1:12 P M CDT Height 173.6 cm (5' 8.35) 12/08/2023 10:39 AM C DT Body Mass Index 34.74 12/08/2023 10:39 AM CDT Plan of Treatment Health Maintenance Due Date Last Done Comments Visit: Medicare Annual Wellness 1987 IPV Vaccines (2 of 3 - 4-dose series) 06/08/1991 05/11/1991, 05/11/1991, 05/11/1991 Hepatitis B Vaccines (1 of 3 - 19+ 3-dose series) 2006 COVID-19 Vaccine ( season) 2024 06/25/2022, 07/05/2021, 12/11/2020, Additional history exists Influenza Vaccine (#1) 2024 , 07/12/2021, 07/19/2020, Additional history exists Depression Monitoring (PHQ-9) 07/01/2024 02/29/2024 Depression Monitoring (PHQ-9 for quality tracking) 08/04/2024 Lipid (Cholesterol) Screening 06/22/2025 06/22/2024, 03/09/2024, 04/25/2023, Additional history exists DTaP,Tdap,and Td Vaccines (6 - Tdap) 04/03/2028 04/03/2018, 11/25/2007, 11/25/2007, Additional history exists Hepatitis B Screening Discontinued 03/19/2019, 019 HIV Screening Completed 08/18/2020, 02/01, 11/02/2018, Additional history exists Hepatitis C Screening Completed 08/18/2020 Hepatitis A Vaccines Completed 04/25/2023, 03/19/20 19 Pneumococcal vaccine (0-49 years) Completed 04/25/2023, 12/24/2016 HPV Vaccines Aged Out No longer eligi ble based on patient's age to complete this topic Procedures Procedure Name Priority Date/Time Associated Diagnosis Comments LIPID PANEL, S Routine 06/22/2024 11:03 AM HEALTH PLAN ADVISOR Hypertriglyceridemia HCV AB SCRN W/REFLEX TO HCV PCR, S Routine 08/18/2020 4:08 PM HEALTH PLAN ADVISOR Exposure Human Immunodeficiency Virus HIV-1/-2 AG AND AB SCREEN, PLASMA Routine 08/18/2020 3:51 PM HEALTH PLAN ADVISOR Exposure Human Immunodeficiency Virus HEPATITIS B SURFACE ANTIGEN Routine 10/21/2018 2:45 PM CDT Hepatitis B Acute from Last 3 Months or Most Recently Relevant to Health Maintenance Results * (ABNORMAL) Lipid Panel (06/22/2024 11:03 AM HEALTH PLAN ADVISOR) Triglycerides 250(H) mg/dL 06/22/2024 2:13 PM HEALTH PLAN ADVISOR OWAT Comment: ----REFERENCE VALUE---- Normal: <150 mg/dL Borderline High: 150-199 mg/dL High: 200-499 mg/dL Very High: > or =500 mg/dL Cholesterol, Total 212(H) mg/dL 2023 2:13 PM HEALTH PLAN ADVISOR OWAT Comment: ----REFERENCE VALUE---- Desirable: < 200 mg/dL Borderline High: 200 - 239 mg/dL High: > or = 240 mg/dL Cholesterol, LDL, Calculated 136(H) mg/dL 06/22/2024 2:13 PM HEALTH PLAN ADVISOR OWAT Comment: ----REFERENCE VALUE---- Desirable: <100 mg/dL Above Desirable: 100-129 mg/dL Borderline High: 130-159 mg/dL High: 160-189 mg/dL Very High: >=190 mg/dL ----ADDITIONAL INFORMATION---- LDL cholesterol calculated using the Orozco/NIH equation. Cholesterol, HDL 31(L) >=40 mg/dL 06/22/20 2:13 PM HEALTH PLAN ADVISOR OWAT Cholesterol, Non-HDL, Calculated 181(H) mg/dL 06/22/2024 2:13 PM HEALTH PLAN ADVISOR OWAT Comment: ----REFERENCE VALUE---- Desirable: <130 mg/dL Above Desirable: 130-159 mg/dL Borderline High: 160-189 mg/dL High: 190-219 mg/dL Very High: > or =220 mg/dL Fasting (8 HR or more) No 06/22/2024 11:03 AM HEALTH PLAN ADVISOR OWAT Blood (Blood, Venous) 06/22/2024 11:03 AM HEALTH PLAN ADVISOR 06/22/2024 1:20 PM HEALTH PLAN ADVISOR us Alexandra Armstrong P.A.-C. LAB BLOOD ADD-ON Final Res ult [facility] [address] [place] [address], [place] OWAT [facility] [place] [address] [place] [address] * HCV Ab Scrn w/Reflex to HCV PCR, Serum (08/18/2020 4:08 PM HEALTH PLAN ADVISOR) HCV Ab Screen, S Negative Negative 08/19/2020 8:34 AM HEALTH PLAN ADVISOR [facility] Comment:Jaetic-zc-pkxdco rat io is <1.00. Blood (Blood, Venous) 08/18/2020 4:08 PM HEALTH PLAN ADVISOR 08/19/2020 7:39 AM HEALTH PLAN ADVISOR us Troy Virgen M.D. LAB MICROBIOLOG Y - BLOOD ORDERABLES Final Result Performing Organization Address [facility]/ZIP Co de Phone Number [facility] [address] [place] [address] [facility] Dept. of Laboratory Medicine and Pathology [address] [place] [address] * HIV-1/-2 Ag and Ab Screen, Plasma (08/18/2020 3:51 PM HEALTH PLAN ADVISOR) HIV Ag/Ab Screen, P Negative Negative 08/20/2020 6:42 AM HEALTH PLAN ADVISOR [facility] Comment: Negative result does not rule out HIV infection. If exposure to HIV infection occurred <14 days ago, contact the laboratory to request addition of HIV-1 RNA detection / quantification test. HIV-1 p24 Ag Screen, P Negative Negative 08/20/2020 6:42 AM HEALTH PLAN ADVISOR [facility] Comment: Negative result does not rule out HIV infection. If exposure to HIV infection occurred <14 days ago, contact the laboratory to request addition of HIV-1 RNA detection / quantification test. HIV-1 Ab Screen, P Negative Negative 2020 6:42 AM HEALTH PLAN ADVISOR [facility] Comment: Negative result does not rule out HIV infection. If exposure to HIV infection occurred <14 days ago, contact the laboratory to request addition of HIV-1 RNA detection / quantification test. HIV-2 Ab Screen, P Negative Negative 2020 6:42 AM HEALTH PLAN ADVISOR [facility] Comment: Negative result does not rule out HIV infection. If exposure to HIV infection occurred <14 days ago, contact the laboratory to request addition of HIV-1 RNA detection / quantification test. Blood (Blood, Venous) 08/18/2020 3:51 PM HEALTH PLAN ADVISOR 08/19/2020 4:31 PM HEALTH PLAN ADVISOR Troy Virgen M.D. LAB MICROBIOLOG Y - BLOOD ORDERABLES Final Result Performing Organization Address City/[facility]/ZIP Co de Phone Number [facility] [address] [place] [phone], [facility] [place] [facility] [place] [address] [place] [address] * Hepatitis B Surface Antigen (10/21/2018 2:45 PM CDT) HBs Antigen, S Negative Negative 10/21/2018 9:57 PM CDT [facility] Blood (Blood, Venous) 10/21/2018 2:45 PM CDT 10/21/2018 7:31 PM CDT us Jimenez Blackwood Jr., M.D. LAB MICROBIOLOGY - BLOOD ORDERABLES Final Result [facility] [address] [place] [id number] from Last 3 Months or Most Recently Relevant to Health Maintenance Insurance KIMBERLY Goyal [id number] [facility] MEDICARE Care Teams Exhibits Coordinator Relationship Specialty Start Date End Date Troy Ventura M.B.BMaineSMaine, MJose. [address] [place] [id number] PCP - General 07/05/19
--- OUTSIDE RECORDS SUMMARY | 2024-12-21 19:27 | XMS_ITS | Clinical Summary ---
Author Organization [facility] Address [address] [place] [id number] Care Team Providers Care Room Attendant Name Role Phone Eunice Juares MD Primary Care Provider [phone] Allergies Active Allergy Reactions Criticality Noted Date Comments Erythromycin Hives 01/27/2014 Penicillins Hives 01/27/2014 Tetracycline Hives 01/27/2014 Medications propranolol (INDERAL) 10 mg tablet Take 10 mg by mouth 2 times daily. Active citalopram (CELEXA) 20 mg tablet Take 20 mg by mouth once daily. 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 Gender Identity Not on file Sexual Orientation Not on file Obstetrics History Last Filed Vital Signs Vital Sign Reading Time Taken Comments Blood Pressure 113/70 04/27/2023 9:24 PM CDT Pulse 66 04/27/2023 9:24 PM CDT Temperature 37.1 C (98.7 F) 04/27/2023 6:27 PM CDT Respiratory Rate 16 04/27/2023 6:27 PM CDT [...] for age 35-44 2022 COVID-19 vaccine series ( season) 2024 06/25/2022, 07/05/2021, 12/11/2020, Additional history exists Influenza Vaccine (Season Ended) 2025 06/09/2018, 06/09/2018, 07/22/2017, Additional history exists Tetanus booster 04/03/2028 04/03/2018, 11/25/2007 Pneumococcal series for age 6-49 Aged Out 12/24/2016 No longer eligible based [...] ve Non-Reacti ve 03/19/2019 1:41 PM CDT [facility] Blood BLOOD SPECIMEN / Unknown Venipuncture / Unknown 03/19/2019 1:10 PM CDT 03/19/2019 1:14 PM CDT us Maddy Medel STAIN MAKER SEND OUTS Fin al Result [facility] [address] [place] [address] * Patient Source ANTI HCV (03/19/2019 1:10 PM CDT) HEPATITIS C ANTIBODY Non-React haseeb Non-React haseeb 03/19/2019 7:37 PM CDT [facility] Comment:Antibodies to HCV no t detected; does not exclude the possibility of exposure to HCV. Blood BLOOD SPECIMEN / Unknown Venipuncture / Unknown 03/19/2019 1:10 PM CDT 03/19/2019 1:14 PM CDT us Maddy Medel NP SEND OUTS Fin al Result Performing Organization Address City/[facility] Co de Phone Number [facility] [address] [place] [address], [place] from Last 3 Months or Most Recently Relevant to Health Maintenance Insurance [facility] MEDICARE PART A HB ONLY MEDICARE PART B HB ONLY Care Teams Room Attendant Relationship Specialty Start Date End Date Eunice Juares MD [address] [place] [id number] PCP - General Family Practice 04/27/23
--- OUTSIDE RECORDS SUMMARY | 2024-12-21 19:27 | XMS_ITS | Encounter Summary ---
Author Organization [facility] Address [address] [place] [address] Care Team Providers Care Banking Pin Adjuster Name Role Phone Troy Ventura M.D. [facility] Reason for Visit * Reason Comments Med Refill Encounter Details Date Type Department Care Team (Late st Contact Info) Description 12/13/2024 Refill Department of Vascular Medicine in [place], [place] [address] [place] [address] Ally Scott P.A.-C. [address] [place] [address] Med Refill Social History Tobacco Use Types [...] often do you attend chur ch or tenriism services? 1 to 4 times [...] Answer Date Recorded PHQ-2 Score 2 02/29/2024 [facility] - Occupational Stress Questionnaire Answer Date Recorded [...] the money to buy more. Never true 09/19/20 23 Within the past 12 months, t [...] your living situation today? I have a [facility] place to live 04/22/2023 Education Answer Date Recorded What is the highest level of school you have completed or the highest degree you have received? 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 - 12/13/2024 1:09 PM CDT Patient needs to get refills from his primary care provider. If he wants to be seen in vascular Medicine again, he can be referred, if he has questions. documented in this encounter Plan of Treatment Not on file documented as of this encounter Visit Diagnoses Diagnosis Thrombosis Superficial Vein Lower Extremity Left documented in this encounter Additional Health Concerns Assessment Noted Time PHQ-9 Depression Total Score: 8 02/29/20 24 10:15 AM CDT documented as of this encounter Care Teams Banking Pin Adjuster Relationship Specialty Start Date End Date Troy Ventura M.B.B.S., M.D. [address] [place] [phone] PCP - General 07/05/19 documented as of this encounter
[2024-12-21 19:31] VITALS: BP 126/81; PULSE 69; RESP 18; TEMP 36.8; O2SAT 96; BMI 34.7
--- NOTE | 2024-12-21 19:42 | ED.GENADULT ---
HPI - General Adult General Date Seen: 12/21/24 Chief complaint: Sore Throat Stated complaint: Sore throat, fever Time Seen by Provider: 12/21/24 19:34 Source: patient Mode of arrival: ambulatory Limitations: no limitations History of Present Illness HPI narrative: Patient is a 39-year-old male presenting to the emergency department for sore throat. Sore throat has been going on for the past couple days. States he has had pain the sore throat. Had a fever of 101 this morning. No further fevers. States he has had friends around him that of had strep throat recently. States he has had strep throat before and felt similar. Denies any difficulty breathing. Has had pain with swallowing. Has not noticed any swelling underneath his tongue. Denies lightheadedness or dizziness. No other concerns noted at this time. Related Data Home Medications ?Medication ?Instructions ?Recorded ?Confirmed citalopram 20 mg tablet 20 mg PO DAILY 02/12/23 12/21/24 propranolol 10 mg tablet 10 mg PO BID 02/12/23 12/21/24 apixaban 2.5 mg tablet (Eliquis) 2.5 mg PO BID 12/21/24 12/21/24 Allergies Allergy/AdvReac Type Severity Reaction Status Date / Time azithromycin Allergy Mild Rash Verified 12/21/24 19:29 Penicillins Allergy Mild Hives Verified 12/21/24 19:29 tetracycline Allergy Mild Hives Verified 12/21/24 19:29 Review of Systems Narrative: Pertinent systems reviewed and were negative unless stated in HPI PFSH PFS Medical History Factor 5 Leiden mutation, heterozygous ?D68.51 - Activated protein C resistance (ICD-10) DVT (deep venous thrombosis) ?I82.409 - Acute embolism and thrombosis of unspecified deep veins of unspecified lower extremity (ICD-10) Social History Smoking Status: Current every day smoker What tobacco products do you use: cigarettes Smoking packs per day: 0.5 Smoking cigarettes per day: 10.0 Do you use any of these nicotine containing products: None Second hand tobacco smoke exposure: No How often do you have a drink containing alcohol: monthly or less How often do you have six or more drinks on one occasion: Less than monthly AUDIT-C Alcohol total score: 2 Non-prescribed substance use: denies use service: No Exam Narrative: Exam Narrative: Const: Well-nourished, Well-developed, in mild distress Eyes: PERRL, no conjunctival injection, and symmetrical lids HENT: Atraumatic external nose and ears. Moist mucous membranes. Erythematous oropharynx, uvula midline, no tonsillar exudate or swelling. No swelling noted underneath the tongue Neck: Symmetric, trachea midline, No thyromegaly. MSK:Extremities w/o deformity, Normal Active ROM Skin: Warm, Dry. No rashes or lesions. Neuro: Normal Muscle tone, No focal neurological deficits. Psych: Awake, Alert, & Oriented x3. Appropriate mood and affect. Const: Vital Signs, click to edit/add: Vital Signs - 24 hr 12/21/24 19:31 Temperature 98.3 F Pulse Rate [Pulse Oximeter] 69 Respiratory Rate 18 Blood Pressure [Ri ght Upper Arm] 126/81 Pulse Oximetry 96 Oxygen Delivery Me thod Room Air Course Vital Signs Vital signs: Initial Vital Signs Temperature 98.3 F 12/21/24 19:31 Temperature Source Temporal Artery Scan 12/21/24 19:31 Pulse Rate 69 12/21/24 19:31 Pulse Rhythm Regular 12/21/24 19:31 Respiratory Rate 18 12/21/24 19:31 Blood Pressure 126/81 12/21/24 19:31 Blood Pressure Mean 96 12/21/24 19:31 Blood Pressure Position Sitting 12/21/24 19:31 Pulse Oximetry 96 12/21/24 19:31 Oxygen Delivery Method Room Air 12/21/24 19:31 Vital Signs Temperature 98.3 F 12/21/24 19:31 Pulse Rate 69 12/21/24 19:31 Respiratory Rate 18 12/21/24 19:31 Blood Pressure 126/81 12/21/24 19:31 Pulse Oximetry 96 12/21/24 19:31 Oxygen Delivery Method Room Air 12/21/24 19:31 Temperature 98.3 F 12/21/24 19:31 Pulse Rate 69 12/21/24 19:31 Respiratory Rate 18 12/21/24 19:31 Blood Pressure 126/81 12/21/24 19:31 Pulse Oximetry 96 12/21/24 19:31 Oxygen Delivery Method Room Air 12/21/24 19:31 Medications Administered Medications: Generic Name Dose Route Start Last Admin Trade Name Peggy PRN Reason Stop Dose Admin Dexamethasone 10 mg 12/21/24 19:42 12/21/24 19:54 Dexamethasone 10 Mg/Ml Pf PO 12/21/24 19:43 10 mg ONCE ONE Administration Medical Decision Making MDM Narrative Medical decision making narrative: Patient is a 39-year-old male presenting to the emergency department for sore throat. Patient is not showing signs of peritonsillar abscess, Umesh angina, retropharyngeal abscess,Lemierre disease or any other concerning oral pharynx or deep neck space abscesses. Imaging is not necessary. Strep and viral swabs were ordered. Will give him dexamethasone for sore throat. Swabs were all negative. Patient is safe for discharge. Lab Data Labs: Lab Results 12/21/24 Range/Units 19:35 SARS-CoV-2 (PCR) Negative SARS-CoV-2 (Negative) Influenza Type A (PCR) Negative PCR FLU A (Negative) Influenza Type B (PCR) Negative PCR FLU B (Negative) RSV (PCR) Negative PCR RSV (Negative) Group A Strep DNA NOT DETECTED (Not Detectd) Discharge Plan Discharge Clinical Impression: Pharyngitis Qualifiers: Pharyngitis/tonsillitis etiology: unspecified etiology Qualified Code(s): J02.9 - Acute pharyngitis, unspecified Patient Disposition: Home, Self-Care Condition: Stable Instructions: Pharyngitis (ED) Additional Instructions: Take Tylenol and ibuprofen for your pain. Return to emergency department for new or worsening symptoms. Prescriptions: No Action propranolol 10 mg tablet 10 mg PO BID citalopram 20 mg tablet 20 mg PO DAILY Eliquis 2.5 mg tablet 2.5 mg PO BID Follow Up/Referrals: Troy Ventura MD [Primary Care Provider, Family Practice] Stand Alone Forms: [employer] Info Instructions
--- OUTSIDE RECORDS SUMMARY | 2024-12-21 19:53 | XMS_ITS | Encounter Summary ---
Author Organization [facility] Address [address] [place] [address] Care Team Providers Care Actuarial Science Professor Name Role Phone Troy Ventura M.D. [facility] Reason for Visit * Reason Comments Med Refill Encounter Details Date Type Department Care Team (Late st Contact Info) Description 12/13/2024 Refill Department of Vascular Medicine in [place], [place] [address] [place] [address] Ally Scott P.A.-C. [address] [place] [address] Med Refill Social History Tobacco Use Types [...] often do you attend chur ch or hindu services? 1 to 4 times per year [...] Answer Date Recorded PHQ-2 Score 2 02/29/2024 [facility] - Occupational Stress Questionnaire Answer Date [...] your living situation today? I have a [facility] place to live 04/22/2023 Education Answer Date Recorded What is the highest level of school you have completed or the highest degree you have received? 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 [address] [place] [phone] PCP - General 07/05/19 documented as of this encounter
--- OUTSIDE RECORDS SUMMARY | 2024-12-21 19:53 | XMS_ITS | Clinical Summary ---
Author Organization [facility] Address [address] [place] [address] Care Team Providers Care Mortgage Loan Counselor Name Role Phone Unavailable Primary Care Provider Unavailabl e Source Comments [facility],non-owned Affiliates and Associated Physician Practices is amultiple site organization consisting of ambulatory clinics and hospital sitesin [place], [place], [place] and [place]. This disclosure is being madepursuant to the Care Everywhere program and may not contain all information available regarding this patient. Last updated 18.[facility] Allergies Active Allergy Reactions Criticality Noted Date [...]
--- OUTSIDE RECORDS SUMMARY | 2024-12-21 19:53 | XMS_ITS | Clinical Summary ---
Author Organization [facility] Address [address] [place] [address] Care Team Providers Care Hospice Care Sales Consultant Name Role Phone Troy Ventura M.D. Primary Care Hanh morgan Source Comments Patient records contain information from all sites at [facility]. For routine questions regarding patient records, call [phone] during business hours, M-F 8:00 AM - 5:00 PM Central Time. Record requests for emergency care only can be directed to [phone] at any time.[facility] Allergies Active Allergy Reactions Criticality Noted [...] represent a complete record from that organization. [id number] A (CENTRUM COMPLETE) 18-400 mg-mcg per tablet [...] Personal History 10/02/2018 Overview (11/02/2018): Evaluation with [facility]-resolved Obesity Body Mass Index 30-39.9 Adult [...] 12/13/2024 Refill Department of Vascular Medicine in [place], [place] [address] [place] [address] Alexandra Armstrong, P.A.-C. Med Refill 12/13/2024 Refill Department of Vascular Medicine in [place], [place] [address] [place] [address] Ally Scott, P.A.-C. Med Refill from Last [...] apnea Mother's Sister Salma Stroke Sister 1 Jaylny Asthma Sister 2 . Pancreatic cancer Uncle [...] often do you attend chur ch or latter-day services? 1 to 4 times per year 03/14/2021 Do you belong to any clubs o r organizations such as jehovah's witness groups, unions, fraternal or athletic groups, or [...] Answer Date Recorded PHQ-2 Score 2 02/29/2024 [facility] - [...] your living situation today? I have a [facility] place to live 04/22/2023 Education Answer Date Recorded What is the highest level of school you have completed or the highest degree you have received? 12th grade 03/22/2019 Sex and Gender Information Value Date Recorded Sex Assigned at Male 04/22/2023 5:56 PM CDT Legal Sex Male 10:14 PM CAFE ASSOCIATE Gender Identity Male 01/16/2018 3:24 AM CDT [...] LIPID PANEL, S Routine 06/22/2024 11:03 AM CAFE ASSOCIATE Hypertriglyceridemia HCV AB SCRN W/REFLEX TO HCV PCR, S Routine 08/18/2020 4:08 PM CAFE ASSOCIATE Exposure Human Immunodeficiency Virus HIV-1/-2 AG AND AB SCREEN, PLASMA Routine 08/18/2020 3:51 PM CAFE ASSOCIATE Exposure Human Immunodeficiency Virus HEPATITIS B SURFACE ANTIGEN Routine 10/21/2018 2:45 PM CDT Hepatitis B Acute from Last 3 Months or Most Recently Relevant to Health Maintenance Results * (ABNORMAL) Lipid Panel (06/22/2024 11:03 AM CAFE ASSOCIATE) Triglycerides 250(H) mg/dL 06/22/2024 2:13 PM CAFE ASSOCIATE OWAT Comment: ----REFERENCE VALUE---- Normal: <150 mg/dL Borderline High: 150-199 mg/dL High: 200-499 mg/dL Very High: > or =500 mg/dL Cholesterol, Total 212(H) mg/dL 2023 2:13 PM CAFE ASSOCIATE OWAT Comment: ----REFERENCE VALUE---- Desirable: < 200 mg/dL Borderline High: 200 - 239 mg/dL High: > or = 240 mg/dL Cholesterol, LDL, Calculated 136(H) mg/dL 06/22/2024 2:13 PM CAFE ASSOCIATE OWAT Comment: ----REFERENCE VALUE---- Desirable: <100 mg/dL Above Desirable: 100-129 mg/dL Borderline High: 130-159 mg/dL High: 160-189 mg/dL Very High: >=190 mg/dL ----ADDITIONAL INFORMATION---- LDL cholesterol calculated using the Orozco/NIH equation. Cholesterol, HDL 31(L) >=40 mg/dL 06/22/20 2:13 PM CAFE ASSOCIATE OWAT Cholesterol, Non-HDL, Calculated 181(H) mg/dL 06/22/2024 2:13 PM CAFE ASSOCIATE OWAT Comment: ----REFERENCE VALUE---- Desirable: <130 mg/dL Above Desirable: 130-159 mg/dL Borderline High: 160-189 mg/dL High: 190-219 mg/dL Very High: > or =220 mg/dL Fasting (8 HR or more) No 06/22/2024 11:03 AM CAFE ASSOCIATE OWAT Blood (Blood, Venous) 06/22/2024 11:03 AM CAFE ASSOCIATE 06/22/2024 1:20 PM CAFE ASSOCIATE us Alexandra Armstrong P.A.-C. LAB BLOOD ADD-ON Final Res ult [facility] [address] [facility] [place] [address], [place] OWAT [facility] in [place] [address] [place] [address] * HCV Ab Scrn w/Reflex to HCV PCR, Serum (08/18/2020 4:08 PM CAFE ASSOCIATE) HCV Ab Screen, S Negative Negative 08/19/2020 8:34 AM CAFE ASSOCIATE [facility] Comment:Zwrjuc-pl-suaggj rat io is <1.00. Blood (Blood, Venous) 08/18/2020 4:08 PM CAFE ASSOCIATE 08/19/2020 7:39 AM CAFE ASSOCIATE us Troy Virgen M.D. LAB MICROBIOLOG Y - BLOOD ORDERABLES Final Result Performing Organization Address [facility]/ZIP Co de Phone Number [facility] [address] [place] [address] [facility] Dept. of Laboratory Medicine and Pathology [address] [place] [address] * HIV-1/-2 Ag and Ab Screen, Plasma (08/18/2020 3:51 PM CAFE ASSOCIATE) HIV Ag/Ab Screen, P Negative Negative 08/20/2020 6:42 AM CAFE ASSOCIATE [facility] Comment: Negative result does not rule out HIV infection. If exposure to HIV infection occurred <14 days ago, contact the laboratory to request addition of HIV-1 RNA detection / quantification test. HIV-1 p24 Ag Screen, P Negative Negative 08/20/2020 6:42 AM CAFE ASSOCIATE [facility] Comment: Negative result does not rule out HIV infection. If exposure to HIV infection occurred <14 days ago, contact the laboratory to request addition of HIV-1 RNA detection / quantification test. HIV-1 Ab Screen, P Negative Negative 2020 6:42 AM CAFE ASSOCIATE [facility] Comment: Negative result does not rule out HIV infection. If exposure to HIV infection occurred <14 days ago, contact the laboratory to request addition of HIV-1 RNA detection / quantification test. HIV-2 Ab Screen, P Negative Negative 2020 6:42 AM CAFE ASSOCIATE [facility] Comment: Negative result does not rule out HIV infection. If exposure to HIV infection occurred <14 days ago, contact the laboratory to request addition of HIV-1 RNA detection / quantification test. Blood (Blood, Venous) 08/18/2020 3:51 PM CAFE ASSOCIATE 08/19/2020 4:31 PM CAFE ASSOCIATE Troy Virgen M.D. LAB MICROBIOLOG Y - BLOOD ORDERABLES Final Result Performing Organization Address City/[facility]/ZIP Co de Phone Number [facility] [address] [place] [phone], [facility] [place] [address] [place] [address] * Hepatitis B Surface Antigen (10/21/2018 2:45 PM CDT) HBs Antigen, S Negative Negative 10/21/2018 9:57 PM CDT [facility] Blood (Blood, Venous) 10/21/2018 2:45 PM CDT 10/21/2018 7:31 PM CDT us Jimenez Blackwood Jr., M.D. LAB MICROBIOLOGY - BLOOD ORDERABLES Final Result [facility] [address] [place] [address] from Last 3 Months or Most Recently Relevant to Health Maintenance Insurance KIMBERLY Goyal [id number] [facility] MEDIC[facility] Care Teams Hospice Care Sales Consultant Relationship Specialty Start Date End Date Troy Ventura M.B.BMaineSMaine, MJose. [address] [place] [phone] PCP - General 07/05/19
--- OUTSIDE RECORDS SUMMARY | 2024-12-21 19:53 | XMS_ITS | Clinical Summary ---
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 Blood BLOOD SPECIMEN / Unknown Venipuncture / Unknown 03/19/2019 1:10 PM CDT 03/19/2019 1:14 PM CDT us Maddy Medel NP SEND OUTS Fin al Result Performing Organization Address City/[facility] Co de Phone Number [facility] [address] [place] [address], [place] from Last 3 Months or Most Recently Relevant to Health Maintenance Insurance [facility] MEDICARE PART A HB ONLY MEDICARE PART B HB ONLY Care Teams Copy Camera Operator Relationship Specialty Start Date End Date Eunice Juares MD [address] [place] [phone] PCP - General Family Practice 04/27/23
--- OUTSIDE RECORDS SUMMARY | 2024-12-21 19:53 | XMS_ITS | Encounter Summary ---
Author Organization [facility] Address [address] [place] [address] Care Team Providers Care Site Reliability Engineer Name Role Phone Troy Ventura M.D. [facility] Reason for Visit * Reason Comments Med Refill Encounter Details Date Type Department Care Team (Late st Contact Info) Description 12/13/2024 Refill Department of Vascular Medicine in [place], [place] [address] [place] [address] Alexandra Armstrong, P.AMaine-CMaine [address] [place] [phone] Med Refill Social History Tobacco Use Types [...] often do you attend chur ch or muslim services? 1 to 4 times per year 03/14/2021 Do you belong to any clubs o r organizations such as scientologist groups, unions, fraternal or athletic groups, or [...] Answer Date Recorded PHQ-2 Score 2 02/29/2024 [facility] Occupat ional [facility] - Occupational Stress Questionnaire Answer Date [...] your living situation today? I have a [facility] place to live 04/22/2023 Education Answer Date Recorded What is the highest level of school you have completed or the highest degree you have received? 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 [address] [place] [address] [place] [address] PCP - General 07/05/19 documented as of this encounter
[2024-12-21] MEDS: DEXAMETHASONE 10 MG/ML PF PO (19:54)
[2024-12-21 20:08] LABS: Strep A DNA Probe* NOT DETECTED (Not Detectd)
[2024-12-21 20:21] LABS: PCR FLU A Negative PCR FLU A (Negative); PCR FLU B Negative PCR FLU B (Negative); PCR RSV Negative PCR RSV (Negative); SARS PCR* Negative SARS-CoV-2 (Negative)
--- OUTSIDE RECORDS SUMMARY | 2024-12-21 20:53 | XMS_ITS | CCD ---
Author Organization Unknown Care Team Providers Care Bass Mechanism Maker Name Role Phone Economic Consultant, [place] Primary Care Provider Unava ilable Unavailable Chronic Care Management Unavaila ble Summary Purpose DataExchange Insurance Providers Payer name Policy type / Coverage type Covered democrat ID Effective Begin Date Effective End Date Medicare [place] Part B [id number] Unknown Unknown Ucare Medicare Part B [id number] Unknown Unknown Family History Family History data not found Medication Administered No Medication Administered data Reason For Visit No Reason For Visit data
--- OUTSIDE RECORDS SUMMARY | 2024-12-21 20:53 | XMS_ITS | CCD ---
Author Organization Unknown Care Team Providers Care Hand Quilter Name Role Phone Transaction Coordinator, [place] Primary Care Provider Unava ilable Unavailable Chronic Care Management Unavaila ble Summary Purpose DataExchange Insurance Providers Payer name Policy type / Coverage type Covered green party ID Effective Begin Date Effective End Date [place] Part B [id number] Unknown Unknown U[employer] Medicare Part B [id number] Unknown Unknown Family History Family History data not found Medication Administered No Medication Administered data Reason For Visit No Reason For Visit data
== END 2024-12-21 20:38 | disposition home or self-care (01) ==
PROVIDERS: Emergency Provider Student in an Organized Health Care Education/Training Program; PCP Family Medicine
DX: J02.9 Acute pharyngitis, unspecified (principal)
CPT/HCPCS: 87631; 87651; 99283; J1100

== ENCOUNTER 2025-01-02 16:36 | Emergency (ER) | payer MEDICARE, MEDICAID, SELFPAY ==
--- OUTSIDE RECORDS SUMMARY | 2024-05-25 09:00 | XMS_ITS | Continuity of Care Document ---
Author Organization [facility] Address [address] [place] [address] Phone Care Team Providers Care Set Staff Fitter Name Role Phone Roni Blackmon DO Unavailable Unavailable Allergies, Adverse Reactions, Alerts Substance Reaction Status Criticality azithromycin Active No Information tetracycline Active No Information PENICILLIN Active No Information Medications Medication Instructions Dosage Effective Dates (start - stop) Status Comments citalopram 20 mg tablet take 1 tablet by oral route every day 20 MG - Active propranolol 10 mg tablet take 1 tablet by oral route 2 times every day 10 MG - Active FENOFIBRATE (unknown strength) take 2 tablet by oral route every day Not Available - Active Eliquis 2.5 mg tablet take 1 tablet by oral route 2 times every day 2.5 MG - Active citalopram 20 mg tablet take 1 tablet by oral route every day 20 MG - No Longer Active Procedures Procedure Date X-RAY EXAM HIPS BI 2 VIEWS Office/Outpatient Visit, New Routine Venipuncture Specimen Handling Lyme Disease Antibody Tb Test, Cell Immun Measure Advance Directives Directive Yes / No Effective Date File Name No Information Encounters Encounter Description Practice Location Reason(s) For Visit Diagnoses Date Provider Providers Copied on Encounter [facility] , [address], [place], [address], [place] tel:[phone] [facility] , No Information 4 Neymar Tamayo. [facility] [address], [place], [address], [place]. tel:[phone] Referring Provider: Roni Friend, [facility] [address], [place], [address]. tel:[phone] Office/Outpa tient Visit, [facility] , [address], [place], [address], [place] tel:[phone] [facility] , Interstitial keratitis (chief complaint) Unspecified interstitial keratitis, left eyePain in left hipMyalgia, unspecified site Neymar Tamayo. [facility] [address], [place], [address], [place]. tel:[phone] Referring Provider: Roni Friend, [facility] [address], [place], [address]. tel:[phone] Family History Family Member Type Diagnosis Age At Onset No Information Payers Payer name Insurance type Covered republican ID Candido lares(s) Medicare [id number] [facility] Medicare Supplement CI [id number] Social History Type Description Quantity Date Captured Comments Alcohol Use Details Unknown Caffeine Use Details Unknown Tobacco Use Status Smoking Status No Information Sex Male Chief Complaint And Reason For Visit No Information Reason For Referral Reason For Referral No Information Plan Of Treatment Date Type Action Status Goal Tobacco cessation counseling completed Future Order: Radiology Order Hi p X-ray; Bilateral, with Pelvis X-ray (2 views) ([id number]), Sent on: Sent History Of Present Illness Encounter Date Complaint History Of Prese nt Illness Interstitial keratitis Functional Status Date Functional Assessmen t No Information Instructions Date Instruction Additional Infor mation No Information Assessments Type Assessment Date No Information Patient Care Teams Name Effective Dates (start - stop) Status Members No Information
--- OUTSIDE RECORDS SUMMARY | 2024-05-25 09:00 | XMS_ITS | Continuity of Care Document ---
Author Organization [facility] Address [address] [place] [address] Phone Care Team Providers Care Certified Optician Name Role Phone Roni Blackmon DO Unavailable [...] [facility] , [address], [place], [address], [place] tel:[phone] [facility] , No Information 4 Neymar Tamayo. [facility] [address], [place], [address], [place]. tel:[phone] Referring Provider: Roni Friend, [facility] [address], [place], [address]. tel:[phone] Office/Outpa tient Visit, [facility] , [address], [place], [address], [place] tel:[phone] [facility] , Interstitial keratitis (chief complaint) Unspecified interstitial keratitis, left eyePain in left hipMyalgia, unspecified site Neymar Tamayo. [facility] [address], [place], [address], [place]. tel:[phone] Referring Provider: Roni Friend, [facility] [address], [place], [address]. tel:[phone] Family History Family Member Type Diagnosis Age At Onset No Information Payers Payer name Insurance type Covered constitution party ID Candido lares(s) Medicare [id number] [facility] Medicare Supplement CI [id number] Social History Type Description Quantity Date Captured [...] X-ray; Bilateral, with Pelvis X-ray (2 views) ([id number]), Sent on: Sent History Of Present Illness Encounter Date Complaint History Of Prese nt Illness Interstitial keratitis Functional Status Date Functional Assessmen t No Information Instructions Date Instruction Additional Infor mation No Information Assessments Type Assessment Date No Information Patient Care Teams Name Effective Dates (start - stop) Status Members No Information
--- OUTSIDE RECORDS SUMMARY | 2025-01-02 16:39 | XMS_ITS | Encounter Summary ---
Author Organization [facility] Address [address] [place] [address] Care Team Providers Care Sightseeing Guide Name Role Phone Troy Ventura M.D. [facility] Reason for Visit * Reason Comments Med Refill Encounter Details Date Type Department Care Team (Late st Contact Info) Description 12/13/2024 Refill Department of Vascular Medicine in [place], [place] [address] [place] [address] Alexandra Armstrong, P.AMaine-CMaine [address] [place] [phone] Med Refill Social History Tobacco Use Types [...] often do you attend chur ch or adventist services? 1 to 4 times per year 03/14/2021 Do you belong to any clubs o r organizations such as scientology groups, unions, fraternal or athletic groups, or [...] Answer Date Recorded PHQ-2 Score 2 02/29/2024 [facility] ional [facility] - Occupational Stress Questionnaire [...] your living situation today? I have a [facility] place to live 04/22/2023 Education Answer Date Recorded What is the highest level of school you have completed or the highest degree you have received? 12th grade 03/22/2019 Sex and Gender Information Value Date Recorded Sex Assigned at Male 04/22/2023 5:56 PM CDT Legal Sex Male 10:14 PM APPLICATION DEVELOPMENT DIRECTOR Gender Identity Male 01/16/2018 3:24 AM CDT [...] documented as of this encounter Care Teams Sightseeing Guide Relationship Specialty Start Date End Date Troy Ventura M.B.BMaineSMaine, MJose. [address] [place] [address] [place] [phone] PCP - General 07/05/19 documented as of this encounter
--- OUTSIDE RECORDS SUMMARY | 2025-01-02 16:39 | XMS_ITS | Clinical Summary ---
Author Organization [facility] Address [address] [place] [address] Care Team Providers Care Manager Lan Name Role Phone Unavailable Primary Care Provider Unavailabl e Source Comments [facility],non-owned Affiliates and Associated Physician Practices is amultiple site organization consisting of ambulatory clinics and hospital sitesin [place], [place], [place] and [place]. This disclosure is being madepursuant to the Care Everywhere program and may not contain all information available regarding this patient. Last updated 18.[facility] Allergies Active Allergy Reactions Criticality Noted Date [...]
--- OUTSIDE RECORDS SUMMARY | 2025-01-02 16:39 | XMS_ITS | Clinical Summary ---
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 Gender Identity Not on file Sexual Orientation [...] on same day) for age 18+ 2005 Hepatitis B series for 19+ (1 of 3 - 19+ 3-dose series) 2006 Lipids for age 35-44 2022 COVID-19 vaccine [...] ve Non-Reacti ve 03/19/2019 1:41 PM CDT [facility] Blood BLOOD SPECIMEN / Unknown Venipuncture / Unknown 03/19/2019 1:10 PM CDT 03/19/2019 1:14 PM CDT us Maddy Medel RIGGING UP MAN SEND OUTS Fin al Result [facility] [address] [place] [address] * Patient Source ANTI HCV (03/19/2019 1:10 PM CDT) HEPATITIS C ANTIBODY Non-React haseeb Non-React haseeb 03/19/2019 7:37 PM CDT [facility] Comment:Antibodies to HCV no t detected; does not exclude the possibility of exposure to HCV. Blood BLOOD SPECIMEN / Unknown Venipuncture / Unknown 03/19/2019 1:10 PM CDT 03/19/2019 1:14 PM CDT us Maddy Medel RIGGING UP MAN SEND OUTS Fin al Result [facility] [address] [place] [address], [place] from Last 3 Months or Most Recently Relevant to Health Maintenance Insurance [facility] MEDICARE PART A HB ONLY MEDICARE PART B HB ONLY Care Teams Technical Publications Manager Relationship Specialty Start Date End Date Eunice Juares MD [address] [place] [phone] PCP - General Family Practice 04/27/23
--- OUTSIDE RECORDS SUMMARY | 2025-01-02 16:39 | XMS_ITS | Encounter Summary ---
Author Organization [facility] Address [address] [place] [address] Care Team Providers Care Telecom Assistant Name Role Phone Troy Ventura M.D. Primary Care [facility] Reason for Visit * Reason Comments Med Refill Encounter Details Date Type Department Care Team (Late st Contact Info) Description 12/13/2024 Refill Department of Vascular Medicine in [place], [place] [address] [place] [address] Ally Scott P.A.-C. [address] [place] [address] Med Refill Social History Tobacco Use Types [...] often do you attend chur ch or gnosticism services? 1 to 4 times per year 03/14/2021 Do you belong to any clubs o r organizations such as rastafari groups, unions, fraternal or athletic groups, or [...] Answer Date Recorded PHQ-2 Score 2 02/29/2024 [facility] - Occupational Stress Questionnaire Answer [...] living situation today? I have a [facility] place to live 04/22/2023 Education Answer Date Recorded What is the highest level of school you have completed or the highest degree you have received? 12th grade 03/22/2019 Sex and Gender Information Value Date Recorded Sex Assigned at Male 04/22/2023 5:56 PM CDT Legal Sex Male 10:14 PM MEDICAL UNDERWRITER Gender Identity Male 01/16/2018 3:24 AM CDT [...] documented as of this encounter Care Teams Telecom Assistant Relationship Specialty Start Date End Date Troy Ventura M.B.B.S., M.D. [address] [place] [phone] PCP - General 07/05/19 documented as of this encounter
--- OUTSIDE RECORDS SUMMARY | 2025-01-02 16:39 | XMS_ITS | Clinical Summary ---
Author Organization [facility] Address [address] [place] [address] Care Team Providers Care Gastroenterology Technician Name Role Phone Troy Ventura M.D. Primary Care Hanh morgan Source Comments Patient records contain information from all sites at [facility]. For routine questions regarding patient records, call [phone] during business hours, M-F 8:00 AM - 5:00 PM Central Time. Record requests for emergency care only can be directed to [phone] at any time.[facility] Allergies Active Allergy Reactions Criticality Noted Date [...] represent a complete record from that organization. pttbzkanxqmf-evuo-[id number] A (CENTRUM COMPLETE) 18-400 mg-mcg per tablet [...] Personal History 10/02/2018 Overview (11/02/2018): Evaluation with [facility]-resolved Obesity Body Mass Index 30-39.9 Adult [...] 12/13/2024 Refill Department of Vascular Medicine in [place], [place] [address] [place] [address] Alexandra Armstrong, P.A.-C. Med Refill 12/13/2024 Refill Department of Vascular Medicine in [place], [place] [address] [place] [address] Ally Scott, P.A.-C. Med Refill from Last [...] Answer Date Recorded PHQ-2 Score 2 02/29/2024 [facility] - Occupational Stress [...] your living situation today? I have a [facility] place to live 04/22/2023 Education Answer Date Recorded What is the highest level of school you have completed or the highest degree you have received? 12th grade 03/22/2019 Sex and Gender Information Value Date Recorded Sex Assigned at Male 04/22/2023 5:56 PM CDT Legal Sex Male 10:14 PM DRAG SAWYER Gender Identity Male 01/16/2018 3:24 AM CDT [...] LIPID PANEL, S Routine 06/22/2024 11:03 AM DRAG SAWYER Hypertriglyceridemia HCV AB SCRN W/REFLEX TO HCV PCR, S Routine 08/18/2020 4:08 PM DRAG SAWYER Exposure Human Immunodeficiency Virus HIV-1/-2 AG AND AB SCREEN, PLASMA Routine 08/18/2020 3:51 PM DRAG SAWYER Exposure Human Immunodeficiency Virus HEPATITIS B SURFACE ANTIGEN Routine 10/21/2018 2:45 PM CDT Hepatitis B Acute from Last 3 Months or Most Recently Relevant to Health Maintenance Results * (ABNORMAL) Lipid Panel (06/22/2024 11:03 AM DRAG SAWYER) Triglycerides 250(H) mg/dL 06/22/2024 2:13 PM DRAG SAWYER OWAT Comment: ----REFERENCE VALUE---- Normal: <150 mg/dL Borderline High: 150-199 mg/dL High: 200-499 mg/dL Very High: > or =500 mg/dL Cholesterol, Total 212(H) mg/dL 2023 2:13 PM DRAG SAWYER [employer]AT Comment: ----REFERENCE VALUE---- Desirable: < 200 mg/dL Borderline High: 200 - 239 mg/dL High: > or = 240 mg/dL Cholesterol, LDL, Calculated 136(H) mg/dL 06/22/2024 2:13 PM [address]AG SAWYER [employer]AT Comment: ----REFERENCE VALUE---- Desirable: <100 mg/dL Above Desirable: 100-129 mg/dL Borderline High: 130-159 mg/dL High: 160-189 mg/dL Very High: >=190 mg/dL ----ADDITIONAL INFORMATION---- LDL cholesterol calculated using the Orozco/NIH equation. Cholesterol, HDL 31(L) >=40 mg/dL 06/22/20 2:13 PM DRAG SAWYER OWAT Cholesterol, Non-HDL, Calculated 181(H) mg/dL 06/22/2024 2:13 PM [address]AG SAWYER [employer]AT Comment: ----REFERENCE VALUE---- Desirable: <130 mg/dL Above Desirable: 130-159 mg/dL Borderline High: 160-189 mg/dL High: 190-219 mg/dL Very High: > or =220 mg/dL Fasting (8 HR or more) No 06/22/2024 11:03 AM DRAG SAWYER [employer]AT Blood (Blood, Venous) 06/22/2024 11:03 AM DRAG SAWYER 06/22/2024 1:20 PM DRAG SAWYER us Alxeandra Armstrong P.A.-C. LAB BLOOD ADD-ON Final Res ult [facility] [address] [place] [address], [place] OWAT [facility] in [place] [address] [place] [address] * HCV Ab Scrn w/Reflex to HCV PCR, Serum (08/18/2020 4:08 PM DRAG SAWYER) HCV Ab Screen, S Negative Negative 08/19/2020 8:34 AM DRAG SAWYER [facility] Comment:Gegubx-vy-lnulfj rat io is <1.00. Blood (Blood, Venous) 08/18/2020 4:08 PM DRAG SAWYER 08/19/2020 7:39 AM DRAG SAWYER us Troy Virgen M.D. LAB MICROBIOLOG Y - BLOOD ORDERABLES Final Result Performing Organization Address [facility]/ZIP Co de Phone Number [facility] [address] [place] [address] [facility] Dept. of Laboratory Medicine and Pathology [address] [place] [address] * HIV-1/-2 Ag and Ab Screen, Plasma (08/18/2020 3:51 PM DRAG SAWYER) HIV Ag/Ab Screen, P Negative Negative 08/20/2020 6:42 AM DRAG SAWYER [facility] Comment: Negative result does not rule out HIV infection. If exposure to HIV infection occurred <14 days ago, contact the laboratory to request addition of HIV-1 RNA detection / quantification test. HIV-1 p24 Ag Screen, P Negative Negative 08/20/2020 6:42 AM [address]AG SAWYER [facility] Comment: Negative result does not rule out HIV infection. If exposure to HIV infection occurred <14 days ago, contact the laboratory to request addition of HIV-1 RNA detection / quantification test. HIV-1 Ab Screen, P Negative Negative 2020 6:42 AM [address]AG SAWYER [facility] Comment: Negative result does not rule out HIV infection. If exposure to HIV infection occurred <14 days ago, contact the laboratory to request addition of HIV-1 RNA detection / quantification test. HIV-2 Ab Screen, P Negative Negative 2020 6:42 AM [address]AG SAWYER [facility] Comment: Negative result does not rule out HIV infection. If exposure to HIV infection occurred <14 days ago, contact the laboratory to request addition of HIV-1 RNA detection / quantification test. Blood (Blood, Venous) 08/18/2020 3:51 PM DRAG SAWYER 08/19/2020 4:31 PM DRAG SAWYER Troy Virgen M.D. LAB MICROBIOLOG Y - BLOOD ORDERABLES Final Result Performing Organization Address City/[facility]/ZIP Co de Phone Number [facility] [address] [place] [address], [facility] [place] [address] [place] [address] * Hepatitis B Surface Antigen (10/21/2018 2:45 PM CDT) HBs Antigen, S Negative Negative 10/21/2018 9:57 PM CDT [facility] Blood (Blood, Venous) 10/21/2018 2:45 PM CDT 10/21/2018 7:31 PM CDT us Jimenez Blackwood Jr., M.D. LAB MICROBIOLOGY - BLOOD ORDERABLES Final Result [facility] [address] [place] [address] from Last 3 Months or Most Recently Relevant to Health Maintenance Insurance KIMBERLY Goyal [id number] [facility] MEDICARE Care Teams Gastroenterology Technician Relationship Specialty Start Date End Date Troy Ventura M.B.BMaineSMaine, MJose. [address] [place] [phone] PCP - General 07/05/19
[2025-01-02 16:42] VITALS: BP 138/90; PULSE 86; RESP 20; TEMP 36.9; O2SAT 96; BMI 34.7
--- NOTE | 2025-01-02 17:01 | CRLHL7_ITS ---
For Patients: As a result of the Cures Act, medical imaging exams and procedure reports are released immediately into your electronic medical record. You may view this report before your referring provider. If you have questions, please contact your health care provider. INDICATION: Evaluate for foreign body TECHNIQUE: X-ray soft tissue, one view COMPARISON: None. FINDINGS: Prevertebral soft tissues are within normal limits. The visualized vertebral body heights are maintained. No radiopaque foreign body is seen. IMPRESSION: No radiopaque foreign body. Dictated by Jessica Stanton MD @ 01/02/2025 6:52:57 PM Dictated by: Jessica Stanton MD @ 01/02/2025 18:53:03 (Electronically Signed)
--- NOTE | 2025-01-02 17:02 | CRLHL7_ITS ---
For Patients: As a result of the Cures Act, medical imaging exams and procedure reports are released immediately into your electronic medical record. You may view this report before your referring provider. If you have questions, please contact your health care provider. INDICATION: Evaluate for foreign body TECHNIQUE: Chest 2 views. COMPARISON: Chest x-ray 08/28/2023 FINDINGS: The heart is normal in size. The pulmonary vasculature is within normal limits. The lungs are clear without focal consolidation, pleural effusion or pneumothorax. The bones are unremarkable. No radiopaque foreign body is seen. IMPRESSION: No acute abnormality. No radiopaque foreign body is visualized. Dictated by Jessica Stanton MD @ 01/02/2025 6:44:21 PM Dictated by: Jessica Stanton MD @ 01/02/2025 18:44:28 (Electronically Signed)
--- NOTE | 2025-01-02 17:03 | ED_ITS ---
HPI - General Adult General Chief complaint: Difficulty Swallowing Stated complaint: item stuck in throat Time Seen by Provider: 01/02/25 16:49 History of Present Illness HPI narrative: Patient is a 39 year white male was eating at a Thai restaurant today with a friend the friend noted some plastic shards in the food. Neymar kept eating. He subsequently felt something sticking in his throat area was able to cough, able to continue to swallow but still has had persistent pain in that area this has been over the last 3 or 4 hours. Feels like something is irritated her stuck in his throat. There was no bones or other abnormalities in the food. But he was wanting if there was some plastic material in the food. Related Data Home Medications ?Medication ?Instructions ?Recorded ?Confirmed citalopram 20 mg tablet 20 mg PO DAILY 02/12/2312/03 propranolol 10 mg tablet 10 mg PO BID 02/12/23 apixaban 2.5 mg tablet (Eliquis) 2.5 mg PO BID 5 12/21/24 Allergies Allergy/AdvReac Type Severity Reaction Status Date / Time azithromycin Allergy Mild Rash Verified 12/21/24 19:29 Penicillins Allergy Mild Hives Verified 12/21/24 19:29 tetracycline Allergy Mild Hives Verified 12/21/24 19:29 Review of Systems Status of ROS: Reports: 6 or more systems reviewed and unremarkable except as noted in History and below [facility] Medical History Factor 5 Leiden mutation, heterozygous ?D68.51 - Activated protein C resistance (ICD-10) DVT (deep venous thrombosis) ?I82.409 - Acute embolism and thrombosis of unspecified deep veins of unsp ecified lower extremity (ICD-10) Social History Smoking Status: Current every day smoker What tobacco products do you use: cigarettes Smoking packs per day: 0.5 Smoking cigarettes per day: 10.0 Do you use any of these nicotine containing products: None Second hand tobacco smoke exposure: No How often do you have a drink containing alcohol: monthly or less How often do you have six or more drinks on one occasion: Less than monthly AUDIT-C Alcohol total score: 2 Non-prescribed substance use: denies use service: No Exam Narrative: Exam Narrative: Objective: The patient's vital signs look unremarkable his O2 sats excellent the patient is able to swallow water and eat still. He has an occasional cough. The cough seems to be mostly from his irritated throat. He describes it is just below his cricoid cartilage area. Oral exam shows no foreign body irritation redness or scratches. Stable to move his neck fully. Const: Vital Signs, click to edit/add: Vital Signs - 24 hr 01/02/25 16:42 Temperature 98.5 F Pulse Rate [Pulse Oximeter] 86 Respiratory Rate 20 Blood Pressure [Ri ght Upper Arm] 138/90 H Pulse Oximetry 96 Oxygen Delivery Me thod Room Air Course Vital Signs Vital signs: Initial Vital Signs Temperature 98.5 F 01/02/25 16:42 Temperature Source Temporal Artery Scan 01/02/25 16:42 Pulse Rate 86 01/02/25 16:42 Respiratory Rate 20 01/02/25 16:42 Blood Pressure 138/90 H 01/02/25 16:42 Blood Pressure Mean 106 H 01/02/25 16:42 Pulse Oximetry 96 01/02/25 16:42 Oxygen Delivery Method Room Air 01/02/25 16:42 Vital Signs Temperature 98.5 F 01/02/25 16:42 Pulse Rate 86 01/02/25 16:42 Respiratory Rate 20 01/02/25 16:42 Blood Pressure 138/90 H 01/02/25 16:42 Pulse Oximetry 96 01/02/25 16:42 Oxygen Delivery Method Room Air 01/02/25 16:42 Temperature 98.5 F 01/02/25 16:42 Pulse Rate 86 01/02/25 16:42 Respiratory Rate 20 01/02/25 16:42 Blood Pressure 138/90 H 01/02/25 16:42 Pulse Oximetry 96 01/02/25 16:42 Oxygen Delivery Method Room Air 01/02/25 16:42 Medical Decision Making MDM Narrative Medical decision making narrative: [age] year white male with probable scratch to the throat from potential foreign body. I think it be reasonable given the friend had some foreign material in his food that he was eating at the same restaurant to get an x-ray of his neck two view in his chest two view. I suspect he has a scratch to the throat given that he can still swallow and has no difficulty in that regard. I think probably we should have him watch over the next 24 hours if he continued has symptoms we should do upper endoscopy to see what might be occurring. Will review his x-rays is a return. Addendum 5:30 p.m.: There is a foreign body possibly on his lateral x-ray by my review. CT scan of the neck will be ordered with IV contrast. Addendum 7:00 p.m. the patient had a negative read by Radiology of his neck soft tissue plain x-ray and his CT scan. He still feels a little bit irritation in his throat I think this might past he might have a scratch on the throat from eating either foreign body or just food. I do not think at this point there is a foreign body in his throat given his CT findings. I would recommend he come back tomorrow if he still has symptoms as we could consider EGD or endoscopy to assess. He was comfortable this I have mentioned him that even if he feels somewhat better he probably does need to come back tomorrow as this likely will continue to improve. Discharge Plan Discharge Clinical Impression: Throat irritation Patient Disposition: Home, Self-Care Condition: Stable Additional Instructions: Advil if needed, lozenge to soothe throat as needed, come back tomorrow if you are still having symptoms or they worsen at any time return. Suspect he may have scratched her throat and usual this heals over about 12 hours or so. If it significantly improved tomorrow you need to come back but could see your regular doctor. Return changes or concerns sooner. Activity Level: No Restrictions Discharge Diet: Regular Prescriptions: No Action propranolol 10 mg tablet 10 mg PO BID citalopram 20 mg tablet 20 mg PO DAILY Eliquis 2.5 mg tablet 2.5 mg PO BID Follow Up/Referrals: Troy Ventura MD [Primary Care Provider, Family Practice] Stand Alone Forms: [employer] Info Instructions
--- NOTE | 2025-01-02 17:22 | CRLHL7_ITS ---
For Patients: As a result of the Century Cures Act, medical imaging exams and procedure reports are released immediately into your electronic medical record. You may view this report before your referring provider. If you have questions, please contact your health care provider. INDICATION: Possible foreign body. TECHNIQUE: CT of the neck with 111 cc Isovue 370 iodinated intravenous contrast agent. COMPARISON: Soft tissue radiographs from 01/02/2025. FINDINGS: Nasopharynx: Within normal limits. Oropharynx: Within normal limits. Oral cavity: Within normal limits. Supraglottic, glottic and infraglottic larynx: Within normal limits. Hypopharynx: Within normal limits. Airway including the trachea: Within normal limits. Salivary glands and thyroid gland: Within normal limits. Lymph nodes and other cervical soft tissues: Within normal limits. Vascular Structures: Within normal limits. Osseous structures: Within normal limits. Paranasal sinuses and mastoid air cells: Within normal limits. Teeth: Within normal limits. Imaged orbits and intracranial contents: Within normal limits. Imaged chest wall, mediastinum and upper lungs: Within normal limits. IMPRESSION: 1. No radiodense foreign body. 2. No mass or pathologic lymphadenopathy within the neck. Please note that all CT scans at this facility use dose modulation, iterative reconstruction, and/or weight-based dosing when appropriate to reduce radiation dose to as low as reasonably achievable. Dictated by Sarabjit López MD @ 01/02/2025 6:06:27 PM (Electronically Signed)
--- OUTSIDE RECORDS SUMMARY | 2025-01-02 17:38 | XMS_ITS | CCD ---
Author Organization Unknown Care Team Providers Care In Home Tutor Name Role Phone Leaf B[place], [place] Primary Care Provider Unava ilable Unavailable Chronic Care Management Unavaila ble Summary Purpose DataExchange Insurance Providers Payer name Policy type / Coverage type Covered green party ID Effective Begin Date Effective End Date Medicare [place] Part B [id number] Unknown Unknown U[employer] Medicare Part B [id number] Unknown Unknown Family History Family History data not found Medication Administered No Medication Administered data Reason For Visit No Reason For Visit data
--- OUTSIDE RECORDS SUMMARY | 2025-01-02 17:39 | XMS_ITS | CCD ---
Author Organization Unknown Care Team Providers Care Education Specialist Name Role Phone Military Education Coordinator, [place] Primary Care Provider Unava ilable Unavailable Chronic Care Management Unavaila ble Summary Purpose DataExchange Insurance Providers Payer name Policy type / Coverage type Covered constitution party ID Effective Begin Date Effective End Date [place] Part B [id number] Unknown Unknown [employer] Medicare Part B [id number] Unknown Unknown Family History Family History data not found Medication Administered No Medication Administered data Reason For Visit No Reason For Visit data
--- OUTSIDE RECORDS SUMMARY | 2025-01-02 18:23 | XMS_ITS | CCD ---
Author Organization Unknown Care Team Providers Care Foreign Language Instructor Name Role Phone Area Sales Manager, [place] Primary Care Provider Unava ilable Unavailable Chronic Care Management Unavaila ble Summary Purpose DataExchange Insurance Providers Payer name Policy type / Coverage type Covered alliance party ID Effective Begin Date Effective End Date [place] Part B [id number] Unknown Unknown [employer] Medicare Part B [id number] Unknown Unknown Family History Family History data not found Medication Administered No Medication Administered data Reason For Visit No Reason For Visit data
--- OUTSIDE RECORDS SUMMARY | 2025-01-02 18:23 | XMS_ITS | CCD ---
Author Organization Unknown Care Team Providers Care Consumer Loan Underwriter Name Role Phone Mold Maker, [place] Primary Care Provider Unava ilable Unavailable Chronic Care Management Unavaila ble Summary Purpose DataExchange Insurance Providers Payer name Policy type / Coverage type Covered libertarian ID Effective Begin Date Effective End Date [place] Part B [id number] Unknown Unknown [employer] Medicare Part B [id number] Unknown Unknown Family History Family History data not found Medication Administered No Medication Administered data Reason For Visit No Reason For Visit data
== END 2025-01-02 19:17 | disposition home or self-care (01) ==
PROVIDERS: Emergency Provider Family Medicine; PCP Family Medicine
DX: T17.228A Food in pharynx causing other injury, initial encounter (principal); R07.0 Pain in throat
CPT/HCPCS: 70360; 70491; 71046; 99284; Q9967

== ENCOUNTER 2025-01-26 17:06 | Emergency (ER) | payer MEDICARE, MEDICAID, SELFPAY ==
--- OUTSIDE RECORDS SUMMARY | 2025-01-26 17:08 | XMS_ITS | Encounter Summary ---
Author Organization [facility] Address [address] [place] [address] Care Team Providers Care Training Development Director Name Role Phone Troy Ventura M.D. Primary Care [facility] Reason for Visit * Reason Comments Med Refill Encounter Details Date Type Department Care Team (Late st Contact Info) Description 12/13/2024 Refill Department of Vascular Medicine in [place], [place] [address] [place] [address] Ally Scott P.A.-C. [address] [place] [address] Med Refill Social History Tobacco Use Types [...] by your partner or ex-partner? 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 [address] [place] [address] [place] [phone] PCP - General 07/05/19 documented as of this encounter
--- OUTSIDE RECORDS SUMMARY | 2025-01-26 17:08 | XMS_ITS | Encounter Summary ---
Author Organization [facility] Address [address] [place] [address] Care Team Providers Care Beef Splitter Name Role Phone Troy Ventura M.D. [facility] Reason for Visit * Reason Comments Med Refill Encounter Details Date Type Department Care Team (Late st Contact Info) Description 12/13/2024 Refill Department of Vascular Medicine in [place], [place] [address] [place] [address] Alexandra Junior, PMaineAMaine-CMaine [address] [place] [phone] Med Refill Social History Tobacco Use Types [...] your living situation today? I have a [facility] place to live 04/22/2023 Education Answer Date Recorded What is the highest level of school you have completed or the highest degree you have received? 12th grade 03/22/2019 Sex and Gender Information Value Date Recorded Sex Assigned at Male 04/22/2023 5:56 PM CDT Legal Sex Male 10:14 PM ASSOCIATE DIRECTOR QA Gender Identity Male 01/16/2018 3:24 AM CDT [...] documented as of this encounter Care Teams Beef Splitter Relationship Specialty Start Date End Date Troy Ventura M.B.B.S., MJose. [address] [place] [address] [place] [phone] PCP - General 07/05/19 documented as of this encounter
--- OUTSIDE RECORDS SUMMARY | 2025-01-26 17:08 | XMS_ITS | Clinical Summary ---
Author Organization [facility] Address [address] [place] [address] Care Team Providers Care Signal Tower Operator Name Role Phone Troy Ventura M.D. Primary Care Hanh morgan Source Comments Patient records contain information from all sites at [facility]. For routine questions regarding patient records, call [phone] during business hours, M-F 8:00 AM - 5:00 PM Central Time. Record requests for emergency care only can be directed to [phone] at any time.[facility] Allergies Active Allergy Reactions Criticality Noted Date [...] represent a complete record from that organization. izhabbtpqgov-eike-[place] (CENTRUM COMPLETE) 18-400 mg-mcg per tablet Take [...] on the skin daily. 30 patch 03/01/20 24 Active Additional Information Patient not taking.Reported on 03/22/2024 nicotine (Nicoderm CQ) 14 mg/[address] 1 patch on the skin daily. 30 patch 03/01/20 24 Active Additional Information Patient not taking.Reported on 03/22/2024 nicotine (Nicoderm CQ) 7 mg/[address] 1 patch on the skin daily. 30 patch 1 03/01/20 24 Active Additional Information Patient not taking.Reported on 03/22/2024 nicotine polacrilex (Nicorette) 4 mg lozenge Dissolve 1 lozenge in mouth (do not bite or chew) every 1 to 2 hours as needed or as directed for nicotine withdrawal symptoms 270 lozenge 3 03/01/20 Active Additional Information Patient not taking.Reported on 03/22/2024 propranoloL (InderaL) 10 mg tabletIndications:De pression Major Recurrent Moderate (HCC),Anxiety Take 1 tablet (10 mg total) by mouth 2 (two) times a day. 180 tablet 5 03/22/20 24 Active citalopram (CeleXA) 20 mg tabletIndications:De pression Major Recurrent Moderate (HCC),Anxiety Take 1 tablet (20 mg total) by mouth daily. 90 tablet 3 03/22/20 24 Active fenofibrate nanocrystallized (Tricor) 48 mg tablet Take 1 tablet (48 mg total) by mouth daily. 90 tablet 3 03/22/20 24 Active apixaban (Eliquis) 2.5 mg tabletIndications:Th rombosis Superficial Vein Lower Extremity Left Take 1 tablet (2.5 mg total) by mouth 2 (two) times a day. 180 tablet 3 5 2:38 PM CDT 12/17/19 25 026 Active Active Problems Problem Noted Date Diagnosed Date Mutation Factor V Leiden Heterozygous 08/11/2023 Anxiety 10/29/2019 Hepatitis B Personal History 10/02/2018 Overview (11/02/2018): Evaluation with [facility]-resolved Obesity Body Mass Index 30-39.9 Adult [...] 12/13/2024 Refill Department of Vascular Medicine in [place], [place] [address] [place] [address] Alexandra Junior P.A.-C. Med Refill 12/13/2024 Refill Department of Vascular Medicine in [place], [place] [address] [place] [address] Ally Scott P.A.-C. Med Refill from Last 3 Months [...] your living situation today? I have a [facility] place to live 04/22/2023 Education Answer Date Recorded What is the highest level of school you have completed or the highest degree you have received? 12th grade 03/22/2019 Sex and Gender Information Value Date Recorded Sex Assigned at Male 04/22/2023 5:56 PM CDT Legal Sex Male 10:14 PM DEPUTY CITY CLERK Gender Identity Male 01/16/2018 3:24 AM CDT [...] 08/18/2020 Hepatitis A Vaccines Completed 04/25/2023, 03/19/20 Pneumococcal vaccine (0-49 years) Completed 04/25/2023, 12/24/2016 HPV Vaccines Aged Out No longer eligi ble based on patient's age to complete this topic Procedures Procedure Name Priority Date/Time Associated Diagnosis Comments LIPID PANEL, S Routine 06/22/2024 11:03 AM DEPUTY CITY CLERK Hypertriglyceridemia HCV AB SCRN W/REFLEX TO HCV PCR, S Routine 08/18/2020 4:08 PM DEPUTY CITY CLERK Exposure Human Immunodeficiency Virus HIV-1/-2 AG AND AB SCREEN, PLASMA Routine 08/18/2020 3:51 PM DEPUTY CITY CLERK Exposure Human Immunodeficiency Virus HEPATITIS B SURFACE ANTIGEN Routine 10/21/2018 2:45 PM CDT Hepatitis B Acute from Last 3 Months or Most Recently Relevant to Health Maintenance Results * (ABNORMAL) Lipid Panel (06/22/2024 11:03 AM DEPUTY CITY CLERK) Triglycerides 250(H) mg/dL 06/22/2024 2:13 PM DEPUTY CITY CLERK OWAT Comment: ----REFERENCE VALUE---- Normal: <150 mg/dL Borderline High: 150-199 mg/dL High: 200-499 mg/dL Very High: > or =500 mg/dL Cholesterol, Total 212(H) mg/dL 2023 2:13 PM DEPUTY CITY CLERK [employer] Comment: ----REFERENCE VALUE---- Desirable: < 200 mg/dL Borderline High: 200 - 239 mg/dL High: > or = 240 mg/dL Cholesterol, LDL, Calculated 136(H) mg/dL 06/22/2024 2:13 PM DEPUTY CITY CLERK [facility]AT Comment: ----REFERENCE VALUE---- Desirable: <100 mg/dL Above Desirable: 100-129 mg/dL Borderline High: 130-159 mg/dL High: 160-189 mg/dL Very High: >=190 mg/dL ----ADDITIONAL INFORMATION---- LDL cholesterol calculated using the Orozco/NIH equation. Cholesterol, HDL 31(L) >=40 mg/dL 06/22/20 2:13 PM DEPUTY CITY CLERK OWAT Cholesterol, Non-HDL, Calculated 181(H) mg/dL 06/22/2024 2:13 PM DEPUTY CITY CLERK [facility] Comment: ----REFERENCE VALUE---- Desirable: <130 mg/dL Above Desirable: 130-159 mg/dL Borderline High: 160-189 mg/dL High: 190-219 mg/dL Very High: > or =220 mg/dL Fasting (8 HR or more) No 06/22/2024 11:03 AM DEPUTY CITY CLERK [facility]AT Blood (Blood, Venous) 06/22/2024 11:03 AM DEPUTY CITY CLERK 06/22/2024 1:20 PM DEPUTY CITY CLERK us Alexandra Junior P.A.-C. LAB BLOOD ADD-ON Final Resu lt [facility] [address] [place] [address], [place] OWAT [facility] [place] [address] [place] [address] * HCV Ab Scrn w/Reflex to HCV PCR, Serum (08/18/2020 4:08 PM DEPUTY CITY CLERK) HCV Ab Screen, S Negative Negative 08/19/2020 8:34 AM DEPUTY CITY CLERK [facility] Comment:Norbil-wj-kvezzj rat io is <1.00. Blood (Blood, Venous) 08/18/2020 4:08 PM DEPUTY CITY CLERK 08/19/2020 7:39 AM DEPUTY CITY CLERK us Troy Virgen M.D. LAB MICROBIOLOG Y - BLOOD ORDERABLES Final Result [facility] [address] [place] [address] [facility] Dept. of Laboratory Medicine and Pathology [address] [place] [address] * HIV-1/-2 Ag and Ab Screen, Plasma (08/18/2020 3:51 PM DEPUTY CITY CLERK) HIV Ag/Ab Screen, P Negative Negative 08/20/2020 6:42 AM DEPUTY CITY CLERK [facility] Comment: Negative result does not rule out HIV infection. If exposure to HIV infection occurred <14 days ago, contact the laboratory to request addition of HIV-1 RNA detection / quantification test. HIV-1 p24 Ag Screen, P Negative Negative 08/20/2020 6:42 AM DEPUTY CITY CLERK [facility] Comment: Negative result does not rule out HIV infection. If exposure to HIV infection occurred <14 days ago, contact the laboratory to request addition of HIV-1 RNA detection / quantification test. HIV-1 Ab Screen, P Negative Negative 2020 6:42 AM DEPUTY CITY CLERK [facility] Comment: Negative result does not rule out HIV infection. If exposure to HIV infection occurred <14 days ago, contact the laboratory to request addition of HIV-1 RNA detection / quantification test. HIV-2 Ab Screen, P Negative Negative 2020 6:42 AM DEPUTY CITY CLERK [facility] Comment: Negative result does not rule out HIV infection. If exposure to HIV infection occurred <14 days ago, contact the laboratory to request addition of HIV-1 RNA detection / quantification test. Blood (Blood, Venous) 08/18/2020 3:51 PM DEPUTY CITY CLERK 08/19/2020 4:31 PM DEPUTY CITY CLERK Troy Virgen M.D. LAB MICROBIOLOG Y - BLOOD ORDERABLES Final Result [facility] [address] [place] [address], [facility] [place] [address] [place] [address] * Hepatitis B Surface Antigen (10/21/2018 2:45 PM CDT) HBs Antigen, S Negative Negative 10/21/2018 9:[address] [facility] Blood (Blood, Venous) 10/21/2018 2:45 PM CDT 10/21/2018 7:31 PM CDT us Jimenez Blackwood Jr., M.D. LAB MICROBIOLOGY - BLOOD ORDERABLES Final Result [facility] [address] [place] [address] from Last 3 Months or Most Recently Relevant to Health Maintenance Insurance [facility] [place] [address] [facility] MEDICARE Care Teams Signal Tower Operator Relationship Specialty Start Date End Date Troy Ventura M.B.B.S., M.D. [address] [place], [place] [address] [id number] PCP - General 07/05/19
[2025-01-26 17:15] VITALS: BP 138/84; PULSE 73; RESP 18; TEMP 35.9; O2SAT 98; BMI 35.0
--- OUTSIDE RECORDS SUMMARY | 2025-01-26 18:08 | XMS_ITS | CCD ---
Author Organization Unknown Care Team Providers Care Job Printer Name Role Phone [employer] Former, [place] Primary Care Provider Unava ilable Unavailable Chronic Care Management Unavaila ble Summary Purpose DataExchange Insurance Providers Payer name Policy type / Coverage type Covered green party ID Effective Begin Date Effective End Date Medicare [place] Medicare Part B [id number] Unknown Unknown Ucare Medicare Part B [id number] Unknown Unknown Family History Family History data not found Medication Administered No Medication Administered data Reason For Visit No Reason For Visit data
--- OUTSIDE RECORDS SUMMARY | 2025-01-26 18:08 | XMS_ITS | CCD ---
Author Organization Unknown Care Team Providers Care Vault Worker Name Role Phone Bi Data Modeler, [place] Primary Care Provider Unava ilable Unavailable Chronic Care Management Unavaila ble Summary Purpose DataExchange Insurance Providers Payer name Policy type / Coverage type Covered democrat ID Effective Begin Date Effective End Date Medicare [place] Medicare Part B [id number] Unknown Unknown Ucare Medicare Part B [id number] Unknown Unknown Family History Family History data not found Medication Administered No Medication Administered data Reason For Visit No Reason For Visit data
--- NOTE | 2025-01-26 19:03 | CT_ITS ---
Patient: ERLIN PATIÑO Facility:?[facility] Patient ID:?[id number] Site Patient ID:?[id number]. Site :?[id number] Study:?CT-Head W/O-01/26/2025 8:39:03 PM Ordering Physician:ZENAIDA Final Report: INDICATION: Headache. COMPARISON: None. TECHNIQUE: CT of the head without IV contrast. Coronal and sagittal reconstructions. FINDINGS: Exam limited by streak artifact from a left sided earring. Brain: No intracranial hemorrhage, abnormal extra-axial fluid collection, or evidence of acute infarct. No mass effect or midline shift. Normal caliber ventricular system. Skull base and calvarium: The visualized paranasal sinuses and mastoid air cells are clear. The visualized orbits are grossly unremarkable. No acute fracture identified. Soft tissues: Unremarkable. IMPRESSION: No acute intracranial findings. Please note that all CT scans at this facility use dose modulation, iterative reconstruction, and/or weight-based dosing when appropriate to reduce radiation dose to as low as reasonably achievable. Dictated by Eunice Tee MD @ 01/26/2025 9:01:16 PM Signed by:?Eunice Tee MD @01/26/2025 9:01:16 PM (Electronic Signature)
--- NOTE | 2025-01-26 19:21 | ED_ITS ---
HPI - General Adult General Date Seen: 01/26/25 Chief complaint: Neuro Symptoms/Altered Deficit Stated complaint: Face drooping, pressure in head Time Seen by Provider: 01/26/25 18:48 Source: patient Mode of arrival: ambulatory Limitations: no limitations History of Present Illness HPI narrative: Patient is a 39-year-old male initially seen by myself and triage room to see if a code stroke needs to be called. He states about 20 minutes prior to arrival he felt right-sided facial numbness, bilateral warmth in his legs, dizziness, right-sided headache and was shaking while sitting with friends. States he was just sitting outside when this started. Since then symptoms have all resolved other than he still has the right-sided temporal headache. No history of headaches like this before. Denies any vision changes. Has not had any weakness, speech issues, memory issues, balance problems. He initially thought he might had some facial droop but that has also since resolved. No other concerns noted at this time. Denies ever having symptoms like this before. No other medical issues other than being on Eliquis for factor 5. Related Data Home Medications ?Medication ?Instructions ?Recorded ?Confirmed citalopram 20 mg tablet 20 mg PO DAILY 02/12/2301/03 propranolol 10 mg tablet 10 mg PO BID 02/12/23 apixaban 2.5 mg tablet (Eliquis) 2.5 mg PO BID 5 01/26/25 Allergies Allergy/AdvReac Type Severity Reaction Status Date / Time azithromycin Allergy Mild Rash Verified 01/26/25 17:22 Penicillins Allergy Mild Hives Verified 01/26/25 17:22 tetracycline Allergy Mild Hives Verified 01/26/25 17:22 Review of Systems Status of ROS: Reports: 10 or more systems reviewed and unremarkable except as noted in History and below [facility] Medical History Factor 5 Leiden mutation, heterozygous ?D68.51 - Activated protein C resistance (ICD-10) DVT (deep venous thrombosis) ?I82.409 - Acute embolism and thrombosis of unspecified deep veins of unspecified lower extremity (ICD-10) Social History Smoking Status: Current every day smoker What tobacco products do you use: cigarettes Smoking packs per day: 0.5 Smoking cigarettes per day: 10.0 Do you use any of these nicotine containing products: None Second hand tobacco smoke exposure: No How often do you have a drink containing alcohol: monthly or less How often do you have six or more drinks on one occasion: Less than monthly AUDIT-C Alcohol total score: 2 Non-prescribed substance use: denies use service: No Exam Narrative: Exam Narrative: Const: Well-nourished, Well-developed, in mild distress Eyes: PERRL, no conjunctival injection, and symmetrical lids HENT: Atraumatic external nose and ears. Moist mucous membranes. Neck: Symmetric, trachea midline, No thyromegaly. CVS: RRR, No murmurs or gallops. Peripheral pulses 2+ and equal in all extremities RESP: Unlabored respiratory effort. Clear to auscultation bilaterally. GI: Nontender/Nondistended, No rebound or guarding. MSK:Extremities w/o deformity, Normal Active ROM Skin: Warm, Dry. No rashes or lesions. Neuro: Normal Muscle tone, Cranial nerves 2-12 grossly intact, normal npyq-rm-phlp, normal afzdds-rl-feyq, normal gait, normal strength 5/5 upper lower extremities bilaterally, normal sensation upper and lower extremities bilaterally, normal rapid alternating movements. Psych: Awake, Alert, & Oriented x3. Appropriate mood and affect. Const: Vital Signs, click to edit/add: Vital Signs - 24 hr 01/26/25 17:15 Temperature 96.6 F L Pulse Rate [Pulse Oximeter] 73 Respiratory Rate 18 Blood Pressure [Ri ght Upper Arm] 138/84 Pulse Oximetry 98 Oxygen Delivery Me thod Room Air Course Vital Signs Vital signs: Initial Vital Signs Temperature 96.6 F L 01/26/25 17:15 Temperature Source Temporal Artery Scan 01/26/25 17:15 Pulse Rate 73 01/26/25 17:15 Pulse Rhythm Regular 01/26/25 17:15 Respiratory Rate 18 01/26/25 17:15 Blood Pressure 138/84 01/26/25 17:15 Blood Pressure Mean 102 01/26/25 17:15 Blood Pressure Position Sitting 01/26/25 17:15 Pulse Oximetry 98 01/26/25 17:15 Oxygen Delivery Method Room Air 01/26/25 17:15 Vital Signs Temperature 96.6 F L 01/26/25 17:15 Pulse Rate 73 01/26/25 17:15 Respiratory Rate 18 01/26/25 17:15 Blood Pressure 138/84 01/26/25 17:15 Pulse Oximetry 98 01/26/25 17:15 Oxygen Delivery Method Room Air 01/26/25 17:15 Temperature 96.6 F L 01/26/25 17:15 Pulse Rate 73 01/26/25 17:15 Respiratory Rate 18 01/26/25 17:15 Blood Pressure 138/84 01/26/25 17:15 Pulse Oximetry 98 01/26/25 17:15 Oxygen Delivery Method Room Air 01/26/25 17:15 Medications Administered Medications: Discontinued Medications Generic Name Dose Route Start Last Admin Trade Name Peggy PRN Reason Stop Dose Admin Diphenhydramine HCl 25 mg 01/26/25 19:03 01/26/25 19:27 Diphenhydramine 50 Mg/Ml Inj IVP 01/26/25 19:04 25 mg ONCE ONE Administration Lactated Ringer's 1,000 mls @ 1,000 mls/hr 01/26/25 19:03 01/26/25 20:00 Lactated Ringers 1000 Ml IV 01/26/25 20:02 Infused .Q1H ONE Infusion Ketorolac Tromethamine 15 mg 01/26/25 19:03 01/26/25 19:27 Ketorolac 15 Mg/Ml Inj IVP 01/26/25 19:04 15 mg ONCE ONE Administration Metoclopramide HCl 10 mg 01/26/25 19:03 01/26/25 19:27 Metoclopramide Hcl 5 Mg/Ml Inj IVP 01/26/25 19:04 10 mg ONCE ONE Administration Medical Decision Making [facility] Narrative Medical decision making narrative: Patient is a 39-year-old male presenting for headache. Code stroke was not called as he is not having any stroke-like symptoms. His main complaint currently is a headache. With his new sudden onset headache I will do a CT scan with for better evaluation. Also order him a migraine cocktail. Do not believe lab work will be beneficial at this time. His only symptom at this time is the headache. Patient is feeling much better after the migraine cocktail. We have long delay in getting results of his CT scan due to issues with whether knocking out the hospital warrant server. CT was still done within 6 hours of onset of his symptoms and I do feel comfortable using it to rule out subarachnoid hemorrhage. Final able to get the CT scan back in it showed no acute abnormalities. Patient is doing well will be discharged. Imaging Data CT scan head: Radiologist's impression: No acute intracranial findings. Please note that all CT scans at this facility use dose modulation, iterative reconstruction, and/or weight-based dosing when appropriate to reduce radiation dose to as low as reasonably achievable. Dictated by Eunice Tee MD @ 01/26/2025 9:01:16 PM Discharge Plan Discharge Clinical Impression: Headache Qualifiers: Headache type: unspecified Headache chronicity pattern: acute headache Intractability: not intractable Qualified Code(s): R51.9 - Headache, unspecified Patient Disposition: Home, Self-Care Condition: Improved Instructions: Acute Headache (DC) Additional Instructions: Take Tylenol and ibuprofen for headache. If you continue to have headaches follow-up with your primary care provider. Return to emergency department for new or worsening symptoms Prescriptions: No Action propranolol 10 mg tablet 10 mg PO BID citalopram 20 mg tablet 20 mg PO DAILY Eliquis 2.5 mg tablet 2.5 mg PO BID Follow Up/Referrals: Troy Ventura MD [Primary Care Provider, Family Practice] Stand Alone Forms: MVERSE Info Instructions
--- OUTSIDE RECORDS SUMMARY | 2025-01-26 19:23 | XMS_ITS | Clinical Summary ---
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 Comment:Antibodies to HCV no t detected; does not exclude the possibility of exposure to HCV. Blood BLOOD SPECIMEN / Unknown Venipuncture / Unknown 03/19/2019 1:10 PM CDT 03/19/2019 1:14 PM CDT us Maddy Medel [employer] NET OR TRAP SEND OUTS Fin al Result [facility] [address] [place] [address], [place] from Last 3 Months or Most Recently Relevant to Health Maintenance Insurance [facility] MEDICARE PART A HB ONLY MEDICARE PART B HB ONLY Care Teams Dewaxer Relationship Specialty Start Date End Date Eunice Juares MD [address] [place] [id number] PCP - General Family Practice 04/27/23
--- OUTSIDE RECORDS SUMMARY | 2025-01-26 19:24 | XMS_ITS | Clinical Summary ---
Author Organization [facility] Address [address] [place] [address] Care Team Providers Care Electrical Helper Name Role Phone Unavailable Primary Care Provider Unavailabl e Source Comments [facility], [facility],non-owned Affiliates and Associated Physician Practices is amultiple site organization consisting of ambulatory clinics and hospital sitesin [place], [place], [place] and [place]. This disclosure is being madepursuant to the Care Everywhere program and may not contain all information available regarding this patient. Last updated 18.[facility] Allergies Active Allergy Reactions Criticality Noted Date [...]
[2025-01-26] MEDS: KETOROLAC 15 MG/ML inj IVP (19:27)
[2025-01-26] MEDS: diphenhydrAMINE 50 MG/ML inj 25 MG IVP (19:27)
[2025-01-26] MEDS: METOCLOPRAMIDE HCL 5 MG/ML INJ 10 MG IVP (19:27)
[2025-01-26] MEDS: LACTATED RINGERS 1000 ML 1,000 ML IV (19:27)
--- OUTSIDE RECORDS SUMMARY | 2025-01-26 20:23 | XMS_ITS | CCD ---
Author Organization Unknown Care Team Providers Care Employee Development Specialist Name Role Phone Associate Veterinarian, [place] Primary Care Provider Unava ilable Unavailable Chronic Care Management Unavaila ble Summary Purpose DataExchange Insurance Providers Payer name Policy type / Coverage type Covered alliance party ID Effective Begin Date Effective End Date Medicare [place] Medicare Part B [id number] Unknown Unknown Ucare Medicare Part B [id number] Unknown Unknown Family History Family History data not found Medication Administered No Medication Administered data Reason For Visit No Reason For Visit data
--- OUTSIDE RECORDS SUMMARY | 2025-01-26 20:23 | XMS_ITS | CCD ---
Author Organization Unknown Care Team Providers Care Foam Molder Name Role Phone Engineering Leader, [place] Primary Care Provider Unava ilable Unavailable Chronic Care Management Unavaila ble Summary Purpose DataExchange Insurance Providers Payer name Policy type / Coverage type Covered libertarian ID Effective Begin Date Effective End Date Medicare [place] Medicare Part B [id number] Unknown Unknown Ucare Medicare Part B [id number] Unknown Unknown Family History Family History data not found Medication Administered No Medication Administered data Reason For Visit No Reason For Visit data
== END 2025-01-26 21:11 | disposition home or self-care (01) ==
PROVIDERS: Emergency Provider Student in an Organized Health Care Education/Training Program; PCP Family Medicine
DX: R51.9 Headache, unspecified (principal)
CPT/HCPCS: 70450; 96374; 96375; 99284; J1200; J1885; J2765; J7120